=== PATIENT | male | born 1980 | race African-American/Black ===

== ENCOUNTER 2018-11-05 13:25 | Inpatient (IN) | payer SELFPAY ==
[~2018-11-05] VITALS: Ht 174 cm; Wt 78.9 kg
[2018-11-05] MEDS ORDERED: IV NORMAL SALINE 1000ML BAG 1,000 ML IV SCH (14:06)
[2018-11-05] MEDS ORDERED: ONDANSETRON PF 4 MG/2 ML VIAL. IV ONE (14:15)
[2018-11-05] MEDS: HYDROmorphone 2 MG/ML VIAL IV/SQ PRN ×2 (15:24→16:19)
[2018-11-05 15:33] LABS: BASO # 0.2 x10^3/uL (0.0-0.2); BASO % 1 % (0-3); EOS # 0.5 x10^3/uL (0.0-0.7); EOS % 4 % (0-3); HEMOGLOBIN 9.7 g/dL (13.0-17.5); LYMPH # 5.8 x10^3/uL (1.0-4.8); LYMPH % 42 % (24-48); MEAN CORPUSCULAR HEMOGLOBIN 31 pg (25-35); MEAN CORPUSCULAR HGB CONC 36 g/dL (31-37); MEAN CORPUSCULAR VOLUME 86 fL (79-100); MONO # 1.6 x10^3/uL (0.0-1.1); MONO % 12 % (0-9); NEUT # 5.7 x10^3/uL (1.8-7.7); NEUT % 41 % (31-73); PLATELET COUNT 299 x10^3/uL (140-400); RED BLOOD COUNT 3.14 x10^6/uL (4.30-5.70); RED CELL DISTRIBUTION WIDTH 28.3 % (11.5-14.5); WHITE BLOOD COUNT 13.8 x10^3/uL (4.0-11.0)
[2018-11-05 15:44] LABS: CALCIUM 8.6 mg/dL (8.5-10.1); CREATININE 0.9 mg/dL (0.7-1.3); GFR 114.3; POTASSIUM 4.1 mmol/L (3.5-5.1)
[2018-11-05 15:50] LABS: ALBUMIN 3.6 g/dL (3.4-5.0); ALBUMIN/GLOBULIN RATIO 1.1 (1.0-1.7)
[2018-11-05] MEDS: IV NORMAL SALINE 1000ML BAG 1,000 ML IV SCH ×3 (17:05→23:45)
--- NOTE | 2018-11-05 17:05 | PHYS DOC ---
Past Medical History Past Medical History: Sickle Cell Disease Past Surgical History: Other Additional Past Surgical Histo: L. SHOULDER AND BILATERAL HIP Alcohol Use: Occasionally Drug Use: None Adult General Chief Complaint Chief Complaint: PAIN CONTROL HPI HPI Patient is a 38-year-old male who presents with acute painful sickle cell crisis. He states that symptoms started yesterday and began in his shoulders and then today pain has moved into the legs and lower back as well. Patient states t hat these are typical areas for his crises. He denies any chest pain or shortness of breath. He also denies any headache or weakness. He rates pain at a 9 out of 10. He denies any nausea or vomiting. He also denies any diarrhea. Patient states that pain is improved by nothing. He does indicate that he has been taking his medications for pain at home but they have not helped with the pain.[] Review of Systems Review of Systems Constitutional: Denies fever or chills [] Respiratory: Denies cough or shortness of breath [] Cardiovascular: No additional information not addressed in HPI [] GI: Denies abdominal pain, nausea, vomiting or diarrhea [] Musculoskeletal: Complains of bilateral shoulder, bilateral leg and lower back pain [] Integument: Denies rash or skin lesions [] Neurologic: Denies headache, focal weakness or sensory changes [] All other systems were reviewed and found to be within normal limits, except as documented in this note. Current Medications Current Medications Current Medications Medications (Trade) Dose Ordered Sig/Shoshana Start Time Stop Time Status Last Admin Dose Admin Hydromorphone HCl (Dilaudid) 1 mg PRN Q15MIN PRN 11/05/18 14:15 11/06/18 14:14 11/05/18 16:19 1 MG Ondansetron HCl (Zofran) 4 mg 1X ONCE 11/05/18 14:15 11/05/18 14:16 DC 11/05/18 15:25 4 MG Sodium Chloride 1,000 ml @ 1,000 mls/hr Q1H 11/05/18 14:06 11/05/18 15:05 DC 11/05/18 15:24 1,000 MLS/HR Allergies Allergies Allergies Coded Allergies Type Severity Reaction Last Updated Verified Sulfa (Sulfonamide Antibiotics) Allergy Intermediate 11/05/18 Yes Physical Exam Physical Exam Constitutional: Well developed, well nourished, in mild distress, non-toxic appearance. [] HENT: Normocephalic, atraumatic, bilateral external ears normal, oropharynx moist, no oral exudates, nose normal. [] Eyes: PERRLA, EOMI, conjunctiva normal, no discharge. [] Neck: Normal range of motion, no tenderness, supple, no stridor. [] Cardiovascular: Regular rate and rhythm[] Lungs & Thorax: Bilateral breath sounds clear to auscultation [] Abdomen: Bowel sounds normal, soft, no tenderness. [] Skin: Warm, dry, no erythema, no rash. [] Extremities: No cyanosis, no clubbing, ROM intact, no edema. [] Neurologic: Alert and oriented X 3, no focal deficits noted. [] Current Patient Data Vital Signs Vital Signs Date Time Temp Pulse Resp B/P (MAP) Pulse Ox O2 Delivery O2 Flow Rate FiO2 11/05/18 16:19 16 97 Room Air 11/05/18 14:13 97.9 69 114/61 (78) 97.9 Lab Values Laboratory Tests Test 11/05/18 15:08 White Blood Count 13.8 x10^3/uL (4.0-11.0) H Red Blood Count 3.17 x10^6/uL (4.30-5.70) L Hemoglobin 9.7 g/dL (13.0-17.5) L Hematocrit 27.0 % (39.0-53.0) L Mean Corpuscular Volume 86 fL (79-100) Mean Corpuscular Hemoglobin 31 pg (25-35) Mean Corpuscular Hemoglobin Concent 36 g/dL (31-37) Red Cell Distribution Width 28.3 % (11.5-14.5) H Platelet Count 299 x10^3/uL (140-400) Neutrophils (%) (Auto) 41 % (31-73) Lymphocytes (%) (Auto) 42 % (24-48) Monocytes (%) (Auto) 12 % (0-9) H Eosinophils (%) (Auto) 4 % (0-3) H Basophils (%) (Auto) 1 % (0-3) Neutrophils # (Auto) 5.7 x10^3/uL (1.8-7.7) Lymphocytes # (Auto) 5.8 x10^3/uL (1.0-4.8) H Monocytes # (Auto) 1.6 x10^3/uL (0.0-1.1) H Eosinophils # (Auto) 0.5 x10^3/uL (0.0-0.7) Basophils # (Auto) 0.2 x10^3/uL (0.0-0.2) Platelet Estimate Pending Absolute Reticulocyte Count 0.415 x10^6/uL (0.020-0.120) Percent Reticulocyte Count 13.1 % (0.5-2.3) H Immature Reticulocyte Fraction 0.71 (0.20-0.60) H Sodium Level 139 mmol/L (136-145) Potassium Level 4.1 mmol/L (3.5-5.1) Chloride Level 107 mmol/L (98-107) Carbon Dioxide Level 24 mmol/L (21-32) Anion Gap 8 (6-14) Blood Urea Nitrogen 7 mg/dL (8-26) L Creatinine 0.9 mg/dL (0.7-1.3) Estimated GFR (Cockcroft-Gault) 114.3 BUN/Creatinine Ratio 8 (6-20) Glucose Level 103 mg/dL (70-99) H Calcium Level 8.6 mg/dL (8.5-10.1) Total Bilirubin 5.0 mg/dL (0.2-1.0) H Aspartate Amino Transferase (AST) 33 U/L (15-37) Alanine Aminotransferase (ALT) 18 U/L (16-63) Alkaline Phosphatase 87 U/L (46-116) Total Protein 7.0 g/dL (6.4-8.2) Albumin 3.6 g/dL (3.4-5.0) Albumin/Globulin Ratio 1.1 (1.0-1.7) Laboratory Tests 11/05/18 15:08 Laboratory Tests 11/05/18 15:08 EKG EKG [] Radiology/Procedures Radiology/Procedures [] Course & Med Decision Making Course & Med Decision Making Pertinent Labs and Imaging studies reviewed. (See chart for details) [] Dragon Disclaimer Dragon Disclaimer This electronic medical record was generated, in whole or in part, using a voice recognition dictation system. Departure Departure Impression: Primary Impression: Sickle cell crisis Disposition: ADMITTED INPATIENT Admitting Physician: MCKENNA (Dr. Termulo) Condition: IMPROVED Referrals: BISMARK MOTT MD (PCP) RONIT CASPER Jr. DO Nov 05, 2018 17:05
--- NOTE | 2018-11-05 17:10 | PDOC1 ---
History and Physical Date of Admission Date of Admission DATE: 11/05/18 TIME: 17:06 Identification/Chief Complaint Chief Complaint both hips and shoulder hurts, sickle cell pain Source Source: Caregiver, Chart review, Patient History of Present Illness History of Present Illness 38 AA male, known pt of Dr Glenys lu for sickle cell comes for a crisis with retic ct 13, pain both shoulder and hips, no hypoxia, not anemia, Ate good but still in pain recalcitrant to ER tx. NO prev admits here from [facility] records HE request benadryl IV for the itch HE takes dilaudid 2 mg PO q3 prn and percocet 10 q something prn at home FULL CODE seen at ER Past Medical History Heme/Onc: Anemia NOS, Sickle cell disease, Sickle cell trait Past Surgical History Past Surgical History: No pertinent history Family History Family History: No Significant Social History Smoke: No ALCOHOL: none Drugs: None Current Medications Current Medications Current Medications Hydromorphone HCl (Dilaudid) 1 mg PRN Q15MIN PRN IV/SQ PAIN GREATER THAN 3/10 Last administered on 11/05/18at 16:19; Start 11/05/18 at 14:15; Stop 11/06/18 at 14:14 Sodium Chloride 1,000 ml @ 1,000 mls/hr Q1H IV Last administered on 11/05/18at 15:24; Start 11/05/18 at 14:06; Stop 11/05/18 at 15:05; Status DC Ondansetron HCl (Zofran) 4 mg 1X ONCE IV Last administered on 11/05/18at 15:25; Start 11/05/18 at 14:15; Stop 11/05/18 at 14:16; Status DC Allergies Allergies: Coded Allergies: Sulfa (Sulfonamide Antibiotics) (Verified Allergy, Intermediate, 11/05/18) ROS Review of System as per hpi, rest 14 pt neg Physical Exam General: Alert, Oriented X3, Cooperative, No acute distress, Other (uncomfortable , in pain) HEENT: PERRLA, EOMI Lungs: Clear to auscultation, Normal air movement Heart: S1S2, RRR, no thrills, no rubs, no gallops, no murmurs Cardiovascular: S1, S2 Male Genitals Exam: normal genitalia, normal prostate Rectal Exam: not examined Extremities: No clubbing, No cyanosis, No edema, Normal pulses, No tenderness/swelling Skin: No rashes, No breakdown, No significant lesion Neuro: Normal gait, Normal speech, Strength at 5/5 X4 ext, Normal tone, Sensation intact, Cranial nerves 3-12 NL, Reflexes 2+ Psych/Mental Status: Mental status NL, Mood NL Vitals Vitals Vital Signs Date Time Temp Pulse Resp B/P (MAP) Pulse Ox O2 Delivery O2 Flow Rate FiO2 11/05/18 16:19 16 97 Room Air 11/05/18 14:13 97.9 69 114/61 (78) 97.9 Labs Labs Laboratory Tests Test 11/05/18 15:08 White Blood Count 13.8 x10^3/uL (4.0-11.0) Red Blood Count 3.17 x10^6/uL (4.30-5.70) Hemoglobin 9.7 g/dL (13.0-17.5) Hematocrit 27.0 % (39.0-53.0) Mean Corpuscular Volume 86 fL (79-100) Mean Corpuscular Hemoglobin 31 pg (25-35) Mean Corpuscular Hemoglobin Concent 36 g/dL (31-37) Red Cell Distribution Width 28.3 % (11.5-14.5) Platelet Count 299 x10^3/uL (140-400) Neutrophils (%) (Auto) 41 % (31-73) Lymphocytes (%) (Auto) 42 % (24-48) Monocytes (%) (Auto) 12 % (0-9) Eosinophils (%) (Auto) 4 % (0-3) Basophils (%) (Auto) 1 % (0-3) Neutrophils # (Auto) 5.7 x10^3/uL (1.8-7.7) Lymphocytes # (Auto) 5.8 x10^3/uL (1.0-4.8) Monocytes # (Auto) 1.6 x10^3/uL (0.0-1.1) Eosinophils # (Auto) 0.5 x10^3/uL (0.0-0.7) Basophils # (Auto) 0.2 x10^3/uL (0.0-0.2) Absolute Reticulocyte Count 0.415 x10^6/uL (0.020-0.120) Percent Reticulocyte Count 13.1 % (0.5-2.3) Immature Reticulocyte Fraction 0.71 (0.20-0.60) Sodium Level 139 mmol/L (136-145) Potassium Level 4.1 mmol/L (3.5-5.1) Chloride Level 107 mmol/L (98-107) Carbon Dioxide Level 24 mmol/L (21-32) Anion Gap 8 (6-14) Blood Urea Nitrogen 7 mg/dL (8-26) Creatinine 0.9 mg/dL (0.7-1.3) Estimated GFR (Cockcroft-Gault) 114.3 BUN/Creatinine Ratio 8 (6-20) Glucose Level 103 mg/dL (70-99) Calcium Level 8.6 mg/dL (8.5-10.1) Total Bilirubin 5.0 mg/dL (0.2-1.0) Aspartate Amino Transf (AST/SGOT) 33 U/L (15-37) Alanine Aminotransferase (ALT/SGPT) 18 U/L (16-63) Alkaline Phosphatase 87 U/L (46-116) Total Protein 7.0 g/dL (6.4-8.2) Albumin 3.6 g/dL (3.4-5.0) Albumin/Globulin Ratio 1.1 (1.0-1.7) Laboratory Tests Test 11/05/18 15:08 White Blood Count 13.8 x10^3/uL (4.0-11.0) Red Blood Count 3.17 x10^6/uL (4.30-5.70) Hemoglobin 9.7 g/dL (13.0-17.5) Hematocrit 27.0 % (39.0-53.0) Mean Corpuscular Volume 86 fL (79-100) Mean Corpuscular Hemoglobin 31 pg (25-35) Mean Corpuscular Hemoglobin Concent 36 g/dL (31-37) Red Cell Distribution Width 28.3 % (11.5-14.5) Platelet Count 299 x10^3/uL (140-400) Neutrophils (%) (Auto) 41 % (31-73) Lymphocytes (%) (Auto) 42 % (24-48) Monocytes (%) (Auto) 12 % (0-9) Eosinophils (%) (Auto) 4 % (0-3) Basophils (%) (Auto) 1 % (0-3) Neutrophils # (Auto) 5.7 x10^3/uL (1.8-7.7) Lymphocytes # (Auto) 5.8 x10^3/uL (1.0-4.8) Monocytes # (Auto) 1.6 x10^3/uL (0.0-1.1) Eosinophils # (Auto) 0.5 x10^3/uL (0.0-0.7) Basophils # (Auto) 0.2 x10^3/uL (0.0-0.2) Absolute Reticulocyte Count 0.415 x10^6/uL (0.020-0.120) Percent Reticulocyte Count 13.1 % (0.5-2.3) Immature Reticulocyte Fraction 0.71 (0.20-0.60) Sodium Level 139 mmol/L (136-145) Potassium Level 4.1 mmol/L (3.5-5.1) Chloride Level 107 mmol/L (98-107) Carbon Dioxide Level 24 mmol/L (21-32) Anion Gap 8 (6-14) Blood Urea Nitrogen 7 mg/dL (8-26) Creatinine 0.9 mg/dL (0.7-1.3) Estimated GFR (Cockcroft-Gault) 114.3 BUN/Creatinine Ratio 8 (6-20) Glucose Level 103 mg/dL (70-99) Calcium Level 8.6 mg/dL (8.5-10.1) Total Bilirubin 5.0 mg/dL (0.2-1.0) Aspartate Amino Transf (AST/SGOT) 33 U/L (15-37) Alanine Aminotransferase (ALT/SGPT) 18 U/L (16-63) Alkaline Phosphatase 87 U/L (46-116) Total Protein 7.0 g/dL (6.4-8.2) Albumin 3.6 g/dL (3.4-5.0) Albumin/Globulin Ratio 1.1 (1.0-1.7) VTE Prophylaxis Ordered VTE Prophylaxis Devices: Yes VTE Pharmacological Prophylaxi: Yes Assessment/Plan Assessment/Plan 1. Sickel cell crisis/pain\ PLAN: IVF aggressive hydrate NOt on any folate? etc HEme onc courtesy consult Pain control plus bowel regimen (i resumed home pain regimen) FUll code Reg diet BEnadryl ok Other supprotive meds Ambulate ad sandra Seen at ER FULL CODE CANDIDO MITCHELL MD Nov 05, 2018 17:10
[2018-11-05] MEDS ORDERED: HYDROmorphone 4 MG TABLET PO PRN (17:15)
[2018-11-05] MEDS ORDERED: ONDANSETRON PF 4 MG/2 ML VIAL. IVP PRN (17:15)
[2018-11-05] MEDS ORDERED: fentaNYL PF VIAL 100 MCG/2 ML VIAL IV PRN (17:15)
[2018-11-05] MEDS ORDERED: MAGNESIUM HYDROXIDE 2,400 MG/30 ML ORAL.SUSP. PO PRN (17:15)
[2018-11-05] MEDS ORDERED: ZOLPIDEM 5 MG TABLET. PO PRN (17:15)
[2018-11-05 19:00] VITALS: BP 107/56
[2018-11-05 19:13] LABS: % EOS 1 % (0-5); % LYMPHS 27 % (24-48); % MONOS 15 % (0-10); % SEGS 57 % (35-66); ANISOCYTOSIS MOD; PLT ESTIMATE ADEQUATE (ADEQUATE); POLYCHROMASIA SLIGHT; SCHISTOCYTES OCC; SICKLE CELLS MOD
[2018-11-05] MEDS: oxyCODONE/APAP 10/325 1 TAB TABLET PO PRN (19:37)
[2018-11-05] MEDS: diphenhydrAMINE 50 MG/ML VIAL IVP PRN (19:37)
--- NOTE | 2018-11-05 19:45 | NUR ---
ADMIT NOTE The patient, ANETA CASPER, 38 y/o, M admitted by CANDIDO MITCHELL MD, was given written information regarding hospital policies, unit procedures and contact persons. Report rcvd. from NADER Doty and patient orientated to unit. Patient's VSS, afebrile, with severe c/o pain upon admission. Patient admission assessment complete, admit packet reviewed, and plan of care discussed. Personal belongings were checked and left in room with patient. Patient declined SCDs at this time and is resting in bed, call light within reach and bed in lowest/locked position, will continue to monitor.
[2018-11-05] MEDS: HYDROmorphone 2 MG/ML VIAL IV PRN (21:06)
[2018-11-05 23:10] VITALS: BP 98/52
[2018-11-06] MEDS: oxyCODONE/APAP 10/325 1 TAB TABLET PO PRN ×2 (00:07→22:30)
[2018-11-06] MEDS: diphenhydrAMINE 50 MG/ML VIAL IVP PRN ×4 (02:00→20:46)
[2018-11-06] MEDS: IV NORMAL SALINE 1000ML BAG 1,000 ML IV SCH ×6 (02:00→19:55)
[2018-11-06] MEDS: HYDROmorphone 2 MG/ML VIAL IV PRN ×6 (02:01→23:16)
[2018-11-06 03:00] VITALS: BP 92/54
--- NOTE | 2018-11-06 05:55 | NUR ---
Patient requested pain medication, this nurse brought patient Oxycodone as it was the next available pain med that could be administered. after barcode scan and already opening the medication, patient decided the pain medication wasn't effective and refused administration. Patient stated, "This pill isn't working for me, when is my Dilaudid due?". This nurse informed patient of next available dose and medication wasted in [employer].
[2018-11-06 07:00] VITALS: BP 81/37
[2018-11-06] MEDS: DOCUSATE SODIUM 100 MG CAPSULE. PO SCH (09:00)
[2018-11-06] MEDS: POLYETHYLENE GLYCOL 3350 17 GM PACKET. PO SCH (09:00)
--- NOTE | 2018-11-06 09:47 | PDOC ---
PROGRESS NOTES Chief Complaint Chief Complaint 1. Sickel cell crisis/pain\ History of Present Illness History of Present Illness He has a left IJ and he iss having difficulties with it He requests a PICC line HE request more iV dilauid dose Lab did not draw my repeat H&H or retic ct because he is a hard stick Fluids are running at 1 50 mL an hour Hemoglobin is stable Claims he was seen by his heme onc Dr. Glenys Marques on Thursday Plan : PICC line, continue 1 50 mL saline H&H reticulocyte count I agree with PICC line because lab cannot even draw blood and I need blood work to help with my treatment Inc dilaudid to 2mgs,same freq Vitals Vitals Vital Signs Date Time Temp Pulse Resp B/P (MAP) Pulse Ox O2 Delivery O2 Flow Rate FiO2 11/06/18 07:00 97.8 71 20 81/37 (52) 92 Room Air 97.8 Physical Exam General: Alert, Oriented X3, Cooperative, No acute distress, Other (uncomfortable , in pain) Extremities: No clubbing, No cyanosis, No edema, Normal pulses, No tend erness/swelling Skin: No rashes, No breakdown, No significant lesion Labs LABS Laboratory Tests Test 11/05/18 15:08 White Blood Count 13.8 x10^3/uL (4.0-11.0) Red Blood Count 3.17 x10^6/uL (4.30-5.70) Hemoglobin 9.7 g/dL (13.0-17.5) Hematocrit 27.0 % (39.0-53.0) Mean Corpuscular Volume 86 fL (79-100) Mean Corpuscular Hemoglobin 31 pg (25-35) Mean Corpuscular Hemoglobin Concent 36 g/dL (31-37) Red Cell Distribution Width 28.3 % (11.5-14.5) Platelet Count 299 x10^3/uL (140-400) Neutrophils (%) (Auto) 41 % (31-73) Lymphocytes (%) (Auto) 42 % (24-48) Monocytes (%) (Auto) 12 % (0-9) Eosinophils (%) (Auto) 4 % (0-3) Basophils (%) (Auto) 1 % (0-3) Neutrophils # (Auto) 5.7 x10^3/uL (1.8-7.7) Lymphocytes # (Auto) 5.8 x10^3/uL (1.0-4.8) Monocytes # (Auto) 1.6 x10^3/uL (0.0-1.1) Eosinophils # (Auto) 0.5 x10^3/uL (0.0-0.7) Basophils # (Auto) 0.2 x10^3/uL (0.0-0.2) Segmented Neutrophils % 57 % (35-66) Lymphocytes % 27 % (24-48) Monocytes % 15 % (0-10) Eosinophils % 1 % (0-5) Platelet Estimate Adequate (ADEQUATE) Large Platelets Occ Polychromasia Slight Anisocytosis Mod Sickle Cells Mod Crenated Cell Schistocytes Occ Absolute Reticulocyte Count 0.415 x10^6/uL (0.020-0.120) Percent Reticulocyte Count 13.1 % (0.5-2.3) Immature Reticulocyte Fraction 0.71 (0.20-0.60) Sodium Level 139 mmol/L (136-145) Potassium Level 4.1 mmol/L (3.5-5.1) Chloride Level 107 mmol/L (98-107) Carbon Dioxide Level 24 mmol/L (21-32) Anion Gap 8 (6-14) Blood Urea Nitrogen 7 mg/dL (8-26) Creatinine 0.9 mg/dL (0.7-1.3) Estimated GFR (Cockcroft-Gault) 114.3 BUN/Creatinine Ratio 8 (6-20) Glucose Level 103 mg/dL (70-99) Calcium Level 8.6 mg/dL (8.5-10.1) Total Bilirubin 5.0 mg/dL (0.2-1.0) Aspartate Amino Transf (AST/SGOT) 33 U/L (15-37) Alanine Aminotransferase (ALT/SGPT) 18 U/L (16-63) Alkaline Phosphatase 87 U/L (46-116) Total Protein 7.0 g/dL (6.4-8.2) Albumin 3.6 g/dL (3.4-5.0) Albumin/Globulin Ratio 1.1 (1.0-1.7) Review of Systems Review of Systems bilateral hip pain, bilateral shoulder pain Comment Review of Relevant I have reviewed the following items jorge luis (where applicable) has been applied. Labs Laboratory Tests Test 11/05/18 15:08 White Blood Count 13.8 x10^3/uL (4.0-11.0) Red Blood Count 3.17 x10^6/uL (4.30-5.70) Hemoglobin 9.7 g/dL (13.0-17.5) Hematocrit 27.0 % (39.0-53.0) Mean Corpuscular Volume 86 fL (79-100) Mean Corpuscular Hemoglobin 31 pg (25-35) Mean Corpuscular Hemoglobin Concent 36 g/dL (31-37) Red Cell Distribution Width 28.3 % (11.5-14.5) Platelet Count 299 x10^3/uL (140-400) Neutrophils (%) (Auto) 41 % (31-73) Lymphocytes (%) (Auto) 42 % (24-48) Monocytes (%) (Auto) 12 % (0-9) Eosinophils (%) (Auto) 4 % (0-3) Basophils (%) (Auto) 1 % (0-3) Neutrophils # (Auto) 5.7 x10^3/uL (1.8-7.7) Lymphocytes # (Auto) 5.8 x10^3/uL (1.0-4.8) Monocytes # (Auto) 1.6 x10^3/uL (0.0-1.1) Eosinophils # (Auto) 0.5 x10^3/uL (0.0-0.7) Basophils # (Auto) 0.2 x10^3/uL (0.0-0.2) Segmented Neutrophils % 57 % (35-66) Lymphocytes % 27 % (24-48) Monocytes % 15 % (0-10) Eosinophils % 1 % (0-5) Platelet Estimate Adequate (ADEQUATE) Large Platelets Occ Polychromasia Slight Anisocytosis Mod Sickle Cells Mod Crenated Cell Schistocytes Occ Absolute Reticulocyte Count 0.415 x10^6/uL (0.020-0.120) Percent Reticulocyte Count 13.1 % (0.5-2.3) Immature Reticulocyte Fraction 0.71 (0.20-0.60) Sodium Level 139 mmol/L (136-145) Potassium Level 4.1 mmol/L (3.5-5.1) Chloride Level 107 mmol/L (98-107) Carbon Dioxide Level 24 mmol/L (21-32) Anion Gap 8 (6-14) Blood Urea Nitrogen 7 mg/dL (8-26) Creatinine 0.9 mg/dL (0.7-1.3) Estimated GFR (Cockcroft-Gault) 114.3 BUN/Creatinine Ratio 8 (6-20) Glucose Level 103 mg/dL (70-99) Calcium Level 8.6 mg/dL (8.5-10.1) Total Bilirubin 5.0 mg/dL (0.2-1.0) Aspartate Amino Transf (AST/SGOT) 33 U/L (15-37) Alanine Aminotransferase (ALT/SGPT) 18 U/L (16-63) Alkaline Phosphatase 87 U/L (46-116) Total Protein 7.0 g/dL (6.4-8.2) Albumin 3.6 g/dL (3.4-5.0) Albumin/Globulin Ratio 1.1 (1.0-1.7) Laboratory Tests Test 11/05/18 15:08 White Blood Count 13.8 x10^3/uL (4.0-11.0) Red Blood Count 3.17 x10^6/uL (4.30-5.70) Hemoglobin 9.7 g/dL (13.0-17.5) Hematocrit 27.0 % (39.0-53.0) Mean Corpuscular Volume 86 fL (79-100) Mean Corpuscular Hemoglobin 31 pg (25-35) Mean Corpuscular Hemoglobin Concent 36 g/dL (31-37) Red Cell Distribution Width 28.3 % (11.5-14.5) Platelet Count 299 x10^3/uL (140-400) Neutrophils (%) (Auto) 41 % (31-73) Lymphocytes (%) (Auto) 42 % (24-48) Monocytes (%) (Auto) 12 % (0-9) Eosinophils (%) (Auto) 4 % (0-3) Basophils (%) (Auto) 1 % (0-3) Neutrophils # (Auto) 5.7 x10^3/uL (1.8-7.7) Lymphocytes # (Auto) 5.8 x10^3/uL (1.0-4.8) Monocytes # (Auto) 1.6 x10^3/uL (0.0-1.1) Eosinophils # (Auto) 0.5 x10^3/uL (0.0-0.7) Basophils # (Auto) 0.2 x10^3/uL (0.0-0.2) Segmented Neutrophils % 57 % (35-66) Lymphocytes % 27 % (24-48) Monocytes % 15 % (0-10) Eosinophils % 1 % (0-5) Platelet Estimate Adequate (ADEQUATE) Large Platelets Occ Polychromasia Slight Anisocytosis Mod Sickle Cells Mod Crenated Cell Schistocytes Occ Absolute Reticulocyte Count 0.415 x10^6/uL (0.020-0.120) Percent Reticulocyte Count 13.1 % (0.5-2.3) Immature Reticulocyte Fraction 0.71 (0.20-0.60) Sodium Level 139 mmol/L (136-145) Potassium Level 4.1 mmol/L (3.5-5.1) Chloride Level 107 mmol/L (98-107) Carbon Dioxide Level 24 mmol/L (21-32) Anion Gap 8 (6-14) Blood Urea Nitrogen 7 mg/dL (8-26) Creatinine 0.9 mg/dL (0.7-1.3) Estimated GFR (Cockcroft-Gault) 114.3 BUN/Creatinine Ratio 8 (6-20) Glucose Level 103 mg/dL (70-99) Calcium Level 8.6 mg/dL (8.5-10.1) Total Bilirubin 5.0 mg/dL (0.2-1.0) Aspartate Amino Transf (AST/SGOT) 33 U/L (15-37) Alanine Aminotransferase (ALT/SGPT) 18 U/L (16-63) Alkaline Phosphatase 87 U/L (46-116) Total Protein 7.0 g/dL (6.4-8.2) Albumin 3.6 g/dL (3.4-5.0) Albumin/Globulin Ratio 1.1 (1.0-1.7) Medications Current Medications Hydromorphone HCl (Dilaudid) 1 mg PRN Q15MIN PRN IV/SQ PAIN GREATER THAN 3/10 Last administered on 11/05/18at 16:19; Start 11/05/18 at 14:15; Stop 11/06/18 at 14:14 Sodium Chloride 1,000 ml @ 1,000 mls/hr Q1H IV Last administered on 11/05/18at 15:24; Start 11/05/18 at 14:06; Stop 11/05/18 at 15:05; Status DC Ondansetron HCl (Zofran) 4 mg 1X ONCE IV Last administered on 11/05/18at 15:25; Start 11/05/18 at 14:15; Stop 11/05/18 at 14:16; Status DC Diphenhydramine HCl (Benadryl) 25 mg PRN Q6HRS PRN IVP ITCHING Last administered on 11/06/18at 08:04; Start 11/05/18 at 17:15 Zolpidem Tartrate (Ambien) 5 mg PRN QHS PRN PO INSOMNIA; Start 11/05/18 at 17:15 Oxycodone/ Acetaminophen (Percocet 10/325) 1 tab PRN Q4HRS PRN PO MODERATE PAIN Last administered on 11/06/18at 00:07; Start 11/05/18 at 17:15 Hydromorphone HCl (Dilaudid) 1 mg PRN Q4HRS PRN IV SEVERE PAIN Last administered on 11/06/18at 06:12; Start 11/05/18 at 17:15 Hydromorphone HCl (Dilaudid) 4 mg PRN Q4HRS PRN PO SEVERE PAIN; Start 11/05/18 at 17:15 Fentanyl Citrate (Fentanyl 2ml Vial) 50 mcg PRN Q2HR PRN IV MODERATE PAIN; Start 11/05/18 at 17:15 Docusate Sodium (Colace) 100 mg DAILY PO ; Start 11/06/18 at 09:00 Polyethylene Glycol (miraLAX PACKET) 17 gm DAILY PO ; Start 11/06/18 at 09:00 Magnesium Hydroxide (Milk Of Magnesia) 2,400 mg PRN DAILY PRN PO CONSTIPATION; Start 11/05/18 at 17:15 Acetaminophen (Tylenol) 500 mg PRN Q6HRS PRN PO MILD PAIN / TEMP; Start 11/05/18 at 17:15 Ondansetron HCl (Zofran) 4 mg PRN Q6HRS PRN IVP NAUSEA/VOMITING; Start 11/05/18 at 17:15 Sodium Chloride 1,000 ml @ 150 mls/hr Q6H40M IV ; Start 11/05/18 at 17:05; Stop 11/06/18 at 17:04 Sodium Chloride 1,000 ml @ 150 mls/hr Q6H40M IV Last administered on 11/06/18at 08:09; Start 11/05/18 at 17:15 Vitals/I & O Vital Sign - Last 24 Hours 11/05/18 11/05/18 11/05/18 11/05/18 14:13 15:24 16:16 16:16 Temp 97.9 97.9 Pulse 69 84 Resp 20 16 16 20 B/P (MAP) 114/61 (78) Pulse Ox 92 93 97 O2 Delivery Room Air Room Air Room Air 11/05/18 11/05/18 11/05/18 11/05/18 16:19 19:00 19:37 19:45 Temp 98.1 98.1 Pulse 76 Resp 16 18 16 B/P (MAP) 107/56 (73) Pulse Ox 97 93 O2 Delivery Room Air Room Air Room Air Room Air 11/05/18 11/05/18 11/05/18 11/05/18 21:06 21:09 21:40 23:10 Temp 97.4 97.4 Pulse 68 Resp 18 16 14 18 B/P (MAP) 98/52 (67) Pulse Ox 91 O2 Delivery Room Air Room Air Room Air Room Air 11/06/18 11/06/18 11/06/18 11/06/18 00:07 01:20 02:01 02:36 Resp 16 16 18 16 O2 Delivery Room Air Room Air Room Air Room Air 11/06/18 11/06/18 11/06/18 03:00 06:12 07:00 Temp 97.9 97.8 97.9 97.8 Pulse 65 71 Resp 20 16 20 B/P (MAP) 92/54 (67) 81/37 (52) Pulse Ox 90 92 O2 Delivery Room Air Room Air Room Air Intake and Output 11/05/18 11/05/18 11/06/18 15:00 23:00 07:00 Intake Total 540 ml 730 ml Balance 540 ml 730 ml CANDIDO MITCHELL MD Nov 06, 2018 09:47
--- NOTE | 2018-11-06 10:41 | PDOC2 ---
CONSULT Date of Consult Date of Consult DATE: 11/06/18 TIME: :28 Reason for Consult Reason for Consult: sickle cell crisis Identification/Chief Complaint Chief Complaint sickle cell crisis History of Present Illness Reason for Visit: sickle cell anemia, he began having problems about 2 years old, now has chronic back pain and joint pains Hemoglobin electrophoresis consistent with SS disease with 9% hemoglobin, has been on Hydrea intermittently Avascular necrosis with left shoulder surgery in 2007 and left shoulder inj ection in 2017, L shoulder replacement 03/30, w/ bilateral hip injection 05/28 History of UTI, depression and anxiety, BuSpar did not help (likes xanax, Dr Marques will not Rx) No longer in [facility], but has anklet on for probation Has been followed by [facility] for frequent ER visits and occasional hospitalization as well as [facility] Dr. Neo Borjas as an adult as well as [facility] and [facility] He does believe he has had acute chest syndrome in the past in 2002 He does not remember ever getting exchange transfusion, denies any history of VTE or arterial thrombosis Has had about 5 episodes of blood transfusions in the past Did have priapism a couple times as a teen Has mild crises about twice per month requiring frequent ER visits - just got out of last week Has been on Hydrea about 6-7 years in the past and recently restarted in October 2017, w/ intermittent compliance [facility] to Was seen yesterday in clinic by Dr Marques, who would not prescribe certain meds. So then yest afternoon went to [facility] with ongoing pain Past Medical History Heme/Onc: Anemia NOS, Sickle cell disease Past Surgical History Past Surgical History: No pertinent history Family History Family History: No Significant Social History No ALCOHOL: none Drugs: None Lives: with Family Current Medications Current Medications Current Medications Hydromorphone HCl (Dilaudid) 1 mg PRN Q15MIN PRN IV/SQ PAIN GREATER THAN 3/10 Last administered on 11/05/18at 16:19; Start 11/05/18 at 14:15; Stop 11/06/18 at 14:14 Sodium Chloride 1,000 ml @ 1,000 mls/hr Q1H IV Last administered on 11/05/18at 15:24; Start 11/05/18 at 14:06; Stop 11/05/18 at 15:05; Status DC Ondansetron HCl (Zofran) 4 mg 1X ONCE IV Last administered on 11/05/18at 15:25; Start 11/05/18 at 14:15; Stop 11/05/18 at 14:16; Status DC Diphenhydramine HCl (Benadryl) 25 mg PRN Q6HRS PRN IVP ITCHING Last administered on 11/06/18at 08:04; Start 11/05/18 at 17:15 Zolpidem Tartrate (Ambien) 5 mg PRN QHS PRN PO INSOMNIA; Start 11/05/18 at 17:15 Oxycodone/ Acetaminophen (Percocet 10/325) 1 tab PRN Q4HRS PRN PO MODERATE PAIN Last administered on 11/06/18at 00:07; Start 11/05/18 at 17:15 Hydromorphone HCl (Dilaudid) 1 mg PRN Q4HRS PRN IV SEVERE PAIN Last administered on 11/06/18at 06:12; Start 11/05/18 at 17:15; Stop 11/06/18 at 09:48; Status DC Hydromorphone HCl (Dilaudid) 4 mg PRN Q4HRS PRN PO SEVERE PAIN; Start 11/05/18 at 17:15 Fentanyl Citrate (Fentanyl 2ml Vial) 50 mcg PRN Q2HR PRN IV MODERATE PAIN; Start 11/05/18 at 17:15 Docusate Sodium (Colace) 100 mg DAILY PO ; Start 11/06/18 at 09:00 Polyethylene Glycol (miraLAX PACKET) 17 gm DAILY PO ; Start 11/06/18 at 09:00 Magnesium Hydroxide (Milk Of Magnesia) 2,400 mg PRN DAILY PRN PO CONSTIPATION; Start 11/05/18 at 17:15 Acetaminophen (Tylenol) 500 mg PRN Q6HRS PRN PO MILD PAIN / TEMP; Start 11/05/18 at 17:15 Ondansetron HCl (Zofran) 4 mg PRN Q6HRS PRN IVP NAUSEA/VOMITING; Start 11/05/18 at 17:15 Sodium Chloride 1,000 ml @ 150 mls/hr Q6H40M IV ; Start 11/05/18 at 17:05; Stop 11/06/18 at 17:04 Sodium Chloride 1,000 ml @ 150 mls/hr Q6H40M IV Last administered on 11/06/18at 08:09; Start 11/05/18 at 17:15 Hydromorphone HCl (Dilaudid) 2 mg PRN Q4HRS PRN IV SEVERE PAIN; Start 11/06/18 at 10:00 Allergies Allergies: Coded Allergies: Sulfa (Sulfonamide Antibiotics) (Verified Allergy, Intermediate, 11/05/18) Physical Exam General: Alert, Oriented X3, No acute distress HEENT: Atraumatic, PERRLA Lungs: Clear to auscultation Heart: Regular rate Abdomen: Normal bowel sounds, No hepatosplenomegaly Extremities: No edema, No tenderness/swelling Skin: No rashes, No breakdown, No significant lesion Neuro: Normal gait, Normal speech, Normal tone Psych/Mental Status: Mental status NL Vitals VITALS Vital Signs Date Time Temp Pulse Resp B/P (MAP) Pulse Ox O2 Delivery O2 Flow Rate FiO2 11/06/18 07:00 97.8 71 20 81/37 (52) 92 Room Air 97.8 Labs Labs Laboratory Tests Test 11/05/18 15:08 White Blood Count 13.8 x10^3/uL (4.0-11.0) Red Blood Count 3.17 x10^6/uL (4.30-5.70) Hemoglobin 9.7 g/dL (13.0-17.5) Hematocrit 27.0 % (39.0-53.0) Mean Corpuscular Volume 86 fL (79-100) Mean Corpuscular Hemoglobin 31 pg (25-35) Mean Corpuscular Hemoglobin Concent 36 g/dL (31-37) Red Cell Distribution Width 28.3 % (11.5-14.5) Platelet Count 299 x10^3/uL (140-400) Neutrophils (%) (Auto) 41 % (31-73) Lymphocytes (%) (Auto) 42 % (24-48) Monocytes (%) (Auto) 12 % (0-9) Eosinophils (%) (Auto) 4 % (0-3) Basophils (%) (Auto) 1 % (0-3) Neutrophils # (Auto) 5.7 x10^3/uL (1.8-7.7) Lymphocytes # (Auto) 5.8 x10^3/uL (1.0-4.8) Monocytes # (Auto) 1.6 x10^3/uL (0.0-1.1) Eosinophils # (Auto) 0.5 x10^3/uL (0.0-0.7) Basophils # (Auto) 0.2 x10^3/uL (0.0-0.2) Segmented Neutrophils % 57 % (35-66) Lymphocytes % 27 % (24-48) Monocytes % 15 % (0-10) Eosinophils % 1 % (0-5) Platelet Estimate Adequate (ADEQUATE) Large Platelets Occ Polychromasia Slight Anisocytosis Mod Sickle Cells Mod Crenated Cell Schistocytes Occ Absolute Reticulocyte Count 0.415 x10^6/uL (0.020-0.120) Percent Reticulocyte Count 13.1 % (0.5-2.3) Immature Reticulocyte Fraction 0.71 (0.20-0.60) Sodium Level 139 mmol/L (136-145) Potassium Level 4.1 mmol/L (3.5-5.1) Chloride Level 107 mmol/L (98-107) Carbon Dioxide Level 24 mmol/L (21-32) Anion Gap 8 (6-14) Blood Urea Nitrogen 7 mg/dL (8-26) Creatinine 0.9 mg/dL (0.7-1.3) Estimated GFR (Cockcroft-Gault) 114.3 BUN/Creatinine Ratio 8 (6-20) Glucose Level 103 mg/dL (70-99) Calcium Level 8.6 mg/dL (8.5-10.1) Total Bilirubin 5.0 mg/dL (0.2-1.0) Aspartate Amino Transf (AST/SGOT) 33 U/L (15-37) Alanine Aminotransferase (ALT/SGPT) 18 U/L (16-63) Alkaline Phosphatase 87 U/L (46-116) Total Protein 7.0 g/dL (6.4-8.2) Albumin 3.6 g/dL (3.4-5.0) Albumin/Globulin Ratio 1.1 (1.0-1.7) Laboratory Tests Test 11/05/18 15:08 White Blood Count 13.8 x10^3/uL (4.0-11.0) Red Blood Count 3.17 x10^6/uL (4.30-5.70) Hemoglobin 9.7 g/dL (13.0-17.5) Hematocrit 27.0 % (39.0-53.0) Mean Corpuscular Volume 86 fL (79-100) Mean Corpuscular Hemoglobin 31 pg (25-35) Mean Corpuscular Hemoglobin Concent 36 g/dL (31-37) Red Cell Distribution Width 28.3 % (11.5-14.5) Platelet Count 299 x10^3/uL (140-400) Neutrophils (%) (Auto) 41 % (31-73) Lymphocytes (%) (Auto) 42 % (24-48) Monocytes (%) (Auto) 12 % (0-9) Eosinophils (%) (Auto) 4 % (0-3) Basophils (%) (Auto) 1 % (0-3) Neutrophils # (Auto) 5.7 x10^3/uL (1.8-7.7) Lymphocytes # (Auto) 5.8 x10^3/uL (1.0-4.8) Monocytes # (Auto) 1.6 x10^3/uL (0.0-1.1) Eosinophils # (Auto) 0.5 x10^3/uL (0.0-0.7) Basophils # (Auto) 0.2 x10^3/uL (0.0-0.2) Segmented Neutrophils % 57 % (35-66) Lymphocytes % 27 % (24-48) Monocytes % 15 % (0-10) Eosinophils % 1 % (0-5) Platelet Estimate Adequate (ADEQUATE) Large Platelets Occ Polychromasia Slight Anisocytosis Mod Sickle Cells Mod Crenated Cell Schistocytes Occ Absolute Reticulocyte Count 0.415 x10^6/uL (0.020-0.120) Percent Reticulocyte Count 13.1 % (0.5-2.3) Immature Reticulocyte Fraction 0.71 (0.20-0.60) Sodium Level 139 mmol/L (136-145) Potassium Level 4.1 mmol/L (3.5-5.1) Chloride Level 107 mmol/L (98-107) Carbon Dioxide Level 24 mmol/L (21-32) Anion Gap 8 (6-14) Blood Urea Nitrogen 7 mg/dL (8-26) Creatinine 0.9 mg/dL (0.7-1.3) Estimated GFR (Cockcroft-Gault) 114.3 BUN/Creatinine Ratio 8 (6-20) Glucose Level 103 mg/dL (70-99) Calcium Level 8.6 mg/dL (8.5-10.1) Total Bilirubin 5.0 mg/dL (0.2-1.0) Aspartate Amino Transf (AST/SGOT) 33 U/L (15-37) Alanine Aminotransferase (ALT/SGPT) 18 U/L (16-63) Alkaline Phosphatase 87 U/L (46-116) Total Protein 7.0 g/dL (6.4-8.2) Albumin 3.6 g/dL (3.4-5.0) Albumin/Globulin Ratio 1.1 (1.0-1.7) Images Images No CXR done yet Assessment/Plan Assessment/Plan 38 yo M c sickle cell disease here with acute pain crisis Continue aggressive IV hydration (warmer the fluids the better as cold is one of his triggers), IV pain meds prn, but add oxygen 2L/min as well to help oxygen delivery Ordered the following as well" --Hydrea 1000 mg daily �folic acid 1 mg daily �Calcium and vitamin D twice daily �Multivitamin Check 2-view CXR to make sure lungs look clear He thinks he will need a couple more days to stabilize. Call with any further questions. Javier, cell [phone] JONATHAN MARTINEZ MD Nov 06, 2018 10:40
[2018-11-06 11:00] VITALS: BP 89/52
[2018-11-06] MEDS: FOLIC ACID 1 MG TABLET. PO SCH (12:41)
[2018-11-06] MEDS: MULTIVITAMIN with MINERAL TABLET. PO SCH (12:41)
[2018-11-06] MEDS: HYDROXYUREA 500 MG CAPSULE PO SCH (12:47)
--- NOTE | 2018-11-06 14:24 | RAD ---
EXAM: Chest, 2 views. HISTORY: Hypoxia. Sickle cell crisis. COMPARISON: 08/09/2018. FINDINGS: 2 views the chest are obtained. Evaluation is limited due to artifact overlying the right chest wall. There is no convincing infiltrate, pleural effusion or pneumothorax. The heart is normal in size. There is a left shoulder arthroplasty. IMPRESSION: Limited evaluation for right lung infiltrate due to overlying artifact. There is no convincing acute pulmonary finding. Electronically signed by: Jeanne Saldivar MD (11/06/2018 2:20 PM) [facility]
[2018-11-06 15:00] VITALS: BP 101/63
[2018-11-06] MEDS: CALCIUM CARB/VIT D3 500/200 TABLET. PO SCH (17:00)
[2018-11-06 19:00] VITALS: BP 91/44
[2018-11-07] MEDS: diphenhydrAMINE 50 MG/ML VIAL IVP PRN ×4 (02:37→22:40)
[2018-11-07] MEDS: IV NORMAL SALINE 1000ML BAG 1,000 ML IV SCH ×4 (03:02→20:34)
[2018-11-07] MEDS: HYDROmorphone 2 MG/ML VIAL IV PRN ×4 (03:03→20:51)
[2018-11-07] MEDS: oxyCODONE/APAP 10/325 1 TAB TABLET PO PRN ×4 (03:03→20:10)
[2018-11-07 07:18] VITALS: BP 118/46
[2018-11-07] MEDS: DOCUSATE SODIUM 100 MG CAPSULE. PO SCH (07:23)
[2018-11-07] MEDS: FOLIC ACID 1 MG TABLET. PO SCH (07:24)
[2018-11-07] MEDS: MULTIVITAMIN with MINERAL TABLET. PO SCH (07:30)
[2018-11-07] MEDS: CALCIUM CARB/VIT D3 500/200 TABLET. PO SCH ×2 (07:30→16:50)
[2018-11-07] MEDS: HYDROXYUREA 500 MG CAPSULE PO SCH (07:30)
[2018-11-07] MEDS: POLYETHYLENE GLYCOL 3350 17 GM PACKET. PO SCH (07:30)
[2018-11-07 11:00] VITALS: BP 93/53
--- NOTE | 2018-11-07 12:14 | PDOC ---
PROGRESS NOTES Chief Complaint Chief Complaint 1. Sickel cell crisis/pain\ History of Present Illness History of Present Illness He has lost his left IJ - hard stick, our only access I ordered pICC thursday but that unfortunately did not happen NOW i dont have labs, he has not gotten IV pain meds and iVF and he is pissed with the care/his course heme onc note reveiwed, started on folate and hydroxyurea HIs retic on admission was borderline high HE complains of hip pain, bilateral shoulder pain/chest pain CXR is reassuring Plan : PICC line today, anesthesia stick to ankle - something.... continue 150 mL saline H&H reticulocyte count when we get a line I agree with PICC line because lab cannot even draw blood and I need blood work to help with my treatment Inc dilaudid to 2mgs,same freq IM dilaudid x 1 only - since no access HE AGREES TO HIS VS BEING TAKEN, dw him Can dc home once retic is not high HE TAKES DILAUDID 4 mgs PO at home and PERCOCET, both of which i have renewed on admission VERy helpful Heme onc note by DR Herrera, was admitted not too long ago at for the same,.. Vitals Vitals Vital Signs Date Time Temp Pulse Resp B/P (MAP) Pulse Ox O2 Delivery O2 Flow Rate FiO2 11/07/18 08:25 Room Air 11/07/18 07:18 98.1 92 16 118/46 (70) 93 98.1 11/07/18 03:33 2.0 Physical Exam General: Alert, Oriented X3, No acute distress Heart: Regular rate Abdomen: Normal bowel sounds, No hepatosplenomegaly Extremities: No edema, No tenderness/swelling Skin: No rashes, No breakdown, No significant lesion Review of Systems Review of Systems pain all over, shoulders, chest, bilateral hips Comment Review of Relevant I have reviewed the following items jorge luis (where applicable) has been applied. Labs Laboratory Tests Test 11/05/18 15:08 White Blood Count 13.8 x10^3/uL (4.0-11.0) Red Blood Count 3.17 x10^6/uL (4.30-5.70) Hemoglobin 9.7 g/dL (13.0-17.5) Hematocrit 27.0 % (39.0-53.0) Mean Corpuscular Volume 86 fL (79-100) Mean Corpuscular Hemoglobin 31 pg (25-35) Mean Corpuscular Hemoglobin Concent 36 g/dL (31-37) Red Cell Distribution Width 28.3 % (11.5-14.5) Platelet Count 299 x10^3/uL (140-400) Neutrophils (%) (Auto) 41 % (31-73) Lymphocytes (%) (Auto) 42 % (24-48) Monocytes (%) (Auto) 12 % (0-9) Eosinophils (%) (Auto) 4 % (0-3) Basophils (%) (Auto) 1 % (0-3) Neutrophils # (Auto) 5.7 x10^3/uL (1.8-7.7) Lymphocytes # (Auto) 5.8 x10^3/uL (1.0-4.8) Monocytes # (Auto) 1.6 x10^3/uL (0.0-1.1) Eosinophils # (Auto) 0.5 x10^3/uL (0.0-0.7) Basophils # (Auto) 0.2 x10^3/uL (0.0-0.2) Segmented Neutrophils % 57 % (35-66) Lymphocytes % 27 % (24-48) Monocytes % 15 % (0-10) Eosinophils % 1 % (0-5) Platelet Estimate Adequate (ADEQUATE) Large Platelets Occ Polychromasia Slight Anisocytosis Mod Sickle Cells Mod Crenated Cell Schistocytes Occ Absolute Reticulocyte Count 0.415 x10^6/uL (0.020-0.120) Percent Reticulocyte Count 13.1 % (0.5-2.3) Immature Reticulocyte Fraction 0.71 (0.20-0.60) Sodium Level 139 mmol/L (136-145) Potassium Level 4.1 mmol/L (3.5-5.1) Chloride Level 107 mmol/L (98-107) Carbon Dioxide Level 24 mmol/L (21-32) Anion Gap 8 (6-14) Blood Urea Nitrogen 7 mg/dL (8-26) Creatinine 0.9 mg/dL (0.7-1.3) Estimated GFR (Cockcroft-Gault) 114.3 BUN/Creatinine Ratio 8 (6-20) Glucose Level 103 mg/dL (70-99) Calcium Level 8.6 mg/dL (8.5-10.1) Total Bilirubin 5.0 mg/dL (0.2-1.0) Aspartate Amino Transf (AST/SGOT) 33 U/L (15-37) Alanine Aminotransferase (ALT/SGPT) 18 U/L (16-63) Alkaline Phosphatase 87 U/L (46-116) Total Protein 7.0 g/dL (6.4-8.2) Albumin 3.6 g/dL (3.4-5.0) Albumin/Globulin Ratio 1.1 (1.0-1.7) Medications Current Medications Hydromorphone HCl (Dilaudid) 1 mg PRN Q15MIN PRN IV/SQ PAIN GREATER THAN 3/10 Last administered on 11/05/18at 16:19; Start 11/05/18 at 14:15; Stop 11/06/18 at 14:14; Status DC Sodium Chloride 1,000 ml @ 1,000 mls/hr Q1H IV Last administered on 11/05/18at 15:24; Start 11/05/18 at 14:06; Stop 11/05/18 at 15:05; Status DC Ondansetron HCl (Zofran) 4 mg 1X ONCE IV Last administered on 11/05/18at 15:25; Start 11/05/18 at 14:15; Stop 11/05/18 at 14:16; Status DC Diphenhydramine HCl (Benadryl) 25 mg PRN Q6HRS PRN IVP ITCHING Last administered on 11/07/18at 08:42; Start 11/05/18 at 17:15 Zolpidem Tartrate (Ambien) 5 mg PRN QHS PRN PO INSOMNIA; Start 11/05/18 at 17:15 Oxycodone/ Acetaminophen (Percocet 10/325) 1 tab PRN Q4HRS PRN PO MODERATE PAIN Last administered on 11/07/18at 07:24; Start 11/05/18 at 17:15 Hydromorphone HCl (Dilaudid) 1 mg PRN Q4HRS PRN IV SEVERE PAIN Last administered on 11/06/18at 06:12; Start 11/05/18 at 17:15; Stop 11/06/18 at 09:48; Status DC Hydromorphone HCl (Dilaudid) 4 mg PRN Q4HRS PRN PO SEVERE PAIN; Start 11/05/18 at 17:15 Fentanyl Citrate (Fentanyl 2ml Vial) 50 mcg PRN Q2HR PRN IV MODERATE PAIN; Start 11/05/18 at 17:15 Docusate Sodium (Colace) 100 mg DAILY PO Last administered on 11/07/18at 07:23; Start 11/06/18 at 09:00 Polyethylene Glycol (miraLAX PACKET) 17 gm DAILY PO ; Start 11/06/18 at 09:00 Magnesium Hydroxide (Milk Of Magnesia) 2,400 mg PRN DAILY PRN PO CONSTIPATION; Start 11/05/18 at 17:15 Acetaminophen (Tylenol) 500 mg PRN Q6HRS PRN PO MILD PAIN / TEMP; Start 11/05/18 at 17:15 Ondansetron HCl (Zofran) 4 mg PRN Q6HRS PRN IVP NAUSEA/VOMITING; Start 11/05/18 at 17:15 Sodium Chloride 1,000 ml @ 150 mls/hr Q6H40M IV ; Start 11/05/18 at 17:05; Stop 11/06/18 at 17:04; Status DC Sodium Chloride 1,000 ml @ 150 mls/hr Q6H40M IV Last administered on 11/07/18at 07:31; Start 11/05/18 at 17:15 Hydromorphone HCl (Dilaudid) 2 mg PRN Q4HRS PRN IV SEVERE PAIN Last administered on 11/07/18at 07:24; Start 11/06/18 at 10:00 Folic Acid (Folic Acid) 1 mg DAILY PO Last administered on 11/07/18at 07:24; Start 11/06/18 at 12:00 Multivitamins (Thera M Plus) 1 tab DAILY PO Last administered on 11/06/18at 12:41; Start 11/06/18 at 11:00 Hydroxyurea (Hydrea) 1,000 mg DAILY PO Last administered on 11/07/18at 07:30; Start 11/06/18 at 11:00 Calcium/Vitamin D (Oscal D 500mg/ 200uts) 1 tab BIDWMEALS PO ; Start 11/06/18 at 17:00 Vitals/I & O Vital Sign - Last 24 Hours 11/06/18 11/06/18 11/06/18 11/06/18 14:37 15:00 15:07 19:00 Temp 98.2 98.7 98.2 98.7 Pulse 77 82 Resp 16 18 B/P (MAP) 101/63 (76) 91/44 (60) Pulse Ox 94 93 O2 Delivery Room Air Room Air Room Air Room Air 11/06/18 11/06/18 11/06/18 11/06/18 19:16 19:46 19:55 22:30 O2 Delivery Room Air Room Air Room Air Room Air 11/06/18 11/06/18 11/06/18 11/07/18 23:16 23:30 23:46 03:03 O2 Delivery Room Air Room Air Room Air Room Air 11/07/18 11/07/18 11/07/18 11/07/18 03:03 03:33 04:03 07:18 Temp 98.1 98.1 Pulse 92 Resp 16 B/P (MAP) 118/46 (70) Pulse Ox 93 93 O2 Delivery Room Air Room Air Room Air Room Air O2 Flow Rate 2.0 11/07/18 11/07/18 11/07/18 11/07/18 07:24 07:24 07:55 08:00 O2 Delivery Room Air Room Air Room Air Room Air 11/07/18 08:25 O2 Delivery Room Air Intake and Output 11/06/18 11/06/18 11/07/18 14:59 22:59 06:59 Intake Total 400 ml 1100 ml Output Total 1000 ml 1700 ml Balance -600 ml -600 ml CANDIDO MITCHELL MD Nov 07, 2018 12:14
[2018-11-07] MEDS ORDERED: HYDROmorphone 2 MG/ML VIAL IM ONE (12:15)
[2018-11-07 15:00] VITALS: BP 106/65
--- NOTE | 2018-11-07 16:36 | RAD ---
EXAM: Chest, single view. HISTORY: PICC placement. COMPARISON: 11/06/2018 FINDINGS: A frontal view of the chest is obtained. There is a right PICC with the tip in the superior vena cava or superior cavoatrial junction. Evaluation for lung infiltrate is limited due to overlying artifact. No consolidation, pleural effusion or pneumothorax is seen. The heart is normal in size. There is a left shoulder arthroplasty. There may be avascular necrosis involving the right humeral head. IMPRESSION: Right PICC with the tip in the superior vena cava or superior cavoatrial junction. Limited evaluation for infiltrate due to overlying hair artifact. Electronically signed by: Jeanne Saldivar MD (11/07/2018 4:33 PM) [facility]
[2018-11-07 17:05] LABS: HEMATOCRIT 27.5 % (39.0-53.0); HEMOGLOBIN 9.9 g/dL (13.0-17.5)
[2018-11-07 20:41] VITALS: BP 95/59
[2018-11-07 23:00] VITALS: BP 89/47
[2018-11-07 23:40] LABS: BILIRUBIN,URINE NEGATIVE (NEG); CLARITY,URINE CLEAR; COLOR,URINE YELLOW; NITRITE,URINE NEGATIVE (NEG); PROTEIN,URINE NEGATIVE (NEG-TRACE)
[2018-11-07 23:45] LABS: BACTERIA,URINE 0 /HPF (0-FEW); RBC,URINE 0 /HPF (0-2); SQUAMOUS EPITHELIAL CELL,UR FEW /LPF
[2018-11-08] MEDS: HYDROmorphone 2 MG/ML VIAL IV PRN ×6 (00:37→21:41)
[2018-11-08] MEDS: diphenhydrAMINE 50 MG/ML VIAL IVP PRN ×4 (04:49→23:21)
[2018-11-08] MEDS: IV NORMAL SALINE 1000ML BAG 1,000 ML IV SCH ×3 (04:54→17:12)
[2018-11-08 07:00] VITALS: BP 91/56
[2018-11-08] MEDS: CALCIUM CARB/VIT D3 500/200 TABLET. PO SCH ×2 (08:00→17:00)
--- NOTE | 2018-11-08 08:14 | PDOC ---
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 Asking for benadryl, dilaudid. Initially refused oxycodone, advised this will help cover his baseline pain better. No SOB or CP today Plan : continue 150 mL saline Dilaudid to 2mgs,same freq Can dc home once retic is not high Vitals Vitals Vital Signs Date Time Temp Pulse Resp B/P (MAP) Pulse Ox O2 Delivery O2 Flow Rate FiO2 11/08/18 05:20 Room Air 11/08/18 03:38 18 11/07/18 23:00 98.7 93 89/47 (61) 93 98.7 Physical Exam General: Alert, Oriented X3, No acute distress Heart: Regular rate Abdomen: Normal bowel sounds, No hepatosplenomegaly Extremities: No edema, No tenderness/swelling Skin: No rashes, No breakdown, No significant lesion Labs LABS Laboratory Tests Test 11/07/18 17:00 11/07/18 23:00 Red Blood Count 3.15 x10^6/uL (4.30-5.70) Hemoglobin 9.9 g/dL (13.0-17.5) Hematocrit 27.5 % (39.0-53.0) Mean Corpuscular Hemoglobin Concent 36 g/dL (31-37) Absolute Reticulocyte Count 0.441 x10^6/uL (0.020-0.120) Percent Reticulocyte Count 14.0 % (0.5-2.3) Immature Reticulocyte Fraction 0.73 (0.20-0.60) Urine Collection Type Unknown Urine Color Yellow Urine Clarity Clear Urine pH 7.0 Urine Specific [place] 1.010 Urine Protein Negative mg/dL (NEG-TRACE) Urine Glucose (UA) Negative mg/dL (NEG) Urine Ketones (Stick) Negative mg/dL (NEG) Urine Blood Negative (NEG) Urine Nitrite Negative (NEG) Urine Bilirubin Negative (NEG) Urine Urobilinogen Dipstick 2.0 mg/dL (0.2 mg/dL) Urine Leukocyte Esterase Trace (NEG) Urine RBC 0 /HPF (0-2) Urine WBC 1-4 /HPF (0-4) Urine Squamous Epithelial Cells Few /LPF Urine Bacteria 0 /HPF (0-FEW) Comment Review of Relevant I have reviewed the following items jorge luis (where applicable) has been applied. Labs Laboratory Tests Test 11/07/18 17:00 11/07/18 23:00 Red Blood Count 3.15 x10^6/uL (4.30-5.70) Hemoglobin 9.9 g/dL (13.0-17.5) Hematocrit 27.5 % (39.0-53.0) Mean Corpuscular Hemoglobin Concent 36 g/dL (31-37) Absolute Reticulocyte Count 0.441 x10^6/uL (0.020-0.120) Percent Reticulocyte Count 14.0 % (0.5-2.3) Immature Reticulocyte Fraction 0.73 (0.20-0.60) Urine Collection Type Unknown Urine Color Yellow Urine Clarity Clear Urine pH 7.0 Urine Specific [place] 1.010 Urine Protein Negative mg/dL (NEG-TRACE) Urine Glucose (UA) Negative mg/dL (NEG) Urine Ketones (Stick) Negative mg/dL (NEG) Urine Blood Negative (NEG) Urine Nitrite Negative (NEG) Urine Bilirubin Negative (NEG) Urine Urobilinogen Dipstick 2.0 mg/dL (0.2 mg/dL) Urine Leukocyte Esterase Trace (NEG) Urine RBC 0 /HPF (0-2) Urine WBC 1-4 /HPF (0-4) Urine Squamous Epithelial Cells Few /LPF Urine Bacteria 0 /HPF (0-FEW) Laboratory Tests Test 11/07/18 17:00 11/07/18 23:00 Red Blood Count 3.15 x10^6/uL (4.30-5.70) Hemoglobin 9.9 g/dL (13.0-17.5) Hematocrit 27.5 % (39.0-53.0) Mean Corpuscular Hemoglobin Concent 36 g/dL (31-37) Absolute Reticulocyte Count 0.441 x10^6/uL (0.020-0.120) Percent Reticulocyte Count 14.0 % (0.5-2.3) Immature Reticulocyte Fraction 0.73 (0.20-0.60) Urine Collection Type Unknown Urine Color Yellow Urine Clarity Clear Urine pH 7.0 Urine Specific [place] 1.010 Urine Protein Negative mg/dL (NEG-TRACE) Urine Glucose (UA) Negative mg/dL (NEG) Urine Ketones (Stick) Negative mg/dL (NEG) Urine Blood Negative (NEG) Urine Nitrite Negative (NEG) Urine Bilirubin Negative (NEG) Urine Urobilinogen Dipstick 2.0 mg/dL (0.2 mg/dL) Urine Leukocyte Esterase Trace (NEG) Urine RBC 0 /HPF (0-2) Urine WBC 1-4 /HPF (0-4) Urine Squamous Epithelial Cells Few /LPF Urine Bacteria 0 /HPF (0-FEW) Medications Current Medications Hydromorphone HCl (Dilaudid) 1 mg PRN Q15MIN PRN IV/SQ PAIN GREATER THAN 3/10 Last administered on 11/05/18at 16:19; Start 11/05/18 at 14:15; Stop 11/06/18 at 14:14; Status DC Sodium Chloride 1,000 ml @ 1,000 mls/hr Q1H IV Last administered on 11/05/18at 15:24; Start 11/05/18 at 14:06; Stop 11/05/18 at 15:05; Status DC Ondansetron HCl (Zofran) 4 mg 1X ONCE IV Last administered on 11/05/18at 15:25; Start 11/05/18 at 14:15; Stop 11/05/18 at 14:16; Status DC Diphenhydramine HCl (Benadryl) 25 mg PRN Q6HRS PRN IVP ITCHING Last administered on 11/08/18at 04:49; Start 11/05/18 at 17:15 Zolpidem Tartrate (Ambien) 5 mg PRN QHS PRN PO INSOMNIA; Start 11/05/18 at 17:15 Oxycodone/ Acetaminophen (Percocet 10/325) 1 tab PRN Q4HRS PRN PO MODERATE PAIN Last administered on 11/07/18at 20:10; Start 11/05/18 at 17:15 Hydromorphone HCl (Dilaudid) 1 mg PRN Q4HRS PRN IV SEVERE PAIN Last administered on 11/06/18at 06:12; Start 11/05/18 at 17:15; Stop 11/06/18 at 09:48; Status DC Hydromorphone HCl (Dilaudid) 4 mg PRN Q4HRS PRN PO SEVERE PAIN; Start 11/05/18 at 17:15 Fentanyl Citrate (Fentanyl 2ml Vial) 50 mcg PRN Q2HR PRN IV MODERATE PAIN 1ST CHOICE; Start 11/05/18 at 17:15 Docusate Sodium (Colace) 100 mg DAILY PO Last administered on 11/07/18at 07:23; Start 11/06/18 at 09:00 Polyethylene Glycol (miraLAX PACKET) 17 gm DAILY PO ; Start 11/06/18 at 09:00 Magnesium Hydroxide (Milk Of Magnesia) 2,400 mg PRN DAILY PRN PO CONSTIPATION; Start 11/05/18 at 17:15 Acetaminophen (Tylenol) 500 mg PRN Q6HRS PRN PO MILD PAIN / TEMP; Start 11/05/18 at 17:15 Ondansetron HCl (Zofran) 4 mg PRN Q6HRS PRN IVP NAUSEA/VOMITING; Start 11/05/18 at 17:15 Sodium Chloride 1,000 ml @ 150 mls/hr Q6H40M IV ; Start 11/05/18 at 17:05; Stop 11/06/18 at 17:04; Status DC Sodium Chloride 1,000 ml @ 150 mls/hr Q6H40M IV Last administered on 11/07/18at 20:34; Start 11/05/18 at 17:15 Hydromorphone HCl (Dilaudid) 2 mg PRN Q4HRS PRN IV MODERATE PAIN 2ND CHOICE Last administered on 11/08/18at 04:49; Start 11/06/18 at 10:00 Folic Acid (Folic Acid) 1 mg DAILY PO Last administered on 11/07/18at 07:24; Start 11/06/18 at 12:00 Multivitamins (Thera M Plus) 1 tab DAILY PO Last administered on 11/06/18at 12:41; Start 11/06/18 at 11:00 Hydroxyurea (Hydrea) 1,000 mg DAILY PO Last administered on 11/07/18at 07:30; Start 11/06/18 at 11:00 Calcium/Vitamin D (Oscal D 500mg/ 200uts) 1 tab BIDWMEALS PO ; Start 11/06/18 at 17:00 Hydromorphone HCl (Dilaudid) 2 mg 1X ONCE IM Last administered on 11/07/18at 12:52; Start 11/07/18 at 12:15; Stop 11/07/18 at 12:19; Status DC Vitals/I & O Vital Sign - Last 24 Hours 11/07/18 11/07/18 11/07/18 11/07/18 08:25 11:00 12:52 13:22 Temp 98.9 98.9 Pulse 75 Resp 14 B/P (MAP) 93/53 (66) Pulse Ox 94 O2 Delivery Room Air Room Air Room Air Room Air 11/07/18 11/07/18 11/07/18 11/07/18 15:00 16:48 17:18 19:27 Temp 98.4 98.4 Pulse 85 Resp 16 B/P (MAP) 106/65 (79) Pulse Ox 95 O2 Delivery Room Air Room Air Room Air Room Air 11/07/18 11/07/18 11/07/18 11/07/18 20:10 20:41 20:51 21:10 Temp 98.3 98.3 Pulse 79 Resp 20 B/P (MAP) 95/59 (71) Pulse Ox 93 93 O2 Delivery Room Air Room Air Room Air Room Air 11/07/18 11/07/18 11/08/18 11/08/18 21:10 23:00 00:37 01:07 Temp 98.7 98.7 Pulse 93 Resp 18 B/P (MAP) 89/47 (61) Pulse Ox 93 O2 Delivery Room Air Room Air Room Air Room Air 11/08/18 11/08/18 11/08/18 03:38 04:49 05:20 Resp 18 O2 Delivery Room Air Room Air Intake and Output 11/07/18 11/07/18 11/08/18 15:00 23:00 07:00 Intake Total 700 ml 300 ml Output Total 2200 ml 1300 ml Balance -1500 ml -1000 ml HUNTER SHARMA MD Nov 08, 2018 08:14
[2018-11-08] MEDS: FOLIC ACID 1 MG TABLET. PO SCH (08:51)
[2018-11-08] MEDS: DOCUSATE SODIUM 100 MG CAPSULE. PO SCH (08:51)
[2018-11-08] MEDS: POLYETHYLENE GLYCOL 3350 17 GM PACKET. PO SCH (08:52)
[2018-11-08] MEDS: MULTIVITAMIN with MINERAL TABLET. PO SCH (08:53)
[2018-11-08] MEDS: HYDROXYUREA 500 MG CAPSULE PO SCH (08:59)
--- NOTE | 2018-11-08 10:00 | PDOC ---
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 On thursday he told me po dilaudid was not helping so we gave percocet 10/325 for prn use, and for anxiety, he wanted Xanax, I don't give Xanax for anxiety, I did recommend Cymbalta to help with the mood and the pain, he doesn't want this at this time, we did talk about increasing Hydrea, and adding endari, continuing on folate, and following up with ortho regarding his AVN, he recently saw orthopedics inpatient at . pain crisis: Continue aggressive IV hydration, IV pain meds prn, can add oxygen 2L/min as well to help oxygen delivery, cont HU, folate, ca/D, MV, CXR w/o infiltrate, I recommended he take his fentanyl IV, as he tells me he's only been taking his Dilaudid IV dispo: after clinical improvement prophylaxis: recommended for DVT prophylaxis Thank you kindly and please do not hesitate to call with questions. OBJECTIVE Vital Signs Vital Signs Date Time Temp Pulse Resp B/P (MAP) Pulse Ox O2 Delivery O2 Flow Rate FiO2 11/08/18 08:52 Room Air 11/08/18 07:00 98.2 86 18 91/56 (68) 94 Room Air 98.2 11/08/18 05:20 Room Air 11/08/18 04:49 Room Air 11/08/18 03:38 18 11/08/18 01:07 Room Air 11/08/18 00:37 Room Air 11/07/18 23:00 98.7 93 18 89/47 (61) 93 Room Air 98.7 11/07/18 21:10 Room Air 11/07/18 21:10 Room Air 11/07/18 20:51 93 Room Air 11/07/18 20:41 98.3 79 20 95/59 (71) 93 Room Air 98.3 11/07/18 20:10 Room Air 11/07/18 19:27 Room Air 11/07/18 17:18 Room Air 11/07/18 16:48 Room Air 11/07/18 15:00 98.4 85 16 106/65 (79) 95 Room Air 98.4 11/07/18 13:22 Room Air 11/07/18 12:52 Room Air 11/07/18 11:00 98.9 75 14 93/53 (66) 94 Room Air 98.9 I & O Intake and Output0 11/08/18 07:00 Intake Total 1000 ml Output Total 3500 ml Balance -2500 ml Intake Oral 1000 ml Output Urine Total 3500 ml COMMENT Lab Laboratory Tests Test 11/07/18 17:00 11/07/18 23:00 Red Blood Count 3.15 x10^6/uL (4.30-5.70) Hemoglobin 9.9 g/dL (13.0-17.5) Hematocrit 27.5 % (39.0-53.0) Mean Corpuscular Hemoglobin Concent 36 g/dL (31-37) Absolute Reticulocyte Count 0.441 x10^6/uL (0.020-0.120) Percent Reticulocyte Count 14.0 % (0.5-2.3) Immature Reticulocyte Fraction 0.73 (0.20-0.60) Urine Collection Type Unknown Urine Color Yellow Urine Clarity Clear Urine pH 7.0 Urine Specific [place] 1.010 Urine Protein Negative mg/dL (NEG-TRACE) Urine Glucose (UA) Negative mg/dL (NEG) Urine Ketones (Stick) Negative mg/dL (NEG) Urine Blood Negative (NEG) Urine Nitrite Negative (NEG) Urine Bilirubin Negative (NEG) Urine Urobilinogen Dipstick 2.0 mg/dL (0.2 mg/dL) Urine Leukocyte Esterase Trace (NEG) Urine RBC 0 /HPF (0-2) Urine WBC 1-4 /HPF (0-4) Urine Squamous Epithelial Cells Few /LPF Urine Bacteria 0 /HPF (0-FEW) BISMARK MOTT MD Nov 08, 2018 10:00
[2018-11-08 10:43] LABS: BASO # 0.1 x10^3/uL (0.0-0.2); BASO % 1 % (0-3); EOS # 0.8 x10^3/uL (0.0-0.7); EOS % 6 % (0-3); HEMATOCRIT 28.5 % (39.0-53.0); HEMOGLOBIN 9.9 g/dL (13.0-17.5); LYMPH # 3.1 x10^3/uL (1.0-4.8); LYMPH % 24 % (24-48); MEAN CORPUSCULAR HEMOGLOBIN 30 pg (25-35); MEAN CORPUSCULAR HGB CONC 35 g/dL (31-37); MEAN CORPUSCULAR VOLUME 87 fL (79-100); MONO # 1.6 x10^3/uL (0.0-1.1); MONO % 12 % (0-9); NEUT # 7.4 x10^3/uL (1.8-7.7); NEUT % 57 % (31-73); PLATELET COUNT 295 x10^3/uL (140-400); RED BLOOD COUNT 3.27 x10^6/uL (4.30-5.70); WHITE BLOOD COUNT 13.1 x10^3/uL (4.0-11.0)
[2018-11-08 10:45] LABS: ALBUMIN 3.2 g/dL (3.4-5.0); ALBUMIN/GLOBULIN RATIO 1.1 (1.0-1.7); CALCIUM 8.8 mg/dL (8.5-10.1); CREATININE 0.8 mg/dL (0.7-1.3); GFR 130.9; POTASSIUM 4.6 mmol/L (3.5-5.1); TOTAL BILIRUBIN 3.9 mg/dL (0.2-1.0); TOTAL PROTEIN 6.2 g/dL (6.4-8.2)
[2018-11-08 11:00] VITALS: BP 90/44
[2018-11-08 15:00] VITALS: BP 100/61
[2018-11-08] MEDS: ENOXAPARIN 40 MG/0.4 ML SYRINGE. SQ SCH (15:00)
--- NOTE | 2018-11-08 16:19 | NUR ---
SS following for discharge planning. SS reviewed pt chart. Pt is self pay pt. [facility] following for self pay status. Pt is from home and is currently on room air. SS will continue to follow for discharge planning.
[2018-11-08 19:00] VITALS: BP 98/56
[2018-11-09] MEDS: HYDROmorphone 2 MG/ML VIAL IV PRN ×2 (01:37→05:43)
[2018-11-09] MEDS: IV NORMAL SALINE 1000ML BAG 1,000 ML IV SCH ×3 (01:43→15:56)
[2018-11-09 03:00] VITALS: BP 94/53
[2018-11-09] MEDS: diphenhydrAMINE 50 MG/ML VIAL IVP PRN ×3 (05:42→17:55)
[2018-11-09 07:00] VITALS: BP 104/50
[2018-11-09 07:46] LABS: BASO # 0.1 x10^3/uL (0.0-0.2); BASO % 1 % (0-3); EOS # 0.7 x10^3/uL (0.0-0.7); EOS % 6 % (0-3); HEMATOCRIT 27.9 % (39.0-53.0); HEMOGLOBIN 9.8 g/dL (13.0-17.5); LYMPH # 3.5 x10^3/uL (1.0-4.8); LYMPH % 29 % (24-48); MEAN CORPUSCULAR HEMOGLOBIN 31 pg (25-35); MEAN CORPUSCULAR HGB CONC 35 g/dL (31-37); MEAN CORPUSCULAR VOLUME 88 fL (79-100); MONO # 1.5 x10^3/uL (0.0-1.1); MONO % 13 % (0-9); NEUT # 6.4 x10^3/uL (1.8-7.7); NEUT % 52 % (31-73); PLATELET COUNT 253 x10^3/uL (140-400); RED BLOOD COUNT 3.17 x10^6/uL (4.30-5.70); RED CELL DISTRIBUTION WIDTH 28.1 % (11.5-14.5); WHITE BLOOD COUNT 12.3 x10^3/uL (4.0-11.0)
[2018-11-09] MEDS: CALCIUM CARB/VIT D3 500/200 TABLET. PO SCH ×2 (08:00→17:00)
--- NOTE | 2018-11-09 08:39 | NUR ---
Patient expressing upset over his IV pain medication availability, stating "the doctor that was just in here told me I could have it every 2 hours". I did explain the doctor that was just in was the motion study engineer and not the doctor that is ordering the pain medication. I gave him options to change from IV pain meds to oral, but patient refused and also refused to take any of his scheduled meds until he could have his IV pain meds.
--- NOTE | 2018-11-09 08:42 | PDOC ---
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 On thursday he told me po dilaudid was not helping so we gave percocet 10/325 for prn use, and for anxiety, he wanted Xanax, I don't give Xanax for anxiety, I did recommend Cymbalta to help with the mood and the pain, he doesn't want this at this time, we did talk about increasing Hydrea, and adding endari, continuing on folate, and following up with ortho regarding his AVN, he recently saw orthopedics inpatient at . In since Thu w/ acute crisis. pain crisis: Continue aggressive IV hydration, IV pain meds prn (will schedule dilaudid 4 q4, can dec as soon as good pain control, has prn po dilaudid and percocet 10/325, i do encourage him to take these if not enough control w/ the IV), cont HU, folate, ca/D, MV, CXR w/o infiltrate dispo: after clinical improvement prophylaxis: lovenox for DVT prophylaxis Thank you kindly and please do not hesitate to call with questions. OBJECTIVE Vital Signs Vital Signs Date Time Temp Pulse Resp B/P (MAP) Pulse Ox O2 Delivery O2 Flow Rate FiO2 11/09/18 07:00 98.4 104 16 104/50 (68) 92 Room Air 98.4 11/09/18 06:13 93 Room Air 2.0 11/09/18 05:43 93 Room Air 2.0 11/09/18 03:00 98.0 86 16 94/53 (67) 93 Room Air 98.0 11/09/18 02:07 93 Room Air 11/09/18 01:37 93 Room Air 2.0 11/08/18 22:11 93 Room Air 2.0 11/08/18 21:41 93 Room Air 11/08/18 20:00 Room Air 11/08/18 19:00 98.3 86 16 98/56 (70) 93 Room Air 98.3 11/08/18 17:45 Room Air 11/08/18 17:12 Room Air 11/08/18 15:00 98.1 94 18 100/61 (74) 93 Room Air 98.1 11/08/18 13:21 Room Air 11/08/18 12:51 Room Air 11/08/18 11:00 98.5 88 18 90/44 (59) 92 Room Air 98.5 11/08/18 09:22 Room Air 11/08/18 08:52 Room Air I & O Intake and Output 11/09/18 06:59 Intake Total 1100 ml Output Total 2525 ml Balance -1425 ml Intake Oral 1100 ml Output Urine Total 2525 ml COMMENT Lab Laboratory Tests Test 11/08/18 10:20 11/09/18 07:11 White Blood Count 13.1 x10^3/uL (4.0-11.0) 12.3 x10^3/uL (4.0-11.0) Red Blood Count 3.27 x10^6/uL (4.30-5.70) 3.18 x10^6/uL (4.30-5.70) Hemoglobin 9.9 g/dL (13.0-17.5) 9.8 g/dL (13.0-17.5) Hematocrit 28.5 % (39.0-53.0) 27.9 % (39.0-53.0) Mean Corpuscular Volume 87 fL (79-100) 88 fL (79-100) Mean Corpuscular Hemoglobin 30 pg (25-35) 31 pg (25-35) Mean Corpuscular Hemoglobin Concent 35 g/dL (31-37) 35 g/dL (31-37) Red Cell Distribution Width 29.0 % (11.5-14.5) 28.1 % (11.5-14.5) Platelet Count 295 x10^3/uL (140-400) 253 x10^3/uL (140-400) Neutrophils (%) (Auto) 57 % (31-73) 52 % (31-73) Lymphocytes (%) (Auto) 24 % (24-48) 29 % (24-48) Monocytes (%) (Auto) 12 % (0-9) 13 % (0-9) Eosinophils (%) (Auto) 6 % (0-3) 6 % (0-3) Basophils (%) (Auto) 1 % (0-3) 1 % (0-3) Neutrophils # (Auto) 7.4 x10^3/uL (1.8-7.7) 6.4 x10^3/uL (1.8-7.7) Lymphocytes # (Auto) 3.1 x10^3/uL (1.0-4.8) 3.5 x10^3/uL (1.0-4.8) Monocytes # (Auto) 1.6 x10^3/uL (0.0-1.1) 1.5 x10^3/uL (0.0-1.1) Eosinophils # (Auto) 0.8 x10^3/uL (0.0-0.7) 0.7 x10^3/uL (0.0-0.7) Basophils # (Auto) 0.1 x10^3/uL (0.0-0.2) 0.1 x10^3/uL (0.0-0.2) Sodium Level 143 mmol/L (136-145) Potassium Level 4.6 mmol/L (3.5-5.1) Chloride Level 108 mmol/L (98-107) Carbon Dioxide Level 27 mmol/L (21-32) Anion Gap 8 (6-14) Blood Urea Nitrogen 7 mg/dL (8-26) Creatinine 0.8 mg/dL (0.7-1.3) Estimated GFR (Cockcroft-Gault) 130.9 BUN/Creatinine Ratio 9 (6-20) Glucose Level 101 mg/dL (70-99) Calcium Level 8.8 mg/dL (8.5-10.1) Total Bilirubin 3.9 mg/dL (0.2-1.0) Aspartate Amino Transf (AST/SGOT) 34 U/L (15-37) Alanine Aminotransferase (ALT/SGPT) 19 U/L (16-63) Alkaline Phosphatase 76 U/L (46-116) Total Protein 6.2 g/dL (6.4-8.2) Albumin 3.2 g/dL (3.4-5.0) Albumin/Globulin Ratio 1.1 (1.0-1.7) Absolute Reticulocyte Count 0.428 x10^6/uL (0.020-0.120) Percent Reticulocyte Count 13.4 % (0.5-2.3) Immature Reticulocyte Fraction 0.69 (0.20-0.60) BISMARK MOTT MD Nov 09, 2018 08:42
--- NOTE | 2018-11-09 08:52 | PDOC ---
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 Asking for benadryl, dilaudid. Initially refused oxycodone, advised this will help cover his baseline pain better. No SOB or CP today. Heme/onc has increased dilaudid dosing to 4mg Q4hrs to better control his pain crisis Plan : continue 150 mL saline Dilaudid to 4mgs, q4hrs. Will d/c and transition to PO only once through crisis. Can dc home once retic is not high Vitals Vitals Vital Signs Date Time Temp Pulse Resp B/P (MAP) Pulse Ox O2 Delivery O2 Flow Rate FiO2 11/09/18 07:00 98.4 104 16 104/50 (68) 92 Room Air 98.4 11/09/18 06:13 2.0 Physical Exam General: Alert, Oriented X3, No acute distress Heart: Regular rate Abdomen: Normal bowel sounds, No hepatosplenomegaly Extremities: No edema, No tenderness/swelling Skin: No rashes, No breakdown, No significant lesion Labs LABS Laboratory Tests Test 11/08/18 10:20 11/09/18 07:11 White Blood Count 13.1 x10^3/uL (4.0-11.0) 12.3 x10^3/uL (4.0-11.0) Red Blood Count 3.27 x10^6/uL (4.30-5.70) 3.18 x10^6/uL (4.30-5.70) Hemoglobin 9.9 g/dL (13.0-17.5) 9.8 g/dL (13.0-17.5) Hematocrit 28.5 % (39.0-53.0) 27.9 % (39.0-53.0) Mean Corpuscular Volume 87 fL (79-100) 88 fL (79-100) Mean Corpuscular Hemoglobin 30 pg (25-35) 31 pg (25-35) Mean Corpuscular Hemoglobin Concent 35 g/dL (31-37) 35 g/dL (31-37) Red Cell Distribution Width 29.0 % (11.5-14.5) 28.1 % (11.5-14.5) Platelet Count 295 x10^3/uL (140-400) 253 x10^3/uL (140-400) Neutrophils (%) (Auto) 57 % (31-73) 52 % (31-73) Lymphocytes (%) (Auto) 24 % (24-48) 29 % (24-48) Monocytes (%) (Auto) 12 % (0-9) 13 % (0-9) Eosinophils (%) (Auto) 6 % (0-3) 6 % (0-3) Basophils (%) (Auto) 1 % (0-3) 1 % (0-3) Neutrophils # (Auto) 7.4 x10^3/uL (1.8-7.7) 6.4 x10^3/uL (1.8-7.7) Lymphocytes # (Auto) 3.1 x10^3/uL (1.0-4.8) 3.5 x10^3/uL (1.0-4.8) Monocytes # (Auto) 1.6 x10^3/uL (0.0-1.1) 1.5 x10^3/uL (0.0-1.1) Eosinophils # (Auto) 0.8 x10^3/uL (0.0-0.7) 0.7 x10^3/uL (0.0-0.7) Basophils # (Auto) 0.1 x10^3/uL (0.0-0.2) 0.1 x10^3/uL (0.0-0.2) Sodium Level 143 mmol/L (136-145) Potassium Level 4.6 mmol/L (3.5-5.1) Chloride Level 108 mmol/L (98-107) Carbon Dioxide Level 27 mmol/L (21-32) Anion Gap 8 (6-14) Blood Urea Nitrogen 7 mg/dL (8-26) Creatinine 0.8 mg/dL (0.7-1.3) Estimated GFR (Cockcroft-Gault) 130.9 BUN/Creatinine Ratio 9 (6-20) Glucose Level 101 mg/dL (70-99) Calcium Level 8.8 mg/dL (8.5-10.1) Total Bilirubin 3.9 mg/dL (0.2-1.0) Aspartate Amino Transf (AST/SGOT) 34 U/L (15-37) Alanine Aminotransferase (ALT/SGPT) 19 U/L (16-63) Alkaline Phosphatase 76 U/L (46-116) Total Protein 6.2 g/dL (6.4-8.2) Albumin 3.2 g/dL (3.4-5.0) Albumin/Globulin Ratio 1.1 (1.0-1.7) Absolute Reticulocyte Count 0.428 x10^6/uL (0.020-0.120) Percent Reticulocyte Count 13.4 % (0.5-2.3) Immature Reticulocyte Fraction 0.69 (0.20-0.60) Comment Review of Relevant I have reviewed the following items jorge luis (where applicable) has been applied. Labs Laboratory Tests Test 11/07/18 17:00 11/07/18 23:00 11/08/18 10:20 11/09/18 07:11 Red Blood Count 3.15 x10^6/uL (4.30-5.70) 3.27 x10^6/uL (4.30-5.70) 3.18 x10^6/uL (4.30-5.70) Hemoglobin 9.9 g/dL (13.0-17.5) 9.9 g/dL (13.0-17.5) 9.8 g/dL (13.0-17.5) Hematocrit 27.5 % (39.0-53.0) 28.5 % (39.0-53.0) 27.9 % (39.0-53.0) Mean Corpuscular Hemoglobin Concent 36 g/dL (31-37) 35 g/dL (31-37) 35 g/dL (31-37) Absolute Reticulocyte Count 0.441 x10^6/uL (0.020-0.120) 0.428 x10^6/uL (0.020-0.120) Percent Reticulocyte Count 14.0 % (0.5-2.3) 13.4 % (0.5-2.3) Immature Reticulocyte Fraction 0.73 (0.20-0.60) 0.69 (0.20-0.60) Urine Collection Type Unknown Urine Color Yellow Urine Clarity Clear Urine pH 7.0 Urine Specific [place] 1.010 Urine Protein Negative mg/dL (NEG-TRACE) Urine Glucose (UA) Negative mg/dL (NEG) Urine Ketones (Stick) Negative mg/dL (NEG) Urine Blood Negative (NEG) Urine Nitrite Negative (NEG) Urine Bilirubin Negative (NEG) Urine Urobilinogen Dipstick 2.0 mg/dL (0.2 mg/dL) Urine Leukocyte Esterase Trace (NEG) Urine RBC 0 /HPF (0-2) Urine WBC 1-4 /HPF (0-4) Urine Squamous Epithelial Cells Few /LPF Urine Bacteria 0 /HPF (0-FEW) White Blood Count 13.1 x10^3/uL (4.0-11.0) 12.3 x10^3/uL (4.0-11.0) Mean Corpuscular Volume 87 fL (79-100) 88 fL (79-100) Mean Corpuscular Hemoglobin 30 pg (25-35) 31 pg (25-35) Red Cell Distribution Width 29.0 % (11.5-14.5) 28.1 % (11.5-14.5) Platelet Count 295 x10^3/uL (140-400) 253 x10^3/uL (140-400) Neutrophils (%) (Auto) 57 % (31-73) 52 % (31-73) Lymphocytes (%) (Auto) 24 % (24-48) 29 % (24-48) Monocytes (%) (Auto) 12 % (0-9) 13 % (0-9) Eosinophils (%) (Auto) 6 % (0-3) 6 % (0-3) Basophils (%) (Auto) 1 % (0-3) 1 % (0-3) Neutrophils # (Auto) 7.4 x10^3/uL (1.8-7.7) 6.4 x10^3/uL (1.8-7.7) Lymphocytes # (Auto) 3.1 x10^3/uL (1.0-4.8) 3.5 x10^3/uL (1.0-4.8) Monocytes # (Auto) 1.6 x10^3/uL (0.0-1.1) 1.5 x10^3/uL (0.0-1.1) Eosinophils # (Auto) 0.8 x10^3/uL (0.0-0.7) 0.7 x10^3/uL (0.0-0.7) Basophils # (Auto) 0.1 x10^3/uL (0.0-0.2) 0.1 x10^3/uL (0.0-0.2) Sodium Level 143 mmol/L (136-145) Potassium Level 4.6 mmol/L (3.5-5.1) Chloride Level 108 mmol/L (98-107) Carbon Dioxide Level 27 mmol/L (21-32) Anion Gap 8 (6-14) Blood Urea Nitrogen 7 mg/dL (8-26) Creatinine 0.8 mg/dL (0.7-1.3) Estimated GFR (Cockcroft-Gault) 130.9 BUN/Creatinine Ratio 9 (6-20) Glucose Level 101 mg/dL (70-99) Calcium Level 8.8 mg/dL (8.5-10.1) Total Bilirubin 3.9 mg/dL (0.2-1.0) Aspartate Amino Transf (AST/SGOT) 34 U/L (15-37) Alanine Aminotransferase (ALT/SGPT) 19 U/L (16-63) Alkaline Phosphatase 76 U/L (46-116) Total Protein 6.2 g/dL (6.4-8.2) Albumin 3.2 g/dL (3.4-5.0) Albumin/Globulin Ratio 1.1 (1.0-1.7) Laboratory Tests Test 11/08/18 10:20 11/09/18 07:11 White Blood Count 13.1 x10^3/uL (4.0-11.0) 12.3 x10^3/uL (4.0-11.0) Red Blood Count 3.27 x10^6/uL (4.30-5.70) 3.18 x10^6/uL (4.30-5.70) Hemoglobin 9.9 g/dL (13.0-17.5) 9.8 g/dL (13.0-17.5) Hematocrit 28.5 % (39.0-53.0) 27.9 % (39.0-53.0) Mean Corpuscular Volume 87 fL (79-100) 88 fL (79-100) Mean Corpuscular Hemoglobin 30 pg (25-35) 31 pg (25-35) Mean Corpuscular Hemoglobin Concent 35 g/dL (31-37) 35 g/dL (31-37) Red Cell Distribution Width 29.0 % (11.5-14.5) 28.1 % (11.5-14.5) Platelet Count 295 x10^3/uL (140-400) 253 x10^3/uL (140-400) Neutrophils (%) (Auto) 57 % (31-73) 52 % (31-73) Lymphocytes (%) (Auto) 24 % (24-48) 29 % (24-48) Monocytes (%) (Auto) 12 % (0-9) 13 % (0-9) Eosinophils (%) (Auto) 6 % (0-3) 6 % (0-3) Basophils (%) (Auto) 1 % (0-3) 1 % (0-3) Neutrophils # (Auto) 7.4 x10^3/uL (1.8-7.7) 6.4 x10^3/uL (1.8-7.7) Lymphocytes # (Auto) 3.1 x10^3/uL (1.0-4.8) 3.5 x10^3/uL (1.0-4.8) Monocytes # (Auto) 1.6 x10^3/uL (0.0-1.1) 1.5 x10^3/uL (0.0-1.1) Eosinophils # (Auto) 0.8 x10^3/uL (0.0-0.7) 0.7 x10^3/uL (0.0-0.7) Basophils # (Auto) 0.1 x10^3/uL (0.0-0.2) 0.1 x10^3/uL (0.0-0.2) Sodium Level 143 mmol/L (136-145) Potassium Level 4.6 mmol/L (3.5-5.1) Chloride Level 108 mmol/L (98-107) Carbon Dioxide Level 27 mmol/L (21-32) Anion Gap 8 (6-14) Blood Urea Nitrogen 7 mg/dL (8-26) Creatinine 0.8 mg/dL (0.7-1.3) Estimated GFR (Cockcroft-Gault) 130.9 BUN/Creatinine Ratio 9 (6-20) Glucose Level 101 mg/dL (70-99) Calcium Level 8.8 mg/dL (8.5-10.1) Total Bilirubin 3.9 mg/dL (0.2-1.0) Aspartate Amino Transf (AST/SGOT) 34 U/L (15-37) Alanine Aminotransferase (ALT/SGPT) 19 U/L (16-63) Alkaline Phosphatase 76 U/L (46-116) Total Protein 6.2 g/dL (6.4-8.2) Albumin 3.2 g/dL (3.4-5.0) Albumin/Globulin Ratio 1.1 (1.0-1.7) Absolute Reticulocyte Count 0.428 x10^6/uL (0.020-0.120) Percent Reticulocyte Count 13.4 % (0.5-2.3) Immature Reticulocyte Fraction 0.69 (0.20-0.60) Medications Current Medications Hydromorphone HCl (Dilaudid) 1 mg PRN Q15MIN PRN IV/SQ PAIN GREATER THAN 3/10 Last administered on 11/05/18at 16:19; Start 11/05/18 at 14:15; Stop 11/06/18 at 14:14; Status DC Sodium Chloride 1,000 ml @ 1,000 mls/hr Q1H IV Last administered on 11/05/18at 15:24; Start 11/05/18 at 14:06; Stop 11/05/18 at 15:05; Status DC Ondansetron HCl (Zofran) 4 mg 1X ONCE IV Last administered on 11/05/18at 15:25; Start 11/05/18 at 14:15; Stop 11/05/18 at 14:16; Status DC Diphenhydramine HCl (Benadryl) 25 mg PRN Q6HRS PRN IVP ITCHING Last administered on 11/09/18at 05:42; Start 11/05/18 at 17:15 Zolpidem Tartrate (Ambien) 5 mg PRN QHS PRN PO INSOMNIA; Start 11/05/18 at 17:15 Oxycodone/ Acetaminophen (Percocet 10/325) 1 tab PRN Q4HRS PRN PO MODERATE PAIN Last administered on 11/07/18at 20:10; Start 11/05/18 at 17:15 Hydromorphone HCl (Dilaudid) 1 mg PRN Q4HRS PRN IV SEVERE PAIN Last administered on 11/06/18at 06:12; Start 11/05/18 at 17:15; Stop 11/06/18 at 09:48; Status DC Hydromorphone HCl (Dilaudid) 4 mg PRN Q4HRS PRN PO SEVERE PAIN; Start 11/05/18 at 17:15; Stop 11/09/18 at 08:40; Status DC Fentanyl Citrate (Fentanyl 2ml Vial) 50 mcg PRN Q2HR PRN IV MODERATE PAIN 1ST CHOICE; Start 11/05/18 at 17:15; Stop 11/08/18 at 12:11; Status DC Docusate Sodium (Colace) 100 mg DAILY PO Last administered on 11/08/18at 08:51; Start 11/06/18 at 09:00 Polyethylene Glycol (miraLAX PACKET) 17 gm DAILY PO ; Start 11/06/18 at 09:00 Magnesium Hydroxide (Milk Of Magnesia) 2,400 mg PRN DAILY PRN PO CONSTIPATION; Start 11/05/18 at 17:15 Acetaminophen (Tylenol) 500 mg PRN Q6HRS PRN PO MILD PAIN / TEMP; Start 11/05/18 at 17:15 Ondansetron HCl (Zofran) 4 mg PRN Q6HRS PRN IVP NAUSEA/VOMITING; Start 11/05/18 at 17:15 Sodium Chloride 1,000 ml @ 150 mls/hr Q6H40M IV ; Start 11/05/18 at 17:05; Stop 11/06/18 at 17:04; Status DC Sodium Chloride 1,000 ml @ 150 mls/hr Q6H40M IV Last administered on 11/09/18at 01:43; Start 11/05/18 at 17:15 Hydromorphone HCl (Dilaudid) 2 mg PRN Q4HRS PRN IV MODERATE PAIN 2ND CHOICE Last administered on 11/09/18at 05:43; Start 11/06/18 at 10:00; Stop 11/09/18 at 08:40; Status DC Folic Acid (Folic Acid) 1 mg DAILY PO Last administered on 11/08/18at 08:51; Start 11/06/18 at 12:00 Multivitamins (Thera M Plus) 1 tab DAILY PO Last administered on 11/06/18at 12:41; Start 11/06/18 at 11:00 Hydroxyurea (Hydrea) 1,000 mg DAILY PO Last administered on 11/08/18at 08:59; Start 11/06/18 at 11:00 Calcium/Vitamin D (Oscal D 500mg/ 200uts) 1 tab BIDWMEALS PO ; Start 11/06/18 at 17:00 Hydromorphone HCl (Dilaudid) 2 mg 1X ONCE IM Last administered on 11/07/18at 12:52; Start 11/07/18 at 12:15; Stop 11/07/18 at 12:19; Status DC Enoxaparin Sodium (Lovenox 40mg Syringe) 40 mg Q24H SQ ; Start 11/08/18 at 15:00 Hydromorphone HCl (Dilaudid) 2 mg PRN Q4HRS PRN PO SEVERE PAIN; Start 11/09/18 at 08:45 Hydromorphone HCl (Dilaudid) 4 mg Q4HRS IV ; Start 11/09/18 at 08:45 Vitals/I & O Vital Sign - Last 24 Hours 11/08/18 11/08/18 11/08/18 11/08/18 09:22 11:00 12:51 13:21 Temp 98.5 98.5 Pulse 88 Resp 18 B/P (MAP) 90/44 (59) Pulse Ox 92 O2 Delivery Room Air Room Air Room Air Room Air 11/08/18 11/08/18 11/08/18 11/08/18 15:00 17:12 17:45 19:00 Temp 98.1 98.3 98.1 98.3 Pulse 94 86 Resp 18 16 B/P (MAP) 100/61 (74) 98/56 (70) Pulse Ox 93 93 O2 Delivery Room Air Room Air Room Air Room Air 11/08/18 11/08/18 11/08/18 11/09/18 20:00 21:41 22:11 01:37 Pulse Ox 93 93 93 O2 Delivery Room Air Room Air Room Air Room Air O2 Flow Rate 2.0 2.0 11/09/18 11/09/18 11/09/18 11/09/18 02:07 03:00 05:43 06:13 Temp 98.0 98.0 Pulse 86 Resp 16 B/P (MAP) 94/53 (67) Pulse Ox 93 93 93 93 O2 Delivery Room Air Room Air Room Air Room Air O2 Flow Rate 2.0 2.0 11/09/18 07:00 Temp 98.4 98.4 Pulse 104 Resp 16 B/P (MAP) 104/50 (68) Pulse Ox 92 O2 Delivery Room Air Intake and Output 11/08/18 11/08/18 11/09/18 14:59 22:59 06:59 Intake Total 300 ml 800 ml Output Total 375 ml 500 ml 1650 ml Balance -75 ml -500 ml -850 ml HUNTER SHARMA MD Nov 09, 2018 08:52
[2018-11-09] MEDS: POLYETHYLENE GLYCOL 3350 17 GM PACKET. PO SCH (09:00)
[2018-11-09] MEDS: MULTIVITAMIN with MINERAL TABLET. PO SCH (09:00)
[2018-11-09 09:19] LABS: % BANDS 2 % (0-9); % EOS 3 % (0-5); % LYMPHS 29 % (24-48); % MONOS 8 % (0-10); % SEGS 58 % (35-66); NUCLEATED RBC 2
[2018-11-09 09:20] LABS: ANISOCYTOSIS MOD; OVALOCYTES PRESENT; PLT ESTIMATE ADEQUATE (ADEQUATE); POIKILOCYTOSIS MOD; POLYCHROMASIA PRESENT; SICKLE CELLS MOD
[2018-11-09] MEDS: HYDROmorphone 2 MG/ML VIAL IV SCH ×4 (09:45→20:08)
[2018-11-09] MEDS: DOCUSATE SODIUM 100 MG CAPSULE. PO SCH (10:38)
[2018-11-09] MEDS: FOLIC ACID 1 MG TABLET. PO SCH (10:39)
[2018-11-09] MEDS: HYDROXYUREA 500 MG CAPSULE PO SCH (10:45)
--- NOTE | 2018-11-09 10:50 | NUR ---
Patient called and requested pain medications. I removed 2 vials of 2mg IV Dilaudid from [facility] and proceeded into patient's room. Patient was having a conversation that I gathered was the billing department of [facility] because patient had the phone on speaker. Patient was asked what his pain score was and patient held up 8 fingers. I told him that I had his IV Dilaudid for him. I aldair up 4 mg into a syringe and proceeded to administer the drug through a port in the IV tubing. I gave the medication and patient ignored me, so I said out loud that I would be back to check on him. I returned in 30 minutes to assess patient's pain score and he told me that his pain was at a 7/10 now. I informed patient that the doctor had increased the dosage of the pain medication, but not the time interval. The patient then questioned me if he received the larger dose of the IV dilaudid. I did let him know that yes he received double the dose. He asked if I could prove this to him. I informed him that I removed 2 vials of 2mg a piece out of the med machine and aldair up a total of 2mL which is 2mg per ml of the IV Dilaudid. He was not happy, and stated "something just doesn't add up and I should have communicated the difference to him at the time I administered the dose". I stated that I did not want to interrupt his phone call and he told me that I should have interrupted him long enough to let him know. I told him that only the amount of the drug had changed and not the drug itself and I would not have given the medication if it had not been the same without first informing him. He was still unhappy and so I told him that if he is on the phone, next time I would just leave and come back when he was not on a phone call. This also did not satisfy him. I will continue to monitor patient for changes.
[2018-11-09 11:00] VITALS: BP 99/56
[2018-11-09 15:00] VITALS: BP 104/70
[2018-11-09] MEDS: ENOXAPARIN 40 MG/0.4 ML SYRINGE. SQ SCH (15:00)
[2018-11-09] MEDS: oxyCODONE/APAP 10/325 1 TAB TABLET PO PRN (17:54)
[2018-11-09 19:00] VITALS: BP 103/62
--- NOTE | 2018-11-09 20:10 | NUR ---
Patient concerned with this nurse's use of 10cc syringes to administer medication and flush PICC line because, "...before they were using smaller ones and my pain was better". This nurse educated patient on hospital protocol and ensured patient that the size of the syringe relates to safely maintaining the PICC line and does not alter the effectiveness of the medication being administered. No evidence of learning noted, will continue to monitor.
[2018-11-09 23:00] VITALS: BP 99/52
[2018-11-10] MEDS: diphenhydrAMINE 50 MG/ML VIAL IVP PRN ×4 (00:03→18:14)
[2018-11-10] MEDS: HYDROmorphone 2 MG/ML VIAL IV SCH ×3 (00:03→08:12)
[2018-11-10] MEDS: IV NORMAL SALINE 1000ML BAG 1,000 ML IV SCH ×5 (00:04→23:55)
--- NOTE | 2018-11-10 00:10 | NUR ---
This nurse brought patient scheduled Dilaudid and patient became agitated stating, "I don't think you are giving me the right amount of pain medication because it's not working". This nurse showed patient the 2 vials of Dilaudid each 2mg/ml and explained to patient that order was for 4mg of Dilaudid every four hours. Patient stated, "That doesn't make sense, it doesn't look like 4mg". This nurse attempted to explain to patient that 1ml was equal to 2mg of the medication and that the total amount of Dilaudid to be administered was 2ml which equaled 4mg but patient was unable to comprehend stating, "...it just doesn't make sense". At this time, NADER Kang was asked to assist this nurse and then verified at the bedside that the correct amount of medication was administered to the patient. Patient remains in bed with call light within reach, will continue to monitor.
[2018-11-10 03:00] VITALS: BP 97/61
--- NOTE | 2018-11-10 04:15 | NUR ---
Patient refusing to have AM labs drawn at this time stating, "Ain't nobody told me why they checking my blood everyday and I don't want it done". This nurse explained to patient that labs were an important part of his care and helps the doctors better manage his plan of care. Patient became agitated and rambling on about how, "...I've had this since Thursday...no one told me this...why hasn't anyone told me?". This nurse told patient that she was not able to answer why he hadn't been told about the purpose of drawing daily blood via his PICC line because this nurse was not present. Patient continued with, "You don't have to take it personal, I want to know why they withholding information from me". This nurse assured patient that no information was being withheld from him and encouraged patient to ask questions regarding his care often. Patient asked again if this nurse could draw AM labs and patient refused, will continue to monitor.
[2018-11-10] MEDS: oxyCODONE/APAP 10/325 1 TAB TABLET PO PRN (06:04)
--- NOTE | 2018-11-10 06:05 | NUR ---
PRN Benadryl administered to patient, patient upset because only 25mg is ordered and according to patient, "I should be getting 50mg". Patient was shown orders on computer and patient said, "That's wrong, I was getting 50mg". This nurse encouraged patient to speak with MD regarding the dose and will pass it to oncoming RN.
--- NOTE | 2018-11-10 06:45 | NUR ---
Patient refused AM blood draw again stating, "I need to talk to the doctor, I don't need my blood drawn. Nobody ever told me this was going to be everyday". Patient in bed and refusal of blood draw passed along to oncoming RN.
[2018-11-10 07:00] VITALS: BP 96/53
--- NOTE | 2018-11-10 08:02 | PDOC ---
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 Asking for benadryl, dilaudid. Initially refused oxycodone, advised this will help cover his baseline pain better. No SOB or CP today. Plan : continue 150 mL saline Dilaudid to 4mgs, q3hrs prn. Schedule oxycodone IR 15mg q4hrs. Will d/c and transition to PO only once through crisis. Can dc home once retic is not high - needs labs today. Bili coming down Vitals Vitals Vital Signs Date Time Temp Pulse Resp B/P (MAP) Pulse Ox O2 Delivery O2 Flow Rate FiO2 11/10/18 07:00 97.9 97 18 96/53 (67) 90 Room Air 97.9 Physical Exam General: Alert, Oriented X3, No acute distress Heart: Regular rate Abdomen: Normal bowel sounds, No hepatosplenomegaly Extremities: No edema, No tenderness/swelling Skin: No rashes, No breakdown, No significant lesion Comment Review of Relevant I have reviewed the following items jorge luis (where applicable) has been applied. Labs Laboratory Tests Test 11/08/18 10:20 11/09/18 07:11 White Blood Count 13.1 x10^3/uL (4.0-11.0) 12.3 x10^3/uL (4.0-11.0) Red Blood Count 3.27 x10^6/uL (4.30-5.70) 3.18 x10^6/uL (4.30-5.70) Hemoglobin 9.9 g/dL (13.0-17.5) 9.8 g/dL (13.0-17.5) Hematocrit 28.5 % (39.0-53.0) 27.9 % (39.0-53.0) Mean Corpuscular Volume 87 fL (79-100) 88 fL (79-100) Mean Corpuscular Hemoglobin 30 pg (25-35) 31 pg (25-35) Mean Corpuscular Hemoglobin Concent 35 g/dL (31-37) 35 g/dL (31-37) Red Cell Distribution Width 29.0 % (11.5-14.5) 28.1 % (11.5-14.5) Platelet Count 295 x10^3/uL (140-400) 253 x10^3/uL (140-400) Neutrophils (%) (Auto) 57 % (31-73) 52 % (31-73) Lymphocytes (%) (Auto) 24 % (24-48) 29 % (24-48) Monocytes (%) (Auto) 12 % (0-9) 13 % (0-9) Eosinophils (%) (Auto) 6 % (0-3) 6 % (0-3) Basophils (%) (Auto) 1 % (0-3) 1 % (0-3) Neutrophils # (Auto) 7.4 x10^3/uL (1.8-7.7) 6.4 x10^3/uL (1.8-7.7) Lymphocytes # (Auto) 3.1 x10^3/uL (1.0-4.8) 3.5 x10^3/uL (1.0-4.8) Monocytes # (Auto) 1.6 x10^3/uL (0.0-1.1) 1.5 x10^3/uL (0.0-1.1) Eosinophils # (Auto) 0.8 x10^3/uL (0.0-0.7) 0.7 x10^3/uL (0.0-0.7) Basophils # (Auto) 0.1 x10^3/uL (0.0-0.2) 0.1 x10^3/uL (0.0-0.2) Sodium Level 143 mmol/L (136-145) Potassium Level 4.6 mmol/L (3.5-5.1) Chloride Level 108 mmol/L (98-107) Carbon Dioxide Level 27 mmol/L (21-32) Anion Gap 8 (6-14) Blood Urea Nitrogen 7 mg/dL (8-26) Creatinine 0.8 mg/dL (0.7-1.3) Estimated GFR (Cockcroft-Gault) 130.9 BUN/Creatinine Ratio 9 (6-20) Glucose Level 101 mg/dL (70-99) Calcium Level 8.8 mg/dL (8.5-10.1) Total Bilirubin 3.9 mg/dL (0.2-1.0) Aspartate Amino Transf (AST/SGOT) 34 U/L (15-37) Alanine Aminotransferase (ALT/SGPT) 19 U/L (16-63) Alkaline Phosphatase 76 U/L (46-116) Total Protein 6.2 g/dL (6.4-8.2) Albumin 3.2 g/dL (3.4-5.0) Albumin/Globulin Ratio 1.1 (1.0-1.7) Segmented Neutrophils % 58 % (35-66) Band Neutrophils % 2 % (0-9) Lymphocytes % 29 % (24-48) Monocytes % 8 % (0-10) Eosinophils % 3 % (0-5) Nucleated Red Blood Cells 2 Platelet Estimate Adequate (ADEQUATE) Polychromasia Present Poikilocytosis Mod Anisocytosis Mod Macrocytosis Present Sickle Cells Mod Ovalocytes Present Absolute Reticulocyte Count 0.428 x10^6/uL (0.020-0.120) Percent Reticulocyte Count 13.4 % (0.5-2.3) Immature Reticulocyte Fraction 0.69 (0.20-0.60) Microbiology 11/07/18 Urine Culture - Final, Complete 11/07/18 Urine Culture Result 1 (DIAMOND) - Final, Complete Medications Current Medications Hydromorphone HCl (Dilaudid) 1 mg PRN Q15MIN PRN IV/SQ PAIN GREATER THAN 3/10 Last administered on 11/05/18at 16:19; Start 11/05/18 at 14:15; Stop 11/06/18 at 14:14; Status DC Sodium Chloride 1,000 ml @ 1,000 mls/hr Q1H IV Last administered on 11/05/18at 15:24; Start 11/05/18 at 14:06; Stop 11/05/18 at 15:05; Status DC Ondansetron HCl (Zofran) 4 mg 1X ONCE IV Last administered on 11/05/18at 15:25; Start 11/05/18 at 14:15; Stop 11/05/18 at 14:16; Status DC Diphenhydramine HCl (Benadryl) 25 mg PRN Q6HRS PRN IVP ITCHING Last administered on 11/10/18at 06:05; Start 11/05/18 at 17:15 Zolpidem Tartrate (Ambien) 5 mg PRN QHS PRN PO INSOMNIA; Start 11/05/18 at 17:15 Oxycodone/ Acetaminophen (Percocet 10/325) 1 tab PRN Q4HRS PRN PO MODERATE PAIN Last administered on 11/10/18at 06:04; Start 11/05/18 at 17:15 Hydromorphone HCl (Dilaudid) 1 mg PRN Q4HRS PRN IV SEVERE PAIN Last administered on 11/06/18at 06:12; Start 11/05/18 at 17:15; Stop 11/06/18 at 09:48; Status DC Hydromorphone HCl (Dilaudid) 4 mg PRN Q4HRS PRN PO SEVERE PAIN; Start 11/05/18 at 17:15; Stop 11/09/18 at 08:40; Status DC Fentanyl Citrate (Fentanyl 2ml Vial) 50 mcg PRN Q2HR PRN IV MODERATE PAIN 1ST CHOICE; Start 11/05/18 at 17:15; Stop 11/08/18 at 12:11; Status DC Docusate Sodium (Colace) 100 mg DAILY PO Last administered on 11/09/18at 10:38; Start 11/06/18 at 09:00 Polyethylene Glycol (miraLAX PACKET) 17 gm DAILY PO ; Start 11/06/18 at 09:00 Magnesium Hydroxide (Milk Of Magnesia) 2,400 mg PRN DAILY PRN PO CONSTIPATION; Start 11/05/18 at 17:15 Acetaminophen (Tylenol) 500 mg PRN Q6HRS PRN PO MILD PAIN / TEMP; Start 11/05/18 at 17:15 Ondansetron HCl (Zofran) 4 mg PRN Q6HRS PRN IVP NAUSEA/VOMITING; Start 11/05/18 at 17:15 Sodium Chloride 1,000 ml @ 150 mls/hr Q6H40M IV ; Start 11/05/18 at 17:05; Stop 11/06/18 at 17:04; Status DC Sodium Chloride 1,000 ml @ 150 mls/hr Q6H40M IV Last administered on 11/10/18at 06:09; Start 11/05/18 at 17:15 Hydromorphone HCl (Dilaudid) 2 mg PRN Q4HRS PRN IV MODERATE PAIN 2ND CHOICE Last administered on 11/09/18at 05:43; Start 11/06/18 at 10:00; Stop 11/09/18 at 08:40; Status DC Folic Acid (Folic Acid) 1 mg DAILY PO Last administered on 11/09/18at 10:39; Start 11/06/18 at 12:00 Multivitamins (Thera M Plus) 1 tab DAILY PO Last administered on 11/06/18at 12:41; Start 11/06/18 at 11:00 Hydroxyurea (Hydrea) 1,000 mg DAILY PO Last administered on 11/09/18at 10:45; Start 11/06/18 at 11:00 Calcium/Vitamin D (Oscal D 500mg/ 200uts) 1 tab BIDWMEALS PO ; Start 11/06/18 at 17:00 Hydromorphone HCl (Dilaudid) 2 mg 1X ONCE IM Last administered on 11/07/18at 12:52; Start 11/07/18 at 12:15; Stop 11/07/18 at 12:19; Status DC Enoxaparin Sodium (Lovenox 40mg Syringe) 40 mg Q24H SQ ; Start 11/08/18 at 15:00 Hydromorphone HCl (Dilaudid) 2 mg PRN Q4HRS PRN PO SEVERE PAIN; Start 11/09/18 at 08:45 Hydromorphone HCl (Dilaudid) 4 mg Q4HRS IV Last administered on 11/10/18at 04:00; Start 11/09/18 at 08:45 Vitals/I & O Vital Sign - Last 24 Hours 11/09/18 11/09/18 11/09/18 11/09/18 08:30 09:45 10:36 11:00 Pulse 60 Resp 16 B/P (MAP) 99/56 (70) Pulse Ox 97 O2 Delivery Room Air Room Air Room Air Room Air 11/09/18 11/09/18 11/09/18 11/09/18 12:02 13:19 15:00 15:56 Temp 98.1 98.1 Pulse 107 Resp 16 B/P (MAP) 104/70 (81) Pulse Ox 94 O2 Delivery Room Air Room Air Room Air Room Air 11/09/18 11/09/18 11/09/18 11/09/18 17:54 17:58 18:57 19:00 Temp 99.8 99.8 Pulse 92 Resp 18 B/P (MAP) 103/62 (76) Pulse Ox 94 O2 Delivery Room Air Room Air Room Air Room Air 11/09/18 11/09/18 11/09/18 11/09/18 20:05 20:08 20:45 23:00 Temp 98.5 98.5 Pulse 96 Resp 16 16 18 B/P (MAP) 99/52 (68) Pulse Ox 95 O2 Delivery Room Air Room Air Room Air Room Air 11/10/18 11/10/18 11/10/18 11/10/18 00:03 00:45 03:00 04:00 Temp 97.6 97.6 Pulse 98 Resp 16 18 18 16 B/P (MAP) 97/61 (73) Pulse Ox 95 O2 Delivery Room Air Room Air Room Air Room Air 11/10/18 11/10/18 11/10/18 11/10/18 04:30 06:04 07:00 07:00 Temp 97.9 97.9 Pulse 97 Resp 16 16 16 18 B/P (MAP) 96/53 (67) Pulse Ox 90 O2 Delivery Room Air Room Air Room Air Room Air Intake and Output 11/09/18 11/09/18 11/10/18 15:00 23:00 07:00 Intake Total 750 ml Output Total 900 ml Balance -900 ml 750 ml HUNTER SHARMA MD Nov 10, 2018 08:02
[2018-11-10] MEDS: DOCUSATE SODIUM 100 MG CAPSULE. PO SCH (08:13)
[2018-11-10] MEDS: FOLIC ACID 1 MG TABLET. PO SCH (08:13)
[2018-11-10] MEDS: CALCIUM CARB/VIT D3 500/200 TABLET. PO SCH ×2 (08:13→17:00)
[2018-11-10] MEDS: HYDROXYUREA 500 MG CAPSULE PO SCH (08:17)
[2018-11-10] MEDS: POLYETHYLENE GLYCOL 3350 17 GM PACKET. PO SCH (08:17)
--- NOTE | 2018-11-10 09:41 | PDOC ---
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 Last week he told me po dilaudid was not helping so we gave percocet 10/325 for prn use, and for anxiety, he wanted Xanax, I don't give Xanax for anxiety, I did recommend Cymbalta to help with the mood and the pain, he didn't want this at this time, we did talk about increasing Hydrea, and adding endari, continuing on folate, and following up with ortho regarding his AVN, he recently saw orthopedics inpatient at . But after our visit he came to ED and has been in w/ acute crisis. pain crisis: Continue aggressive IV hydration, pain meds being adjusted today per primary to better optimize pain control, cont HU, folate, ca/D, MV, CXR w/o infiltrate, do encourage him to ask for meds prn and allow labs to be drawn prn dispo: after clinical improvement prophylaxis: lovenox for DVT prophylaxis Thank you kindly and please do not hesitate to call with questions, I will return on Thursday but am avail by phone in the interim prn. OBJECTIVE Vital Signs Vital Signs Date Time Temp Pulse Resp B/P (MAP) Pulse Ox O2 Delivery O2 Flow Rate FiO2 11/10/18 08:12 20 11/10/18 07:00 97.9 97 18 96/53 (67) 90 Room Air 97.9 11/10/18 07:00 16 Room Air 11/10/18 06:04 16 Room Air 11/10/18 04:30 16 Room Air 11/10/18 04:00 16 Room Air 11/10/18 03:00 97.6 98 18 97/61 (73) 95 Room Air 97.6 11/10/18 00:45 18 Room Air 11/10/18 00:03 16 Room Air 11/09/18 23:00 98.5 96 18 99/52 (68) 95 Room Air 98.5 11/09/18 20:45 16 Room Air 11/09/18 20:08 16 Room Air 11/09/18 20:05 Room Air 11/09/18 19:00 99.8 92 18 103/62 (76) 94 Room Air 99.8 11/09/18 18:57 Room Air 11/09/18 17:58 Room Air 11/09/18 17:54 Room Air 11/09/18 15:56 Room Air 11/09/18 15:00 98.1 107 16 104/70 (81) 94 Room Air 98.1 11/09/18 13:19 Room Air 11/09/18 12:02 Room Air 11/09/18 11:00 60 16 99/56 (70) 97 Room Air 11/09/18 10:36 Room Air 11/09/18 09:45 Room Air I & O Intake and Output 11/10/18 07:00 Intake Total 750 ml Output Total 900 ml Balance -150 ml Intake Oral 750 ml Output Urine Total 900 ml # Voids 8 BISMARK MOTT MD Nov 10, 2018 09:41
[2018-11-10] MEDS: MULTIVITAMIN with MINERAL TABLET. PO SCH (10:34)
[2018-11-10] MEDS: ACETAMINOPHEN 500 MG TABLET PO PRN (10:36)
[2018-11-10 11:00] VITALS: BP 107/73
[2018-11-10] MEDS: HYDROmorphone 2 MG/ML VIAL IV PRN ×5 (11:10→23:19)
--- NOTE | 2018-11-10 12:29 | NUR ---
SS following up with discharge planning. HCFS continuing to follow for self pay status. Pt is from home and is currently on room air. SS will continue to follow for discharge planning.
[2018-11-10 15:00] VITALS: BP 101/57
[2018-11-10] MEDS: ENOXAPARIN 40 MG/0.4 ML SYRINGE. SQ SCH (15:00)
--- NOTE | 2018-11-10 19:36 | NUR ---
continues to want dilaudid every 3 hrs. his pain has been rating an 7-8 even with scheduled roxicodone 15mg. iv fluids continue to go at 150 cc hr
[2018-11-10 19:45] VITALS: BP 98/64
[2018-11-10 23:47] VITALS: BP 106/69
[2018-11-11] MEDS: diphenhydrAMINE 50 MG/ML VIAL IVP PRN ×5 (00:20→20:39)
[2018-11-11] MEDS: HYDROmorphone 2 MG/ML VIAL IV PRN ×8 (02:32→23:49)
[2018-11-11 03:33] VITALS: BP 106/60
[2018-11-11 07:00] VITALS: BP 122/68
--- NOTE | 2018-11-11 08:27 | PDOC ---
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 Asking for benadryl, dilaudid. Initially refused oxycodone, advised this will help cover his baseline pain better. Today he is in less pain, still with some back pain, shoulder pain, less hip pain and only with left thigh pain. Retic count improved a bit. He is asking for benadryl frequency to be increased to q 4hours as his itching is not well controlled. No SOB or CP today. Plan : continue 150 mL saline Dilaudid to 4mgs, q3hrs prn. Schedule oxycodone IR 15mg q4hrs. Will d/c and transition to PO only once through crisis. Can dc home once retic is not high - needs labs today. Bili coming down Vitals Vitals Vital Signs Date Time Temp Pulse Resp B/P (MAP) Pulse Ox O2 Delivery O2 Flow Rate FiO2 11/11/18 08:04 20 11/11/18 07:00 98.9 98 122/68 (86) 93 Room Air 98.9 11/11/18 03:02 2.0 Physical Exam General: Alert, Oriented X3, No acute distress Heart: Regular rate Abdomen: Normal bowel sounds, No hepatosplenomegaly Extremities: No edema, No tenderness/swelling Skin: No rashes, No breakdown, No significant lesion Comment Review of Relevant I have reviewed the following items jorge luis (where applicable) has been applied. Labs Microbiology 11/07/18 Urine Culture - Final, Complete 11/07/18 Urine Culture Result 1 (DIAMOND) - Final, Complete Medications Current Medications Hydromorphone HCl (Dilaudid) 1 mg PRN Q15MIN PRN IV/SQ PAIN GREATER THAN 3/10 Last administered on 11/05/18at 16:19; Start 11/05/18 at 14:15; Stop 11/06/18 at 14:14; Status DC Sodium Chloride 1,000 ml @ 1,000 mls/hr Q1H IV Last administered on 11/05/18at 15:24; Start 11/05/18 at 14:06; Stop 11/05/18 at 15:05; Status DC Ondansetron HCl (Zofran) 4 mg 1X ONCE IV Last administered on 11/05/18at 15:25; Start 11/05/18 at 14:15; Stop 11/05/18 at 14:16; Status DC Diphenhydramine HCl (Benadryl) 25 mg PRN Q6HRS PRN IVP ITCHING Last administered on 11/11/18at 06:39; Start 11/05/18 at 17:15 Zolpidem Tartrate (Ambien) 5 mg PRN QHS PRN PO INSOMNIA; Start 11/05/18 at 17:15 Oxycodone/ Acetaminophen (Percocet 10/325) 1 tab PRN Q4HRS PRN PO MODERATE PAIN Last administered on 11/10/18at 06:04; Start 11/05/18 at 17:15; Stop 11/10/18 at 09:33; Status DC Hydromorphone HCl (Dilaudid) 1 mg PRN Q4HRS PRN IV SEVERE PAIN Last administered on 11/06/18at 06:12; Start 11/05/18 at 17:15; Stop 11/06/18 at 09:48; Status DC Hydromorphone HCl (Dilaudid) 4 mg PRN Q4HRS PRN PO SEVERE PAIN; Start 11/05/18 at 17:15; Stop 11/09/18 at 08:40; Status DC Fentanyl Citrate (Fentanyl 2ml Vial) 50 mcg PRN Q2HR PRN IV MODERATE PAIN 1ST CHOICE; Start 11/05/18 at 17:15; Stop 11/08/18 at 12:11; Status DC Docusate Sodium (Colace) 100 mg DAILY PO Last administered on 11/10/18at 08:13; Start 11/06/18 at 09:00 Polyethylene Glycol (miraLAX PACKET) 17 gm DAILY PO Last administered on 11/10/18at 08:17; Start 11/06/18 at 09:00 Magnesium Hydroxide (Milk Of Magnesia) 2,400 mg PRN DAILY PRN PO CONSTIPATION; Start 11/05/18 at 17:15 Acetaminophen (Tylenol) 500 mg PRN Q6HRS PRN PO MILD PAIN / TEMP Last administered on 11/10/18at 10:36; Start 11/05/18 at 17:15 Ondansetron HCl (Zofran) 4 mg PRN Q6HRS PRN IVP NAUSEA/VOMITING; Start 11/05/18 at 17:15 Sodium Chloride 1,000 ml @ 150 mls/hr Q6H40M IV ; Start 11/05/18 at 17:05; Stop 11/06/18 at 17:04; Status DC Sodium Chloride 1,000 ml @ 150 mls/hr Q6H40M IV Last administered on 11/10/18at 23:55; Start 11/05/18 at 17:15 Hydromorphone HCl (Dilaudid) 2 mg PRN Q4HRS PRN IV MODERATE PAIN 2ND CHOICE Last administered on 11/09/18at 05:43; Start 11/06/18 at 10:00; Stop 11/09/18 at 08:40; Status DC Folic Acid (Folic Acid) 1 mg DAILY PO Last administered on 11/10/18at 08:13; Start 11/06/18 at 12:00 Multivitamins (Thera M Plus) 1 tab DAILY PO Last administered on 11/10/18at 10:34; Start 11/06/18 at 11:00 Hydroxyurea (Hydrea) 1,000 mg DAILY PO Last administered on 11/10/18at 08:17; Start 11/06/18 at 11:00 Calcium/Vitamin D (Oscal D 500mg/ 200uts) 1 tab BIDWMEALS PO Last administered on 11/10/18at 08:13; Start 11/06/18 at 17:00 Hydromorphone HCl (Dilaudid) 2 mg 1X ONCE IM Last administered on 11/07/18at 12:52; Start 11/07/18 at 12:15; Stop 11/07/18 at 12:19; Status DC Enoxaparin Sodium (Lovenox 40mg Syringe) 40 mg Q24H SQ ; Start 11/08/18 at 15:00 Hydromorphone HCl (Dilaudid) 2 mg PRN Q4HRS PRN PO SEVERE PAIN; Start 11/09/18 at 08:45 Hydromorphone HCl (Dilaudid) 4 mg Q4HRS IV Last administered on 11/10/18at 08:12; Start 11/09/18 at 08:45; Stop 11/10/18 at 09:33; Status DC Hydromorphone HCl (Dilaudid) 4 mg PRN Q3HRS PRN IV pain Last administered on 11/11/18at 05:43; Start 11/10/18 at 09:30 Oxycodone HCl (Roxicodone) 15 mg Q4HRS PO Last administered on 11/11/18at 08:04; Start 11/10/18 at 09:30 Vitals/I & O Vital Sign - Last 24 Hours 11/10/18 11/10/18 11/10/18 11/10/18 10:34 11:00 11:10 11:40 Temp 98.7 98.7 Pulse 58 Resp 18 16 20 B/P (MAP) 107/73 (84) Pulse Ox 92 O2 Delivery Room Air Room Air Room Air 11/10/18 11/10/18 11/10/18 11/10/18 11:40 14:05 14:19 15:00 Temp 98.2 98.2 Pulse 101 Resp 20 16 16 18 B/P (MAP) 101/57 (72) Pulse Ox 92 90 O2 Delivery Room Air Room Air Room Air Room Air 11/10/18 11/10/18 11/10/18 11/10/18 17:14 17:45 19:45 20:00 Temp 97.6 97.6 Pulse 100 Resp 20 16 20 B/P (MAP) 98/64 (75) Pulse Ox 92 O2 Delivery Room Air Room Air 11/10/18 11/10/18 11/10/18 11/10/18 20:09 20:14 20:44 21:09 Resp 20 20 20 20 Pulse Ox 92 92 92 92 O2 Delivery Room Air Room Air Room Air Room Air O2 Flow Rate 2.0 11/10/18 11/10/18 11/10/18 11/11/18 23:19 23:47 23:49 00:20 Temp 99.7 99.7 Pulse 107 Resp 20 20 18 20 B/P (MAP) 106/69 (81) Pulse Ox 92 90 90 90 O2 Delivery Room Air Room Air Room Air Room Air 11/11/18 11/11/18 11/11/18 11/11/18 01:20 02:32 03:02 03:33 Temp 99.3 99.3 Pulse 107 Resp 20 20 20 20 B/P (MAP) 106/60 (75) Pulse Ox 90 94 94 94 O2 Delivery Room Air Room Air Room Air Room Air O2 Flow Rate 2.0 11/11/18 11/11/18 11/11/18 11/11/18 04:19 05:19 05:43 06:13 Resp 20 20 20 20 Pulse Ox 94 94 94 94 O2 Delivery Room Air Room Air Room Air Room Air 11/11/18 11/11/18 07:00 08:04 Temp 98.9 98.9 Pulse 98 Resp 16 20 B/P (MAP) 122/68 (86) Pulse Ox 93 O2 Delivery Room Air Intake and Output 11/10/18 11/10/18 11/11/18 15:00 23:00 07:00 Intake Total 420 ml 200 ml 2250 ml Output Total 1200 ml Balance 420 ml 200 ml 1050 ml HUNTER SHARMA MD Nov 11, 2018 08:27
[2018-11-11] MEDS: ACETAMINOPHEN 500 MG TABLET PO PRN ×2 (08:37→16:09)
[2018-11-11] MEDS: DOCUSATE SODIUM 100 MG CAPSULE. PO SCH (08:37)
[2018-11-11] MEDS: CALCIUM CARB/VIT D3 500/200 TABLET. PO SCH ×2 (08:37→16:32)
[2018-11-11] MEDS: POLYETHYLENE GLYCOL 3350 17 GM PACKET. PO SCH (08:38)
[2018-11-11] MEDS: MULTIVITAMIN with MINERAL TABLET. PO SCH (08:38)
[2018-11-11] MEDS: FOLIC ACID 1 MG TABLET. PO SCH (08:38)
[2018-11-11] MEDS: HYDROXYUREA 500 MG CAPSULE PO SCH (08:47)
[2018-11-11 10:04] LABS: BASO # 0.2 x10^3/uL (0.0-0.2); BASO % 2 % (0-3); EOS # 0.7 x10^3/uL (0.0-0.7); EOS % 6 % (0-3); HEMATOCRIT 25.8 % (39.0-53.0); HEMOGLOBIN 9.1 g/dL (13.0-17.5); LYMPH # 5.5 x10^3/uL (1.0-4.8); LYMPH % 46 % (24-48); MEAN CORPUSCULAR HEMOGLOBIN 31 pg (25-35); MEAN CORPUSCULAR HGB CONC 35 g/dL (31-37); MEAN CORPUSCULAR VOLUME 88 fL (79-100); MONO # 1.2 x10^3/uL (0.0-1.1); MONO % 10 % (0-9); NEUT # 4.5 x10^3/uL (1.8-7.7); NEUT % 37 % (31-73); PLATELET COUNT 191 x10^3/uL (140-400); RED BLOOD COUNT 2.94 x10^6/uL (4.30-5.70); RED CELL DISTRIBUTION WIDTH 28.9 % (11.5-14.5); WHITE BLOOD COUNT 12.1 x10^3/uL (4.0-11.0)
[2018-11-11 11:00] VITALS: BP 102/64
[2018-11-11] MEDS: IV NORMAL SALINE 1000ML BAG 1,000 ML IV SCH ×2 (11:33→20:38)
[2018-11-11 15:00] VITALS: BP 119/66
[2018-11-11] MEDS: ENOXAPARIN 40 MG/0.4 ML SYRINGE. SQ SCH (15:00)
--- NOTE | 2018-11-11 18:30 | NUR ---
condition unchanged. continues to want Dilaudid every 3hrs iv and Roxicodone po is scheduled every 4hrs. wanted Benadryl changed to every 4hrs.
[2018-11-11 19:15] VITALS: BP 108/66
[2018-11-11 23:07] VITALS: BP 116/71
[2018-11-12] MEDS: diphenhydrAMINE 50 MG/ML VIAL IVP PRN ×6 (01:02→22:01)
[2018-11-12] MEDS: HYDROmorphone 2 MG/ML VIAL IV PRN ×7 (02:50→20:54)
[2018-11-12] MEDS: IV NORMAL SALINE 1000ML BAG 1,000 ML IV SCH ×5 (02:50→22:35)
--- NOTE | 2018-11-12 04:26 | NUR ---
patient constantly asking for his IV pain medication and NADER gil re-educated pt regarding pain meds and safety, patient stated that he used to take propafol for pain at home for his pain management., RN reminded patient medications dosages and timing as pt asking pain med 30 minutes before due doses .
[2018-11-12 07:00] VITALS: BP 94/60
[2018-11-12 07:16] LABS: BASO # 0.1 x10^3/uL (0.0-0.2); BASO % 1 % (0-3); EOS # 0.8 x10^3/uL (0.0-0.7); EOS % 7 % (0-3); HEMATOCRIT 26.2 % (39.0-53.0); HEMOGLOBIN 9.1 g/dL (13.0-17.5); LYMPH # 4.3 x10^3/uL (1.0-4.8); LYMPH % 36 % (24-48); MEAN CORPUSCULAR HEMOGLOBIN 31 pg (25-35); MEAN CORPUSCULAR HGB CONC 35 g/dL (31-37); MEAN CORPUSCULAR VOLUME 89 fL (79-100); MONO # 1.6 x10^3/uL (0.0-1.1); MONO % 14 % (0-9); NEUT # 5.3 x10^3/uL (1.8-7.7); NEUT % 43 % (31-73); PLATELET COUNT 194 x10^3/uL (140-400); RED BLOOD COUNT 2.94 x10^6/uL (4.30-5.70); RED CELL DISTRIBUTION WIDTH 29.5 % (11.5-14.5); WHITE BLOOD COUNT 12.1 x10^3/uL (4.0-11.0)
--- NOTE | 2018-11-12 07:20 | NUR ---
awake most of the night this shift.
[2018-11-12] MEDS: CALCIUM CARB/VIT D3 500/200 TABLET. PO SCH ×2 (08:00→16:51)
[2018-11-12] MEDS: HYDROXYUREA 500 MG CAPSULE PO SCH (08:45)
[2018-11-12] MEDS: DOCUSATE SODIUM 100 MG CAPSULE. PO SCH (08:47)
[2018-11-12] MEDS: MULTIVITAMIN with MINERAL TABLET. PO SCH (08:47)
[2018-11-12] MEDS: POLYETHYLENE GLYCOL 3350 17 GM PACKET. PO SCH (08:47)
[2018-11-12] MEDS: FOLIC ACID 1 MG TABLET. PO SCH (08:47)
--- NOTE | 2018-11-12 09:00 | PDOC ---
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 Asking for benadryl, dilaudid. Initially refused oxycodone, advised this will help cover his baseline pain better. Today he is in less pain, still with some back pain, shoulder pain, less hip pain and only with left thigh pain. Retic count improved a bit. He is asking for benadryl frequency to be increased to q 4hours as his itching is not well controlled. No SOB or CP today. Plan : continue 150 mL saline Dilaudid to 4mgs, q3hrs prn. Schedule oxycodone IR 15mg q4hrs. Will d/c and transition to PO only once through crisis. Can dc home once retic is not high - needs labs today. Bili coming down Vitals Vitals Vital Signs Date Time Temp Pulse Resp B/P (MAP) Pulse Ox O2 Delivery O2 Flow Rate FiO2 11/12/18 08:39 97 Room Air 2.0 11/12/18 07:00 98.3 98 20 94/60 (71) 98.3 Physical Exam General: Alert, Oriented X3, No acute distress Heart: Regular rate Abdomen: Normal bowel sounds, No hepatosplenomegaly Extremities: No edema, No tenderness/swelling Skin: No rashes, No breakdown, No significant lesion Labs LABS Laboratory Tests Test 11/11/18 09:55 11/12/18 07:00 White Blood Count 12.1 x10^3/uL (4.0-11.0) 12.1 x10^3/uL (4.0-11.0) Red Blood Count 2.92 x10^6/uL (4.30-5.70) 2.93 x10^6/uL (4.30-5.70) Hemoglobin 9.1 g/dL (13.0-17.5) 9.1 g/dL (13.0-17.5) Hematocrit 25.8 % (39.0-53.0) 26.2 % (39.0-53.0) Mean Corpuscular Volume 88 fL (79-100) 89 fL (79-100) Mean Corpuscular Hemoglobin 31 pg (25-35) 31 pg (25-35) Mean Corpuscular Hemoglobin Concent 35 g/dL (31-37) 35 g/dL (31-37) Red Cell Distribution Width 28.9 % (11.5-14.5) 29.5 % (11.5-14.5) Platelet Count 191 x10^3/uL (140-400) 194 x10^3/uL (140-400) Neutrophils (%) (Auto) 37 % (31-73) 43 % (31-73) Lymphocytes (%) (Auto) 46 % (24-48) 36 % (24-48) Monocytes (%) (Auto) 10 % (0-9) 14 % (0-9) Eosinophils (%) (Auto) 6 % (0-3) 7 % (0-3) Basophils (%) (Auto) 2 % (0-3) 1 % (0-3) Neutrophils # (Auto) 4.5 x10^3/uL (1.8-7.7) 5.3 x10^3/uL (1.8-7.7) Lymphocytes # (Auto) 5.5 x10^3/uL (1.0-4.8) 4.3 x10^3/uL (1.0-4.8) Monocytes # (Auto) 1.2 x10^3/uL (0.0-1.1) 1.6 x10^3/uL (0.0-1.1) Eosinophils # (Auto) 0.7 x10^3/uL (0.0-0.7) 0.8 x10^3/uL (0.0-0.7) Basophils # (Auto) 0.2 x10^3/uL (0.0-0.2) 0.1 x10^3/uL (0.0-0.2) Absolute Reticulocyte Count 0.376 x10^6/uL (0.020-0.120) 0.386 x10^6/uL (0.020-0.120) Percent Reticulocyte Count 12.9 % (0.5-2.3) 13.2 % (0.5-2.3) Immature Reticulocyte Fraction 0.71 (0.20-0.60) 0.71 (0.20-0.60) Comment Review of Relevant I have reviewed the following items jorge luis (where applicable) has been applied. Labs Laboratory Tests Test 11/11/18 09:55 11/12/18 07:00 White Blood Count 12.1 x10^3/uL (4.0-11.0) 12.1 x10^3/uL (4.0-11.0) Red Blood Count 2.92 x10^6/uL (4.30-5.70) 2.93 x10^6/uL (4.30-5.70) Hemoglobin 9.1 g/dL (13.0-17.5) 9.1 g/dL (13.0-17.5) Hematocrit 25.8 % (39.0-53.0) 26.2 % (39.0-53.0) Mean Corpuscular Volume 88 fL (79-100) 89 fL (79-100) Mean Corpuscular Hemoglobin 31 pg (25-35) 31 pg (25-35) Mean Corpuscular Hemoglobin Concent 35 g/dL (31-37) 35 g/dL (31-37) Red Cell Distribution Width 28.9 % (11.5-14.5) 29.5 % (11.5-14.5) Platelet Count 191 x10^3/uL (140-400) 194 x10^3/uL (140-400) Neutrophils (%) (Auto) 37 % (31-73) 43 % (31-73) Lymphocytes (%) (Auto) 46 % (24-48) 36 % (24-48) Monocytes (%) (Auto) 10 % (0-9) 14 % (0-9) Eosinophils (%) (Auto) 6 % (0-3) 7 % (0-3) Basophils (%) (Auto) 2 % (0-3) 1 % (0-3) Neutrophils # (Auto) 4.5 x10^3/uL (1.8-7.7) 5.3 x10^3/uL (1.8-7.7) Lymphocytes # (Auto) 5.5 x10^3/uL (1.0-4.8) 4.3 x10^3/uL (1.0-4.8) Monocytes # (Auto) 1.2 x10^3/uL (0.0-1.1) 1.6 x10^3/uL (0.0-1.1) Eosinophils # (Auto) 0.7 x10^3/uL (0.0-0.7) 0.8 x10^3/uL (0.0-0.7) Basophils # (Auto) 0.2 x10^3/uL (0.0-0.2) 0.1 x10^3/uL (0.0-0.2) Absolute Reticulocyte Count 0.376 x10^6/uL (0.020-0.120) 0.386 x10^6/uL (0.020-0.120) Percent Reticulocyte Count 12.9 % (0.5-2.3) 13.2 % (0.5-2.3) Immature Reticulocyte Fraction 0.71 (0.20-0.60) 0.71 (0.20-0.60) Laboratory Tests Test 11/11/18 09:55 11/12/18 07:00 White Blood Count 12.1 x10^3/uL (4.0-11.0) 12.1 x10^3/uL (4.0-11.0) Red Blood Count 2.92 x10^6/uL (4.30-5.70) 2.93 x10^6/uL (4.30-5.70) Hemoglobin 9.1 g/dL (13.0-17.5) 9.1 g/dL (13.0-17.5) Hematocrit 25.8 % (39.0-53.0) 26.2 % (39.0-53.0) Mean Corpuscular Volume 88 fL (79-100) 89 fL (79-100) Mean Corpuscular Hemoglobin 31 pg (25-35) 31 pg (25-35) Mean Corpuscular Hemoglobin Concent 35 g/dL (31-37) 35 g/dL (31-37) Red Cell Distribution Width 28.9 % (11.5-14.5) 29.5 % (11.5-14.5) Platelet Count 191 x10^3/uL (140-400) 194 x10^3/uL (140-400) Neutrophils (%) (Auto) 37 % (31-73) 43 % (31-73) Lymphocytes (%) (Auto) 46 % (24-48) 36 % (24-48) Monocytes (%) (Auto) 10 % (0-9) 14 % (0-9) Eosinophils (%) (Auto) 6 % (0-3) 7 % (0-3) Basophils (%) (Auto) 2 % (0-3) 1 % (0-3) Neutrophils # (Auto) 4.5 x10^3/uL (1.8-7.7) 5.3 x10^3/uL (1.8-7.7) Lymphocytes # (Auto) 5.5 x10^3/uL (1.0-4.8) 4.3 x10^3/uL (1.0-4.8) Monocytes # (Auto) 1.2 x10^3/uL (0.0-1.1) 1.6 x10^3/uL (0.0-1.1) Eosinophils # (Auto) 0.7 x10^3/uL (0.0-0.7) 0.8 x10^3/uL (0.0-0.7) Basophils # (Auto) 0.2 x10^3/uL (0.0-0.2) 0.1 x10^3/uL (0.0-0.2) Absolute Reticulocyte Count 0.376 x10^6/uL (0.020-0.120) 0.386 x10^6/uL (0.020-0.120) Percent Reticulocyte Count 12.9 % (0.5-2.3) 13.2 % (0.5-2.3) Immature Reticulocyte Fraction 0.71 (0.20-0.60) 0.71 (0.20-0.60) Microbiology 11/07/18 Urine Culture - Final, Complete 11/07/18 Urine Culture Result 1 (DIAMOND) - Final, Complete Medications Current Medications Hydromorphone HCl (Dilaudid) 1 mg PRN Q15MIN PRN IV/SQ PAIN GREATER THAN 3/10 Last administered on 11/05/18at 16:19; Start 11/05/18 at 14:15; Stop 11/06/18 at 14:14; Status DC Sodium Chloride 1,000 ml @ 1,000 mls/hr Q1H IV Last administered on 11/05/18at 15:24; Start 11/05/18 at 14:06; Stop 11/05/18 at 15:05; Status DC Ondansetron HCl (Zofran) 4 mg 1X ONCE IV Last administered on 11/05/18at 15:25; Start 11/05/18 at 14:15; Stop 11/05/18 at 14:16; Status DC Diphenhydramine HCl (Benadryl) 25 mg PRN Q6HRS PRN IVP ITCHING Last administered on 11/11/18at 12:23; Start 11/05/18 at 17:15; Stop 11/11/18 at 14:42; Status DC Zolpidem Tartrate (Ambien) 5 mg PRN QHS PRN PO INSOMNIA; Start 11/05/18 at 17:15 Oxycodone/ Acetaminophen (Percocet 10/325) 1 tab PRN Q4HRS PRN PO MODERATE PAIN Last administered on 11/10/18at 06:04; Start 11/05/18 at 17:15; Stop 11/10/18 at 09:33; Status DC Hydromorphone HCl (Dilaudid) 1 mg PRN Q4HRS PRN IV SEVERE PAIN Last administer ed on 11/06/18at 06:12; Start 11/05/18 at 17:15; Stop 11/06/18 at 09:48; Status DC Hydromorphone HCl (Dilaudid) 4 mg PRN Q4HRS PRN PO SEVERE PAIN; Start 11/05/18 at 17:15; Stop 11/09/18 at 08:40; Status DC Fentanyl Citrate (Fentanyl 2ml Vial) 50 mcg PRN Q2HR PRN IV MODERATE PAIN 1ST CHOICE; Start 11/05/18 at 17:15; Stop 11/08/18 at 12:11; Status DC Docusate Sodium (Colace) 100 mg DAILY PO Last administered on 11/11/18at 08:37; Start 11/06/18 at 09:00 Polyethylene Glycol (miraLAX PACKET) 17 gm DAILY PO Last administered on 11/11/18 08:38; Start 11/06/18 at 09:00 Magnesium Hydroxide (Milk Of Magnesia) 2,400 mg PRN DAILY PRN PO CONSTIPATION; Start 11/05/18 at 17:15 Acetaminophen (Tylenol) 500 mg PRN Q6HRS PRN PO MILD PAIN / TEMP Last administered on 11/11/18 16:09; Start 11/05/18 at 17:15 Ondansetron HCl (Zofran) 4 mg PRN Q6HRS PRN IVP NAUSEA/VOMITING; Start 11/05/18 at 17:15 Sodium Chloride 1,000 ml @ 150 mls/hr Q6H40M IV ; Start 11/05/18 at 17:05; Stop 11/06/18 at 17:04; Status DC Sodium Chloride 1,000 ml @ 150 mls/hr Q6H40M IV Last administered on 11/12/18at 02:50; Start 11/05/18 at 17:15 Hydromorphone HCl (Dilaudid) 2 mg PRN Q4HRS PRN IV MODERATE PAIN 2ND CHOICE Last administered on 11/09/18 05:43; Start 11/06/18 at 10:00; Stop 11/09/18 at 08:40; Status DC Folic Acid (Folic Acid) 1 mg DAILY PO Last administered on 11/11/18 08:38; Start 11/06/18 at 12:00 Multivitamins (Thera M Plus) 1 tab DAILY PO Last administered on 11/11/18 08:38; Start 11/06/18 at 11:00 Hydroxyurea (Hydrea) 1,000 mg DAILY PO Last administered on 11/12/18 08:45; Start 11/06/18 at 11:00 Calcium/Vitamin D (Oscal D 500mg/ 200uts) 1 tab BIDWMEALS PO Last administered on 11/11/18 16:32; Start 11/06/18 at 17:00 Hydromorphone HCl (Dilaudid) 2 mg 1X ONCE IM Last administered on 11/07/18 12:52; Start 11/07/18 at 12:15; Stop 11/07/18 at 12:19; Status DC Enoxaparin Sodium (Lovenox 40mg Syringe) 40 mg Q24H SQ ; Start 11/08/18 at 15:00 Hydromorphone HCl (Dilaudid) 2 mg PRN Q4HRS PRN PO SEVERE PAIN; Start 11/09/18 at 08:45 Hydromorphone HCl (Dilaudid) 4 mg Q4HRS IV Last administered on 11/10/18at 08:12; Start 11/09/18 at 08:45; Stop 11/10/18 at 09:33; Status DC Hydromorphone HCl (Dilaudid) 4 mg PRN Q3HRS PRN IV pain Last administered on 11/12/18at 08:39; Start 11/10/18 at 09:30 Oxycodone HCl (Roxicodone) 15 mg Q4HRS PO Last administered on 11/12/18at 08:38; Start 11/10/18 at 09:30 Diphenhydramine HCl (Benadryl) 25 mg PRN Q4HRS PRN IVP ITCHING Last administered on 11/12/18at 08:39; Start 11/11/18 at 14:45 Vitals/I & O Vital Sign - Last 24 Hours 11/11/18 11/11/18 11/11/18 11/11/18 09:00 09:00 11:00 11:32 Temp 98.8 98.8 Pulse 100 Resp 16 16 B/P (MAP) 102/64 (77) Pulse Ox 92 92 92 O2 Delivery Room Air Room Air Room Air O2 Flow Rate 2.0 2.0 11/11/18 11/11/18 11/11/18 11/11/18 12:00 12:23 15:00 17:00 Temp 99.0 99.0 Pulse 91 Resp 18 16 B/P (MAP) 119/66 (83) Pulse Ox 92 O2 Delivery Room Air Room Air Room Air 11/11/18 11/11/18 11/11/18 11/11/18 17:42 19:15 20:00 20:39 Temp 99.2 99.2 Pulse 96 Resp 16 18 20 B/P (MAP) 108/66 (80) Pulse Ox 91 91 O2 Delivery Room Air Room Air Room Air 11/11/18 11/11/18 11/11/1811/11/19 20:44 21:14 21:39 23:07 Temp 98.1 98.1 Pulse 80 Resp 20 20 18 20 B/P (MAP) 116/71 (86) Pulse Ox 91 93 93 93 O2 Delivery Room Air Room Air Room Air Room Air 11/11/18 11/12/18 11/12/18 11/12/18 23:49 02:50 05:06 05:51 Resp 20 20 20 20 Pulse Ox 93 93 93 93 O2 Delivery Room Air Room Air Room Air Room Air 11/12/18 11/12/18 11/12/18 11/12/18 06:06 06:06 07:00 08:39 Temp 98.3 98.3 Pulse 98 Resp 20 20 20 B/P (MAP) 94/60 (71) Pulse Ox 93 93 97 97 O2 Delivery Room Air Room Air Room Air Room Air O2 Flow Rate 2.0 Intake and Output 11/11/18 11/11/18 11/12/18 14:59 22:59 06:59 Intake Total 300 ml 180 ml 540 ml Output Total 2000 ml Balance 300 ml 180 ml -1460 ml HUNTER SHARMA MD Nov 12, 2018 09:00
--- NOTE | 2018-11-12 09:34 | PDOC ---
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 Last week he told me po dilaudid was not helping so we gave percocet 10/325 for prn use, and for anxiety, he wanted Xanax, I don't give Xanax for anxiety, I did recommend Cymbalta to help with the mood and the pain, he didn't want this at this time, we did talk about increasing Hydrea, and adding endari, continuing on folate, a nd following up with ortho regarding his AVN, he recently saw orthopedics inpatient at . But after our visit he came to ED and has been in w/ acute crisis, finally improving. pain crisis: Continue aggressive IV hydration, pain meds per primary, cont HU, folate, ca/D, MV, CXR w/o infiltrate dispo: after clinical improvement prophylaxis: lovenox for DVT prophylaxis Thank you kindly and please do not hesitate to call with questions. OBJECTIVE Vital Signs Vital Signs Date Time Temp Pulse Resp B/P (MAP) Pulse Ox O2 Delivery O2 Flow Rate FiO2 11/12/18 08:39 97 Room Air 2.0 11/12/18 07:00 98.3 98 20 94/60 (71) 97 Room Air 98.3 11/12/18 06:06 20 93 Room Air 11/12/18 06:06 20 93 Room Air 11/12/18 05:51 20 93 Room Air 11/12/18 05:06 20 93 Room Air 11/12/18 02:50 20 93 Room Air 11/11/18 23:49 20 93 Room Air 11/11/18 23:07 98.1 80 20 116/71 (86) 93 Room Air 98.1 11/11/18 21:39 18 93 Room Air 11/11/18 21:14 20 93 Room Air 11/11/18 20:44 20 91 Room Air 11/11/18 20:39 20 91 Room Air 11/11/18 20:00 Room Air 11/11/18 19:15 99.2 96 18 108/66 (80) 91 Room Air 99.2 11/11/18 17:42 16 11/11/18 17:00 Room Air 11/11/18 15:00 99.0 91 16 119/66 (83) 92 Room Air 99.0 11/11/18 12:23 18 11/11/18 12:00 Room Air 11/11/18 11:32 16 11/11/18 11:00 98.8 100 16 102/64 (77) 92 Room Air 98.8 I & O Intake and Output 11/12/18 07:00 Intake Total 1020 ml Output Total 2000 ml Balance -980 ml Intake Oral 1020 ml Output Urine Total 2000 ml # Voids 7 # Bowel Movements 1 COMMENT Lab Laboratory Tests Test 11/11/18 09:55 11/12/18 07:00 White Blood Count 12.1 x10^3/uL (4.0-11.0) 12.1 x10^3/uL (4.0-11.0) Red Blood Count 2.92 x10^6/uL (4.30-5.70) 2.93 x10^6/uL (4.30-5.70) Hemoglobin 9.1 g/dL (13.0-17.5) 9.1 g/dL (13.0-17.5) Hematocrit 25.8 % (39.0-53.0) 26.2 % (39.0-53.0) Mean Corpuscular Volume 88 fL (79-100) 89 fL (79-100) Mean Corpuscular Hemoglobin 31 pg (25-35) 31 pg (25-35) Mean Corpuscular Hemoglobin Concent 35 g/dL (31-37) 35 g/dL (31-37) Red Cell Distribution Width 28.9 % (11.5-14.5) 29.5 % (11.5-14.5) Platelet Count 191 x10^3/uL (140-400) 194 x10^3/uL (140-400) Neutrophils (%) (Auto) 37 % (31-73) 43 % (31-73) Lymphocytes (%) (Auto) 46 % (24-48) 36 % (24-48) Monocytes (%) (Auto) 10 % (0-9) 14 % (0-9) Eosinophils (%) (Auto) 6 % (0-3) 7 % (0-3) Basophils (%) (Auto) 2 % (0-3) 1 % (0-3) Neutrophils # (Auto) 4.5 x10^3/uL (1.8-7.7) 5.3 x10^3/uL (1.8-7.7) Lymphocytes # (Auto) 5.5 x10^3/uL (1.0-4.8) 4.3 x10^3/uL (1.0-4.8) Monocytes # (Auto) 1.2 x10^3/uL (0.0-1.1) 1.6 x10^3/uL (0.0-1.1) Eosinophils # (Auto) 0.7 x10^3/uL (0.0-0.7) 0.8 x10^3/uL (0.0-0.7) Basophils # (Auto) 0.2 x10^3/uL (0.0-0.2) 0.1 x10^3/uL (0.0-0.2) Absolute Reticulocyte Count 0.376 x10^6/uL (0.020-0.120) 0.386 x10^6/uL (0.020-0.120) Percent Reticulocyte Count 12.9 % (0.5-2.3) 13.2 % (0.5-2.3) Immature Reticulocyte Fraction 0.71 (0.20-0.60) 0.71 (0.20-0.60) BISMARK MOTT MD Nov 12, 2018 09:34
[2018-11-12 11:00] VITALS: BP 126/88
[2018-11-12] MEDS: ENOXAPARIN 40 MG/0.4 ML SYRINGE. SQ SCH (14:57)
[2018-11-12 19:00] VITALS: BP 105/62
[2018-11-12 23:00] VITALS: BP 113/70
[2018-11-13] MEDS: ACETAMINOPHEN 500 MG TABLET PO PRN (00:04)
[2018-11-13] MEDS: HYDROmorphone 2 MG/ML VIAL IV PRN ×8 (00:04→21:17)
[2018-11-13] MEDS: diphenhydrAMINE 50 MG/ML VIAL IVP PRN ×6 (02:04→22:54)
[2018-11-13 03:00] VITALS: BP 108/63
[2018-11-13 05:17] LABS: BASO # 0.1 x10^3/uL (0.0-0.2); BASO % 1 % (0-3); EOS # 0.9 x10^3/uL (0.0-0.7); EOS % 8 % (0-3); HEMATOCRIT 24.6 % (39.0-53.0); HEMOGLOBIN 8.8 g/dL (13.0-17.5); LYMPH # 5.1 x10^3/uL (1.0-4.8); LYMPH % 41 % (24-48); MEAN CORPUSCULAR HEMOGLOBIN 32 pg (25-35); MEAN CORPUSCULAR HGB CONC 36 g/dL (31-37); MEAN CORPUSCULAR VOLUME 88 fL (79-100); MONO # 1.5 x10^3/uL (0.0-1.1); MONO % 12 % (0-9); NEUT # 4.8 x10^3/uL (1.8-7.7); NEUT % 38 % (31-73); PLATELET COUNT 159 x10^3/uL (140-400); RED BLOOD COUNT 2.79 x10^6/uL (4.30-5.70); WHITE BLOOD COUNT 12.5 x10^3/uL (4.0-11.0)
[2018-11-13 05:58] LABS: ALBUMIN 3.2 g/dL (3.4-5.0); ALBUMIN/GLOBULIN RATIO 0.9 (1.0-1.7); CALCIUM 8.6 mg/dL (8.5-10.1); GFR 101.2; MAGNESIUM 1.9 mg/dL (1.8-2.4); POTASSIUM 4.4 mmol/L (3.5-5.1); TOTAL BILIRUBIN 4.1 mg/dL (0.2-1.0); TOTAL PROTEIN 6.7 g/dL (6.4-8.2)
[2018-11-13] MEDS: IV NORMAL SALINE 1000ML BAG 1,000 ML IV SCH ×4 (06:00→21:17)
[2018-11-13 07:00] VITALS: BP 94/59
[2018-11-13] MEDS: CALCIUM CARB/VIT D3 500/200 TABLET. PO SCH ×2 (08:00→16:17)
[2018-11-13] MEDS: DOCUSATE SODIUM 100 MG CAPSULE. PO SCH (08:06)
[2018-11-13] MEDS: FOLIC ACID 1 MG TABLET. PO SCH (08:06)
[2018-11-13] MEDS: HYDROXYUREA 500 MG CAPSULE PO SCH (08:08)
[2018-11-13] MEDS: MULTIVITAMIN with MINERAL TABLET. PO SCH (08:08)
[2018-11-13] MEDS: POLYETHYLENE GLYCOL 3350 17 GM PACKET. PO SCH (08:08)
[2018-11-13] MEDS ORDERED: diphenhydrAMINE 50 MG/ML VIAL IVP PRN (10:30)
[2018-11-13] MEDS ORDERED: diphenhydrAMINE 50 MG/ML VIAL IVP ONE (10:30)
[2018-11-13 11:00] VITALS: BP 104/59
[2018-11-13] MEDS: diazePAM 2 MG TABLET PO PRN ×2 (12:13→18:13)
[2018-11-13] MEDS: ENOXAPARIN 40 MG/0.4 ML SYRINGE. SQ SCH (12:14)
--- NOTE | 2018-11-13 14:12 | PDOC ---
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 Schedule oxycodone IR 30 mg q4hrs. retic count still way too high Vitals Vitals Vital Signs Date Time Temp Pulse Resp B/P (MAP) Pulse Ox O2 Delivery O2 Flow Rate FiO2 11/13/18 13:14 Room Air 11/13/18 11:00 98.3 95 18 104/59 (74) 91 98.3 11/12/18 08:39 2.0 Physical Exam General: Alert, Oriented X3, No acute distress Heart: Regular rate Abdomen: Normal bowel sounds, No hepatosplenomegaly Extremities: No edema, No tenderness/swelling Skin: No rashes, No breakdown, No significant lesion Labs LABS Laboratory Tests Test 11/13/18 04:55 White Blood Count 12.5 x10^3/uL (4.0-11.0) Red Blood Count 2.81 x10^6/uL (4.30-5.70) Hemoglobin 8.8 g/dL (13.0-17.5) Hematocrit 24.6 % (39.0-53.0) Mean Corpuscular Volume 88 fL (79-100) Mean Corpuscular Hemoglobin 32 pg (25-35) Mean Corpuscular Hemoglobin Concent 36 g/dL (31-37) Red Cell Distribution Width 30.0 % (11.5-14.5) Platelet Count 159 x10^3/uL (140-400) Neutrophils (%) (Auto) 38 % (31-73) Lymphocytes (%) (Auto) 41 % (24-48) Monocytes (%) (Auto) 12 % (0-9) Eosinophils (%) (Auto) 8 % (0-3) Basophils (%) (Auto) 1 % (0-3) Neutrophils # (Auto) 4.8 x10^3/uL (1.8-7.7) Lymphocytes # (Auto) 5.1 x10^3/uL (1.0-4.8) Monocytes # (Auto) 1.5 x10^3/uL (0.0-1.1) Eosinophils # (Auto) 0.9 x10^3/uL (0.0-0.7) Basophils # (Auto) 0.1 x10^3/uL (0.0-0.2) Absolute Reticulocyte Count 0.396 x10^6/uL (0.020-0.120) Percent Reticulocyte Count 14.1 % (0.5-2.3) Immature Reticulocyte Fraction 0.72 (0.20-0.60) Sodium Level 143 mmol/L (136-145) Potassium Level 4.4 mmol/L (3.5-5.1) Chloride Level 109 mmol/L (98-107) Carbon Dioxide Level 28 mmol/L (21-32) Anion Gap 6 (6-14) Blood Urea Nitrogen 8 mg/dL (8-26) Creatinine 1.0 mg/dL (0.7-1.3) Estimated GFR (Cockcroft-Gault) 101.2 BUN/Creatinine Ratio 8 (6-20) Glucose Level 93 mg/dL (70-99) Calcium Level 8.6 mg/dL (8.5-10.1) Phosphorus Level 5.0 mg/dL (2.6-4.7) Magnesium Level 1.9 mg/dL (1.8-2.4) Total Bilirubin 4.1 mg/dL (0.2-1.0) Aspartate Amino Transf (AST/SGOT) 60 U/L (15-37) Alanine Aminotransferase (ALT/SGPT) 41 U/L (16-63) Alkaline Phosphatase 88 U/L (46-116) Total Protein 6.7 g/dL (6.4-8.2) Albumin 3.2 g/dL (3.4-5.0) Albumin/Globulin Ratio 0.9 (1.0-1.7) Comment Review of Relevant I have reviewed the following items jorge luis (where applicable) has been applied. Labs Laboratory Tests Test 11/12/18 07:00 11/13/18 04:55 White Blood Count 12.1 x10^3/uL (4.0-11.0) 12.5 x10^3/uL (4.0-11.0) Red Blood Count 2.93 x10^6/uL (4.30-5.70) 2.81 x10^6/uL (4.30-5.70) Hemoglobin 9.1 g/dL (13.0-17.5) 8.8 g/dL (13.0-17.5) Hematocrit 26.2 % (39.0-53.0) 24.6 % (39.0-53.0) Mean Corpuscular Volume 89 fL (79-100) 88 fL (79-100) Mean Corpuscular Hemoglobin 31 pg (25-35) 32 pg (25-35) Mean Corpuscular Hemoglobin Concent 35 g/dL (31-37) 36 g/dL (31-37) Red Cell Distribution Width 29.5 % (11.5-14.5) 30.0 % (11.5-14.5) Platelet Count 194 x10^3/uL (140-400) 159 x10^3/uL (140-400) Neutrophils (%) (Auto) 43 % (31-73) 38 % (31-73) Lymphocytes (%) (Auto) 36 % (24-48) 41 % (24-48) Monocytes (%) (Auto) 14 % (0-9) 12 % (0-9) Eosinophils (%) (Auto) 7 % (0-3) 8 % (0-3) Basophils (%) (Auto) 1 % (0-3) 1 % (0-3) Neutrophils # (Auto) 5.3 x10^3/uL (1.8-7.7) 4.8 x10^3/uL (1.8-7.7) Lymphocytes # (Auto) 4.3 x10^3/uL (1.0-4.8) 5.1 x10^3/uL (1.0-4.8) Monocytes # (Auto) 1.6 x10^3/uL (0.0-1.1) 1.5 x10^3/uL (0.0-1.1) Eosinophils # (Auto) 0.8 x10^3/uL (0.0-0.7) 0.9 x10^3/uL (0.0-0.7) Basophils # (Auto) 0.1 x10^3/uL (0.0-0.2) 0.1 x10^3/uL (0.0-0.2) Absolute Reticulocyte Count 0.386 x10^6/uL (0.020-0.120) 0.396 x10^6/uL (0.020-0.120) Percent Reticulocyte Count 13.2 % (0.5-2.3) 14.1 % (0.5-2.3) Immature Reticulocyte Fraction 0.71 (0.20-0.60) 0.72 (0.20-0.60) Sodium Level 143 mmol/L (136-145) Potassium Level 4.4 mmol/L (3.5-5.1) Chloride Level 109 mmol/L (98-107) Carbon Dioxide Level 28 mmol/L (21-32) Anion Gap 6 (6-14) Blood Urea Nitrogen 8 mg/dL (8-26) Creatinine 1.0 mg/dL (0.7-1.3) Estimated GFR (Cockcroft-Gault) 101.2 BUN/Creatinine Ratio 8 (6-20) Glucose Level 93 mg/dL (70-99) Calcium Level 8.6 mg/dL (8.5-10.1) Phosphorus Level 5.0 mg/dL (2.6-4.7) Magnesium Level 1.9 mg/dL (1.8-2.4) Total Bilirubin 4.1 mg/dL (0.2-1.0) Aspartate Amino Transf (AST/SGOT) 60 U/L (15-37) Alanine Aminotransferase (ALT/SGPT) 41 U/L (16-63) Alkaline Phosphatase 88 U/L (46-116) Total Protein 6.7 g/dL (6.4-8.2) Albumin 3.2 g/dL (3.4-5.0) Albumin/Globulin Ratio 0.9 (1.0-1.7) Laboratory Tests Test 11/13/18 04:55 White Blood Count 12.5 x10^3/uL (4.0-11.0) Red Blood Count 2.81 x10^6/uL (4.30-5.70) Hemoglobin 8.8 g/dL (13.0-17.5) Hematocrit 24.6 % (39.0-53.0) Mean Corpuscular Volume 88 fL (79-100) Mean Corpuscular Hemoglobin 32 pg (25-35) Mean Corpuscular Hemoglobin Concent 36 g/dL (31-37) Red Cell Distribution Width 30.0 % (11.5-14.5) Platelet Count 159 x10^3/uL (140-400) Neutrophils (%) (Auto) 38 % (31-73) Lymphocytes (%) (Auto) 41 % (24-48) Monocytes (%) (Auto) 12 % (0-9) Eosinophils (%) (Auto) 8 % (0-3) Basophils (%) (Auto) 1 % (0-3) Neutrophils # (Auto) 4.8 x10^3/uL (1.8-7.7) Lymphocytes # (Auto) 5.1 x10^3/uL (1.0-4.8) Monocytes # (Auto) 1.5 x10^3/uL (0.0-1.1) Eosinophils # (Auto) 0.9 x10^3/uL (0.0-0.7) Basophils # (Auto) 0.1 x10^3/uL (0.0-0.2) Absolute Reticulocyte Count 0.396 x10^6/uL (0.020-0.120) Percent Reticulocyte Count 14.1 % (0.5-2.3) Immature Reticulocyte Fraction 0.72 (0.20-0.60) Sodium Level 143 mmol/L (136-145) Potassium Level 4.4 mmol/L (3.5-5.1) Chloride Level 109 mmol/L (98-107) Carbon Dioxide Level 28 mmol/L (21-32) Anion Gap 6 (6-14) Blood Urea Nitrogen 8 mg/dL (8-26) Creatinine 1.0 mg/dL (0.7-1.3) Estimated GFR (Cockcroft-Gault) 101.2 BUN/Creatinine Ratio 8 (6-20) Glucose Level 93 mg/dL (70-99) Calcium Level 8.6 mg/dL (8.5-10.1) Phosphorus Level 5.0 mg/dL (2.6-4.7) Magnesium Level 1.9 mg/dL (1.8-2.4) Total Bilirubin 4.1 mg/dL (0.2-1.0) Aspartate Amino Transf (AST/SGOT) 60 U/L (15-37) Alanine Aminotransferase (ALT/SGPT) 41 U/L (16-63) Alkaline Phosphatase 88 U/L (46-116) Total Protein 6.7 g/dL (6.4-8.2) Albumin 3.2 g/dL (3.4-5.0) Albumin/Globulin Ratio 0.9 (1.0-1.7) Microbiology 11/07/18 Urine Culture - Final, Complete 11/07/18 Urine Culture Result 1 (DIAMOND) - Final, Complete Medications Current Medications Hydromorphone HCl (Dilaudid) 1 mg PRN Q15MIN PRN IV/SQ PAIN GREATER THAN 3/10 Last administered on 11/05/18at 16:19; Start 11/05/18 at 14:15; Stop 11/06/18 at 14:14; Status DC Sodium Chloride 1,000 ml @ 1,000 mls/hr Q1H IV Last administered on 11/05/18at 15:24; Start 11/05/18 at 14:06; Stop 11/05/18 at 15:05; Status DC Ondansetron HCl (Zofran) 4 mg 1X ONCE IV Last administered on 11/05/18at 15:25; Start 11/05/18 at 14:15; Stop 11/05/18 at 14:16; Status DC Diphenhydramine HCl (Benadryl) 25 mg PRN Q6HRS PRN IVP ITCHING Last administered on 11/11/18at 12:23; Start 11/05/18 at 17:15; Stop 11/11/18 at 14:42; Status DC Zolpidem Tartrate (Ambien) 5 mg PRN QHS PRN PO INSOMNIA; Start 11/05/18 at 17:15 Oxycodone/ Acetaminophen (Percocet 10/325) 1 tab PRN Q4HRS PRN PO MODERATE PAIN Last administered on 11/10/18at 06:04; Start 11/05/18 at 17:15; Stop 11/10/18 at 09:33; Status DC Hydromorphone HCl (Dilaudid) 1 mg PRN Q4HRS PRN IV SEVERE PAIN Last administered on 11/06/18at 06:12; Start 11/05/18 at 17:15; Stop 11/06/18 at 09:48; Status DC Hydromorphone HCl (Dilaudid) 4 mg PRN Q4HRS PRN PO SEVERE PAIN; Start 11/05/18 at 17:15; Stop 11/09/18 at 08:40; Status DC Fentanyl Citrate (Fentanyl 2ml Vial) 50 mcg PRN Q2HR PRN IV MODERATE PAIN 1ST CHOICE; Start 11/05/18 at 17:15; Stop 11/08/18 at 12:11; Status DC Docusate Sodium (Colace) 100 mg DAILY PO Last administered on 11/11/18 08:37; Start 11/06/18 at 09:00 Polyethylene Glycol (miraLAX PACKET) 17 gm DAILY PO Last administered on 11/11/18 08:38; Start 11/06/18 at 09:00 Magnesium Hydroxide (Milk Of Magnesia) 2,400 mg PRN DAILY PRN PO CONSTIPATION; Start 11/05/18 at 17:15 Acetaminophen (Tylenol) 500 mg PRN Q6HRS PRN PO MILD PAIN / TEMP Last admin istered on 11/13/18at 00:04; Start 11/05/18 at 17:15 Ondansetron HCl (Zofran) 4 mg PRN Q6HRS PRN IVP NAUSEA/VOMITING; Start 11/05/18 at 17:15 Sodium Chloride 1,000 ml @ 150 mls/hr Q6H40M IV ; Start 11/05/18 at 17:05; Stop 11/06/18 at 17:04; Status DC Sodium Chloride 1,000 ml @ 150 mls/hr Q6H40M IV Last administered on 11/13/18at 06:00; Start 11/05/18 at 17:15 Hydromorphone HCl (Dilaudid) 2 mg PRN Q4HRS PRN IV MODERATE PAIN 2ND CHOICE Last administered on 11/09/18at 05:43; Start 11/06/18 at 10:00; Stop 11/09/18 at 08:40; Status DC Folic Acid (Folic Acid) 1 mg DAILY PO Last administered on 11/11/18 08:38; Start 11/06/18 at 12:00 Multivitamins (Thera M Plus) 1 tab DAILY PO Last administered on 11/11/18 08:38; Start 11/06/18 at 11:00 Hydroxyurea (Hydrea) 1,000 mg DAILY PO Last administered on 11/12/18 08:45; Start 11/06/18 at 11:00 Calcium/Vitamin D (Oscal D 500mg/ 200uts) 1 tab BIDWMEALS PO Last administered on 11/11/18 16:32; Start 11/06/18 at 17:00 Hydromorphone HCl (Dilaudid) 2 mg 1X ONCE IM Last administered on 11/07/18 12:52; Start 11/07/18 at 12:15; Stop 11/07/18 at 12:19; Status DC Enoxaparin Sodium (Lovenox 40mg Syringe) 40 mg Q24H SQ ; Start 11/08/18 at 15:00 Hydromorphone HCl (Dilaudid) 2 mg PRN Q4HRS PRN PO SEVERE PAIN; Start 11/09/18 at 08:45 Hydromorphone HCl (Dilaudid) 4 mg Q4HRS IV Last administered on 11/10/18 08:12; Start 11/09/18 at 08:45; Stop 11/10/18 at 09:33; Status DC Hydromorphone HCl (Dilaudid) 4 mg PRN Q3HRS PRN IV pain Last administered on 11/13/18 12:13; Start 11/10/18 at 09:30 Oxycodone HCl (Roxicodone) 15 mg Q4HRS PO Last administered on 11/13/18 08:05; Start 11/10/18 at 09:30; Stop 11/13/18 at 10:40; Status DC Diphenhydramine HCl (Benadryl) 25 mg PRN Q4HRS PRN IVP ITCHING Last administered on 11/12/18 08:39; Start 11/11/18 at 14:45; Stop 11/12/18 at 11:00; Status DC Diphenhydramine HCl (Benadryl) 50 mg PRN Q4HRS PRN IVP ITCHING Last administered on 11/13/18 14:08; Start 11/12/18 at 11:00 Oxycodone HCl (Roxicodone) 30 mg Q4HRS PO Last administered on 10/5/19at 12:14; Start 11/13/18 at 11:00 Diphenhydramine HCl (Benadryl) 50 mg 1X ONCE IVP ; Start 11/13/18 at 10:30; Stop 11/13/18 at 10:45; Status DC Diphenhydramine HCl (Benadryl) 25 mg PRN Q6HRS PRN IVP ITCHING; Start 11/13/18 at 10:30 Diazepam (Valium) 2 mg PRN Q6HRS PRN PO ANXIETY Last administered on 11/13/18at 12:13; Start 11/13/18 at 10:45 Vitals/I & O Vital Sign - Last 24 Hours 11/12/18 11/12/18 11/12/18 11/12/18 14:44 14:48 15:18 16:10 O2 Delivery Room Air Room Air Room Air Room Air 11/12/18 11/12/18 11/12/18 11/12/18 17:10 17:54 18:45 19:00 Temp 99.1 99.1 Pulse 104 Resp 18 20 B/P (MAP) 105/62 (76) Pulse Ox 91 O2 Delivery Room Air Room Air Room Air Room Air 11/12/18 11/12/18 11/12/18 11/12/18 20:00 20:14 20:54 21:14 Resp 14 22 18 O2 Delivery Room Air Room Air Room Air Room Air 11/12/18 11/12/18 11/13/18 11/13/18 21:14 23:00 00:04 00:31 Temp 98.5 98.5 Pulse 101 Resp 18 20 20 B/P (MAP) 113/70 (84) Pulse Ox 94 O2 Delivery Room Air Room Air Room Air Room Air 11/13/18 11/13/18 11/13/18 11/13/18 00:34 01:31 03:00 03:08 Temp 98.8 98.8 Pulse 98 Resp 18 B/P (MAP) 108/63 (78) Pulse Ox 93 O2 Delivery Room Air Room Air Room Air Room Air 11/13/18 11/13/18 11/13/18 11/13/18 03:38 04:44 05:44 05:59 Resp 18 20 O2 Delivery Room Air Room Air Room Air Room Air 10/06/2711/13/18 11/13/18 11/13/18 06:29 07:00 08:05 09:04 Temp 98.3 98.3 Pulse 96 Resp 18 B/P (MAP) 94/59 (71) Pulse Ox 92 O2 Delivery Room Air Room Air Room Air Room Air 11/13/18 11/13/18 11/13/18 11/13/18 09:34 11:00 12:13 12:14 Temp 98.3 98.3 Pulse 95 Resp 18 B/P (MAP) 104/59 (74) Pulse Ox 91 O2 Delivery Room Air Room Air Room Air Room Air 11/13/18 11/13/18 12:43 13:14 O2 Delivery Room Air Room Air Intake and Output 11/12/18 11/12/18 11/13/18 15:00 23:00 07:00 Intake Total 300 ml 550 ml Output Total 800 ml 500 ml 1100 ml Balance -800 ml -200 ml -550 ml ELLIE ARECHIGA MD Nov 13, 2018 14:12
[2018-11-13 15:00] VITALS: BP 104/63
[2018-11-13 23:00] VITALS: BP 105/65
[2018-11-14] MEDS: HYDROmorphone 2 MG/ML VIAL IV PRN ×7 (00:30→21:35)
[2018-11-14 03:00] VITALS: BP 105/70
[2018-11-14] MEDS: diphenhydrAMINE 50 MG/ML VIAL IVP PRN ×5 (03:30→20:10)
[2018-11-14] MEDS: IV NORMAL SALINE 1000ML BAG 1,000 ML IV SCH ×3 (04:42→17:50)
[2018-11-14 07:00] VITALS: BP 100/53
[2018-11-14] MEDS: POLYETHYLENE GLYCOL 3350 17 GM PACKET. PO SCH (08:05)
[2018-11-14] MEDS: MULTIVITAMIN with MINERAL TABLET. PO SCH (08:05)
[2018-11-14] MEDS: CALCIUM CARB/VIT D3 500/200 TABLET. PO SCH ×2 (08:05→16:44)
[2018-11-14] MEDS: DOCUSATE SODIUM 100 MG CAPSULE. PO SCH (08:05)
[2018-11-14] MEDS: FOLIC ACID 1 MG TABLET. PO SCH (08:05)
[2018-11-14] MEDS: HYDROXYUREA 500 MG CAPSULE PO SCH (08:07)
[2018-11-14 11:00] VITALS: BP 110/70
[2018-11-14] MEDS: ENOXAPARIN 40 MG/0.4 ML SYRINGE. SQ SCH (14:29)
--- NOTE | 2018-11-14 14:34 | PDOC ---
PROGRESS NOTES Chief Complaint Chief Complaint Sickle cell crisis/pain Osteonecrosis of left shoulder - with prior surgical correction - replacement 03/2018 Chronic back pain Chronic joint pain H/o blood transfusion History of Present Illness History of Present Illness Increased PO oxy tried low dose valium cont IV benadryl Heme onc following, started on folate and hydroxyurea S/P PICC - dilaudid dosing to 4mg Q4hrs continue 150 mL saline, urine is still dark Dilaudid to 4mgs, q3hrs prn. Schedule oxycodone IR 30 mg q4hrs. retic count still way too high Mag level low, will replace. He is still c/o bilateral shoulder pain, now left hip pain is a bit worse. Vitals Vitals Vital Signs Date Time Temp Pulse Resp B/P (MAP) Pulse Ox O2 Delivery O2 Flow Rate FiO2 11/14/18 12:09 Room Air 11/14/18 11:00 98.6 100 18 110/70 (83) 91 98.6 Physical Exam General: Alert, Oriented X3, No acute distress Heart: Regular rate Abdomen: Normal bowel sounds, No hepatosplenomegaly Extremities: No edema, No tenderness/swelling Skin: No rashes, No breakdown, No significant lesion Comment Review of Relevant I have reviewed the following items jorge luis (where applicable) has been applied. Labs Laboratory Tests Test 11/13/18 04:55 White Blood Count 12.5 x10^3/uL (4.0-11.0) Red Blood Count 2.81 x10^6/uL (4.30-5.70) Hemoglobin 8.8 g/dL (13.0-17.5) Hematocrit 24.6 % (39.0-53.0) Mean Corpuscular Volume 88 fL (79-100) Mean Corpuscular Hemoglobin 32 pg (25-35) Mean Corpuscular Hemoglobin Concent 36 g/dL (31-37) Red Cell Distribution Width 30.0 % (11.5-14.5) Platelet Count 159 x10^3/uL (140-400) Neutrophils (%) (Auto) 38 % (31-73) Lymphocytes (%) (Auto) 41 % (24-48) Monocytes (%) (Auto) 12 % (0-9) Eosinophils (%) (Auto) 8 % (0-3) Basophils (%) (Auto) 1 % (0-3) Neutrophils # (Auto) 4.8 x10^3/uL (1.8-7.7) Lymphocytes # (Auto) 5.1 x10^3/uL (1.0-4.8) Monocytes # (Auto) 1.5 x10^3/uL (0.0-1.1) Eosinophils # (Auto) 0.9 x10^3/uL (0.0-0.7) Basophils # (Auto) 0.1 x10^3/uL (0.0-0.2) Absolute Reticulocyte Count 0.396 x10^6/uL (0.020-0.120) Percent Reticulocyte Count 14.1 % (0.5-2.3) Immature Reticulocyte Fraction 0.72 (0.20-0.60) Sodium Level 143 mmol/L (136-145) Potassium Level 4.4 mmol/L (3.5-5.1) Chloride Level 109 mmol/L (98-107) Carbon Dioxide Level 28 mmol/L (21-32) Anion Gap 6 (6-14) Blood Urea Nitrogen 8 mg/dL (8-26) Creatinine 1.0 mg/dL (0.7-1.3) Estimated GFR (Cockcroft-Gault) 101.2 BUN/Creatinine Ratio 8 (6-20) Glucose Level 93 mg/dL (70-99) Calcium Level 8.6 mg/dL (8.5-10.1) Phosphorus Level 5.0 mg/dL (2.6-4.7) Magnesium Level 1.9 mg/dL (1.8-2.4) Total Bilirubin 4.1 mg/dL (0.2-1.0) Aspartate Amino Transf (AST/SGOT) 60 U/L (15-37) Alanine Aminotransferase (ALT/SGPT) 41 U/L (16-63) Alkaline Phosphatase 88 U/L (46-116) Total Protein 6.7 g/dL (6.4-8.2) Albumin 3.2 g/dL (3.4-5.0) Albumin/Globulin Ratio 0.9 (1.0-1.7) Microbiology 11/07/18 Urine Culture - Final, Complete 11/07/18 Urine Culture Result 1 (DIAMOND) - Final, Complete Medications Current Medications Hydromorphone HCl (Dilaudid) 1 mg PRN Q15MIN PRN IV/SQ PAIN GREATER THAN 3/10 Last administered on 11/05/18at 16:19; Start 11/05/18 at 14:15; Stop 11/06/18 at 14:14; Status DC Sodium Chloride 1,000 ml @ 1,000 mls/hr Q1H IV Last administered on 11/05/18at 15:24; Start 11/05/18 at 14:06; Stop 11/05/18 at 15:05; Status DC Ondansetron HCl (Zofran) 4 mg 1X ONCE IV Last administered on 11/05/18at 15:25; Start 11/05/18 at 14:15; Stop 11/05/18 at 14:16; Status DC Diphenhydramine HCl (Benadryl) 25 mg PRN Q6HRS PRN IVP ITCHING Last administered on 11/11/18at 12:23; Start 11/05/18 at 17:15; Stop 11/11/18 at 14:42; Status DC Zolpidem Tartrate (Ambien) 5 mg PRN QHS PRN PO INSOMNIA; Start 11/05/18 at 17:15 Oxycodone/ Acetaminophen (Percocet 10/325) 1 tab PRN Q4HRS PRN PO MODERATE PAIN Last administered on 11/10/18at 06:04; Start 11/05/18 at 17:15; Stop 11/10/18 at 09:33; Status DC Hydromorphone HCl (Dilaudid) 1 mg PRN Q4HRS PRN IV SEVERE PAIN Last administered on 11/06/18at 06:12; Start 11/05/18 at 17:15; Stop 11/06/18 at 09:48; Status DC Hydromorphone HCl (Dilaudid) 4 mg PRN Q4HRS PRN PO SEVERE PAIN; Start 11/05/18 at 17:15; Stop 11/09/18 at 08:40; Status DC Fentanyl Citrate (Fentanyl 2ml Vial) 50 mcg PRN Q2HR PRN IV MODERATE PAIN 1ST CHOICE; Start 11/05/18 at 17:15; Stop 11/08/18 at 12:11; Status DC Docusate Sodium (Colace) 100 mg DAILY PO Last administered on 11/14/18at 08:05; Start 11/06/18 at 09:00 Polyethylene Glycol (miraLAX PACKET) 17 gm DAILY PO Last administered on 11/14/18 08:05; Start 11/06/18 at 09:00 Magnesium Hydroxide (Milk Of Magnesia) 2,400 mg PRN DAILY PRN PO CONSTIPATION; Start 11/05/18 at 17:15 Acetaminophen (Tylenol) 500 mg PRN Q6HRS PRN PO MILD PAIN / TEMP Last administered on 11/13/18at 00:04; Start 11/05/18 at 17:15 Ondansetron HCl (Zofran) 4 mg PRN Q6HRS PRN IVP NAUSEA/VOMITING; Start 11/05/18 at 17:15 Sodium Chloride 1,000 ml @ 150 mls/hr Q6H40M IV ; Start 11/05/18 at 17:05; Stop 11/06/18 at 17:04; Status DC Sodium Chloride 1,000 ml @ 150 mls/hr Q6H40M IV Last administered on 11/14/18at 12:27; Start 11/05/18 at 17:15 Hydromorphone HCl (Dilaudid) 2 mg PRN Q4HRS PRN IV MODERATE PAIN 2ND CHOICE Last administered on 11/09/18at 05:43; Start 11/06/18 at 10:00; Stop 11/09/18 at 08:40; Status DC Folic Acid (Folic Acid) 1 mg DAILY PO Last administered on 11/14/18 08:05; Start 11/06/18 at 12:00 Multivitamins (Thera M Plus) 1 tab DAILY PO Last administered on 11/14/18at 08:05; Start 11/06/18 at 11:00 Hydroxyurea (Hydrea) 1,000 mg DAILY PO Last administered on 11/14/18 08:07; Start 11/06/18 at 11:00 Calcium/Vitamin D (Oscal D 500mg/ 200uts) 1 tab BIDWMEALS PO Last administered on 11/14/18 08:05; Start 11/06/18 at 17:00 Hydromorphone HCl (Dilaudid) 2 mg 1X ONCE IM Last administered on 11/07/18at 12:52; Start 11/07/18 at 12:15; Stop 11/07/18 at 12:19; Status DC Enoxaparin Sodium (Lovenox 40mg Syringe) 40 mg Q24H SQ ; Start 11/08/18 at 15:00 Hydromorphone HCl (Dilaudid) 2 mg PRN Q4HRS PRN PO SEVERE PAIN; Start 11/09/18 at 08:45 Hydromorphone HCl (Dilaudid) 4 mg Q4HRS IV Last administered on 11/10/18at 08:12; Start 11/09/18 at 08:45; Stop 11/10/18 at 09:33; Status DC Hydromorphone HCl (Dilaudid) 4 mg PRN Q3HRS PRN IV pain Last administered on 11/14/18at 11:07; Start 11/10/18 at 09:30 Oxycodone HCl (Roxicodone) 15 mg Q4HRS PO Last administered on 11/13/18at 08:05; Start 11/10/18 at 09:30; Stop 11/13/18 at 10:40; Status DC Diphenhydramine HCl (Benadryl) 25 mg PRN Q4HRS PRN IVP ITCHING Last administered on 11/12/18at 08:39; Start 11/11/18 at 14:45; Stop 11/12/18 at 11:00; Status DC Diphenhydramine HCl (Benadryl) 50 mg PRN Q4HRS PRN IVP ITCHING Last administered on 11/14/18at 12:25; Start 11/12/18 at 11:00 Oxycodone HCl (Roxicodone) 30 mg Q4HRS PO Last administered on 11/14/18at 11:07; Start 11/13/18 at 11:00 Diphenhydramine HCl (Benadryl) 50 mg 1X ONCE IVP ; Start 11/13/18 at 10:30; Stop 11/13/18 at 10:45; Status DC Diphenhydramine HCl (Benadryl) 25 mg PRN Q6HRS PRN IVP ITCHING; Start 11/13/18 at 10:30 Diazepam (Valium) 2 mg PRN Q6HRS PRN PO ANXIETY Last administered on 11/13/18at 12:13; Start 11/13/18 at 10:45 Vitals/I & O Vital Sign - Last 24 Hours 11/13/18 11/13/18 11/13/18 11/13/18 15:00 15:11 15:41 16:16 Temp 98.3 98.3 Pulse 98 Resp 18 B/P (MAP) 104/63 (77) Pulse Ox 94 O2 Delivery Room Air Room Air Room Air Room Air 11/13/18 11/13/18 11/13/18 11/13/18 17:16 18:14 18:44 20:00 O2 Delivery Room Air Room Air Room Air Room Air 11/13/18 11/14/18 11/14/18 11/14/18 23:00 03:00 07:00 08:00 Temp 98.2 97.9 98.0 98.2 97.9 98.0 Pulse 92 87 93 Resp 18 18 18 B/P (MAP) 105/65 (78) 105/70 (82) 100/53 (69) Pulse Ox 90 90 93 O2 Delivery Room Air Room Air Room Air Room Air 11/14/18 11/14/18 11/14/18 11/14/18 08:05 08:07 08:50 09:15 O2 Delivery Room Air Room Air Room Air Room Air 11/14/18 11/14/18 11/14/18 11/14/18 11:00 11:07 11:07 11:37 Temp 98.6 98.6 Pulse 100 Resp 18 B/P (MAP) 110/70 (83) Pulse Ox 91 O2 Delivery Room Air Room Air Room Air Room Air 11/14/18 12:09 O2 Delivery Room Air Intake and Output 11/13/18 11/13/18 11/14/18 15:00 23:00 07:00 Intake Total 200 ml Output Total 875 ml 800 ml 2125 ml Balance -875 ml -800 ml -1925 ml HUNTER SHARMA MD Nov 14, 2018 14:34
[2018-11-14 14:50] VITALS: BP 115/74
[2018-11-14] MEDS ORDERED: MAGNESIUM SULFATE 2GM 50 ML IV ONE (15:00)
[2018-11-14 19:15] VITALS: BP 98/59
[2018-11-14 23:42] VITALS: BP 103/68
[2018-11-15] MEDS: diphenhydrAMINE 50 MG/ML VIAL IVP PRN ×4 (00:24→12:12)
[2018-11-15] MEDS: HYDROmorphone 2 MG/ML VIAL IV PRN ×3 (01:24→08:54)
[2018-11-15] MEDS: IV NORMAL SALINE 1000ML BAG 1,000 ML IV SCH ×2 (02:00→07:15)
[2018-11-15 03:29] VITALS: BP 95/57
[2018-11-15 05:23] VITALS: BP 103/76
--- NOTE | 2018-11-15 05:24 | NUR ---
Pt continues to refuse Mag infusion after patient educated on the need due to low mag levels. He now states he would like to discuss with the DrMarilee guzman. Pt also continues to refuse PICC line drsg change, he now states he will wait for day shift. Pt has been awake most of the night and has remained agitated about his medications and when they are due. Stating he is not getting better because he pain meds are not being given on time.
[2018-11-15 07:00] VITALS: BP 100/61
[2018-11-15] MEDS: CALCIUM CARB/VIT D3 500/200 TABLET. PO SCH (08:00)
[2018-11-15] MEDS: DOCUSATE SODIUM 100 MG CAPSULE. PO SCH (08:09)
[2018-11-15] MEDS: FOLIC ACID 1 MG TABLET. PO SCH (08:09)
[2018-11-15] MEDS: POLYETHYLENE GLYCOL 3350 17 GM PACKET. PO SCH (08:10)
[2018-11-15] MEDS: MULTIVITAMIN with MINERAL TABLET. PO SCH (08:18)
[2018-11-15] MEDS: HYDROXYUREA 500 MG CAPSULE PO SCH (08:18)
--- NOTE | 2018-11-15 08:49 | NUR ---
Per Dr. Marques verbal order, OK to give "any pain medications ordered as long as patient is alert and in pain".
[2018-11-15] MEDS: diazePAM 2 MG TABLET PO PRN (08:55)
--- NOTE | 2018-11-15 08:57 | PDOC ---
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 pain crisis: Continue aggressive IV hydration, pain meds per primary, cont HU, folate, ca/D, MV, CXR w/o infiltrate, encourage him to use what's avail, would have expected more improvement by now... dispo: after clinical improvement prophylaxis: lovenox for DVT prophylaxis Thank you kindly and please do not hesitate to call with questions. OBJECTIVE Vital Signs Vital Signs Date Time Temp Pulse Resp B/P (MAP) Pulse Ox O2 Delivery O2 Flow Rate FiO2 11/15/18 07:00 98.1 101 18 100/61 (74) 92 Room Air 98.1 11/15/18 05:23 103/76 (85) 11/15/18 03:29 98.5 92 18 95/57 (70) 92 Room Air 98.5 11/14/18 23:42 98.6 99 18 103/68 (80) 92 Room Air 98.6 11/14/18 20:00 Room Air 11/14/18 19:15 99.0 93 18 98/59 (72) 94 Room Air 99.0 11/14/18 18:39 Room Air 11/14/18 17:50 Room Air 11/14/18 17:39 Room Air 11/14/18 16:33 Room Air 11/14/18 15:18 Room Air 11/14/18 14:50 98.2 100 18 115/74 (88) 93 Room Air 98.2 11/14/18 14:41 Room Air 11/14/18 12:09 Room Air 11/14/18 11:37 Room Air 11/14/18 11:07 Room Air 11/14/18 11:07 Room Air 11/14/18 11:00 98.6 100 18 110/70 (83) 91 Room Air 98.6 11/14/18 09:15 Room Air I & O Intake and Output 11/15/18 07:00 Intake Total 950 ml Output Total 1500 ml Balance -550 ml Intake Oral 950 ml Output Urine Total 1500 ml # Voids 1 BISMARK MOTT MD Nov 15, 2018 08:57
[2018-11-15] MEDS: HYDROmorphone 2 MG TABLET PO PRN ×2 (09:33→13:31)
--- NOTE | 2018-11-15 10:30 | NUR ---
Behavioral Note: Approached pt room to draw blood and change PICC line dressing, witnessed Dr. Paris and patient conversing in room. Pt agitated and arguing with MD regarding plan of care. Pt insists that all of the staff is against him and is affecting her choices regarding his Care. Dr. Paris explained that it is not a matter of opinion whether he gets to remain in the hospital, it is a matter of lab values. Pt continues to complain that he needs to be here because he has shoulder and hip pain from surgeries in March 2018 and May 2018. Will continue to monitor.
[2018-11-15 10:37] LABS: HEMATOCRIT 23.3 % (39.0-53.0); HEMOGLOBIN 8.2 g/dL (13.0-17.5)
[2018-11-15 11:00] VITALS: BP 108/54
[2018-11-15] MEDS ORDERED: MULT1TAB90 PO (11:21)
[2018-11-15] MEDS ORDERED: DIAZ2TAB3 PO (11:21)
[2018-11-15] MEDS ORDERED: HYDR2TAB31 PO (11:21)
[2018-11-15] MEDS ORDERED: OXYC30TA3 PO (11:21)
[2018-11-15] MEDS ORDERED: HYDR500C PO (11:21)
[2018-11-15] MEDS ORDERED: Folic Acid PO (11:21)
--- NOTE | 2018-11-15 11:24 | PDOC3 ---
Discharge Summary Visit Information Date of Admission: Nov 05, 2018 Date of Discharge: Nov 15, 2018 Admitting Diagnosis Comment: Sickel cell crisis/pain\ Brief Hospital Course Allergies Allergies Coded Allergies Type Severity Reaction Last Updated Verified Sulfa (Sulfonamide Antibiotics) Allergy Intermediate 11/05/18 Yes Vital Signs Vital Signs Date Time Temp Pulse Resp B/P (MAP) Pulse Ox O2 Delivery O2 Flow Rate FiO2 11/15/18 07:00 98.1 101 18 100/61 (74) 92 Room Air 98.1 Lab Results Laboratory Tests Test 11/15/18 10:20 Red Blood Count 2.60 x10^6/uL (4.30-5.70) Hemoglobin 8.2 g/dL (13.0-17.5) Hematocrit 23.3 % (39.0-53.0) Mean Corpuscular Hemoglobin Concent 35 g/dL (31-37) Absolute Reticulocyte Count 0.311 x10^6/uL (0.020-0.120) Percent Reticulocyte Count 12.0 % (0.5-2.3) Immature Reticulocyte Fraction 0.77 (0.20-0.60) Laboratory Tests Test 11/15/18 10:20 Red Blood Count 2.60 x10^6/uL (4.30-5.70) Hemoglobin 8.2 g/dL (13.0-17.5) Hematocrit 23.3 % (39.0-53.0) Mean Corpuscular Hemoglobin Concent 35 g/dL (31-37) Absolute Reticulocyte Count 0.311 x10^6/uL (0.020-0.120) Percent Reticulocyte Count 12.0 % (0.5-2.3) Immature Reticulocyte Fraction 0.77 (0.20-0.60) Brief Hospital Course Mr. Licea is a 38 old known pt of Dr karen lu admitted for sickle cell pain crisis with mildly elev retic ct, HE stayed over 10 days wt us and has gotten 38 doses IV dilaudid and 37 bags NS running at 150cc hr Rpt retic ct better and HGb stable HOme today with his PO pain regimen TENSE DISCUSSION WITH HIM TODAY WITH RN WITNESS, LOTS OF COMPLAINTS ABOUT CARE, NOT GETTING HIS PAIN MEDS ON TIME, CONSTANTLY ITCHING FROM NARCS, GETTING DILAUDID, REFUSING SOME TX ETC .. DC 45 MINS CONSULTS: HEME ONC PROc: NONE Discharge Information Condition at Discharge: Improved, Stable Disposition/Orders: D/C to Home Scheduled Hydroxyurea (Hydrea) 500 Mg Capsule, 1,000 MG PO DAILY for sickel cell, #60 Prescribed by: CANDIDO MITCHELL on 11/15/181120 Multivits,Ca,Minerals/Iron/Fa (Thera-M Tablet) 1 Each Tablet, 1 TAB PO DAILY for mvi, #60 Prescribed by: CANDIDO MITCHELL on 11/15/181120 Oxycodone Hcl (Oxycodone Hcl Immed.release ) 30 Mg Tablet, 30 MG PO Q4HRS for sickle cell pain, #30 Prescribed by: CANDIDO MITCHELL on 11/15/181120 [Folic Acid] 1 MG TABLET, 1 MG PO DAILY for sickel cell, #60 Prescribed by: CANDIDO MITCHELL on 11/15/181120 Scheduled PRN Diazepam (Diazepam) 2 Mg Tablet, 2 MG PO PRN Q6HRS PRN for ANXIETY, #10 Prescribed by: CANDIDO MITCHELL on 11/15/181120 Hydromorphone Hcl (Dilaudid) 2 Mg Tablet, 2 MG PO PRN Q4HRS PRN for SEVERE PAIN, #30 Prescribed by: CANDIDO MITCHELL on 11/15/181120 CANDIDO MITCHELL MD Nov 15, 2018 11:24
--- NOTE | 2018-11-15 12:26 | NUR ---
Behavioral note: Pt informed that his IV dilaudid, IVF, and PICC line are to be discontinued due to his lab values improving and plan for him to DC today. Pt agitated and stating that he is not well enough to discharge and that he refuses to leave until he can see Dr. Marques. Pt argumentative as this nurse attempted to explain that Dr. Marques is a specialist on his case and does not have admission and DC privileges. Pt insistent upon this nurse calling doctor Jerald to come see him. Dr. Marques notified of situation, and stated that if he truly feels like he is too sick to return home that he can go through the ER at .
--- NOTE | 2018-11-15 13:07 | NUR ---
Pt. informed of his discharge from hospital today. Pt. found in room, crying. Pt. notified of this RN coming to room to d/c his picc line. Pt. states his picc line is to stay in. Pt. informed that per his RN today, Augusta his picc line is to be d/c'd prior to d/c from hospital. Pt. stating drs said it was to stay in, then asking if RN can come back because he does not feel good.
--- NOTE | 2018-11-15 16:30 | NUR ---
Discharge: Pt DC to home per cab pass. Left with rx for dilaudid, oxycodone, valium, hydrea. PICC line DC'ed by Enriqueta DOE, no complications.
== END 2018-11-15 16:52 | disposition home or self-care (01) | DRG 812 ==
LOC: ER 13:25 → 4 NORTH 16:59
PROVIDERS: ADMIT Internal Medicine; ATTEND Internal Medicine
PROC: 02HV33Z Insertion of Infusion Device into Superior Vena Cava, Percutaneous Approach (ICD-10-PCS; principal; 2018-11-07)
DX: D57.00 Hb-SS disease with crisis, unspecified (principal); M87.9 Osteonecrosis, unspecified; G89.29 Other chronic pain; Z96.612 Presence of left artificial shoulder joint; F41.8 Other specified anxiety disorders; Z87.440 Personal history of urinary (tract) infections; Z88.2 Allergy status to sulfonamides
CPT/HCPCS: 36415; 36569; 71045; 71046; 80053; 81001; 83735; 84100; 85007; 85014; 85018; 85025; 85045; 87086; 96374; 96375; J1170; J1200; J2405; J7030; 99285-25; G0378

== ENCOUNTER 2018-11-25 09:28 | Inpatient (IN) | payer SELFPAY ==
[~2018-11-25] VITALS: Ht 174 cm; Wt 84.4 kg
[~2018-11-25 09:28] MED LIST: DIAZ2TAB3 PO; Folic Acid PO; HYDR2TAB31 PO; HYDR500C PO; MULT1TAB90 PO; OXYC30TA3 PO
[2018-11-25] MEDS ORDERED: HYDROmorphone 2 MG/ML VIAL IVP STA (09:45)
[2018-11-25] MEDS ORDERED: IV NORMAL SALINE 1000ML BAG 1,000 ML IV ONE (09:45)
--- NOTE | 2018-11-25 09:51 | PHYS DOC ---
Past Medical History Past Medical History: Sickle Cell Disease Past Surgical History: Other Additional Past Surgical Histo: L. SHOULDER AND BILATERAL HIP Alcohol Use: Occasionally Drug Use: None Adult General Chief Complaint Chief Complaint: PAIN CONTROL HPI HPI Patient is a 38 year old male that presents to the ER stating that he's been coughing, and short of breath for the last 2-3 days and also has body wide pain that starts in his shoulders and goes down to his hips and legs. The patient states that he has a history of sickle cell. Reports his pain as 7 out of 10 in severity sharp with body aches, and states that he has been taking oxycodone at home which is not helping. Review of Systems Review of Systems Constitutional: Denies fever or chills [] Eyes: Denies change in visual acuity, redness, or eye pain [] HENT: Denies nasal congestion or sore throat [] Respiratory: Reports cough and shortness of breath. Cardiovascular: No additional information not addressed in HPI [] GI: Denies abdominal pain, nausea, vomiting, bloody stools or diarrhea [] : Denies dysuria or hematuria [] Musculoskeletal: Reports body wide pain. Integument: Denies rash or skin lesions [] Neurologic: Denies headache, focal weakness or sensory changes [] Endocrine: Denies polyuria or polydipsia [] Complete systems were reviewed and found to be within normal limits, except as documented in this note. Current Medications Current Medications Current Medications Medications (Trade) Dose Ordered Sig/Shoshana Start Time Stop Time Status Last Admin Dose Admin Enoxaparin Sodium (Lovenox 40mg Syringe) 40 mg DAILY ONCE 11/25/18 12:45 11/25/18 12:46 Hydromorphone HCl (Dilaudid) 2 mg PRN Q4HRS PRN 11/25/18 12:45 Hydroxyurea (Hydrea) 1,000 mg DAILY 11/26/18 09:00 Multivitamins (Thera M Plus) 1 tab DAILY 11/26/18 09:00 Non-Formulary Medication ([Folic Acid] ) 1 mg DAILY 11/26/18 09:00 UNV Oxycodone HCl (Roxicodone) 30 mg Q4HRS 11/25/18 16:00 UNV Sodium Chloride 1,000 ml @ 1,000 mls/hr 1X ONCE 11/25/18 09:45 11/25/18 10:44 DC Allergies Allergies Allergies Coded Allergies Type Severity Reaction Last Updated Verified Sulfa (Sulfonamide Antibiotics) Allergy Intermediate 11/05/18 Yes Physical Exam Physical Exam Constitutional: Well developed, well nourished, no acute distress, non-toxic appearance. [] HENT: Normocephalic, atraumatic, bilateral external ears normal, oropharynx moist, no oral exudates, nose normal. [] Eyes: PERRLA, EOMI, conjunctiva normal, no discharge. [] Neck: Normal range of motion, no tenderness, supple, no stridor. [] Cardiovascular:Heart rate regular rhythm, no murmur [] Lungs & Thorax: Bilateral breath sounds clear to auscultation [] Abdomen: Bowel sounds normal, soft, no tenderness, no masses, no pulsatile masses. [] Skin: Warm, dry, no erythema, no rash. [] Back: No tenderness, no CVA tenderness. [] Extremities: No tenderness, no cyanosis, no clubbing, ROM intact, no edema. [] Neurologic: Alert and oriented X 3, normal motor function, normal sensory function, no focal deficits noted. [] Psychologic: Affect normal, judgement normal, mood normal. [] Current Patient Data Vital Signs Vital Signs Date Time Temp Pulse Resp B/P (MAP) Pulse Ox O2 Delivery O2 Flow Rate FiO2 11/25/18 12:01 70 16 98 11/25/18 11:26 Room Air 11/25/18 09:30 98.1 115/53 (73) 98.1 Lab Values Laboratory Tests Test 11/25/18 11:00 White Blood Count 11.0 x10^3/uL (4.0-11.0) Red Blood Count 3.31 x10^6/uL (4.30-5.70) L Hemoglobin 10.0 g/dL (13.0-17.5) L Hematocrit 29.0 % (39.0-53.0) L Mean Corpuscular Volume 87 fL (79-100) Mean Corpuscular Hemoglobin 30 pg (25-35) Mean Corpuscular Hemoglobin Concent 35 g/dL (31-37) Red Cell Distribution Width 26.0 % (11.5-14.5) H Platelet Count 287 x10^3/uL (140-400) Neutrophils (%) (Auto) 41 % (31-73) Lymphocytes (%) (Auto) 42 % (24-48) Monocytes (%) (Auto) 12 % (0-9) H Eosinophils (%) (Auto) 3 % (0-3) Basophils (%) (Auto) 2 % (0-3) Neutrophils # (Auto) 4.5 x10^3/uL (1.8-7.7) Lymphocytes # (Auto) 4.6 x10^3/uL (1.0-4.8) Monocytes # (Auto) 1.4 x10^3/uL (0.0-1.1) H Eosinophils # (Auto) 0.3 x10^3/uL (0.0-0.7) Basophils # (Auto) 0.2 x10^3/uL (0.0-0.2) Segmented Neutrophils % 48 % (35-66) Lymphocytes % 33 % (24-48) Monocytes % 14 % (0-10) H Eosinophils % 5 % (0-5) Platelet Estimate Adequate (ADEQUATE) Spherocytes Occ Sickle Cells Few Target Cells Occ Absolute Reticulocyte Count 0.399 x10^6/uL (0.020-0.120) Percent Reticulocyte Count 12.0 % (0.5-2.3) H Immature Reticulocyte Fraction 0.66 (0.20-0.60) H Sodium Level 142 mmol/L (136-145) Potassium Level 4.0 mmol/L (3.5-5.1) Chloride Level 107 mmol/L (98-107) Carbon Dioxide Level 26 mmol/L (21-32) Anion Gap 9 (6-14) Blood Urea Nitrogen 4 mg/dL (8-26) L Creatinine 0.9 mg/dL (0.7-1.3) Estimated GFR (Cockcroft-Gault) 114.3 BUN/Creatinine Ratio 4 (6-20) L Glucose Level 98 mg/dL (70-99) Calcium Level 8.5 mg/dL (8.5-10.1) Total Bilirubin 3.6 mg/dL (0.2-1.0) H Aspartate Amino Transferase (AST) 30 U/L (15-37) Alanine Aminotransferase (ALT) 20 U/L (16-63) Alkaline Phosphatase 84 U/L (46-116) Total Protein 7.2 g/dL (6.4-8.2) Albumin 3.7 g/dL (3.4-5.0) Albumin/Globulin Ratio 1.1 (1.0-1.7) Laboratory Tests 11/25/18 11:00 Laboratory Tests 11/25/18 11:00 EKG EKG [] Radiology/Procedures Radiology/Procedures [][facility] [address] [place] [address] IMAGING REPORT Signed PATIENT: ANETA CASPER ACCOUNT: [id number] : 1980 LOCATION: ER AGE: 38 SEX: M EXAM STATUS: REG ER ORD. PHYSICIAN: OLIVER PARKER APRN REASON: cough, SICKLE CELL PAIN PROCEDURE: CHEST PA & LATERAL CHEST PA LATERAL Clinical indications: Cough. Sickle cell pain. COMPARISON: November 07, 2018. Findings: Old granulomatous disease is seen. No acute lung infiltrate or pleural effusion or pulmonary edema or lung mass or pneumothorax is seen. The heart size, pulmonary vasculature, mediastinum and both hector are stable. Left shoulder arthroplasty is evident. Impression: No acute radiographic abnormality is seen. Electronically signed by: Reji Bhakta MD (11/25/2018 10:58 AM) [place] [id number] DICTATED and SIGNED BY: REJI BHAKTA MD DATE: 11/25/18 1058 Course & Med Decision Making Course & Med Decision Making Pertinent Labs and Imaging studies reviewed. (See chart for details) Patient was recently admitted into hospital for sickle cell crisis and over the last several days has been having body wide pain and cough. Will get labs and chest x-ray. Will also give supportive care. Chest x-ray looks unremarkable for acute changes, labs show that Reticulocytes are elevated, patient is still have severe pain after 2 doses of IM Dilaudid. Will call hospitalist for admission. Dr. Davis agrees to admission at 12:25. Dragon Disclaimer Dragon Disclaimer This electronic medical record was generated, in whole or in part, using a voice recognition dictation system. Departure Departure Impression: Primary Impression: Sickle cell crisis Disposition: ADMITTED INPATIENT Admitting Physician: MCKENNA Condition: STABLE Referrals: BISMARK MOTT MD (PCP) OLIVER PARKER APRN Nov 25, 2018 09:51
[2018-11-25] MEDS ORDERED: HYDROmorphone 2 MG/ML VIAL IM STA ×2 (10:34→11:18)
--- NOTE | 2018-11-25 11:01 | RAD ---
CHEST PA LATERAL Clinical indications: Cough. Sickle cell pain. COMPARISON: November 07, 2018. Findings: Old granulomatous disease is seen. No acute lung infiltrate or pleural effusion or pulmonary edema or lung mass or pneumothorax is seen. The heart size, pulmonary vasculature, mediastinum and both hector are stable. Left shoulder arthroplasty is evident. Impression: No acute radiographic abnormality is seen. Electronically signed by: Winston Bhakta MD (11/25/2018 10:58 AM) [facility]
--- NOTE | 2018-11-25 11:26 | NUR ---
Per Ernesto CAMPBELL's request, pt given approximately 1000 ml of fluids PO which pt drank in full.
[2018-11-25 11:28] LABS: BASO # 0.2 x10^3/uL (0.0-0.2); BASO % 2 % (0-3); EOS # 0.3 x10^3/uL (0.0-0.7); EOS % 3 % (0-3); LYMPH # 4.6 x10^3/uL (1.0-4.8); LYMPH % 42 % (24-48); MEAN CORPUSCULAR HEMOGLOBIN 30 pg (25-35); MEAN CORPUSCULAR HGB CONC 35 g/dL (31-37); MEAN CORPUSCULAR VOLUME 87 fL (79-100); MONO # 1.4 x10^3/uL (0.0-1.1); MONO % 12 % (0-9); NEUT # 4.5 x10^3/uL (1.8-7.7); NEUT % 41 % (31-73); PLATELET COUNT 287 x10^3/uL (140-400); RED BLOOD COUNT 3.34 x10^6/uL (4.30-5.70)
[2018-11-25 11:39] LABS: CALCIUM 8.5 mg/dL (8.5-10.1); CREATININE 0.9 mg/dL (0.7-1.3); GFR 114.3
[2018-11-25 11:45] LABS: ALBUMIN 3.7 g/dL (3.4-5.0); ALBUMIN/GLOBULIN RATIO 1.1 (1.0-1.7); TOTAL BILIRUBIN 3.6 mg/dL (0.2-1.0); TOTAL PROTEIN 7.2 g/dL (6.4-8.2)
[2018-11-25 12:21] LABS: % EOS 5 % (0-5); % LYMPHS 33 % (24-48); % MONOS 14 % (0-10); % SEGS 48 % (35-66); PLT ESTIMATE ADEQUATE (ADEQUATE); SICKLE CELLS FEW
[2018-11-25 12:22] LABS: TARGET CELLS OCC
[2018-11-25 12:24] LABS: SPHEROCYTES OCC
[2018-11-25] MEDS ORDERED: HYDROmorphone 2 MG TABLET PO PRN (12:45)
[2018-11-25] MEDS ORDERED: ENOXAPARIN 40 MG/0.4 ML SYRINGE. SQ ONE (12:45)
--- NOTE | 2018-11-25 12:47 | PDOC1 ---
History and Physical Date of Admission Date of Admission DATE: 11/25/18 TIME: 12:35 Identification/Chief Complaint Chief Complaint Body aches, SCD crisis Source Source: Patient History of Present Illness History of Present Illness Mr Licea is a 38yo M w/ PMHx SCD, Osteonecrosis of left shoulder, depression with anxiety who presents with diffuse bone pain, lower back pain, bilateral hip pain, right rib pain and bilateral shoulder pain just recovering from a recent sickle cell crisis. Found with 0.399 absolute retic and 12% retics. CXR negative for abnormality. He has noted he is experiencing slow urine stream and burning on urination as well as dysuria. No risk for STIs, no prior UTI, but has had priapism previously. He has been told he has enlarged prostate. He has been taking folate and hydroxyurea Previously discharged just 10 days ago from here for a crisis He is still c/o bilateral shoulder pain, now left hip pain is a bit worse. The right-sided chest pain is new. Hb electrophoresis consistent with SS diseaes and 9% hemoglobin. H/o AVN left shoulder with surgery in 2007, injection 2017, replacement 03/30. Bilateral hip injections 05/2018 H/o acute chest syndrome in 2002, 5 prior blood transfusions. Has frequent hospitalization at [facility] as well as [facility], [facility], [place], [place]. Was hospitalized at [facility] the end of 2018, and was just discharged from [facility] on 11/15/2018. Previously incarcerated and transferred his care 11/2017 to [facility]. Still does have ankle bracelet. Past Medical History Heme/Onc: Anemia NOS, Sickle cell disease Past Surgical History Past Surgical History: No pertinent history Family History Family History: No Significant Social History ALCOHOL: none Drugs: None Current Medications Current Medications Current Medications Sodium Chloride 1,000 ml @ 1,000 mls/hr 1X ONCE IV ; Start 11/25/18 at 09:45; Stop 11/25/18 at 10:44; Status DC Hydromorphone HCl (Dilaudid) 1 mg 1X STAT IVP ; Start 11/25/18 at 09:45; Stop 11/25/18 at 10:35; Status DC Hydromorphone HCl (Dilaudid) 1 mg 1X STAT IM Last administered on 11/25/18at 10:43; Start 11/25/18 at 10:34; Stop 11/25/18 at 10:35; Status DC Hydromorphone HCl (Dilaudid) 1 mg 1X STAT IM Last administered on 11/25/18at 11:26; Start 11/25/18 at 11:18; Stop 11/25/18 at 11:22; Status DC Hydromorphone HCl (Dilaudid) 2 mg PRN Q4HRS PRN PO SEVERE PAIN; Start 11/25/18 at 12:45; Status UNV Hydroxyurea (Hydrea) 1,000 mg DAILY PO ; Start 11/26/18 at 09:00; Status UNV Multivitamins (Thera M Plus) 1 tab DAILY PO ; Start 11/26/18 at 09:00; Status UNV Oxycodone HCl (Roxicodone) 30 mg Q4HRS PO ; Start 11/25/18 at 16:00; Status UNV Non-Formulary Medication ([Folic Acid] ) 1 mg DAILY PO ; Start 11/26/18 at 09:00; Status UNV Enoxaparin Sodium (Lovenox 40mg Syringe) 40 mg DAILY ONCE SQ ; Start 11/25/18 at 12:45; Stop 11/25/18 at 12:46; Status UNV Active Scripts Active Diazepam 2 Mg Tablet 2 Mg PO PRN Q6HRS PRN Hydrea (Hydroxyurea) 500 Mg Capsule 1,000 Mg PO DAILY Thera-M Tablet (Multivits,Ca,Minerals/Iron/Fa) 1 Each Tablet 1 Tab PO DAILY [Folic Acid] 1 MG Tablet 1 Mg PO DAILY Oxycodone Hcl Immed.release (Oxycodone Hcl) 30 Mg Tablet 30 Mg PO Q4HRS Dilaudid (Hydromorphone Hcl) 2 Mg Tablet 2 Mg PO PRN Q4HRS PRN Allergies Allergies: Coded Allergies: Sulfa (Sulfonamide Antibiotics) (Verified Allergy, Intermediate, 11/05/18) ROS General: YES: Fatigue, Malaise, Appetite; No: Chills, Night Sweats, Other PSYCHOLOGICAL ROS: No: Anxiety, Behavioral Disorder, Concentration difficultie, Decreased libido, Depression, Disorientation, Hallucinations, Hostility, Irritablity, Memory difficulties, Mood Swings, Obsessive thoughts, Physical abuse, Sexual abuse, Sleep disturbances, Suicidal ideation, Other Eyes: No Blurry vision, No Decreased vision, No Double vision, No Dry eyes, No Excessive tearing, No Eye Pain, No Itchy Eyes, No Loss of vision, No Photophobia, No Scotomata, No Uses contacts, No Uses glasses, No Other HEENT: No: Heacaches, Visual Changes, Hearing change, Nasal congestion, Nasal discharge, Oral lesions, Sinus pain, Sore Throat, Epistaxis, Sneezing, Snoring, Tinnitus, Vertigo, Vocal changes, Other ALLERGY AND IMMUNOLOGY: No: Hives, Insect Bite Sensitivity, Itchy/Watery Eyes, Nasal Congestion, Post Nasal Drip, Seasonal Allergies, Other Hematological and Lymphatic: YES: Blood Transfusions; No: Bleeding Problems, Blood Clots, Brusing, Night Sweats, Pallor, Swollen Lymph Nodes, Other ENDOCRINE: No: Breast Changes, Galactorrhea, Hair Pattern Changes, Hot Flashes, Malaise/lethargy, Mood Swings, Palpitations, Polydipsia/polyuria, Skin Changes, Temperature Intolerance, Unexpected Weight Changes, Other Breast: No New/Changing Breast Lumps, No Nipple changes, No Nipple discharge, No Other Respiratory: No: Cough, Hemoptysis, Orthopnea, Pleuritic Pain, Shortness of breath, SOB with excertion, Sputum Changes, Stridor, Tachypnea, Wheezing, Other Cardiovascular: yes Chest Pain; No Palpitations, No Orthopnea, No Paroxysmal Noc. Dyspnea, No Edema, No Lt Headedness, No Other Gastrointestinal: Yes Nausea; No Vomiting, No Abdominal Pain, No Diarrhea, No Constipation, No Melena, No Hematochezia, No Other Genitourinary: YES Dysuria, YES Frequency, YES Retention, YES Urgency; No Incontinence, No Hematuria, No Discharge, No Pain, No Flank Pain, No O ther, No , No , No , No , No , No , No Musculoskeletal: No Gait Disturbance, No Joint Pain, No Joint Stiffness, No Joint Swelling, No Muscle Pain, No Muscular Weakness, No Pain In:, No Swelling In:, No Other Neurological: No Behavorial Changes, No Bowel/Bladder ControlChng, No Confusion, No Dizziness, No Gait Disturbance, No Headaches, No Impaired Coord/balance, No Memory Loss, No Numbness/Tingling, No Seizures, No Speech Problems, No Tremors, No Visual Changes, No Weakness, No Other Skin: No Dry Skin, No Eczema, No Hair Changes, No Lumps, No Mole Changes, No Mottling, No Nail Changes, No Pruritus, No Rash, No Skin Lesion Changes, No Other, No Acne Physical Exam General: Alert, Oriented X3, Cooperative, No acute distress HEENT: Atraumatic, PERRLA, EOMI, Mucous membr. moist/pink Lungs: Clear to auscultation, Normal air movement Heart: S1S2, RRR, no thrills, no rubs, no gallops, no murmurs Abdomen: Normal bowel sounds, Soft, No tenderness, No hepatosplenomegaly, No masses Rectal Exam: not examined Extremities: No clubbing, No cyanosis, No edema, Normal pulses, No tenderness/swelling Skin: No rashes, No breakdown, No significant lesion Neuro: Normal gait, Normal speech, Strength at 5/5 X4 ext, Normal tone, Sensation intact, Cranial nerves 3-12 NL, Reflexes 2+ Psych/Mental Status: Mental status NL, Mood NL Vitals Vitals Vital Signs Date Time Temp Pulse Resp B/P (MAP) Pulse Ox O2 Delivery O2 Flow Rate FiO2 11/25/18 12:01 70 16 98 11/25/18 11:26 Room Air 11/25/18 09:30 98.1 115/53 (73) 98.1 Labs Labs Laboratory Tests Test 11/25/18 11:00 White Blood Count 11.0 x10^3/uL (4.0-11.0) Red Blood Count 3.31 x10^6/uL (4.30-5.70) Hemoglobin 10.0 g/dL (13.0-17.5) Hematocrit 29.0 % (39.0-53.0) Mean Corpuscular Volume 87 fL (79-100) Mean Corpuscular Hemoglobin 30 pg (25-35) Mean Corpuscular Hemoglobin Concent 35 g/dL (31-37) Red Cell Distribution Width 26.0 % (11.5-14.5) Platelet Count 287 x10^3/uL (140-400) Neutrophils (%) (Auto) 41 % (31-73) Lymphocytes (%) (Auto) 42 % (24-48) Monocytes (%) (Auto) 12 % (0-9) Eosinophils (%) (Auto) 3 % (0-3) Basophils (%) (Auto) 2 % (0-3) Neutrophils # (Auto) 4.5 x10^3/uL (1.8-7.7) Lymphocytes # (Auto) 4.6 x10^3/uL (1.0-4.8) Monocytes # (Auto) 1.4 x10^3/uL (0.0-1.1) Eosinophils # (Auto) 0.3 x10^3/uL (0.0-0.7) Basophils # (Auto) 0.2 x10^3/uL (0.0-0.2) Segmented Neutrophils % 48 % (35-66) Lymphocytes % 33 % (24-48) Monocytes % 14 % (0-10) Eosinophils % 5 % (0-5) Platelet Estimate Adequate (ADEQUATE) Spherocytes Occ Sickle Cells Few Target Cells Occ Absolute Reticulocyte Count 0.399 x10^6/uL (0.020-0.120) Percent Reticulocyte Count 12.0 % (0.5-2.3) Immature Reticulocyte Fraction 0.66 (0.20-0.60) Sodium Level 142 mmol/L (136-145) Potassium Level 4.0 mmol/L (3.5-5.1) Chloride Level 107 mmol/L (98-107) Carbon Dioxide Level 26 mmol/L (21-32) Anion Gap 9 (6-14) Blood Urea Nitrogen 4 mg/dL (8-26) Creatinine 0.9 mg/dL (0.7-1.3) Estimated GFR (Cockcroft-Gault) 114.3 BUN/Creatinine Ratio 4 (6-20) Glucose Level 98 mg/dL (70-99) Calcium Level 8.5 mg/dL (8.5-10.1) Total Bilirubin 3.6 mg/dL (0.2-1.0) Aspartate Amino Transf (AST/SGOT) 30 U/L (15-37) Alanine Aminotransferase (ALT/SGPT) 20 U/L (16-63) Alkaline Phosphatase 84 U/L (46-116) Total Protein 7.2 g/dL (6.4-8.2) Albumin 3.7 g/dL (3.4-5.0) Albumin/Globulin Ratio 1.1 (1.0-1.7) Laboratory Tests Test 10/17/19 11:00 White Blood Count 11.0 x10^3/uL (4.0-11.0) Red Blood Count 3.31 x10^6/uL (4.30-5.70) Hemoglobin 10.0 g/dL (13.0-17.5) Hematocrit 29.0 % (39.0-53.0) Mean Corpuscular Volume 87 fL (79-100) Mean Corpuscular Hemoglobin 30 pg (25-35) Mean Corpuscular Hemoglobin Concent 35 g/dL (31-37) Red Cell Distribution Width 26.0 % (11.5-14.5) Platelet Count 287 x10^3/uL (140-400) Neutrophils (%) (Auto) 41 % (31-73) Lymphocytes (%) (Auto) 42 % (24-48) Monocytes (%) (Auto) 12 % (0-9) Eosinophils (%) (Auto) 3 % (0-3) Basophils (%) (Auto) 2 % (0-3) Neutrophils # (Auto) 4.5 x10^3/uL (1.8-7.7) Lymphocytes # (Auto) 4.6 x10^3/uL (1.0-4.8) Monocytes # (Auto) 1.4 x10^3/uL (0.0-1.1) Eosinophils # (Auto) 0.3 x10^3/uL (0.0-0.7) Basophils # (Auto) 0.2 x10^3/uL (0.0-0.2) Segmented Neutrophils % 48 % (35-66) Lymphocytes % 33 % (24-48) Monocytes % 14 % (0-10) Eosinophils % 5 % (0-5) Platelet Estimate Adequate (ADEQUATE) Spherocytes Occ Sickle Cells Few Target Cells Occ Absolute Reticulocyte Count 0.399 x10^6/uL (0.020-0.120) Percent Reticulocyte Count 12.0 % (0.5-2.3) Immature Reticulocyte Fraction 0.66 (0.20-0.60) Sodium Level 142 mmol/L (136-145) Potassium Level 4.0 mmol/L (3.5-5.1) Chloride Level 107 mmol/L (98-107) Carbon Dioxide Level 26 mmol/L (21-32) Anion Gap 9 (6-14) Blood Urea Nitrogen 4 mg/dL (8-26) Creatinine 0.9 mg/dL (0.7-1.3) Estimated GFR (Cockcroft-Gault) 114.3 BUN/Creatinine Ratio 4 (6-20) Glucose Level 98 mg/dL (70-99) Calcium Level 8.5 mg/dL (8.5-10.1) Total Bilirubin 3.6 mg/dL (0.2-1.0) Aspartate Amino Transf (AST/SGOT) 30 U/L (15-37) Alanine Aminotransferase (ALT/SGPT) 20 U/L (16-63) Alkaline Phosphatase 84 U/L (46-116) Total Protein 7.2 g/dL (6.4-8.2) Albumin 3.7 g/dL (3.4-5.0) Albumin/Globulin Ratio 1.1 (1.0-1.7) Images Images CXR - no acute abnormality VTE Prophylaxis Ordered VTE Prophylaxis Devices: Yes VTE Pharmacological Prophylaxi: Yes Assessment/Plan Assessment/Plan A/P: Sickle cell crisis/pain - retic percentage [address]ICC, consult Heme/onc. Previously required a PICC and dilaudid dosing 4mgs, q3hrs prn. Schedule oxycodone IR 30 mg q4hrs. I have advised him I will reorder this. 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 With benadryl dosing will bladder scan if his UOP drops FEN - General diet PPX - lovenox FULL CODE Dispo - inpatient for SCD pain crisis HUNTER SHARMA MD Nov 25, 2018 12:47
[2018-11-25 13:45] VITALS: BP 110/59
--- NOTE | 2018-11-25 14:20 | NUR ---
Allergies and reactions Sulfa INR Not done BUN 4 Cr 0.9 Platelets 287 Blood culture done No blood culture results Order Verified Yes Consent signed Yes Previous PICC placement Yes Past Medical/Surgical history and current diagnosis reviewed Yes Patient Medical /Surgical History Related to PICC line placement Surgery arms--Left shoulder replacement Special considerations for PICC line placement None PICC placement indication Poor peripheral intravenous access Natalie Maravilla RN, PICC Nurse Addendum: 11/25/18 at 1516 by NATALIE MARAVILLA RN Amended: Links added.
--- NOTE | 2018-11-25 14:45 | NUR ---
Procedure: Following complete explanation of the PICC procedure including the indications, risks, and potential complications, informed consent was obtained. The possibility for infection was discussed along with signs, symptoms, and prevention. All the questions were answered. Written and verbal patient education was provided. Hand hygiene performed. Standardized central line checklist was utilized. The patient was placed in the supine position, the arm was prepped with chlorhexidine and patient draped with maximum sterile barrier. 4 mL 1% lidocaine was infiltrated into the skin to provide local anesthesia. A thorough assessment of Right upper extremity completed. Using real-time ultrasound guidance and standardized micro puncture set, the Basilic vein was punctured and a peel away sheath was placed using the modified Seldinger technique. A tip location device was used to ensure adequate catheter placement. The catheter was secured using a securement device and an antimicrobial patch was applied directly on the insertion site followed by a transparent dressing. All ports withdraw blood and flush without resistance. Patient tolerated the procedure without apparent complication(s). Double Lumen Power PICC placement successful and uncomplicated. Placement verified by EKG tip confirmation system. Tip located in the Cav[place]unction. Complications: None Catheter trimmed to 42CM and inserted to the hub.
[2018-11-25 15:00] VITALS: BP 119/69
[2018-11-25] MEDS ORDERED: ONDANSETRON PF 4 MG/2 ML VIAL. IVP PRN (15:00)
[2018-11-25] MEDS: diphenhydrAMINE 50 MG/ML VIAL IVP PRN ×2 (15:39→20:40)
[2018-11-25] MEDS: IV NORMAL SALINE 1000ML BAG 1,000 ML IV SCH ×2 (15:40→22:15)
[2018-11-25] MEDS: HYDROmorphone 2 MG/ML VIAL IV PRN ×3 (15:40→22:16)
[2018-11-25] MEDS ORDERED: PHENAZOPYRIDINE 200 MG TABLET. PO PRN (16:30)
[2018-11-25] MEDS ORDERED: MAGNESIUM SULFATE 2GM 50 ML IV ONE (17:30)
[2018-11-25 19:00] VITALS: BP 95/62
[2018-11-25] MEDS: diphenhydrAMINE HCL 25 MG CAPSULE PO PRN ×2 (20:35→20:47)
[2018-11-25] MEDS: TAMSULOSIN 0.4 MG CAP.ER.24H. PO SCH (20:36)
[2018-11-25 20:48] LABS: BILIRUBIN,URINE NEGATIVE (NEG); CLARITY,URINE CLEAR; COLOR,URINE YELLOW; NITRITE,URINE NEGATIVE (NEG); PROTEIN,URINE NEGATIVE (NEG-TRACE)
[2018-11-25 21:06] LABS: RBC,URINE 0 /HPF (0-2)
[2018-11-25 21:07] LABS: BACTERIA,URINE FEW /HPF (0-FEW); SQUAMOUS EPITHELIAL CELL,UR FEW /LPF
[2018-11-25 23:00] VITALS: BP 96/65
[2018-11-26] MEDS: HYDROmorphone 2 MG/ML VIAL IV PRN ×7 (01:44→23:15)
[2018-11-26 03:00] VITALS: BP 87/46
[2018-11-26] MEDS: diphenhydrAMINE 50 MG/ML VIAL IVP PRN ×4 (03:14→23:15)
[2018-11-26] MEDS: IV NORMAL SALINE 1000ML BAG 1,000 ML IV SCH ×3 (06:02→19:48)
[2018-11-26 07:40] VITALS: BP 102/61
[2018-11-26] MEDS: MULTIVITAMIN with MINERAL TABLET. PO SCH (09:00)
[2018-11-26] MEDS: HYDROXYUREA 500 MG CAPSULE PO SCH (09:00)
--- NOTE | 2018-11-26 09:04 | PDOC ---
PROGRESS NOTES Chief Complaint Chief Complaint A/P: Sickle cell crisis/pain - retic percentage [address], consult Heme/onc. Previously required a PICC and dilaudid dosing 4mgs, q3hrs prn. Schedule oxycodone IR 30 mg q4hrs. I have advised him I will reorder this. 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 With benadryl dosing will bladder scan if his UOP drops FEN - General diet PPX - lovenox FULL CODE Dispo - inpatient for SCD pain crisis History of Present Illness History of Present Illness Mr Licea is a 38yo M w/ PMHx SCD, Osteonecrosis of left shoulder, depression with anxiety who presents with diffuse bone pain, lower back pain, bilateral hip pain, right rib pain and bilateral shoulder pain just recovering from a recent sickle cell crisis. Found with 0.399 absolute retic and 12% retics. CXR negative for abnormality. He has noted he is experiencing slow urine stream and burning on urination as well as dysuria. No risk for STIs, no prior UTI, but has had priapism previously. He has been told he has enlarged prostate. He has been taking folate and hydroxyurea Previously discharged just 10 days ago from here for a crisis He is still c/o bilateral shoulder pain, now left hip pain is a bit worse. The right-sided chest pain is new. Hb electrophoresis consistent with SS diseaes and 9% hemoglobin. H/o AVN left shoulder with surgery in 2007, injection 2017, replacement 03/30. Bilateral hip injections 05/2018 H/o acute chest syndrome in 2002, 5 prior blood transfusions. Has frequent hospitalization at [facility] as well as [facility], [facility], [place], [place]. Was hospitalized at [facility] the end of October 2018, and was just discharged from [facility] on 11/15/2018. Previously incarcerated and transferred his care 11/2017 to [facility]. Still does have ankle bracelet. Today c/o left knee stiffness. Pain is controlled with his current regimen. Urination is more comfortable today. No CP or SOB. Vitals Vitals Vital Signs Date Time Temp Pulse Resp B/P (MAP) Pulse Ox O2 Delivery O2 Flow Rate FiO2 11/26/18 06:38 Room Air 11/26/18 03:00 97.6 92 18 87/46 (60) 90 97.6 Physical Exam General: Alert, Oriented X3, Cooperative, No acute distress Abdomen: Normal bowel sounds, Soft, No tenderness, No hepatosplenomegaly, No masses Extremities: No clubbing, No cyanosis, No edema, Normal pulses, No tenderness/swelling Skin: No rashes, No breakdown, No significant lesion Labs LABS Laboratory Tests Test 11/25/18 11:00 11/25/18 20:40 White Blood Count 11.0 x10^3/uL (4.0-11.0) Red Blood Count 3.31 x10^6/uL (4.30-5.70) Hemoglobin 10.0 g/dL (13.0-17.5) Hematocrit 29.0 % (39.0-53.0) Mean Corpuscular Volume 87 fL (79-100) Mean Corpuscular Hemoglobin 30 pg (25-35) Mean Corpuscular Hemoglobin Concent 35 g/dL (31-37) Red Cell Distribution Width 26.0 % (11.5-14.5) Platelet Count 287 x10^3/uL (140-400) Neutrophils (%) (Auto) 41 % (31-73) Lymphocytes (%) (Auto) 42 % (24-48) Monocytes (%) (Auto) 12 % (0-9) Eosinophils (%) (Auto) 3 % (0-3) Basophils (%) (Auto) 2 % (0-3) Neutrophils # (Auto) 4.5 x10^3/uL (1.8-7.7) Lymphocytes # (Auto) 4.6 x10^3/uL (1.0-4.8) Monocytes # (Auto) 1.4 x10^3/uL (0.0-1.1) Eosinophils # (Auto) 0.3 x10^3/uL (0.0-0.7) Basophils # (Auto) 0.2 x10^3/uL (0.0-0.2) Segmented Neutrophils % 48 % (35-66) Lymphocytes % 33 % (24-48) Monocytes % 14 % (0-10) Eosinophils % 5 % (0-5) Platelet Estimate Adequate (ADEQUATE) Spherocytes Occ Sickle Cells Few Target Cells Occ Erythrocyte Sedimentation Rate 4 (0-15) Absolute Reticulocyte Count 0.399 x10^6/uL (0.020-0.120) Percent Reticulocyte Count 12.0 % (0.5-2.3) Immature Reticulocyte Fraction 0.66 (0.20-0.60) Sodium Level 142 mmol/L (136-145) Potassium Level 4.0 mmol/L (3.5-5.1) Chloride Level 107 mmol/L (98-107) Carbon Dioxide Level 26 mmol/L (21-32) Anion Gap 9 (6-14) Blood Urea Nitrogen 4 mg/dL (8-26) Creatinine 0.9 mg/dL (0.7-1.3) Estimated GFR (Cockcroft-Gault) 114.3 BUN/Creatinine Ratio 4 (6-20) Glucose Level 98 mg/dL (70-99) Calcium Level 8.5 mg/dL (8.5-10.1) Magnesium Level 1.9 mg/dL (1.8-2.4) Total Bilirubin 3.6 mg/dL (0.2-1.0) Aspartate Amino Transf (AST/SGOT) 30 U/L (15-37) Alanine Aminotransferase (ALT/SGPT) 20 U/L (16-63) Alkaline Phosphatase 84 U/L (46-116) Total Protein 7.2 g/dL (6.4-8.2) Albumin 3.7 g/dL (3.4-5.0) Albumin/Globulin Ratio 1.1 (1.0-1.7) Urine Collection Type Void Urine Color Yellow Urine Clarity Clear Urine pH 6.0 Urine Specific [place] 1.010 Urine Protein Negative mg/dL (NEG-TRACE) Urine Glucose (UA) Negative mg/dL (NEG) Urine Ketones (Stick) Negative mg/dL (NEG) Urine Blood Negative (NEG) Urine Nitrite Negative (NEG) Urine Bilirubin Negative (NEG) Urine Urobilinogen Dipstick 1.0 mg/dL (0.2 mg/dL) Urine Leukocyte Esterase Small (NEG) Urine RBC 0 /HPF (0-2) Urine WBC 5-10 /HPF (0-4) Urine Squamous Epithelial Cells Few /LPF Urine Bacteria Few /HPF (0-FEW) Urine Mucus Slight /LPF Comment Review of Relevant I have reviewed the following items jorge luis (where applicable) has been applied. Labs Laboratory Tests Test 11/25/18 11:00 11/25/18 20:40 White Blood Count 11.0 x10^3/uL (4.0-11.0) Red Blood Count 3.31 x10^6/uL (4.30-5.70) Hemoglobin 10.0 g/dL (13.0-17.5) Hematocrit 29.0 % (39.0-53.0) Mean Corpuscular Volume 87 fL (79-100) Mean Corpuscular Hemoglobin 30 pg (25-35) Mean Corpuscular Hemoglobin Concent 35 g/dL (31-37) Red Cell Distribution Width 26.0 % (11.5-14.5) Platelet Count 287 x10^3/uL (140-400) Neutrophils (%) (Auto) 41 % (31-73) Lymphocytes (%) (Auto) 42 % (24-48) Monocytes (%) (Auto) 12 % (0-9) Eosinophils (%) (Auto) 3 % (0-3) Basophils (%) (Auto) 2 % (0-3) Neutrophils # (Auto) 4.5 x10^3/uL (1.8-7.7) Lymphocytes # (Auto) 4.6 x10^3/uL (1.0-4.8) Monocytes # (Auto) 1.4 x10^3/uL (0.0-1.1) Eosinophils # (Auto) 0.3 x10^3/uL (0.0-0.7) Basophils # (Auto) 0.2 x10^3/uL (0.0-0.2) Segmented Neutrophils % 48 % (35-66) Lymphocytes % 33 % (24-48) Monocytes % 14 % (0-10) Eosinophils % 5 % (0-5) Platelet Estimate Adequate (ADEQUATE) Spherocytes Occ Sickle Cells Few Target Cells Occ Erythrocyte Sedimentation Rate 4 (0-15) Absolute Reticulocyte Count 0.399 x10^6/uL (0.020-0.120) Percent Reticulocyte Count 12.0 % (0.5-2.3) Immature Reticulocyte Fraction 0.66 (0.20-0.60) Sodium Level 142 mmol/L (136-145) Potassium Level 4.0 mmol/L (3.5-5.1) Chloride Level 107 mmol/L (98-107) Carbon Dioxide Level 26 mmol/L (21-32) Anion Gap 9 (6-14) Blood Urea Nitrogen 4 mg/dL (8-26) Creatinine 0.9 mg/dL (0.7-1.3) Estimated GFR (Cockcroft-Gault) 114.3 BUN/Creatinine Ratio 4 (6-20) Glucose Level 98 mg/dL (70-99) Calcium Level 8.5 mg/dL (8.5-10.1) Magnesium Level 1.9 mg/dL (1.8-2.4) Total Bilirubin 3.6 mg/dL (0.2-1.0) Aspartate Amino Transf (AST/SGOT) 30 U/L (15-37) Alanine Aminotransferase (ALT/SGPT) 20 U/L (16-63) Alkaline Phosphatase 84 U/L (46-116) Total Protein 7.2 g/dL (6.4-8.2) Albumin 3.7 g/dL (3.4-5.0) Albumin/Globulin Ratio 1.1 (1.0-1.7) Urine Collection Type Void Urine Color Yellow Urine Clarity Clear Urine pH 6.0 Urine Specific [place] 1.010 Urine Protein Negative mg/dL (NEG-TRACE) Urine Glucose (UA) Negative mg/dL (NEG) Urine Ketones (Stick) Negative mg/dL (NEG) Urine Blood Negative (NEG) Urine Nitrite Negative (NEG) Urine Bilirubin Negative (NEG) Urine Urobilinogen Dipstick 1.0 mg/dL (0.2 mg/dL) Urine Leukocyte Esterase Small (NEG) Urine RBC 0 /HPF (0-2) Urine WBC 5-10 /HPF (0-4) Urine Squamous Epithelial Cells Few /LPF Urine Bacteria Few /HPF (0-FEW) Urine Mucus Slight /LPF Laboratory Tests Test 11/25/18 11:00 11/25/18 20:40 White Blood Count 11.0 x10^3/uL (4.0-11.0) Red Blood Count 3.31 x10^6/uL (4.30-5.70) Hemoglobin 10.0 g/dL (13.0-17.5) Hematocrit 29.0 % (39.0-53.0) Mean Corpuscular Volume 87 fL (79-100) Mean Corpuscular Hemoglobin 30 pg (25-35) Mean Corpuscular Hemoglobin Concent 35 g/dL (31-37) Red Cell Distribution Width 26.0 % (11.5-14.5) Platelet Count 287 x10^3/uL (140-400) Neutrophils (%) (Auto) 41 % (31-73) Lymphocytes (%) (Auto) 42 % (24-48) Monocytes (%) (Auto) 12 % (0-9) Eosinophils (%) (Auto) 3 % (0-3) Basophils (%) (Auto) 2 % (0-3) Neutrophils # (Auto) 4.5 x10^3/uL (1.8-7.7) Lymphocytes # (Auto) 4.6 x10^3/uL (1.0-4.8) Monocytes # (Auto) 1.4 x10^3/uL (0.0-1.1) Eosinophils # (Auto) 0.3 x10^3/uL (0.0-0.7) Basophils # (Auto) 0.2 x10^3/uL (0.0-0.2) Segmented Neutrophils % 48 % (35-66) Lymphocytes % 33 % (24-48) Monocytes % 14 % (0-10) Eosinophils % 5 % (0-5) Platelet Estimate Adequate (ADEQUATE) Spherocytes Occ Sickle Cells Few Target Cells Occ Erythrocyte Sedimentation Rate 4 (0-15) Absolute Reticulocyte Count 0.399 x10^6/uL (0.020-0.120) Percent Reticulocyte Count 12.0 % (0.5-2.3) Immature Reticulocyte Fraction 0.66 (0.20-0.60) Sodium Level 142 mmol/L (136-145) Potassium Level 4.0 mmol/L (3.5-5.1) Chloride Level 107 mmol/L (98-107) Carbon Dioxide Level 26 mmol/L (21-32) Anion Gap 9 (6-14) Blood Urea Nitrogen 4 mg/dL (8-26) Creatinine 0.9 mg/dL (0.7-1.3) Estimated GFR (Cockcroft-Gault) 114.3 BUN/Creatinine Ratio 4 (6-20) Glucose Level 98 mg/dL (70-99) Calcium Level 8.5 mg/dL (8.5-10.1) Magnesium Level 1.9 mg/dL (1.8-2.4) Total Bilirubin 3.6 mg/dL (0.2-1.0) Aspartate Amino Transf (AST/SGOT) 30 U/L (15-37) Alanine Aminotransferase (ALT/SGPT) 20 U/L (16-63) Alkaline Phosphatase 84 U/L (46-116) Total Protein 7.2 g/dL (6.4-8.2) Albumin 3.7 g/dL (3.4-5.0) Albumin/Globulin Ratio 1.1 (1.0-1.7) Urine Collection Type Void Urine Color Yellow Urine Clarity Clear Urine pH 6.0 Urine Specific [place] 1.010 Urine Protein Negative mg/dL (NEG-TRACE) Urine Glucose (UA) Negative mg/dL (NEG) Urine Ketones (Stick) Negative mg/dL (NEG) Urine Blood Negative (NEG) Urine Nitrite Negative (NEG) Urine Bilirubin Negative (NEG) Urine Urobilinogen Dipstick 1.0 mg/dL (0.2 mg/dL) Urine Leukocyte Esterase Small (NEG) Urine RBC 0 /HPF (0-2) Urine WBC 5-10 /HPF (0-4) Urine Squamous Epithelial Cells Few /LPF Urine Bacteria Few /HPF (0-FEW) Urine Mucus Slight /LPF Medications Current Medications Sodium Chloride 1,000 ml @ 1,000 mls/hr 1X ONCE IV ; Start 11/25/18 at 09:45; Stop 11/25/18 at 10:44; Status DC Hydromorphone HCl (Dilaudid) 1 mg 1X STAT IVP ; Start 11/25/18 at 09:45; Stop 11/25/18 at 10:35; Status DC Hydromorphone HCl (Dilaudid) 1 mg 1X STAT IM Last administered on 11/25/18at 10:43; Start 11/25/18 at 10:34; Stop 11/25/18 at 10:35; Status DC Hydromorphone HCl (Dilaudid) 1 mg 1X STAT IM Last administered on 11/25/18at 11:26; Start 11/25/18 at 11:18; Stop 11/25/18 at 11:22; Status DC Hydromorphone HCl (Dilaudid) 2 mg PRN Q4HRS PRN PO SEVERE PAIN; Start 11/25/18 at 12:45 Hydroxyurea (Hydrea) 1,000 mg DAILY PO ; Start 11/26/18 at 09:00 Multivitamins (Thera M Plus) 1 tab DAILY PO ; Start 11/26/18 at 09:00 Oxycodone HCl (Roxicodone) 30 mg Q4HRS PO Last administered on 11/26/18at 03:14; Start 11/25/18 at 16:00 Folic Acid (Folic Acid) 1 mg DAILY PO ; Start 11/26/18 at 09:00 Enoxaparin Sodium (Lovenox 40mg Syringe) 40 mg DAILY ONCE SQ ; Start 11/25/18 at 12:45; Stop 11/25/18 at 12:46; Status DC Hydromorphone HCl (Dilaudid) 4 mg PRN Q3HRS PRN IV PAIN Last administered on 11/26/18at 06:03; Start 11/25/18 at 15:00 Ondansetron HCl (Zofran) 4 mg PRN Q6HRS PRN IVP NAUSEA/VOMITING; Start 11/25/18 at 15:00 Diphenhydramine HCl (Benadryl) 25 mg PRN Q6HRS PRN IVP ITCHING Last administered on 11/26/18at 03:14; Start 11/25/18 at 15:00 Diphenhydramine HCl (Benadryl) 25 mg PRN Q6HRS PRN PO ITCHING Last administered on 11/25/18at 20:35; Start 11/25/18 at 15:00 Sodium Chloride 1,000 ml @ 150 mls/hr Q6H40M IV Last administered on 11/26/18at 06:02; Start 11/25/18 at 15:00 Magnesium Sulfate 50 ml @ 25 mls/hr 1X ONCE IV Last administered on 11/25/18at 17:38; Start 11/25/18 at 17:30; Stop 11/25/18 at 19:29; Status DC Phenazopyridine HCl (Pyridium) 200 mg PRN TID PRN PO URINARY PAIN; Start 11/25/18 at 16:30 Tamsulosin HCl (Flomax) 0.4 mg QHS PO Last administered on 11/25/18at 20:36; Start 11/25/18 at 21:00 Active Scripts Active Diazepam 2 Mg Tablet 2 Mg PO PRN Q6HRS PRN Hydrea (Hydroxyurea) 500 Mg Capsule 1,000 Mg PO DAILY Thera-M Tablet (Multivits,Ca,Minerals/Iron/Fa) 1 Each Tablet 1 Tab PO DAILY [Folic Acid] 1 MG Tablet 1 Mg PO DAILY Oxycodone Hcl Immed.release (Oxycodone Hcl) 30 Mg Tablet 30 Mg PO Q4HRS Dilaudid (Hydromorphone Hcl) 2 Mg Tablet 2 Mg PO PRN Q4HRS PRN Vitals/I & O Vital Sign - Last 24 Hours 11/25/18 11/25/18 11/25/18 11/25/18 09:30 11:26 12:01 13:10 Temp 98.1 98.1 Pulse 87 70 77 Resp 18 16 16 15 B/P (MAP) 115/53 (73) Pulse Ox 95 99 98 96 O2 Delivery Room Air Room Air 11/25/18 11/25/18 11/25/18 11/25/18 13:45 15:00 15:40 16:00 Temp 98.1 98.2 98.1 98.2 Pulse 81 87 Resp 16 14 B/P (MAP) 110/59 (76) 119/69 (86) Pulse Ox 93 91 O2 Delivery Room Air Room Air Room Air Room Air 11/25/18 11/25/18 11/25/18 11/25/18 16:11 17:38 17:39 19:00 Temp 98.6 98.6 Pulse 87 Resp 18 B/P (MAP) 95/62 (73) Pulse Ox 91 90 O2 Delivery Room Air Room Air Room Air Room Air 11/25/18 11/25/18 11/25/18 11/25/18 19:13 19:43 20:00 20:36 O2 Delivery Room Air Room Air Room Air Room Air 11/25/18 11/25/18 11/25/18 11/25/18 21:36 22:16 22:51 23:00 Temp 97.6 97.6 Pulse 78 Resp 18 B/P (MAP) 96/65 (75) Pulse Ox 99 O2 Delivery Room Air Room Air Room Air Room Air 11/26/18 11/26/18 11/26/18 11/26/18 00:29 01:29 01:44 02:33 Resp 18 Pulse Ox 99 O2 Delivery Room Air Room Air Room Air Room Air 11/26/18 11/26/18 11/26/18 11/26/18 03:00 03:14 04:15 06:03 Temp 97.6 97.6 Pulse 92 Resp 18 B/P (MAP) 87/46 (60) Pulse Ox 90 O2 Delivery Room Air Room Air Room Air Room Air 11/26/18 06:38 O2 Delivery Room Air Intake and Output 11/25/18 11/25/18 11/26/18 15:00 23:00 07:00 Intake Total 350 ml 300 ml Output Total 350 ml Balance 350 ml -50 ml HUNTER SHARMA MD Nov 26, 2018 09:04
[2018-11-26] MEDS: FOLIC ACID 1 MG TABLET. PO SCH (10:01)
[2018-11-26 11:00] VITALS: BP 102/72
--- NOTE | 2018-11-26 12:44 | PDOC ---
Provider Note Provider Note Hem Onc consult: see dictation [id number] NAVEEN RESENDIZ MD Nov 26, 2018 12:44
[2018-11-26 15:00] VITALS: BP 106/56
[2018-11-26 19:00] VITALS: BP 106/70
[2018-11-26] MEDS: TAMSULOSIN 0.4 MG CAP.ER.24H. PO SCH (20:08)
--- NOTE | 2018-11-26 22:21 | NUR ---
NOZIN/CHG NOTE: While reading MD's notes, it was discovered that patient was incarcerated in the past. Added Nozin/CHG interventions. Brought Deysin in to patient's room to discuss necessity, provide education, ask patient how long ago he was incarcerated, etc. Patient refused Nozin/CHG and declined to speak about his incarceration. Patient then stated "I ain't never been to [facility]." Will remove Nozin/CHG intervention based off of this information and pass along to day RN.
[2018-11-26 23:00] VITALS: BP 103/55
[2018-11-27] MEDS ORDERED: ZOLPIDEM 5 MG TABLET. PO PRN (01:00)
[2018-11-27] MEDS: HYDROmorphone 2 MG/ML VIAL IV PRN ×7 (02:24→22:09)
[2018-11-27] MEDS: IV NORMAL SALINE 1000ML BAG 1,000 ML IV SCH ×4 (02:33→20:20)
--- NOTE | 2018-11-27 02:59 | CONS ---
DATE OF CONSULTATION: 11/26/2018 HEMATOLOGY ONCOLOGY CONSULTATION REQUESTING PHYSICIAN: Dr. Armando Davis. REASON FOR CONSULTATION: Sickle cell crisis. HISTORY OF PRESENT ILLNESS: The patient is a 38-year-old -[place] gentleman who has sickle cell disease, osteonecrosis of the left shoulder, depression and anxiety, who presented with diffuse bone pains, back pain, bilateral hip pain, rib pain and bilateral shoulder pain due to sickle cell crisis. He was noted to have 12% reticulocyte count. He was admitted to [facility] on 11/25/2018 and started on IV fluids and aggressive pain management. He denies fevers or chills. No chest pain or shortness of breath. He has a history of acute chest syndrome in 2002 and he received 5 prior blood transfusions. No hematemesis, melena or hematochezia. No hemoptysis or hematuria. PAST MEDICAL HISTORY: Sickle cell disease, history of depression, anxiety, and osteonecrosis of the left shoulder. FAMILY HISTORY: Mother had sickle cell trait, aunt had sickle cell disease. SOCIAL HISTORY: No smoking or alcohol abuse. REVIEW OF SYSTEMS: A 12-point review of system was performed. Pertinent positives are mentioned in the history of present illness. Rest of the system review is negative. PHYSICAL EXAMINATION: GENERAL APPEARANCE: The patient is a 38-year-old -[place] gentleman who is in no acute cardiorespiratory distress. VITAL SIGNS: Blood pressure 102/72, temperature 98.8. HEAD: Atraumatic, normocephalic. EYES: No icterus. NECK: Supple. CHEST: Bilaterally symmetrical. HEART: S1, S2 normal. ABDOMEN: Soft, nontender. CENTRAL NERVOUS SYSTEM: No focal deficits. LYMPHATICS: No lymphadenopathy. SKIN: No rashes. PSYCHOLOGIC: Mood and affect are appropriate. LABORATORY DATA: On 11/25/2018, WBC 11, hemoglobin 10, platelet count 287. Reticulocyte count 12. Creatinine 0.9. IMPRESSION AND PLAN: 1. Acute sickle cell crisis. Continue pain management, IV fluids and oxygen as needed. I discussed with Dr. Davis and appreciate management per Dr. Davis. Continue to monitor hemoglobin p.r.n. 2. Bone pains due to sickle cell crisis. Continue pain management per Dr. Davis. 3. Anemia. Hemoglobin is 10.0. No signs of bleeding. Continue to monitor. NAVEEN RESENDIZ MD DR: Sherry JOB#: [id number] / [id number] SHAMIKA
[2018-11-27 03:00] VITALS: BP 104/55
[2018-11-27] MEDS: diphenhydrAMINE 50 MG/ML VIAL IVP PRN ×4 (05:18→22:52)
--- NOTE | 2018-11-27 06:23 | NUR ---
Patient declines labs to be drawn at this time. States he wants them done when it's light outside, around breakfast time. Provided education on importance of lab draw. Patient continues to request labs be drawn later. Will pass along to day RN.
[2018-11-27 07:00] VITALS: BP 101/62
[2018-11-27] MEDS: MULTIVITAMIN with MINERAL TABLET. PO SCH (08:31)
[2018-11-27] MEDS: FOLIC ACID 1 MG TABLET. PO SCH (08:32)
[2018-11-27] MEDS: HYDROXYUREA 500 MG CAPSULE PO SCH (08:36)
--- NOTE | 2018-11-27 08:48 | PDOC ---
PROGRESS NOTES Chief Complaint Chief Complaint A/P: Sickle cell crisis/pain - retic percentage [address] PICC, consult Heme/onc. Previously required a PICC and dilaudid dosing 4mgs, q3hrs prn. Schedule oxycodone IR 30 mg q4hrs. I have advised him I will reorder this. 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 With benadryl dosing will bladder scan if his UOP drops FEN - General diet PPX - lovenox FULL CODE Dispo - inpatient for SCD pain crisis History of Present Illness History of Present Illness Mr Licea is a 38yo M w/ PMHx SCD, Osteonecrosis of left shoulder, depression with anxiety who presents with diffuse bone pain, lower back pain, bilateral hip pain, right rib pain and bilateral shoulder pain just recovering from a recent sickle cell crisis. Found with 0.399 absolute retic and 12% retics. CXR negative for abnormality. He has noted he is experiencing slow urine stream and burning on urination as well as dysuria. No risk for STIs, no prior UTI, but has had priapism previously. He has been told he has enlarged prostate. He has been taking folate and hydroxyurea Previously discharged just 10 days ago from here for a crisis He is still c/o bilateral shoulder pain, now left hip pain is a bit worse. The right-sided chest pain is new. Hb electrophoresis consistent with SS diseaes and 9% hemoglobin. H/o AVN left shoulder with surgery in 2007, injection 2017, replacement 03/30. Bilateral hip injections 05/2018 H/o acute chest syndrome in 2002, 5 prior blood transfusions. Has frequent hospitalization at [facility] as well as [facility], [facility], [place], [place]. Was hospitalized at [facility] the end of October 2018, and was just discharged from [facility] on 11/15/2018. Previously incarcerated and transferred his care 11/2017 to [facility]. Still does have ankle bracelet. 11/26: Today c/o left knee stiffness. Pain is controlled with his current regimen. Urination is more comfortable today. Today Herb c/o different nurses administering his pain medications differently, felt his pain overnight was not adequately controlled. Today Mg is 1.6. No new joint pains. Hb dropped to 8.6, retic % up to 13%. No CP or SOB. Vitals Vitals Vital Signs Date Time Temp Pulse Resp B/P (MAP) Pulse Ox O2 Delivery O2 Flow Rate FiO2 11/27/18 08:31 18 92 Room Air 11/27/18 07:00 98.0 93 101/62 (75) 98.0 Physical Exam General: Alert, Oriented X3, Cooperative, No acute distress Abdomen: Normal bowel sounds, Soft, No tenderness, No hepatosplenomegaly, No masses Extremities: No clubbing, No cyanosis, No edema, Normal pulses, No tenderness/swelling Skin: No rashes, No breakdown, No significant lesion Comment Review of Relevant I have reviewed the following items jorge luis (where applicable) has been applied. Labs Laboratory Tests Test 11/25/18 11:00 11/25/18 20:40 White Blood Count 11.0 x10^3/uL (4.0-11.0) Red Blood Count 3.31 x10^6/uL (4.30-5.70) Hemoglobin 10.0 g/dL (13.0-17.5) Hematocrit 29.0 % (39.0-53.0) Mean Corpuscular Volume 87 fL (79-100) Mean Corpuscular Hemoglobin 30 pg (25-35) Mean Corpuscular Hemoglobin Concent 35 g/dL (31-37) Red Cell Distribution Width 26.0 % (11.5-14.5) Platelet Count 287 x10^3/uL (140-400) Neutrophils (%) (Auto) 41 % (31-73) Lymphocytes (%) (Auto) 42 % (24-48) Monocytes (%) (Auto) 12 % (0-9) Eosinophils (%) (Auto) 3 % (0-3) Basophils (%) (Auto) 2 % (0-3) Neutrophils # (Auto) 4.5 x10^3/uL (1.8-7.7) Lymphocytes # (Auto) 4.6 x10^3/uL (1.0-4.8) Monocytes # (Auto) 1.4 x10^3/uL (0.0-1.1) Eosinophils # (Auto) 0.3 x10^3/uL (0.0-0.7) Basophils # (Auto) 0.2 x10^3/uL (0.0-0.2) Segmented Neutrophils % 48 % (35-66) Lymphocytes % 33 % (24-48) Monocytes % 14 % (0-10) Eosinophils % 5 % (0-5) Platelet Estimate Adequate (ADEQUATE) Spherocytes Occ Sickle Cells Few Target Cells Occ Erythrocyte Sedimentation Rate 4 (0-15) Absolute Reticulocyte Count 0.399 x10^6/uL (0.020-0.120) Percent Reticulocyte Count 12.0 % (0.5-2.3) Immature Reticulocyte Fraction 0.66 (0.20-0.60) Sodium Level 142 mmol/L (136-145) Potassium Level 4.0 mmol/L (3.5-5.1) Chloride Level 107 mmol/L (98-107) Carbon Dioxide Level 26 mmol/L (21-32) Anion Gap 9 (6-14) Blood Urea Nitrogen 4 mg/dL (8-26) Creatinine 0.9 mg/dL (0.7-1.3) Estimated GFR (Cockcroft-Gault) 114.3 BUN/Creatinine Ratio 4 (6-20) Glucose Level 98 mg/dL (70-99) Calcium Level 8.5 mg/dL (8.5-10.1) Magnesium Level 1.9 mg/dL (1.8-2.4) Total Bilirubin 3.6 mg/dL (0.2-1.0) Aspartate Amino Transf (AST/SGOT) 30 U/L (15-37) Alanine Aminotransferase (ALT/SGPT) 20 U/L (16-63) Alkaline Phosphatase 84 U/L (46-116) Total Protein 7.2 g/dL (6.4-8.2) Albumin 3.7 g/dL (3.4-5.0) Albumin/Globulin Ratio 1.1 (1.0-1.7) Urine Collection Type Void Urine Color Yellow Urine Clarity Clear Urine pH 6.0 Urine Specific [place] 1.010 Urine Protein Negative mg/dL (NEG-TRACE) Urine Glucose (UA) Negative mg/dL (NEG) Urine Ketones (Stick) Negative mg/dL (NEG) Urine Blood Negative (NEG) Urine Nitrite Negative (NEG) Urine Bilirubin Negative (NEG) Urine Urobilinogen Dipstick 1.0 mg/dL (0.2 mg/dL) Urine Leukocyte Esterase Small (NEG) Urine RBC 0 /HPF (0-2) Urine WBC 5-10 /HPF (0-4) Urine Squamous Epithelial Cells Few /LPF Urine Bacteria Few /HPF (0-FEW) Urine Mucus Slight /LPF Medications Current Medications Sodium Chloride 1,000 ml @ 1,000 mls/hr 1X ONCE IV ; Start 11/25/18 at 09:45; Stop 11/25/18 at 10:44; Status DC Hydromorphone HCl (Dilaudid) 1 mg 1X STAT IVP ; Start 11/25/18 at 09:45; Stop 11/25/18 at 10:35; Status DC Hydromorphone HCl (Dilaudid) 1 mg 1X STAT IM Last administered on 11/25/18at 10:43; Start 11/25/18 at 10:34; Stop 11/25/18 at 10:35; Status DC Hydromorphone HCl (Dilaudid) 1 mg 1X STAT IM Last administered on 11/25/18at 11:26; Start 11/25/18 at 11:18; Stop 11/25/18 at 11:22; Status DC Hydromorphone HCl (Dilaudid) 2 mg PRN Q4HRS PRN PO SEVERE PAIN; Start 11/25/18 at 12:45 Hydroxyurea (Hydrea) 1,000 mg DAILY PO Last administered on 11/27/18at 08:36; Start 11/26/18 at 09:00 Multivitamins (Thera M Plus) 1 tab DAILY PO Last administered on 11/27/18at 0 8:31; Start 11/26/18 at 09:00 Oxycodone HCl (Roxicodone) 30 mg Q4HRS PO Last administered on 11/27/18at 08:31; Start 11/25/18 at 16:00 Folic Acid (Folic Acid) 1 mg DAILY PO Last administered on 11/27/18at 08:32; Start 11/26/18 at 09:00 Enoxaparin Sodium (Lovenox 40mg Syringe) 40 mg DAILY ONCE SQ ; Start 11/25/18 at 12:45; Stop 11/25/18 at 12:46; Status DC Hydromorphone HCl (Dilaudid) 4 mg PRN Q3HRS PRN IV PAIN Last administered on 11/27/18at 05:28; Start 11/25/18 at 15:00 Ondansetron HCl (Zofran) 4 mg PRN Q6HRS PRN IVP NAUSEA/VOMITING; Start 11/25/18 at 15:00 Diphenhydramine HCl (Benadryl) 25 mg PRN Q6HRS PRN IVP ITCHING Last administered on 11/26/18at 23:15; Start 11/25/18 at 15:00; Stop 11/27/18 at 00:50; Status DC Diphenhydramine HCl (Benadryl) 25 mg PRN Q6HRS PRN PO ITCHING Last administered on 11/25/18at 20:35; Start 11/25/18 at 15:00 Sodium Chloride 1,000 ml @ 150 mls/hr Q6H40M IV Last administered on 11/27/18at 08:31; Start 11/25/18 at 15:00 Magnesium Sulfate 50 ml @ 25 mls/hr 1X ONCE IV Last administered on 11/25/18at 17:38; Start 11/25/18 at 17:30; Stop 11/25/18 at 19:29; Status DC Phenazopyridine HCl (Pyridium) 200 mg PRN TID PRN PO URINARY PAIN; Start 11/25/18 at 16:30 Tamsulosin HCl (Flomax) 0.4 mg QHS PO Last administered on 11/26/18at 20:08; Start 11/25/18 at 21:00 Diphenhydramine HCl (Benadryl) 50 mg PRN Q6HRS PRN IVP ITCHING Last administ ered on 11/27/18at 05:18; Start 11/27/18 at 05:15 Zolpidem Tartrate (Ambien) 5 mg PRN QHS PRN PO INSOMNIA, MAY REPEAT IN 1HR; Start 11/27/18 at 01:00 Active Scripts Active Diazepam 2 Mg Tablet 2 Mg PO PRN Q6HRS PRN Hydrea (Hydroxyurea) 500 Mg Capsule 1,000 Mg PO DAILY Thera-M Tablet (Multivits,Ca,Minerals/Iron/Fa) 1 Each Tablet 1 Tab PO DAILY [Folic Acid] 1 MG Tablet 1 Mg PO DAILY Oxycodone Hcl Immed.release (Oxycodone Hcl) 30 Mg Tablet 30 Mg PO Q4HRS Dilaudid (Hydromorphone Hcl) 2 Mg Tablet 2 Mg PO PRN Q4HRS PRN Vitals/I & O Vital Sign - Last 24 Hours 11/26/18 11/26/18 11/26/18 11/26/18 10:01 10:03 10:38 11:00 Temp 98.8 98.8 Pulse 113 Resp 20 20 19 20 B/P (MAP) 102/72 (82) Pulse Ox 93 92 93 92 O2 Delivery Room Air Room Air Room Air Room Air 11/26/18 11/26/18 11/26/18 11/26/18 11:55 13:43 14:15 14:23 Resp 19 20 20 20 Pulse Ox 93 93 93 93 O2 Delivery Room Air Room Air Room Air Room Air 11/26/18 11/26/18 11/26/18 11/26/18 15:00 15:30 17:05 19:00 Temp 99.0 97.8 99.0 97.8 Pulse 101 104 Resp 20 19 20 18 B/P (MAP) 106/56 (73) 106/70 (82) Pulse Ox 94 93 93 94 O2 Delivery Room Air Room Air Room Air Room Air 11/26/18 11/26/18 11/26/18 11/26/18 19:07 20:09 20:09 20:45 Resp 20 15 15 Pulse Ox 93 93 93 93 O2 Delivery Room Air Room Air Room Air Room Air 11/26/18 11/26/18 11/27/18 11/27/18 23:00 23:15 00:03 00:04 Temp 98.4 98.4 Pulse 102 Resp 18 15 15 15 B/P (MAP) 103/55 (71) Pulse Ox 94 93 93 93 O2 Delivery Room Air Room Air Room Air Room Air 11/27/18 11/27/18 11/27/18 11/27/18 01:05 02:24 03:00 03:00 Temp 98.6 98.6 Pulse 104 Resp 17 18 15 18 B/P (MAP) 104/55 (71) Pulse Ox 93 93 93 91 O2 Delivery Room Air Room Air Room Air Room Air 11/27/18 11/27/18 11/27/18 11/27/18 04:13 05:17 05:28 06:10 Resp 15 15 15 15 Pulse Ox 93 93 93 93 O2 Delivery Room Air Room Air Room Air Room Air 11/27/18 11/27/18 07:00 08:31 Temp 98.0 98.0 Pulse 93 Resp 14 18 B/P (MAP) 101/62 (75) Pulse Ox 92 92 O2 Delivery Room Air Room Air Intake and Output 11/26/18 11/26/18 11/27/18 14:59 22:59 06:59 Intake Total 260 ml 900 ml Output Total 1600 ml 1100 ml 1650 ml Balance -1600 ml -840 ml -750 ml HUNTER SHARMA MD Nov 27, 2018 08:47
[2018-11-27 11:00] VITALS: BP 109/47
[2018-11-27 11:39] LABS: BASO # 0.1 x10^3/uL (0.0-0.2); BASO % 1 % (0-3); EOS # 0.8 x10^3/uL (0.0-0.7); EOS % 9 % (0-3); HEMOGLOBIN 8.6 g/dL (13.0-17.5); LYMPH # 3.3 x10^3/uL (1.0-4.8); LYMPH % 37 % (24-48); MEAN CORPUSCULAR HEMOGLOBIN 30 pg (25-35); MEAN CORPUSCULAR HGB CONC 34 g/dL (31-37); MEAN CORPUSCULAR VOLUME 89 fL (79-100); MONO # 1.6 x10^3/uL (0.0-1.1); MONO % 17 % (0-9); NEUT # 3.2 x10^3/uL (1.8-7.7); NEUT % 36 % (31-73); PLATELET COUNT 234 x10^3/uL (140-400); RED BLOOD COUNT 2.81 x10^6/uL (4.30-5.70); RED CELL DISTRIBUTION WIDTH 26.6 % (11.5-14.5); WHITE BLOOD COUNT 9.1 x10^3/uL (4.0-11.0)
[2018-11-27 11:54] LABS: ALBUMIN 2.7 g/dL (3.4-5.0); CALCIUM 7.3 mg/dL (8.5-10.1); CREATININE 0.7 mg/dL (0.7-1.3); GFR 152.7; MAGNESIUM 1.6 mg/dL (1.8-2.4); POTASSIUM 3.6 mmol/L (3.5-5.1); TOTAL BILIRUBIN 2.5 mg/dL (0.2-1.0); TOTAL PROTEIN 5.5 g/dL (6.4-8.2)
[2018-11-27] MEDS ORDERED: MAGNESIUM SULFATE 4GM 100 ML IV ONE (13:15)
[2018-11-27 15:00] VITALS: BP 105/70
[2018-11-27 19:00] VITALS: BP 103/65
[2018-11-27] MEDS: TAMSULOSIN 0.4 MG CAP.ER.24H. PO SCH (20:59)
[2018-11-27 23:05] VITALS: BP 96/63
[2018-11-28] MEDS: HYDROmorphone 2 MG/ML VIAL IV PRN ×8 (01:25→23:27)
[2018-11-28] MEDS: IV NORMAL SALINE 1000ML BAG 1,000 ML IV SCH ×4 (03:00→23:22)
[2018-11-28] MEDS: diphenhydrAMINE 50 MG/ML VIAL IVP PRN ×3 (05:14→22:00)
[2018-11-28 07:00] VITALS: BP 98/57
[2018-11-28] MEDS: FOLIC ACID 1 MG TABLET. PO SCH (08:50)
[2018-11-28] MEDS: MULTIVITAMIN with MINERAL TABLET. PO SCH (08:54)
[2018-11-28] MEDS: HYDROXYUREA 500 MG CAPSULE PO SCH (08:54)
--- NOTE | 2018-11-28 10:52 | PDOC ---
PROGRESS NOTES Chief Complaint Chief Complaint A/P: Sickle cell crisis/pain - retic percentage [address] PICC, consult Heme/onc. Previously required a PICC and dilaudid dosing 4mgs, q3hrs prn. Schedule oxycodone IR 30 mg q4hrs. I have advised him I will reorder this. 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 With benadryl dosing will bladder scan if his UOP drops FEN - General diet PPX - lovenox FULL CODE Dispo - inpatient for SCD pain crisis History of Present Illness History of Present Illness Mr Licea is a 38yo M w/ PMHx SCD, Osteonecrosis of left shoulder, depression with anxiety who presents with diffuse bone pain, lower back pain, bilateral hip pain, right rib pain and bilateral shoulder pain just recovering from a recent sickle cell crisis. Found with 0.399 absolute retic and 12% retics. CXR negative for abnormality. He has noted he is experiencing slow urine stream and burning on urination as well as dysuria. No risk for STIs, no prior UTI, but has had priapism previously. He has been told he has enlarged prostate. He has been taking folate and hydroxyurea Previously discharged just 10 days ago from here for a crisis He is still c/o bilateral shoulder pain, now left hip pain is a bit worse. The right-sided chest pain is new. Hb electrophoresis consistent with SS diseaes and 9% hemoglobin. H/o AVN left shoulder with surgery in 2007, injection 2017, replacement 03/30. Bilateral hip injections 05/2018 H/o acute chest syndrome in 2002, 5 prior blood transfusions. Has frequent hospitalization at [facility] as well as [facility], [facility], [place], [place]. Was hospitalized at [facility] the end of October 2018, and was just discharged from [facility] on 11/15/2018. Previously incarcerated and transferred his care 11/2017 to [facility]. Still does have ankle bracelet. 11/26: Today c/o left knee stiffness. Pain is controlled with his current regimen. Urination is more comfortable today. 11/27: Today Herb c/o different nurses administering his pain medications differently, felt his pain overnight was not adequately controlled. Today Mg is 1.6. Urine returned NGTD. No new joint pains. Hb dropped to 8.6, retic % up to 13%. No CP or SOB. mag replaced yesterday. Still with same diffuse bilateral hip, shoulder, thigh and left knee pains. No further rib pain. Vitals Vitals Vital Signs Date Time Temp Pulse Resp B/P (MAP) Pulse Ox O2 Delivery O2 Flow Rate FiO2 11/28/18 08:50 16 Room Air 11/28/18 07:00 97.9 93 98/57 (71) 91 97.9 Physical Exam General: Alert, Oriented X3, Cooperative, No acute distress Abdomen: Normal bowel sounds, Soft, No tenderness, No hepatosplenomegaly, No masses Extremities: No clubbing, No cyanosis, No edema, Normal pulses, No t enderness/swelling Skin: No rashes, No breakdown, No significant lesion Labs LABS Laboratory Tests Test 11/27/18 11:00 White Blood Count 9.1 x10^3/uL (4.0-11.0) Red Blood Count 2.80 x10^6/uL (4.30-5.70) Hemoglobin 8.6 g/dL (13.0-17.5) Hematocrit 25.0 % (39.0-53.0) Mean Corpuscular Volume 89 fL (79-100) Mean Corpuscular Hemoglobin 30 pg (25-35) Mean Corpuscular Hemoglobin Concent 34 g/dL (31-37) Red Cell Distribution Width 26.6 % (11.5-14.5) Platelet Count 234 x10^3/uL (140-400) Neutrophils (%) (Auto) 36 % (31-73) Lymphocytes (%) (Auto) 37 % (24-48) Monocytes (%) (Auto) 17 % (0-9) Eosinophils (%) (Auto) 9 % (0-3) Basophils (%) (Auto) 1 % (0-3) Neutrophils # (Auto) 3.2 x10^3/uL (1.8-7.7) Lymphocytes # (Auto) 3.3 x10^3/uL (1.0-4.8) Monocytes # (Auto) 1.6 x10^3/uL (0.0-1.1) Eosinophils # (Auto) 0.8 x10^3/uL (0.0-0.7) Basophils # (Auto) 0.1 x10^3/uL (0.0-0.2) Absolute Reticulocyte Count 0.364 x10^6/uL (0.020-0.120) Percent Reticulocyte Count 13.0 % (0.5-2.3) Immature Reticulocyte Fraction 0.69 (0.20-0.60) Sodium Level 144 mmol/L (136-145) Potassium Level 3.6 mmol/L (3.5-5.1) Chloride Level 112 mmol/L (98-107) Carbon Dioxide Level 24 mmol/L (21-32) Anion Gap 8 (6-14) Blood Urea Nitrogen 5 mg/dL (8-26) Creatinine 0.7 mg/dL (0.7-1.3) Estimated GFR (Cockcroft-Gault) 152.7 BUN/Creatinine Ratio 7 (6-20) Glucose Level 101 mg/dL (70-99) Calcium Level 7.3 mg/dL (8.5-10.1) Magnesium Level 1.6 mg/dL (1.8-2.4) Total Bilirubin 2.5 mg/dL (0.2-1.0) Aspartate Amino Transf (AST/SGOT) 29 U/L (15-37) Alanine Aminotransferase (ALT/SGPT) 16 U/L (16-63) Alkaline Phosphatase 63 U/L (46-116) Total Protein 5.5 g/dL (6.4-8.2) Albumin 2.7 g/dL (3.4-5.0) Albumin/Globulin Ratio 1.0 (1.0-1.7) Comment Review of Relevant I have reviewed the following items jorge luis (where applicable) has been applied. Labs Laboratory Tests Test 11/27/18 11:00 White Blood Count 9.1 x10^3/uL (4.0-11.0) Red Blood Count 2.80 x10^6/uL (4.30-5.70) Hemoglobin 8.6 g/dL (13.0-17.5) Hematocrit 25.0 % (39.0-53.0) Mean Corpuscular Volume 89 fL (79-100) Mean Corpuscular Hemoglobin 30 pg (25-35) Mean Corpuscular Hemoglobin Concent 34 g/dL (31-37) Red Cell Distribution Width 26.6 % (11.5-14.5) Platelet Count 234 x10^3/uL (140-400) Neutrophils (%) (Auto) 36 % (31-73) Lymphocytes (%) (Auto) 37 % (24-48) Monocytes (%) (Auto) 17 % (0-9) Eosinophils (%) (Auto) 9 % (0-3) Basophils (%) (Auto) 1 % (0-3) Neutrophils # (Auto) 3.2 x10^3/uL (1.8-7.7) Lymphocytes # (Auto) 3.3 x10^3/uL (1.0-4.8) Monocytes # (Auto) 1.6 x10^3/uL (0.0-1.1) Eosinophils # (Auto) 0.8 x10^3/uL (0.0-0.7) Basophils # (Auto) 0.1 x10^3/uL (0.0-0.2) Absolute Reticulocyte Count 0.364 x10^6/uL (0.020-0.120) Percent Reticulocyte Count 13.0 % (0.5-2.3) Immature Reticulocyte Fraction 0.69 (0.20-0.60) Sodium Level 144 mmol/L (136-145) Potassium Level 3.6 mmol/L (3.5-5.1) Chloride Level 112 mmol/L (98-107) Carbon Dioxide Level 24 mmol/L (21-32) Anion Gap 8 (6-14) Blood Urea Nitrogen 5 mg/dL (8-26) Creatinine 0.7 mg/dL (0.7-1.3) Estimated GFR (Cockcroft-Gault) 152.7 BUN/Creatinine Ratio 7 (6-20) Glucose Level 101 mg/dL (70-99) Calcium Level 7.3 mg/dL (8.5-10.1) Magnesium Level 1.6 mg/dL (1.8-2.4) Total Bilirubin 2.5 mg/dL (0.2-1.0) Aspartate Amino Transf (AST/SGOT) 29 U/L (15-37) Alanine Aminotransferase (ALT/SGPT) 16 U/L (16-63) Alkaline Phosphatase 63 U/L (46-116) Total Protein 5.5 g/dL (6.4-8.2) Albumin 2.7 g/dL (3.4-5.0) Albumin/Globulin Ratio 1.0 (1.0-1.7) Laboratory Tests Test 11/27/18 11:00 White Blood Count 9.1 x10^3/uL (4.0-11.0) Red Blood Count 2.80 x10^6/uL (4.30-5.70) Hemoglobin 8.6 g/dL (13.0-17.5) Hematocrit 25.0 % (39.0-53.0) Mean Corpuscular Volume 89 fL (79-100) Mean Corpuscular Hemoglobin 30 pg (25-35) Mean Corpuscular Hemoglobin Concent 34 g/dL (31-37) Red Cell Distribution Width 26.6 % (11.5-14.5) Platelet Count 234 x10^3/uL (140-400) Neutrophils (%) (Auto) 36 % (31-73) Lymphocytes (%) (Auto) 37 % (24-48) Monocytes (%) (Auto) 17 % (0-9) Eosinophils (%) (Auto) 9 % (0-3) Basophils (%) (Auto) 1 % (0-3) Neutrophils # (Auto) 3.2 x10^3/uL (1.8-7.7) Lymphocytes # (Auto) 3.3 x10^3/uL (1.0-4.8) Monocytes # (Auto) 1.6 x10^3/uL (0.0-1.1) Eosinophils # (Auto) 0.8 x10^3/uL (0.0-0.7) Basophils # (Auto) 0.1 x10^3/uL (0.0-0.2) Absolute Reticulocyte Count 0.364 x10^6/uL (0.020-0.120) Percent Reticulocyte Count 13.0 % (0.5-2.3) Immature Reticulocyte Fraction 0.69 (0.20-0.60) Sodium Level 144 mmol/L (136-145) Potassium Level 3.6 mmol/L (3.5-5.1) Chloride Level 112 mmol/L (98-107) Carbon Dioxide Level 24 mmol/L (21-32) Anion Gap 8 (6-14) Blood Urea Nitrogen 5 mg/dL (8-26) Creatinine 0.7 mg/dL (0.7-1.3) Estimated GFR (Cockcroft-Gault) 152.7 BUN/Creatinine Ratio 7 (6-20) Glucose Level 101 mg/dL (70-99) Calcium Level 7.3 mg/dL (8.5-10.1) Magnesium Level 1.6 mg/dL (1.8-2.4) Total Bilirubin 2.5 mg/dL (0.2-1.0) Aspartate Amino Transf (AST/SGOT) 29 U/L (15-37) Alanine Aminotransferase (ALT/SGPT) 16 U/L (16-63) Alkaline Phosphatase 63 U/L (46-116) Total Protein 5.5 g/dL (6.4-8.2) Albumin 2.7 g/dL (3.4-5.0) Albumin/Globulin Ratio 1.0 (1.0-1.7) Microbiology 11/25/18 Urine Culture - Final, Complete 11/25/18 Urine Culture Result 1 (DIAMOND) - Final, Complete Medications Current Medications Sodium Chloride 1,000 ml @ 1,000 mls/hr 1X ONCE IV ; Start 11/25/18 at 09:45; Stop 11/25/18 at 10:44; Status DC Hydromorphone HCl (Dilaudid) 1 mg 1X STAT IVP ; Start 11/25/18 at 09:45; Stop 11/25/18 at 10:35; Status DC Hydromorphone HCl (Dilaudid) 1 mg 1X STAT IM Last administered on 11/25/18at 10:43; Start 11/25/18 at 10:34; Stop 11/25/18 at 10:35; Status DC Hydromorphone HCl (Dilaudid) 1 mg 1X STAT IM Last administered on 11/25/18at 11:26; Start 11/25/18 at 11:18; Stop 11/25/18 at 11:22; Status DC Hydromorphone HCl (Dilaudid) 2 mg PRN Q4HRS PRN PO MODERATE PAIN; Start 11/25/18 at 12:45 Hydroxyurea (Hydrea) 1,000 mg DAILY PO Last administered on 11/28/18 08:54; Start 11/26/18 at 09:00 Multivitamins (Thera M Plus) 1 tab DAILY PO Last administered on 11/27/18 08:31; Start 11/26/18 at 09:00 Oxycodone HCl (Roxicodone) 30 mg Q4HRS PO Last administered on 11/28/18 08:50; Start 11/25/18 at 16:00 Folic Acid (Folic Acid) 1 mg DAILY PO Last administered on 11/28/18 08:50; Start 11/26/18 at 09:00 Enoxaparin Sodium (Lovenox 40mg Syringe) 40 mg DAILY ONCE SQ ; Start 11/25/18 at 12:45; Stop 11/25/18 at 12:46; Status DC Hydromorphone HCl (Dilaudid) 4 mg PRN Q3HRS PRN IV SEVERE PAIN Last administered on 11/28/18 07:36; Start 11/25/18 at 15:00 Ondansetron HCl (Zofran) 4 mg PRN Q6HRS PRN IVP NAUSEA/VOMITING; Start 11/25/18 at 15:00 Diphenhydramine HCl (Benadryl) 25 mg PRN Q6HRS PRN IVP ITCHING Last administer ed on 11/26/18at 23:15; Start 11/25/18 at 15:00; Stop 11/27/18 at 00:50; Status DC Diphenhydramine HCl (Benadryl) 25 mg PRN Q6HRS PRN PO ITCHING Last administered on 11/25/18at 20:35; Start 11/25/18 at 15:00 Sodium Chloride 1,000 ml @ 150 mls/hr Q6H40M IV Last administered on 11/28/18 03:00; Start 11/25/18 at 15:00 Magnesium Sulfate 50 ml @ 25 mls/hr 1X ONCE IV Last administered on 11/25/18 17:38; Start 11/25/18 at 17:30; Stop 11/25/18 at 19:29; Status DC Phenazopyridine HCl (Pyridium) 200 mg PRN TID PRN PO URINARY PAIN; Start 11/25/18 at 16:30 Tamsulosin HCl (Flomax) 0.4 mg QHS PO Last administered on 11/27/18at 20:59; Start 11/25/18 at 21:00 Diphenhydramine HCl (Benadryl) 50 mg PRN Q6HRS PRN IVP ITCHING Last administered on 11/28/18at 05:14; Start 11/27/18 at 05:15 Zolpidem Tartrate (Ambien) 5 mg PRN QHS PRN PO INSOMNIA, MAY REPEAT IN 1HR; Start 11/27/18 at 01:00 Magnesium Sulfate 100 ml @ 25 mls/hr 1X ONCE IV Last administered on 11/27/18at 13:58; Start 11/27/18 at 13:15; Stop 11/27/18 at 17:14; Status DC Active Scripts Active Diazepam 2 Mg Tablet 2 Mg PO PRN Q6HRS PRN Hydrea (Hydroxyurea) 500 Mg Capsule 1,000 Mg PO DAILY Thera-M Tablet (Multivits,Ca,Minerals/Iron/Fa) 1 Each Tablet 1 Tab PO DAILY [Folic Acid] 1 MG Tablet 1 Mg PO DAILY Oxycodone Hcl Immed.release (Oxycodone Hcl) 30 Mg Tablet 30 Mg PO Q4HRS Dilaudid (Hydromorphone Hcl) 2 Mg Tablet 2 Mg PO PRN Q4HRS PRN Vitals/I & O Vital Sign - Last 24 Hours 11/27/18 11/27/18 11/27/18 11/27/18 11:00 12:35 13:05 13:55 Temp 98.0 98.0 Pulse 110 Resp 16 7 16 18 B/P (MAP) 109/47 (67) Pulse Ox 94 94 94 94 O2 Delivery Room Air Room Air Room Air Room Air 11/27/18 11/27/18 11/27/18 11/27/18 14:55 15:00 15:53 16:23 Temp 98.3 98.3 Pulse 105 Resp 18 14 18 16 B/P (MAP) 105/70 (82) Pulse Ox 94 94 91 O2 Delivery Room Air Room Air Room Air Room Air 11/27/18 11/27/18 11/27/18 11/27/18 17:15 18:15 19:00 19:00 Temp 98.7 98.7 Pulse 97 Resp 18 18 20 B/P (MAP) 103/65 (78) Pulse Ox 91 91 O2 Delivery Room Air Room Air Room Air Room Air 11/27/18 11/27/18 11/27/18 11/27/18 19:30 20:00 20:59 22:09 Pulse Ox 91 O2 Delivery Room Air Room Air Room Air Room Air 11/27/18 11/27/18 11/28/18 11/28/18 22:39 23:05 01:24 01:25 Temp 98.3 98.3 Pulse 75 Resp 20 B/P (MAP) 96/63 (74) Pulse Ox 92 92 O2 Delivery Room Air Room Air Room Air Room Air 11/28/18 11/28/18 11/28/18 11/28/18 01:55 04:26 04:56 05:14 Pulse Ox 92 O2 Delivery Room Air Room Air Room Air Room Air 11/28/18 11/28/18 11/28/18 11/28/18 06:14 07:00 07:36 08:06 Temp 97.9 97.9 Pulse 93 Resp 16 16 B/P (MAP) 98/57 (71) Pulse Ox 91 O2 Delivery Room Air Room Air Room Air Room Air 11/28/18 08:50 Resp 16 O2 Delivery Room Air Intake and Output 11/27/18 11/27/18 11/28/18 15:00 23:00 07:00 Intake Total 500 ml Output Total 2100 ml 1500 ml Balance -2100 ml -1000 ml HUNTER SHARMA MD Nov 28, 2018 10:52
[2018-11-28 11:00] VITALS: BP 106/62
[2018-11-28 15:58] VITALS: BP 100/55
[2018-11-28 19:00] VITALS: BP 115/62
[2018-11-28] MEDS: TAMSULOSIN 0.4 MG CAP.ER.24H. PO SCH (20:15)
[2018-11-28 23:00] VITALS: BP 111/60
[2018-11-29] MEDS: HYDROmorphone 2 MG/ML VIAL IV PRN ×3 (02:31→08:54)
[2018-11-29 03:00] VITALS: BP 105/70
[2018-11-29] MEDS: diphenhydrAMINE 50 MG/ML VIAL IVP PRN ×2 (04:07→10:06)
[2018-11-29] MEDS: IV NORMAL SALINE 1000ML BAG 1,000 ML IV SCH ×2 (05:35→12:20)
[2018-11-29 05:59] LABS: BASO # 0.2 x10^3/uL (0.0-0.2); BASO % 2 % (0-3); EOS % 11 % (0-3); HEMATOCRIT 26.8 % (39.0-53.0); HEMOGLOBIN 9.2 g/dL (13.0-17.5); LYMPH # 2.9 x10^3/uL (1.0-4.8); LYMPH % 32 % (24-48); MEAN CORPUSCULAR HEMOGLOBIN 31 pg (25-35); MEAN CORPUSCULAR HGB CONC 35 g/dL (31-37); MEAN CORPUSCULAR VOLUME 89 fL (79-100); MONO # 1.6 x10^3/uL (0.0-1.1); MONO % 18 % (0-9); NEUT # 3.6 x10^3/uL (1.8-7.7); NEUT % 38 % (31-73); PLATELET COUNT 187 x10^3/uL (140-400); RED CELL DISTRIBUTION WIDTH 28.1 % (11.5-14.5); WHITE BLOOD COUNT 9.3 x10^3/uL (4.0-11.0)
[2018-11-29 06:15] LABS: CALCIUM 8.1 mg/dL (8.5-10.1); CREATININE 0.9 mg/dL (0.7-1.3); GFR 114.3; MAGNESIUM 1.8 mg/dL (1.8-2.4); POTASSIUM 4.5 mmol/L (3.5-5.1)
[2018-11-29 07:00] VITALS: BP 116/78
[2018-11-29] MEDS: MULTIVITAMIN with MINERAL TABLET. PO SCH ×2 (08:46→08:55)
[2018-11-29] MEDS: FOLIC ACID 1 MG TABLET. PO SCH (08:46)
[2018-11-29] MEDS: HYDROXYUREA 500 MG CAPSULE PO SCH (08:52)
--- NOTE | 2018-11-29 10:10 | PDOC ---
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 Sickle cell: Recommend continuing Hydrea, folic acid AVN: I do think he needs some chronic pain medications to help get him out of the hospital, for my sickle cell patients i use methadone with monthly drug screens to make sure that all other drugs including marijuana are negative, he does not want to stop marijuana, I told him he could think about this and we'll talk more tomorrow, of note he has had problems with other illegal drugs in the past on positive drug screens and recently was in skilled nursing, and I do recommend follow-up with ortho as able regarding his AVN Acute crisis: Pain control per primary Prophylaxis: We will add Lovenox Thank you kindly and please do not hesitate to call with questions. OBJECTIVE Vital Signs Vital Signs Date Time Temp Pulse Resp B/P (MAP) Pulse Ox O2 Delivery O2 Flow Rate FiO2 11/29/18 08:54 20 93 Room Air 11/29/18 08:47 19 93 Room Air 11/29/18 07:00 97.6 78 18 116/78 (91) 94 Room Air 97.6 11/29/18 06:03 18 92 Room Air 11/29/18 05:33 18 92 Room Air 11/29/18 05:06 92 Room Air 11/29/18 04:06 18 92 Room Air 11/29/18 03:01 18 92 Room Air 11/29/18 03:00 98.6 78 16 105/70 (82) 92 Room Air 98.6 11/29/18 02:31 18 91 Room Air 11/29/18 01:00 18 91 Room Air 11/29/18 00:00 18 91 Room Air 11/28/18 23:57 18 91 Room Air 11/28/18 23:27 20 91 Room Air 11/28/18 23:00 98.8 94 16 111/60 (77) 88 Room Air 98.8 11/28/18 21:04 18 91 Room Air 11/28/18 21:04 18 91 Room Air 11/28/18 20:34 18 91 Room Air 11/28/18 20:15 18 91 Room Air 11/28/18 20:00 Room Air 11/28/18 19:00 98.0 93 20 115/62 (79) 93 Room Air 98.0 11/28/18 18:05 16 Room Air 11/28/18 17:35 16 Room Air 11/28/18 16:57 18 Room Air 11/28/18 15:58 98.5 95 20 100/55 (70) 91 Room Air 98.5 11/28/18 15:57 16 Room Air 11/28/18 15:04 18 Room Air 11/28/18 14:34 16 Room Air 11/28/18 13:55 16 Room Air 11/28/18 12:55 16 Room Air 11/28/18 11:50 16 Room Air 11/28/18 11:20 16 Room Air 11/28/18 11:00 98.5 20 106/62 (77) 93 Room Air 98.5 I & O Intake and Output 11/29/18 07:00 Intake Total 840 ml Output Total 1550 ml Balance -710 ml Intake Oral 840 ml Output Urine Total 1550 ml COMMENT Lab Laboratory Tests Test 11/29/18 05:40 White Blood Count 9.3 x10^3/uL (4.0-11.0) Red Blood Count 3.00 x10^6/uL (4.30-5.70) Hemoglobin 9.2 g/dL (13.0-17.5) Hematocrit 26.8 % (39.0-53.0) Mean Corpuscular Volume 89 fL (79-100) Mean Corpuscular Hemoglobin 31 pg (25-35) Mean Corpuscular Hemoglobin Concent 35 g/dL (31-37) Red Cell Distribution Width 28.1 % (11.5-14.5) Platelet Count 187 x10^3/uL (140-400) Neutrophils (%) (Auto) 38 % (31-73) Lymphocytes (%) (Auto) 32 % (24-48) Monocytes (%) (Auto) 18 % (0-9) Eosinophils (%) (Auto) 11 % (0-3) Basophils (%) (Auto) 2 % (0-3) Neutrophils # (Auto) 3.6 x10^3/uL (1.8-7.7) Lymphocytes # (Auto) 2.9 x10^3/uL (1.0-4.8) Monocytes # (Auto) 1.6 x10^3/uL (0.0-1.1) Eosinophils # (Auto) 1.0 x10^3/uL (0.0-0.7) Basophils # (Auto) 0.2 x10^3/uL (0.0-0.2) Absolute Reticulocyte Count 0.353 x10^6/uL (0.020-0.120) Percent Reticulocyte Count 11.9 % (0.5-2.3) Immature Reticulocyte Fraction 0.70 (0.20-0.60) Sodium Level 143 mmol/L (136-145) Potassium Level 4.5 mmol/L (3.5-5.1) Chloride Level 109 mmol/L (98-107) Carbon Dioxide Level 27 mmol/L (21-32) Anion Gap 7 (6-14) Blood Urea Nitrogen 4 mg/dL (8-26) Creatinine 0.9 mg/dL (0.7-1.3) Estimated GFR (Cockcroft-Gault) 114.3 Glucose Level 90 mg/dL (70-99) Calcium Level 8.1 mg/dL (8.5-10.1) Magnesium Level 1.8 mg/dL (1.8-2.4) BISMARK MOTT MD Nov 29, 2018 10:10
[2018-11-29 10:50] VITALS: BP 119/74
--- NOTE | 2018-11-29 11:31 | PDOC3 ---
Discharge Summary Visit Information Date of Admission: Nov 25, 2018 Date of Discharge: Nov 29, 2018 Admitting Diagnosis Comment: Sickle cell pain Anemia NArc tolerance Brief Hospital Course Allergies Allergies Coded Allergies Type Severity Reaction Last Updated Verified Sulfa (Sulfonamide Antibiotics) Allergy Intermediate 11/05/18 Yes Vital Signs Vital Signs Date Time Temp Pulse Resp B/P (MAP) Pulse Ox O2 Delivery O2 Flow Rate FiO2 11/29/18 10:50 97.7 78 18 119/74 (89) 95 Room Air 97.7 Lab Results Laboratory Tests Test 11/29/18 05:40 White Blood Count 9.3 x10^3/uL (4.0-11.0) Red Blood Count 3.00 x10^6/uL (4.30-5.70) Hemoglobin 9.2 g/dL (13.0-17.5) Hematocrit 26.8 % (39.0-53.0) Mean Corpuscular Volume 89 fL (79-100) Mean Corpuscular Hemoglobin 31 pg (25-35) Mean Corpuscular Hemoglobin Concent 35 g/dL (31-37) Red Cell Distribution Width 28.1 % (11.5-14.5) Platelet Count 187 x10^3/uL (140-400) Neutrophils (%) (Auto) 38 % (31-73) Lymphocytes (%) (Auto) 32 % (24-48) Monocytes (%) (Auto) 18 % (0-9) Eosinophils (%) (Auto) 11 % (0-3) Basophils (%) (Auto) 2 % (0-3) Neutrophils # (Auto) 3.6 x10^3/uL (1.8-7.7) Lymphocytes # (Auto) 2.9 x10^3/uL (1.0-4.8) Monocytes # (Auto) 1.6 x10^3/uL (0.0-1.1) Eosinophils # (Auto) 1.0 x10^3/uL (0.0-0.7) Basophils # (Auto) 0.2 x10^3/uL (0.0-0.2) Absolute Reticulocyte Count 0.353 x10^6/uL (0.020-0.120) Percent Reticulocyte Count 11.9 % (0.5-2.3) Immature Reticulocyte Fraction 0.70 (0.20-0.60) Sodium Level 143 mmol/L (136-145) Potassium Level 4.5 mmol/L (3.5-5.1) Chloride Level 109 mmol/L (98-107) Carbon Dioxide Level 27 mmol/L (21-32) Anion Gap 7 (6-14) Blood Urea Nitrogen 4 mg/dL (8-26) Creatinine 0.9 mg/dL (0.7-1.3) Estimated GFR (Cockcroft-Gault) 114.3 Glucose Level 90 mg/dL (70-99) Calcium Level 8.1 mg/dL (8.5-10.1) Magnesium Level 1.8 mg/dL (1.8-2.4) Laboratory Tests Test 11/29/18 05:40 White Blood Count 9.3 x10^3/uL (4.0-11.0) Red Blood Count 3.00 x10^6/uL (4.30-5.70) Hemoglobin 9.2 g/dL (13.0-17.5) Hematocrit 26.8 % (39.0-53.0) Mean Corpuscular Volume 89 fL (79-100) Mean Corpuscular Hemoglobin 31 pg (25-35) Mean Corpuscular Hemoglobin Concent 35 g/dL (31-37) Red Cell Distribution Width 28.1 % (11.5-14.5) Platelet Count 187 x10^3/uL (140-400) Neutrophils (%) (Auto) 38 % (31-73) Lymphocytes (%) (Auto) 32 % (24-48) Monocytes (%) (Auto) 18 % (0-9) Eosinophils (%) (Auto) 11 % (0-3) Basophils (%) (Auto) 2 % (0-3) Neutrophils # (Auto) 3.6 x10^3/uL (1.8-7.7) Lymphocytes # (Auto) 2.9 x10^3/uL (1.0-4.8) Monocytes # (Auto) 1.6 x10^3/uL (0.0-1.1) Eosinophils # (Auto) 1.0 x10^3/uL (0.0-0.7) Basophils # (Auto) 0.2 x10^3/uL (0.0-0.2) Absolute Reticulocyte Count 0.353 x10^6/uL (0.020-0.120) Percent Reticulocyte Count 11.9 % (0.5-2.3) Immature Reticulocyte Fraction 0.70 (0.20-0.60) Sodium Level 143 mmol/L (136-145) Potassium Level 4.5 mmol/L (3.5-5.1) Chloride Level 109 mmol/L (98-107) Carbon Dioxide Level 27 mmol/L (21-32) Anion Gap 7 (6-14) Blood Urea Nitrogen 4 mg/dL (8-26) Creatinine 0.9 mg/dL (0.7-1.3) Estimated GFR (Cockcroft-Gault) 114.3 Glucose Level 90 mg/dL (70-99) Calcium Level 8.1 mg/dL (8.5-10.1) Magnesium Level 1.8 mg/dL (1.8-2.4) Brief Hospital Course Mr. Licea is a 38 old [AA male with sickle cell, admitted for crisis, stayed 4 night 5 days and has gotten 13 bags IVF and lots of IV pain meds, Unfortunately he is narc seeking, last time i dcd him on his home pO pain meds, I got a call from his pharmacy saying he still has some so I cant refill his RX, His retic ct is coming down, hgb 9 on dc. I PRINTED HIM OUT HIS CXR (normal) AND LAB copies and ALSO DISCUSSED with his auntie on the phone, Difficult dc - he requested a diff MD and the feeling is mutual, DC today, IM asking assistance from case mx - he also asks for RN sup Discharge Information Condition at Discharge: Improved, Stable Disposition/Orders: D/C to Home Scheduled Hydroxyurea (Hydrea) 500 Mg Capsule, 1,000 MG PO DAILY for sickel cell, #60 Prescribed by: CANDIDO MITCHELL on 11/15/18 1121 Last Action: Continued on 11/25/18 1234 by HUNTER SHARMA MD Multivits,Ca,Minerals/Iron/Fa (Thera-M Tablet) 1 Each Tablet, 1 TAB PO DAILY for mvi, #60 Prescribed by: CANDIDO MITCHELL on 11/15/18 1121 Last Action: Continued on 11/25/18 1234 by HUNTER SHARMA MD Oxycodone Hcl (Oxycodone Hcl Immed.release ) 30 Mg Tablet, 30 MG PO Q4HRS for sickle cell pain, #30 Prescribed by: CANDIDO MITCHELL on 11/15/181120 Last Action: Continued on 11/25/181233 by HUNTER SHARMA MD [Folic Acid] 1 MG TABLET, 1 MG PO DAILY for sickel cell, #60 Prescribed by: CANDIDO MITCHELL on 11/15/181120 Last Action: Converted on 11/25/181233 by HUNTER SHARMA MD Scheduled PRN Diazepam (Diazepam) 2 Mg Tablet, 2 MG PO PRN Q6HRS PRN for ANXIETY, #10 Prescribed by: CANDIDO MITCHELL on 11/15/181120 Hydromorphone Hcl (Dilaudid) 2 Mg Tablet, 2 MG PO PRN Q4HRS PRN for SEVERE PAIN, #30 Prescribed by: CANDIDO MITCHELL on 11/15/181120 Last Action: Continued on 11/25/181233 by MD STEPHEN MONZON CHERRIE Y MD Nov 29, 2018 11:31
[2018-11-29] MEDS ORDERED: ENOXAPARIN 40 MG/0.4 ML SYRINGE. SQ SCH (12:00)
--- NOTE | 2018-11-29 13:36 | NUR ---
SW following for discharge planning. Discussed with RN, RN advised no SW needs at this time, pt has discharge order in chart. Pt will be discharging home at 1530. No further SW needs.
--- NOTE | 2018-11-29 14:30 | NUR ---
DISCHARGE INSTRUCTIONS GIVEN, QUESTIONS AND CONCERNS ANSWERED, PATIENT VERBALIZED UNDERSTANDING OF DISCHARGE INFORMATION INCLUDING TAKING ALL MEDICATIONS INSTRUCTED AND FOLLOW ING UP WITH HIS PRIMARY PROVIDER AND DR. MOTT INSTRUCTED. ALL PERSONAL BELONGINGS GATHERED BY THE PATIENT AND PLACED IN BAGS FOR DISCHARGE INCLUDING CELL PHONE AND CELL PHONE CLINICAL LIAISON.
--- NOTE | 2018-11-29 14:56 | NUR ---
PATIENT LEAVES THE UNIT PER W/C AND ACCOMPANIED BY THIS SENIOR BUDGET ANALYST, EMOTIONAL SUPPORT GIVEN, FOLLOW UP APPOINTMENTS ENCOURAGED.
== END 2018-11-29 14:56 | disposition home or self-care (01) | DRG 812 ==
LOC: ER 09:28 → 5 SOUTH 12:38
PROVIDERS: ADMIT Internal Medicine; ATTEND Internal Medicine
DX: D57.00 Hb-SS disease with crisis, unspecified (principal); M87.9 Osteonecrosis, unspecified; G89.29 Other chronic pain; N40.0 Benign prostatic hyperplasia without lower urinary tract symptoms; F41.9 Anxiety disorder, unspecified; F32.9 Major depressive disorder, single episode, unspecified; Z88.2 Allergy status to sulfonamides; Z83.2 Family history of diseases of the blood and blood-forming organs and certain disorders involving the immune mechanism
CPT/HCPCS: 36415; 71046; 80048; 80053; 81001; 83735; 85007; 85025; 85045; 85651; 87086; 96372; J1170; J1200; J3475; J7030; Q0163; 99285-25; G0378

== ENCOUNTER 2018-12-10 16:43 | Emergency (ER) | payer SELFPAY ==
[~2018-12-10] VITALS: Ht 175.3 cm; Wt 81.6 kg
[2018-12-10] MEDS ORDERED: KETAMINE HCL IN NACL, ISO-OSM 50 MG/5 ML SYRINGE IV STA (16:58)
[2018-12-10] MEDS ORDERED: IV NORMAL SALINE 1000ML BAG 1,000 ML IV ONE (17:00)
--- NOTE | 2018-12-10 17:04 | PHYS DOC ---
Past Medical History Past Medical History: Sickle Cell Disease (OLIVER PARKER APRN) Past Surgical History: Other Additional Past Surgical Histo: L. SHOULDER AND BILATERAL HIP (OLIVER PARKER APRN) Alcohol Use: Occasionally Drug Use: None (OLIVER PARKER APRN) Attending Signature I have participated in the care of this patient and I have reviewed and agree with all pertinent clinical information above including history, exam, and recommendations. (KIERAN SAHU MD) Adult General Chief Complaint Chief Complaint: PAIN CONTROL HPI HPI Patient is a 38 year old male that presents with sickle cell pain. The patient states he was admitted the hospital November 27 and discharged right away and states that his crisis was never gotten under control. He states she's been dealing with this crisis constantly since November 23. His DrMarilee Marques. She placed him on Percocet which has not been helping the pain. He rates his pain 8 out of 10 in severity and body wide. (OLIVER PARKER APRN) Review of Systems Review of Systems Constitutional: Reports body aches diffusely. Denies fever or chills [] Eyes: Denies change in visual acuity, redness, or eye pain [] HENT: Denies nasal congestion or sore throat [] Respiratory: Denies cough or shortness of breath [] Cardiovascular: No additional information not addressed in HPI [] GI: Denies abdominal pain, nausea, vomiting, bloody stools or diarrhea [] : Denies dysuria or hematuria [] Musculoskeletal: Reports back pain Integument: Denies rash or skin lesions [] Neurologic: Denies headache, focal weakness or sensory changes [] Endocrine: Denies polyuria or polydipsia [] Complete systems were reviewed and found to be within normal limits, except as documented in this note. (OLIVER PARKER APRN) Current Medications Current Medications Current Medications Medications (Trade) Dose Ordered Sig/Shoshana Start Time Stop Time Status Last Admin Dose Admin Hydromorphone HCl (Dilaudid) 0.5 mg 1X STAT 12/10/18 19:11 12/10/18 19:17 DC 12/10/18 19:24 0.5 MG Ketamine HCl (Ketamine) 16 mg 1X STAT 12/10/18 16:58 12/10/18 17:00 DC 12/10/18 18:56 16 MG Sodium Chloride 1,000 ml @ 1,000 mls/hr 1X ONCE 12/10/18 17:00 12/10/18 17:59 DC 12/10/18 17:44 1,000 MLS/HR (KIERAN SAHU MD) Allergies Allergies Allergies Coded Allergies Type Severity Reaction Last Updated Verified Sulfa (Sulfonamide Antibiotics) Allergy Intermediate 11/05/18 Yes (KIERAN SAHU MD) Physical Exam Physical Exam Constitutional: Well developed, well nourished, no acute distress, non-toxic appearance. [] HENT: Normocephalic, atraumatic, bilateral external ears normal, oropharynx moist, no oral exudates, nose normal. [] Eyes: PERRLA, EOMI, conjunctiva normal, no discharge. [] Neck: Normal range of motion, no tenderness, supple, no stridor. [] Cardiovascular:Heart rate regular rhythm, no murmur [] Lungs & Thorax: Bilateral breath sounds clear to auscultation [] Abdomen: Bowel sounds normal, soft, no tenderness, no masses, no pulsatile masses. [] Skin: Warm, dry, no erythema, no rash. [] Back: lower back Tenderness, no CVA tenderness. [] Extremities: No tenderness, no cyanosis, no clubbing, ROM intact, no edema. [] Neurologic: Alert and oriented X 3, normal motor function, normal sensory function, no focal deficits noted. [] Psychologic: Affect normal, judgement normal, mood normal. [] (OLIVER PARKER APRN) Current Patient Data Vital Signs Vital Signs Date Time Temp Pulse Resp B/P (MAP) Pulse Ox O2 Delivery O2 Flow Rate FiO2 12/10/18 19:24 18 96 Room Air 12/10/18 18:52 68 12/10/18 16:49 98.9 105/67 (80) 98.9 (KIERAN SAHU MD) Lab Values Laboratory Tests Test 12/10/18 17:45 White Blood Count 9.9 x10^3/uL (4.0-11.0) Red Blood Count 3.24 x10^6/uL (4.30-5.70) L Hemoglobin 9.6 g/dL (13.0-17.5) L Hematocrit 27.8 % (39.0-53.0) L Mean Corpuscular Volume 86 fL (79-100) Mean Corpuscular Hemoglobin 30 pg (25-35) Mean Corpuscular Hemoglobin Concent 35 g/dL (31-37) Red Cell Distribution Width 24.2 % (11.5-14.5) H Platelet Count 358 x10^3/uL (140-400) Neutrophils (%) (Auto) 42 % (31-73) Lymphocytes (%) (Auto) 42 % (24-48) Monocytes (%) (Auto) 12 % (0-9) H Eosinophils (%) (Auto) 3 % (0-3) Basophils (%) (Auto) 1 % (0-3) Neutrophils # (Auto) 4.2 x10^3/uL (1.8-7.7) Lymphocytes # (Auto) 4.1 x10^3/uL (1.0-4.8) Monocytes # (Auto) 1.2 x10^3/uL (0.0-1.1) H Eosinophils # (Auto) 0.3 x10^3/uL (0.0-0.7) Basophils # (Auto) 0.1 x10^3/uL (0.0-0.2) Segmented Neutrophils % 44 % (35-66) Lymphocytes % 37 % (24-48) Monocytes % 13 % (0-10) H Eosinophils % 5 % (0-5) Basophils % 1 % (0-3) Platelet Estimate Adequate (ADEQUATE) Polychromasia Mod Anisocytosis Mod Sickle Cells Mod Absolute Reticulocyte Count 0.275 x10^6/uL (0.020-0.120) Percent Reticulocyte Count 8.5 % (0.5-2.3) H Immature Reticulocyte Fraction 0.66 (0.20-0.60) H Sodium Level 144 mmol/L (136-145) Potassium Level 4.0 mmol/L (3.5-5.1) Chloride Level 110 mmol/L (98-107) H Carbon Dioxide Level 25 mmol/L (21-32) Anion Gap 9 (6-14) Blood Urea Nitrogen 7 mg/dL (8-26) L Creatinine 1.0 mg/dL (0.7-1.3) Estimated GFR (Cockcroft-Gault) 101.2 BUN/Creatinine Ratio 7 (6-20) Glucose Level 95 mg/dL (70-99) Lactic Acid Level 1.0 mmol/L (0.4-2.0) Calcium Level 8.5 mg/dL (8.5-10.1) Total Bilirubin 2.2 mg/dL (0.2-1.0) H Aspartate Amino Transferase (AST) 24 U/L (15-37) Alanine Aminotransferase (ALT) 16 U/L (16-63) Alkaline Phosphatase 70 U/L (46-116) Total Protein 6.8 g/dL (6.4-8.2) Albumin 3.5 g/dL (3.4-5.0) Albumin/Globulin Ratio 1.1 (1.0-1.7) Laboratory Tests 12/10/18 17:45 Laboratory Tests 12/10/18 17:45 (KIERAN SAHU MD) Lab Values Laboratory Tests Test 12/10/18 17:45 White Blood Count 9.9 x10^3/uL (4.0-11.0) Red Blood Count 3.24 x10^6/uL (4.30-5.70) L Hemoglobin 9.6 g/dL (13.0-17.5) L Hematocrit 27.8 % (39.0-53.0) L Mean Corpuscular Volume 86 fL (79-100) Mean Corpuscular Hemoglobin 30 pg (25-35) Mean Corpuscular Hemoglobin Concent 35 g/dL (31-37) Red Cell Distribution Width 24.2 % (11.5-14.5) H Platelet Count 358 x10^3/uL (140-400) Neutrophils (%) (Auto) 42 % (31-73) Lymphocytes (%) (Auto) 42 % (24-48) Monocytes (%) (Auto) 12 % (0-9) H Eosinophils (%) (Auto) 3 % (0-3) Basophils (%) (Auto) 1 % (0-3) Neutrophils # (Auto) 4.2 x10^3/uL (1.8-7.7) Lymphocytes # (Auto) 4.1 x10^3/uL (1.0-4.8) Monocytes # (Auto) 1.2 x10^3/uL (0.0-1.1) H Eosinophils # (Auto) 0.3 x10^3/uL (0.0-0.7) Basophils # (Auto) 0.1 x10^3/uL (0.0-0.2) Segmented Neutrophils % 44 % (35-66) Lymphocytes % 37 % (24-48) Monocytes % 13 % (0-10) H Eosinophils % 5 % (0-5) Basophils % 1 % (0-3) Platelet Estimate Adequate (ADEQUATE) Polychromasia Mod Anisocytosis Mod Sickle Cells Mod Absolute Reticulocyte Count 0.275 x10^6/uL (0.020-0.120) Percent Reticulocyte Count 8.5 % (0.5-2.3) H Immature Reticulocyte Fraction 0.66 (0.20-0.60) H Sodium Level 144 mmol/L (136-145) Potassium Level 4.0 mmol/L (3.5-5.1) Chloride Level 110 mmol/L (98-107) H Carbon Dioxide Level 25 mmol/L (21-32) Anion Gap 9 (6-14) Blood Urea Nitrogen 7 mg/dL (8-26) L Creatinine 1.0 mg/dL (0.7-1.3) Estimated GFR (Cockcroft-Gault) 101.2 BUN/Creatinine Ratio 7 (6-20) Glucose Level 95 mg/dL (70-99) Lactic Acid Level 1.0 mmol/L (0.4-2.0) Calcium Level 8.5 mg/dL (8.5-10.1) Total Bilirubin 2.2 mg/dL (0.2-1.0) H Aspartate Amino Transferase (AST) 24 U/L (15-37) Alanine Aminotransferase (ALT) 16 U/L (16-63) Alkaline Phosphatase 70 U/L (46-116) Total Protein 6.8 g/dL (6.4-8.2) Albumin 3.5 g/dL (3.4-5.0) Albumin/Globulin Ratio 1.1 (1.0-1.7) Laboratory Tests 12/10/18 17:45 Laboratory Tests 12/10/18 17:45 (OLIVER PARKER APRN) EKG EKG [] (OLIVER PARKER APRN) Radiology/Procedures Radiology/Procedures [] (OLIVER PARKER APRN) Course & Med Decision Making Course & Med Decision Making Pertinent Labs and Imaging studies reviewed. (See chart for details) Will get labs (including Reticulocytes and Lactic). The patient seems to be highly tolerant of opiods. Will give sub-dissociative ketamine at 0.2 mg/kg and fluids to see if it helps. Reticulocytes are 8.5% this is lower than it has been in the past. Discussed with patient and will send him home to follow up with Dr. Marques on Thursday. (OLIVER PARKER APRN) Dragon Disclaimer Dragon Disclaimer This electronic medical record was generated, in whole or in part, using a voice recognition dictation system. (OLIVER PARKER APRN) Departure Departure Impression: Primary Impression: Sickle cell anemia with pain Disposition: HOME, SELF-CARE Condition: STABLE Referrals: BISMARK MARQUES MD (PCP) Patient Instructions: Sickle Cell Pain Crisis Additional Instructions: Thank you for visiting [facility]. We appreciate you trusting us with your care. If any additional problems come up don't hesitate to return to visit us. Please follow up with your primary care provider so they can plan additional care if needed and know about the problem that you had. If symptoms worsen come back to the Emergency Department. Any concerning symptoms that start such as chest pain, shortness of air, weakness or numbness on one side of the body, running high fevers or any other concerning symptoms return to the ER. Please follow up with Dr. Marques. OLIVER PARKER APRN Dec 10, 2018 17:04 KIERAN SAHU MD Dec 11, 2018 18:15
[2018-12-10 18:12] LABS: BASO # 0.1 x10^3/uL (0.0-0.2); BASO % 1 % (0-3); EOS # 0.3 x10^3/uL (0.0-0.7); EOS % 3 % (0-3); HEMATOCRIT 27.8 % (39.0-53.0); HEMOGLOBIN 9.6 g/dL (13.0-17.5); LYMPH # 4.1 x10^3/uL (1.0-4.8); LYMPH % 42 % (24-48); MEAN CORPUSCULAR HEMOGLOBIN 30 pg (25-35); MEAN CORPUSCULAR HGB CONC 35 g/dL (31-37); MEAN CORPUSCULAR VOLUME 86 fL (79-100); MONO # 1.2 x10^3/uL (0.0-1.1); MONO % 12 % (0-9); NEUT # 4.2 x10^3/uL (1.8-7.7); NEUT % 42 % (31-73); PLATELET COUNT 358 x10^3/uL (140-400); RED BLOOD COUNT 3.22 x10^6/uL (4.30-5.70); RED CELL DISTRIBUTION WIDTH 24.2 % (11.5-14.5); WHITE BLOOD COUNT 9.9 x10^3/uL (4.0-11.0)
[2018-12-10 18:20] LABS: CALCIUM 8.5 mg/dL (8.5-10.1); GFR 101.2
[2018-12-10 18:25] LABS: ALBUMIN 3.5 g/dL (3.4-5.0); ALBUMIN/GLOBULIN RATIO 1.1 (1.0-1.7); TOTAL BILIRUBIN 2.2 mg/dL (0.2-1.0); TOTAL PROTEIN 6.8 g/dL (6.4-8.2)
[2018-12-10 18:44] LABS: % BASOS 1 % (0-3); % EOS 5 % (0-5); % LYMPHS 37 % (24-48); % MONOS 13 % (0-10); % SEGS 44 % (35-66)
[2018-12-10 18:47] LABS: ANISOCYTOSIS MOD; PLT ESTIMATE ADEQUATE (ADEQUATE); POLYCHROMASIA MOD; SICKLE CELLS MOD
[2018-12-10 18:52] VITALS: BP 117/54
[2018-12-10] MEDS ORDERED: HYDROmorphone 2 MG/ML VIAL IVP STA (19:11)
== END 2018-12-10 19:43 | disposition home or self-care (01) ==
LOC: ER 16:43
DX: D57.00 Hb-SS disease with crisis, unspecified (principal); M54.5 Low back pain
CPT/HCPCS: 36415; 80053; 83605; 85007; 85025; 85045; 96374; 96375; 99284; J1170; J7030

== ENCOUNTER 2018-12-30 10:58 | Inpatient (IN) | payer SELFPAY ==
[~2018-12-30] VITALS: Ht 175.3 cm; Wt 85.9 kg
[2018-12-30] MEDS ORDERED: HYDROmorphone 2 MG/ML VIAL IV ONE ×2 (13:45→15:30)
[2018-12-30] MEDS ORDERED: ONDANSETRON PF 4 MG/2 ML VIAL. IV ONE (13:45)
[2018-12-30 15:06] LABS: BASO # 0.1 x10^3/uL (0.0-0.2); BASO % 1 % (0-3); EOS # 0.2 x10^3/uL (0.0-0.7); EOS % 2 % (0-3); HEMATOCRIT 31.3 % (39.0-53.0); HEMOGLOBIN 10.5 g/dL (13.0-17.5); LYMPH # 7.1 x10^3/uL (1.0-4.8); LYMPH % 62 % (24-48); MEAN CORPUSCULAR HEMOGLOBIN 27 pg (25-35); MEAN CORPUSCULAR HGB CONC 34 g/dL (31-37); MEAN CORPUSCULAR VOLUME 79 fL (79-100); MONO # 0.7 x10^3/uL (0.0-1.1); MONO % 6 % (0-9); NEUT # 3.4 x10^3/uL (1.8-7.7); NEUT % 30 % (31-73); PLATELET COUNT 361 x10^3/uL (140-400); RED BLOOD COUNT 3.95 x10^6/uL (4.30-5.70); RED CELL DISTRIBUTION WIDTH 25.4 % (11.5-14.5); WHITE BLOOD COUNT 11.5 x10^3/uL (4.0-11.0)
[2018-12-30 15:09] LABS: CALCIUM 8.6 mg/dL (8.5-10.1); GFR 101.2; POTASSIUM 4.7 mmol/L (3.5-5.1)
[2018-12-30 15:13] LABS: ALBUMIN 3.7 g/dL (3.4-5.0); ALBUMIN/GLOBULIN RATIO 1.1 (1.0-1.7); TOTAL BILIRUBIN 2.6 mg/dL (0.2-1.0); TOTAL PROTEIN 7.1 g/dL (6.4-8.2)
[2018-12-30 15:29] LABS: % EOS 3 % (0-5); % LYMPHS 46 % (24-48); % MONOS 10 % (0-10); % SEGS 41 % (35-66); PLT ESTIMATE ADEQUATE (ADEQUATE)
[2018-12-30] MEDS ORDERED: diphenhydrAMINE 50 MG/ML VIAL IVP ONE (15:30)
[2018-12-30 15:32] LABS: ANISOCYTOSIS MOD; POLYCHROMASIA SLIGHT; SCHISTOCYTES OCC; SICKLE CELLS FEW; TARGET CELLS MANY
--- NOTE | 2018-12-30 16:25 | PDOC1 ---
History and Physical Date of Admission Date of Admission DATE: 12/30/18 TIME: 16:21 Identification/Chief Complaint Chief Complaint sickle cell pain Source Source: Caregiver, Chart review, Patient History of Present Illness History of Present Illness 38 AA male, known sickle cell and pt DR Glenys Marques admitted for crisis with absolute retic ct elev 0.2 and %retic ct elev at 7 but hgb 10. HE complains of pain thigh, knees, all the way up to groin, lower back, NO CP,. He is on dilaudid 2 mgs PO at home with folate, hyrdroxyurea etc. THe numbers SUPPORT a crisis so will treat him appropriately as such, And i told him his numbers Past Medical History Heme/Onc: Anemia NOS, Sickle cell disease Past Surgical History Past Surgical History: No pertinent history Family History Family History: No Significant Social History Smoke: No ALCOHOL: none Drugs: None Current Medications Current Medications Current Medications Hydromorphone HCl (Dilaudid) 1 mg 1X ONCE IV Last administered on 12/30/18at 14:56; Start 12/30/18 at 13:45; Stop 12/30/18 at 13:46; Status DC Ondansetron HCl (Zofran) 4 mg 1X ONCE IV Last administered on 12/30/18at 14:57; Start 12/30/18 at 13:45; Stop 12/30/18 at 13:46; Status DC Hydromorphone HCl (Dilaudid) 1 mg 1X ONCE IV Last administered on 12/30/18at 15:46; Start 12/30/18 at 15:30; Stop 12/30/18 at 15:31; Status DC Diphenhydramine HCl (Benadryl) 25 mg 1X ONCE IVP Last administered on at 15:44; Start 12/30/18 at 15:30; Stop 12/30/18 at 15:31; Status DC Active Scripts Active Diazepam 2 Mg Tablet 2 Mg PO PRN Q6HRS PRN Hydrea (Hydroxyurea) 500 Mg Capsule 1,000 Mg PO DAILY Thera-M Tablet (Multivits,Ca,Minerals/Iron/Fa) 1 Each Tablet 1 Tab PO DAILY [Folic Acid] 1 MG Tablet 1 Mg PO DAILY Oxycodone Hcl Immed.release (Oxycodone Hcl) 30 Mg Tablet 30 Mg PO Q4HRS Dilaudid (Hydromorphone Hcl) 2 Mg Tablet 2 Mg PO PRN Q4HRS PRN Allergies Allergies: Coded Allergies: Sulfa (Sulfonamide Antibiotics) (Verified Allergy, Intermediate, 11/05/18) ROS Review of System pain all over, no fevers Physical Exam General: Alert, Oriented X3, Cooperative, No acute distress HEENT: Atraumatic, PERRLA, EOMI Lungs: Clear to auscultation, Normal air movement Heart: S1S2, RRR, no thrills, no rubs, no gallops, no murmurs Cardiovascular: S1, S2 Abdomen: Normal bowel sounds, Soft, No tenderness, No hepatosplenomegaly, No masses Male Genitals Exam: normal genitalia, normal prostate Rectal Exam: not examined PELVIC: Nml ext genitalia Extremities: No clubbing, No cyanosis, No edema, Normal pulses, No tenderness/swelling Skin: No rashes, No breakdown, No significant lesion Neuro: Normal gait, Normal speech, Strength at 5/5 X4 ext, Normal tone, Sensation intact, Cranial nerves 3-12 NL, Reflexes 2+ Psych/Mental Status: Mental status NL, Mood NL Vitals Vitals Vital Signs Date Time Temp Pulse Resp B/P (MAP) Pulse Ox O2 Delivery O2 Flow Rate FiO2 12/30/18 15:46 18 94 Room Air 12/30/18 12:35 98.2 75 103/67 (79) 98.2 Labs Labs Laboratory Tests Test 12/30/18 14:50 White Blood Count 11.5 x10^3/uL (4.0-11.0) Red Blood Count 3.95 x10^6/uL (4.30-5.70) Hemoglobin 10.5 g/dL (13.0-17.5) Hematocrit 31.3 % (39.0-53.0) Mean Corpuscular Volume 79 fL (79-100) Mean Corpuscular Hemoglobin 27 pg (25-35) Mean Corpuscular Hemoglobin Concent 34 g/dL (31-37) Red Cell Distribution Width 25.4 % (11.5-14.5) Platelet Count 361 x10^3/uL (140-400) Neutrophils (%) (Auto) 30 % (31-73) Lymphocytes (%) (Auto) 62 % (24-48) Monocytes (%) (Auto) 6 % (0-9) Eosinophils (%) (Auto) 2 % (0-3) Basophils (%) (Auto) 1 % (0-3) Neutrophils # (Auto) 3.4 x10^3/uL (1.8-7.7) Lymphocytes # (Auto) 7.1 x10^3/uL (1.0-4.8) Monocytes # (Auto) 0.7 x10^3/uL (0.0-1.1) Eosinophils # (Auto) 0.2 x10^3/uL (0.0-0.7) Basophils # (Auto) 0.1 x10^3/uL (0.0-0.2) Segmented Neutrophils % 41 % (35-66) Lymphocytes % 46 % (24-48) Monocytes % 10 % (0-10) Eosinophils % 3 % (0-5) Platelet Estimate Adequate (ADEQUATE) Polychromasia Slight Anisocytosis Mod Sickle Cells Few Target Cells Many Schistocytes Occ Absolute Reticulocyte Count 0.282 x10^6/uL (0.020-0.120) Percent Reticulocyte Count 7.2 % (0.5-2.3) Immature Reticulocyte Fraction 0.69 (0.20-0.60) Sodium Level 139 mmol/L (136-145) Potassium Level 4.7 mmol/L (3.5-5.1) Chloride Level 107 mmol/L (98-107) Carbon Dioxide Level 21 mmol/L (21-32) Anion Gap 11 (6-14) Blood Urea Nitrogen 10 mg/dL (8-26) Creatinine 1.0 mg/dL (0.7-1.3) Estimated GFR (Cockcroft-Gault) 101.2 BUN/Creatinine Ratio 10 (6-20) Glucose Level 98 mg/dL (70-99) Calcium Level 8.6 mg/dL (8.5-10.1) Total Bilirubin 2.6 mg/dL (0.2-1.0) Aspartate Amino Transf (AST/SGOT) 40 U/L (15-37) Alanine Aminotransferase (ALT/SGPT) 39 U/L (16-63) Alkaline Phosphatase 86 U/L (46-116) Total Protein 7.1 g/dL (6.4-8.2) Albumin 3.7 g/dL (3.4-5.0) Albumin/Globulin Ratio 1.1 (1.0-1.7) Laboratory Tests Test 12/30/18 14:50 White Blood Count 11.5 x10^3/uL (4.0-11.0) Red Blood Count 3.95 x10^6/uL (4.30-5.70) Hemoglobin 10.5 g/dL (13.0-17.5) Hematocrit 31.3 % (39.0-53.0) Mean Corpuscular Volume 79 fL (79-100) Mean Corpuscular Hemoglobin 27 pg (25-35) Mean Corpuscular Hemoglobin Concent 34 g/dL (31-37) Red Cell Distribution Width 25.4 % (11.5-14.5) Platelet Count 361 x10^3/uL (140-400) Neutrophils (%) (Auto) 30 % (31-73) Lymphocytes (%) (Auto) 62 % (24-48) Monocytes (%) (Auto) 6 % (0-9) Eosinophils (%) (Auto) 2 % (0-3) Basophils (%) (Auto) 1 % (0-3) Neutrophils # (Auto) 3.4 x10^3/uL (1.8-7.7) Lymphocytes # (Auto) 7.1 x10^3/uL (1.0-4.8) Monocytes # (Auto) 0.7 x10^3/uL (0.0-1.1) Eosinophils # (Auto) 0.2 x10^3/uL (0.0-0.7) Basophils # (Auto) 0.1 x10^3/uL (0.0-0.2) Segmented Neutrophils % 41 % (35-66) Lymphocytes % 46 % (24-48) Monocytes % 10 % (0-10) Eosinophils % 3 % (0-5) Platelet Estimate Adequate (ADEQUATE) Polychromasia Slight Anisocytosis Mod Sickle Cells Few Target Cells Many Schistocytes Occ Absolute Reticulocyte Count 0.282 x10^6/uL (0.020-0.120) Percent Reticulocyte Count 7.2 % (0.5-2.3) Immature Reticulocyte Fraction 0.69 (0.20-0.60) Sodium Level 139 mmol/L (136-145) Potassium Level 4.7 mmol/L (3.5-5.1) Chloride Level 107 mmol/L (98-107) Carbon Dioxide Level 21 mmol/L (21-32) Anion Gap 11 (6-14) Blood Urea Nitrogen 10 mg/dL (8-26) Creatinine 1.0 mg/dL (0.7-1.3) Estimated GFR (Cockcroft-Gault) 101.2 BUN/Creatinine Ratio 10 (6-20) Glucose Level 98 mg/dL (70-99) Calcium Level 8.6 mg/dL (8.5-10.1) Total Bilirubin 2.6 mg/dL (0.2-1.0) Aspartate Amino Transf (AST/SGOT) 40 U/L (15-37) Alanine Aminotransferase (ALT/SGPT) 39 U/L (16-63) Alkaline Phosphatase 86 U/L (46-116) Total Protein 7.1 g/dL (6.4-8.2) Albumin 3.7 g/dL (3.4-5.0) Albumin/Globulin Ratio 1.1 (1.0-1.7) VTE Prophylaxis Ordered VTE Prophylaxis Devices: Yes VTE Pharmacological Prophylaxi: Yes Assessment/Plan Assessment/Plan sickle cell crisis evidenced/supported by elev retic ct, both absolute and percentage retic NArc tolerance ANemia of sickle cell PLAN: Bolus 1 L NS 150 NO need for heme onc TRansfuse if hgb < 7 REcheck retic on thursday CXR 2 views r/o ACS in a sickler O2 support NArcs and bowel regimen FULL CODE OK to eat Seen at ER NOn tele bed CANDIDO Quintanilla MD Dec 30, 2018 16:25
[2018-12-30] MEDS ORDERED: ACETAMINOPHEN 325 MG TABLET. PO PRN (16:30)
[2018-12-30] MEDS ORDERED: guaiFENesin ORAL 200 MG/10 ML LIQUID. PO PRN (16:30)
[2018-12-30] MEDS ORDERED: diazePAM 2 MG TABLET PO PRN (16:30)
[2018-12-30] MEDS ORDERED: HYDROmorphone 2 MG TABLET PO PRN (16:30)
[2018-12-30] MEDS ORDERED: IV NORMAL SALINE 1000ML BAG 1,000 ML IV ONE ×2 (16:30→17:00)
[2018-12-30] MEDS ORDERED: ONDANSETRON PF 4 MG/2 ML VIAL. IV PRN ×2 (16:30→17:00)
[2018-12-30] MEDS ORDERED: DOCUSATE SODIUM 100 MG CAPSULE. PO PRN (16:30)
--- NOTE | 2018-12-30 17:01 | PHYS DOC ---
Past Medical History Past Medical History: Arthritis, Sickle Cell Disease Past Surgical History: Other Additional Past Surgical Histo: L. SHOULDER AND BILATERAL HIP Alcohol Use: Occasionally Drug Use: None Adult General Chief Complaint Chief Complaint: PAIN CONTROL HPI HPI Patient is a 38 year old male patient with history of sickle cell who presents to the ED today complaining of 8 out of 10 pain from his knees all the way to the tarso, pain began yesterday. Patient states pain is consistent with his sickle cell. He states he takes Dilaudid 2 mg by mouth at home, he also reports he takes hydroxyurea. He states he is not attaining any relief from his pain with his Dilaudid. Patient denies any chest pain or shortness of breath. Denies any fever. Patient reports he follows up with Dr. Marques the stepdown nurse. Review of Systems Review of Systems Constitutional: Denies fever or chills [] Eyes: Denies change in visual acuity, redness, or eye pain [] HENT: Denies nasal congestion or sore throat [] Respiratory: Denies cough or shortness of breath [] Cardiovascular: No additional information not addressed in HPI [] GI: Denies abdominal pain, nausea, vomiting, bloody stools or diarrhea [] : Denies dysuria or hematuria [] Musculoskeletal: Reports sickle cell pain Integument: Denies rash or skin lesions [] Neurologic: Denies headache, focal weakness or sensory changes [] All other systems were reviewed and found to be within normal limits, except as documented in this note. Current Medications Current Medications Current Medications Medications (Trade) Dose Ordered Sig/Shoshana Start Time Stop Time Status Last Admin Dose Admin Acetaminophen (Tylenol) 650 mg PRN Q4HRS PRN 12/30/18 16:30 Diazepam (Valium) 2 mg PRN Q6HRS PRN 12/30/18 16:30 UNV Diphenhydramine HCl (Benadryl) 25 mg PRN Q4HRS PRN 12/30/18 16:30 Docusate Sodium (Colace) 100 mg PRN BID PRN 12/30/18 16:30 Folic Acid (Folic Acid) 1 mg DAILY 12/31/18 09:00 Guaifenesin (Robitussin) 200 mg PRN Q4HRS PRN 12/30/18 16:30 Hydromorphone HCl (Dilaudid) 2 mg PRN Q4HRS PRN 12/30/18 16:30 UNV Hydroxyurea (Hydrea) 1,000 mg DAILY 12/31/18 09:00 UNV Multivitamins (Thera M Plus) 1 tab DAILY 12/31/18 09:00 Ondansetron HCl (Zofran) 4 mg PRN Q8HRS PRN 12/30/18 17:00 12/31/18 16:59 Oxycodone HCl (Roxicodone) 30 mg Q4HRS 12/30/18 20:00 UNV Sodium Chloride 1,000 ml @ 75 mls/hr 1X ONCE 12/30/18 17:00 12/31/18 06:19 Zolpidem Tartrate (Ambien) 5 mg PRN QHS PRN 12/30/18 16:30 Allergies Allergies Allergies Coded Allergies Type Severity Reaction Last Updated Verified Sulfa (Sulfonamide Antibiotics) Allergy Intermediate 11/05/18 Yes Physical Exam Physical Exam Constitutional: Well developed, well nourished, no acute distress, non-toxic appearance. [] HENT: Normocephalic, atraumatic, bilateral external ears normal, oropharynx moist, no oral exudates, nose normal. [] Eyes: PERRLA, EOMI, conjunctiva normal, no discharge. [] Neck: Normal range of motion, no tenderness, supple, no stridor. [] Cardiovascular:Heart rate regular rhythm, no murmur [] Lungs & Thorax: Bilateral breath sounds clear to auscultation [] Abdomen: Bowel sounds normal, soft, no tenderness, no masses, no pulsatile masses. [] Skin: Warm, dry, no erythema, no rash. [] Back: No tenderness, no CVA tenderness. [] Extremities: No tenderness, no cyanosis, no clubbing, ROM intact, no edema. [] Neurologic: Alert and oriented X 3, normal motor function, normal sensory function, no focal deficits noted. [] Psychologic: Affect normal, judgement normal, mood normal. [] Current Patient Data Vital Signs Vital Signs Date Time Temp Pulse Resp B/P (MAP) Pulse Ox O2 Delivery O2 Flow Rate FiO2 12/30/18 15:46 18 94 Room Air 12/30/18 12:35 98.2 75 103/67 (79) 98.2 Lab Values Laboratory Tests Test 12/30/18 14:50 White Blood Count 11.5 x10^3/uL (4.0-11.0) H Red Blood Count 3.95 x10^6/uL (4.30-5.70) L Hemoglobin 10.5 g/dL (13.0-17.5) L Hematocrit 31.3 % (39.0-53.0) L Mean Corpuscular Volume 79 fL (79-100) Mean Corpuscular Hemoglobin 27 pg (25-35) Mean Corpuscular Hemoglobin Concent 34 g/dL (31-37) Red Cell Distribution Width 25.4 % (11.5-14.5) H Platelet Count 361 x10^3/uL (140-400) Neutrophils (%) (Auto) 30 % (31-73) L Lymphocytes (%) (Auto) 62 % (24-48) H Monocytes (%) (Auto) 6 % (0-9) Eosinophils (%) (Auto) 2 % (0-3) Basophils (%) (Auto) 1 % (0-3) Neutrophils # (Auto) 3.4 x10^3/uL (1.8-7.7) Lymphocytes # (Auto) 7.1 x10^3/uL (1.0-4.8) H Monocytes # (Auto) 0.7 x10^3/uL (0.0-1.1) Eosinophils # (Auto) 0.2 x10^3/uL (0.0-0.7) Basophils # (Auto) 0.1 x10^3/uL (0.0-0.2) Segmented Neutrophils % 41 % (35-66) Lymphocytes % 46 % (24-48) Monocytes % 10 % (0-10) Eosinophils % 3 % (0-5) Platelet Estimate Adequate (ADEQUATE) Polychromasia Slight Anisocytosis Mod Sickle Cells Few Target Cells Many Schistocytes Occ Absolute Reticulocyte Count 0.282 x10^6/uL (0.020-0.120) Percent Reticulocyte Count 7.2 % (0.5-2.3) H Immature Reticulocyte Fraction 0.69 (0.20-0.60) H Sodium Level 139 mmol/L (136-145) Potassium Level 4.7 mmol/L (3.5-5.1) Chloride Level 107 mmol/L (98-107) Carbon Dioxide Level 21 mmol/L (21-32) Anion Gap 11 (6-14) Blood Urea Nitrogen 10 mg/dL (8-26) Creatinine 1.0 mg/dL (0.7-1.3) Estimated GFR (Cockcroft-Gault) 101.2 BUN/Creatinine Ratio 10 (6-20) Glucose Level 98 mg/dL (70-99) Calcium Level 8.6 mg/dL (8.5-10.1) Total Bilirubin 2.6 mg/dL (0.2-1.0) H Aspartate Amino Transferase (AST) 40 U/L (15-37) H Alanine Aminotransferase (ALT) 39 U/L (16-63) Alkaline Phosphatase 86 U/L (46-116) Total Protein 7.1 g/dL (6.4-8.2) Albumin 3.7 g/dL (3.4-5.0) Albumin/Globulin Ratio 1.1 (1.0-1.7) Laboratory Tests 12/30/18 14:50 Laboratory Tests 12/30/18 14:50 EKG EKG [] Radiology/Procedures Radiology/Procedures [] Course & Med Decision Making Course & Med Decision Making Pertinent Labs and Imaging studies reviewed. (See chart for details) This is a 38-year-old male patient with history of sickle cell presented to the ED today complaining of sickle cell pain from his knees all the way to the tarso since yesterday. CBC with a WBC of 11.5, hemoglobin 10.5, hematocrit 31.3, CMP with no acute findings. Percentage reticulocyte count 7.2 absolute reticulocyte 0.282. Patient was given Dilaudid and Benadryl. Still complaining of pain and requesting to be admitted. IV fluids in low speed because patient has an IV on the index finger. Spoke with who accepted patient for admission. Dragon Disclaimer Dragon Disclaimer This electronic medical record was generated, in whole or in part, using a voice recognition dictation system. Departure Departure Impression: Primary Impression: Sickle cell anemia with pain Disposition: ADMITTED INPATIENT Condition: STABLE Referrals: BISMARK MARQUES MD (PCP) CONSUELO GIMENEZ APRN Dec 30, 2018 17:01
[2018-12-30] MEDS: HYDROmorphone 2 MG/ML VIAL IV PRN ×3 (17:20→21:20)
[2018-12-30] MEDS: diphenhydrAMINE 50 MG/ML VIAL IVP PRN ×2 (17:25→21:19)
--- NOTE | 2018-12-30 18:02 | RAD ---
CHEST PA LATERAL History: Sickle cell crisis. Comparison: Two-view chest November 25, 2018. Findings: The cardiomediastinal silhouette is normal. Pulmonary vasculature is normal. The lungs are clear. No pleural effusion or pneumothorax is seen. There is no acute bone abnormality. Left shoulder arthroplasty. IMPRESSION: No acute cardiopulmonary process. Electronically signed by: Roscoe Mobley MD (12/30/2018 5:59 PM) [id number]
[2018-12-30 18:15] VITALS: BP 99/54
[2018-12-30] MEDS: IV NORMAL SALINE 1000ML BAG 1,000 ML IV SCH (18:57)
[2018-12-30 19:00] VITALS: BP 92/56
[2018-12-30 23:00] VITALS: BP 98/59
[2018-12-31] MEDS: HYDROmorphone 2 MG/ML VIAL IV PRN ×11 (01:40→23:58)
[2018-12-31] MEDS: diphenhydrAMINE 50 MG/ML VIAL IVP PRN ×6 (01:40→23:58)
[2018-12-31 03:00] VITALS: BP 91/61
[2018-12-31 07:00] VITALS: BP 84/48
--- NOTE | 2018-12-31 08:06 | PDOC2 ---
CONSULT Date of Consult Date of Consult DATE: 12/31/18 TIME: 08:05 DATE OF CONSULTATION: 12/31/2018 HEMATOLOGY ONCOLOGY CONSULTATION REQUESTING PHYSICIAN: primary care REASON FOR CONSULTATION: Sickle cell crisis. HISTORY OF PRESENT ILLNESS: The patient is a 38-year-old -[place] man cell disease who recently got out of [facility], history of multiple illicit drugs, extreme entitlement, does not take personal pt responsibility, has 2 children currently, and has been frequently admitted and dischargd between [place] and since recently getting out of [facility]. Has refused methadone, is hostile, and believes he is entitled to Social Security which he has applied for but not yet received. He plans on moving to a warmer environment when he gets that potentially. He has a lot of relationship issues. I have offered methadone many times and he continues to refuse it, I do think he would benefit from chronic pain medications but do not want to give any patients especially high risk like him anything besides methadone these days. He has a problem with this and would like another it network engineer but has not yet found 1. Admitted with pain, severe, acute on chronic, left shoulder, extending to abdomen and legs, better with pain meds, worse with time, and reticulocyte is slightly elevated at 7.2%. Hemoglobin is over 10 and he has been prescribed Hydrea but has not been compliant. PAST MEDICAL HISTORY: Sickle cell disease, history of depression, anxiety, and osteonecrosis of the left shoulder. surgeries: L shoulder surgery ALL: sulfa meds: see attached list FAMILY HISTORY: Mother had sickle cell trait, aunt had sickle cell disease. SOCIAL HISTORY: recently in [facility], 2 daughters 5 and 17, h/o illicit drugs REVIEW OF SYSTEMS: A 10-point review of system was positive for shoulder pain, abdominal pain, trouble breathing, frequent bowel movements though formed, weight gain, hoarse voice, dysuria, and otherwise Rest of the system review is negative. PHYSICAL EXAMINATION: GENERAL APPEARANCE: The patient is a 38-year-old -Marshallese gentleman who is in no acute cardiorespiratory distress. Upset, circular speech. VITAL SIGNS: vitals reviewed HEAD: Atraumatic, normocephalic. NECK: Supple. nl ROM. CHEST: Bilaterally symmetrical, on RA w/o resp distress. ABDOMEN: Soft, nontender. CENTRAL NERVOUS SYSTEM: No focal deficits. A&Ox3 but will deny things and then when confronted "remembers" them. SKIN: No rashes. L shoulder scar. PSYCHOLOGIC: Mood irritable and affect disenchanted. LABORATORY DATA: white count 11.5, hemoglobin 10.5, platelets 361 Reticulocyte 7.2 Creatinine 1.0 T bili 2.6 Rads: CXR: NACPD Case discussed with pain team at , patient, [facility] and [facility], including labs and radiology, please see note for summary details. 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, multiple social issues preclude good care for him, including his noncompliance and sense of entitlement and lack of personal responsibility Sickle cell: Recommend continuing Hydrea, folic acid, pain meds per primary AVN: I do think he needs some chronic pain medications and recommend follow-up with ortho as able regarding his AVN, he refuses methadone, i will offer nothing else, radha w/ his hi risk behavior Acute crisis: Pain control per primary, will order UA and prns' for sore throat Prophylaxis: We will add Lovenox Disposition: After continued clinical improvement Thank you kindly for this consultation and please do not hesitate to call with any further questions. Past Medical History Heme/Onc: Anemia NOS, Sickle cell disease Past Surgical History Past Surgical History: No pertinent history Family History Family History: No Significant Social History No ALCOHOL: none Drugs: None Lives: with Family Current Problem List Problem List Problems Medical Problems: (1) Sickle cell anemia with pain Status: Acute Current Medications Current Medications Current Medications Hydromorphone HCl (Dilaudid) 1 mg 1X ONCE IV Last administered on 12/30/18at 14:56; Start 12/30/18 at 13:45; Stop 12/30/18 at 13:46; Status DC Ondansetron HCl (Zofran) 4 mg 1X ONCE IV Last administered on 12/30/18at 14:57; Start 12/30/18 at 13:45; Stop 12/30/18 at 13:46; Status DC Hydromorphone HCl (Dilaudid) 1 mg 1X ONCE IV Last administered on 12/30/18at 15:46; Start 12/30/18 at 15:30; Stop 12/30/18 at 15:31; Status DC Diphenhydramine HCl (Benadryl) 25 mg 1X ONCE IVP Last administered on 12/30/18at 15:44; Start 12/30/18 at 15:30; Stop 12/30/18 at 15:31; Status DC Ondansetron HCl (Zofran) 4 mg PRN Q4HRS PRN IV NAUSEA/VOMITING; Start 12/30/18 at 16:30 Zolpidem Tartrate (Ambien) 5 mg PRN QHS PRN PO INSOMNIA; Start 12/30/18 at 16:30 Acetaminophen (Tylenol) 650 mg PRN Q4HRS PRN PO TEMP OVER 100.4F OR MILD PAIN; Start 12/30/18 at 16:30 Diphenhydramine HCl (Benadryl) 25 mg PRN Q4HRS PRN IVP ITCHING Last administere d on 12/31/18at 05:43; Start 12/30/18 at 16:30 Docusate Sodium (Colace) 100 mg PRN BID PRN PO HARD STOOLS; Start 12/30/18 at 16:30 Guaifenesin (Robitussin) 200 mg PRN Q4HRS PRN PO COUGH; Start 12/30/18 at 16:30 Hydromorphone HCl (Dilaudid) 1 mg PRN Q2HRS PRN IV SEVERE PAIN 7-10 Last administered on 12/31/18at 07:50; Start 12/30/18 at 16:30 Sodium Chloride 1,000 ml @ 150 mls/hr Q6H40M IV Last administered on 12/30/18at 18:57; Start 12/30/18 at 16:30 Sodium Chloride 1,000 ml @ 1,000 mls/hr 1X ONCE IV Last administered on 12/30/18at 17:18; Start 12/30/18 at 16:30; Stop 12/30/18 at 17:29; Status DC Diazepam (Valium) 2 mg PRN Q6HRS PRN PO ANXIETY Last administered on 12/30/18at 17:22; Start 12/30/18 at 16:30 Hydromorphone HCl (Dilaudid) 2 mg PRN Q4HRS PRN PO SEVERE PAIN; Start 12/30/18 at 16:30 Hydroxyurea (Hydrea) 1,000 mg DAILY PO ; Start 12/31/18 at 09:00 Multivitamins (Thera M Plus) 1 tab DAILY PO ; Start 12/31/18 at 09:00 Oxycodone HCl (Roxicodone) 30 mg Q4HRS PO Last administered on 12/31/18at 05:41; Start 12/30/18 at 20:00 Folic Acid (Folic Acid) 1 mg DAILY PO ; Start 12/31/18 at 09:00 Ondansetron HCl (Zofran) 4 mg PRN Q8HRS PRN IV NAUSEA/VOMITING; Start 12/30/18 at 17:00; Stop 12/31/18 at 16:59 Sodium Chloride 1,000 ml @ 75 mls/hr 1X ONCE IV Last administered on 12/31/18at 04:50; Start 12/30/18 at 17:00; Stop 12/31/18 at 06:19; Status DC Active Scripts Active Diazepam 2 Mg Tablet 2 Mg PO PRN Q6HRS PRN Hydrea (Hydroxyurea) 500 Mg Capsule 1,000 Mg PO DAILY Thera-M Tablet (Multivits,Ca,Minerals/Iron/Fa) 1 Each Tablet 1 Tab PO DAILY [Folic Acid] 1 MG Tablet 1 Mg PO DAILY Oxycodone Hcl Immed.release (Oxycodone Hcl) 30 Mg Tablet 30 Mg PO Q4HRS Dilaudid (Hydromorphone Hcl) 2 Mg Tablet 2 Mg PO PRN Q4HRS PRN Allergies Allergies: Coded Allergies: Sulfa (Sulfonamide Antibiotics) (Verified Allergy, Intermediate, 11/05/18) Vitals VITALS Vital Signs Date Time Temp Pulse Resp B/P (MAP) Pulse Ox O2 Delivery O2 Flow Rate FiO2 12/31/18 03:00 97.6 72 18 91/61 (71) 94 Room Air 97.6 Labs Labs Laboratory Tests Test 12/30/18 14:50 White Blood Count 11.5 x10^3/uL (4.0-11.0) Red Blood Count 3.95 x10^6/uL (4.30-5.70) Hemoglobin 10.5 g/dL (13.0-17.5) Hematocrit 31.3 % (39.0-53.0) Mean Corpuscular Volume 79 fL (79-100) Mean Corpuscular Hemoglobin 27 pg (25-35) Mean Corpuscular Hemoglobin Concent 34 g/dL (31-37) Red Cell Distribution Width 25.4 % (11.5-14.5) Platelet Count 361 x10^3/uL (140-400) Neutrophils (%) (Auto) 30 % (31-73) Lymphocytes (%) (Auto) 62 % (24-48) Monocytes (%) (Auto) 6 % (0-9) Eosinophils (%) (Auto) 2 % (0-3) Basophils (%) (Auto) 1 % (0-3) Neutrophils # (Auto) 3.4 x10^3/uL (1.8-7.7) Lymphocytes # (Auto) 7.1 x10^3/uL (1.0-4.8) Monocytes # (Auto) 0.7 x10^3/uL (0.0-1.1) Eosinophils # (Auto) 0.2 x10^3/uL (0.0-0.7) Basophils # (Auto) 0.1 x10^3/uL (0.0-0.2) Segmented Neutrophils % 41 % (35-66) Lymphocytes % 46 % (24-48) Monocytes % 10 % (0-10) Eosinophils % 3 % (0-5) Platelet Estimate Adequate (ADEQUATE) Polychromasia Slight Anisocytosis Mod Sickle Cells Few Target Cells Many Schistocytes Occ Absolute Reticulocyte Count 0.282 x10^6/uL (0.020-0.120) Percent Reticulocyte Count 7.2 % (0.5-2.3) Immature Reticulocyte Fraction 0.69 (0.20-0.60) Sodium Level 139 mmol/L (136-145) Potassium Level 4.7 mmol/L (3.5-5.1) Chloride Level 107 mmol/L (98-107) Carbon Dioxide Level 21 mmol/L (21-32) Anion Gap 11 (6-14) Blood Urea Nitrogen 10 mg/dL (8-26) Creatinine 1.0 mg/dL (0.7-1.3) Estimated GFR (Cockcroft-Gault) 101.2 BUN/Creatinine Ratio 10 (6-20) Glucose Level 98 mg/dL (70-99) Calcium Level 8.6 mg/dL (8.5-10.1) Total Bilirubin 2.6 mg/dL (0.2-1.0) Aspartate Amino Transf (AST/SGOT) 40 U/L (15-37) Alanine Aminotransferase (ALT/SGPT) 39 U/L (16-63) Alkaline Phosphatase 86 U/L (46-116) Total Protein 7.1 g/dL (6.4-8.2) Albumin 3.7 g/dL (3.4-5.0) Albumin/Globulin Ratio 1.1 (1.0-1.7) Laboratory Tests Test 12/30/18 14:50 White Blood Count 11.5 x10^3/uL (4.0-11.0) Red Blood Count 3.95 x10^6/uL (4.30-5.70) Hemoglobin 10.5 g/dL (13.0-17.5) Hematocrit 31.3 % (39.0-53.0) Mean Corpuscular Volume 79 fL (79-100) Mean Corpuscular Hemoglobin 27 pg (25-35) Mean Corpuscular Hemoglobin Concent 34 g/dL (31-37) Red Cell Distribution Width 25.4 % (11.5-14.5) Platelet Count 361 x10^3/uL (140-400) Neutrophils (%) (Auto) 30 % (31-73) Lymphocytes (%) (Auto) 62 % (24-48) Monocytes (%) (Auto) 6 % (0-9) Eosinophils (%) (Auto) 2 % (0-3) Basophils (%) (Auto) 1 % (0-3) Neutrophils # (Auto) 3.4 x10^3/uL (1.8-7.7) Lymphocytes # (Auto) 7.1 x10^3/uL (1.0-4.8) Monocytes # (Auto) 0.7 x10^3/uL (0.0-1.1) Eosinophils # (Auto) 0.2 x10^3/uL (0.0-0.7) Basophils # (Auto) 0.1 x10^3/uL (0.0-0.2) Segmented Neutrophils % 41 % (35-66) Lymphocytes % 46 % (24-48) Monocytes % 10 % (0-10) Eosinophils % 3 % (0-5) Platelet Estimate Adequate (ADEQUATE) Polychromasia Slight Anisocytosis Mod Sickle Cells Few Target Cells Many Schistocytes Occ Absolute Reticulocyte Count 0.282 x10^6/uL (0.020-0.120) Percent Reticulocyte Count 7.2 % (0.5-2.3) Immature Reticulocyte Fraction 0.69 (0.20-0.60) Sodium Level 139 mmol/L (136-145) Potassium Level 4.7 mmol/L (3.5-5.1) Chloride Level 107 mmol/L (98-107) Carbon Dioxide Level 21 mmol/L (21-32) Anion Gap 11 (6-14) Blood Urea Nitrogen 10 mg/dL (8-26) Creatinine 1.0 mg/dL (0.7-1.3) Estimated GFR (Cockcroft-Gault) 101.2 BUN/Creatinine Ratio 10 (6-20) Glucose Level 98 mg/dL (70-99) Calcium Level 8.6 mg/dL (8.5-10.1) Total Bilirubin 2.6 mg/dL (0.2-1.0) Aspartate Amino Transf (AST/SGOT) 40 U/L (15-37) Alanine Aminotransferase (ALT/SGPT) 39 U/L (16-63) Alkaline Phosphatase 86 U/L (46-116) Total Protein 7.1 g/dL (6.4-8.2) Albumin 3.7 g/dL (3.4-5.0) Albumin/Globulin Ratio 1.1 (1.0-1.7) BISMARK MOTT MD Dec 31, 2018 08:06
[2018-12-31] MEDS: ENOXAPARIN 40 MG/0.4 ML SYRINGE. SQ SCH (09:00)
[2018-12-31] MEDS: MULTIVITAMIN with MINERAL TABLET. PO SCH (09:27)
[2018-12-31] MEDS: FOLIC ACID 1 MG TABLET. PO SCH (09:27)
[2018-12-31] MEDS: HYDROXYUREA 500 MG CAPSULE PO SCH (09:40)
[2018-12-31] MEDS ORDERED: guaiFENesin/CODEINE 100mg/10mg 5 ML LIQUID PO PRN (09:45)
[2018-12-31] MEDS ORDERED: PHENOL ORAL SPRAY 177ML BOTTLE. PO PRN (09:45)
--- NOTE | 2018-12-31 10:35 | NUR ---
Pt is becoming verbally aggressive with this RN. Pt requested an increase in his Benadryl and this RN told the pt that she would ask Dr. Vann. Pt stated that "you are not advocating for me, I am telling you what I need." This RN administered pt's current orders. This RN paged Dr. Vann.
--- NOTE | 2018-12-31 11:36 | PDOC ---
[employer] PROGRESS NOTE Chief Complaint Chief Complaint sickle cell crisis evidenced/supported by elev retic ct, both absolute and percentage retic Narcotics tolerance Anemia of sickle cell History of Present Illness History of Present Illness 12/31/18 Pt seen and examined by me Complains of pain DW RN Chart reviewed Vitals/I&O Vitals/I&O: Vital Signs Date Time Temp Pulse Resp B/P (MAP) Pulse Ox O2 Delivery O2 Flow Rate FiO2 12/31/18 07:00 98.0 64 16 84/48 (60) 94 Room Air 98.0 I & O 12/30/18 12/30/18 12/31/18 15:00 23:00 07:00 Intake Total 1000 ml Output Total 750 ml Balance 250 ml Physical Exam General: Alert, Oriented X3, Cooperative, No acute distress Heart: Regular rate Abdomen: Normal bowel sounds, Soft, No tenderness, No hepatosplenomegaly, No masses Extremities: No clubbing, No cyanosis, No edema, Normal pulses, No tenderness/swelling Skin: No rashes, No breakdown, No significant lesion Labs Labs: Laboratory Tests Test 12/30/18 14:50 White Blood Count 11.5 x10^3/uL (4.0-11.0) Red Blood Count 3.95 x10^6/uL (4.30-5.70) Hemoglobin 10.5 g/dL (13.0-17.5) Hematocrit 31.3 % (39.0-53.0) Mean Corpuscular Volume 79 fL (79-100) Mean Corpuscular Hemoglobin 27 pg (25-35) Mean Corpuscular Hemoglobin Concent 34 g/dL (31-37) Red Cell Distribution Width 25.4 % (11.5-14.5) Platelet Count 361 x10^3/uL (140-400) Neutrophils (%) (Auto) 30 % (31-73) Lymphocytes (%) (Auto) 62 % (24-48) Monocytes (%) (Auto) 6 % (0-9) Eosinophils (%) (Auto) 2 % (0-3) Basophils (%) (Auto) 1 % (0-3) Neutrophils # (Auto) 3.4 x10^3/uL (1.8-7.7) Lymphocytes # (Auto) 7.1 x10^3/uL (1.0-4.8) Monocytes # (Auto) 0.7 x10^3/uL (0.0-1.1) Eosinophils # (Auto) 0.2 x10^3/uL (0.0-0.7) Basophils # (Auto) 0.1 x10^3/uL (0.0-0.2) Segmented Neutrophils % 41 % (35-66) Lymphocytes % 46 % (24-48) Monocytes % 10 % (0-10) Eosinophils % 3 % (0-5) Platelet Estimate Adequate (ADEQUATE) Polychromasia Slight Anisocytosis Mod Sickle Cells Few Target Cells Many Schistocytes Occ Absolute Reticulocyte Count 0.282 x10^6/uL (0.020-0.120) Percent Reticulocyte Count 7.2 % (0.5-2.3) Immature Reticulocyte Fraction 0.69 (0.20-0.60) Sodium Level 139 mmol/L (136-145) Potassium Level 4.7 mmol/L (3.5-5.1) Chloride Level 107 mmol/L (98-107) Carbon Dioxide Level 21 mmol/L (21-32) Anion Gap 11 (6-14) Blood Urea Nitrogen 10 mg/dL (8-26) Creatinine 1.0 mg/dL (0.7-1.3) Estimated GFR (Cockcroft-Gault) 101.2 BUN/Creatinine Ratio 10 (6-20) Glucose Level 98 mg/dL (70-99) Calcium Level 8.6 mg/dL (8.5-10.1) Total Bilirubin 2.6 mg/dL (0.2-1.0) Aspartate Amino Transf (AST/SGOT) 40 U/L (15-37) Alanine Aminotransferase (ALT/SGPT) 39 U/L (16-63) Alkaline Phosphatase 86 U/L (46-116) Total Protein 7.1 g/dL (6.4-8.2) Albumin 3.7 g/dL (3.4-5.0) Albumin/Globulin Ratio 1.1 (1.0-1.7) Review of Systems Review of Systems: (+) generalized pain (-) SOB Assessment and Plan Assessmemt and Plan Problems Medical Problems: (1) Sickle cell anemia with pain Status: Acute Plan: pain meds O2 IV fluids folic acid daily reticulocyte count full code Comment Review of Relevant I have reviewed the following items jorge luis (where applicable) has been applied. Medications: Current Medications Medications (Trade) Dose Ordered Sig/Shoshana Route PRN Reason Start Time Stop Time Status Last Admin Dose Admin Hydromorphone HCl (Dilaudid) 1 mg 1X ONCE IV 12/30/18 13:45 12/30/18 13:46 DC 12/30/18 14:56 Ondansetron HCl (Zofran) 4 mg 1X ONCE IV 12/30/18 13:45 12/30/18 13:46 DC 12/30/18 14:57 Hydromorphone HCl (Dilaudid) 1 mg 1X ONCE IV 12/30/18 15:30 12/30/18 15:31 DC 12/30/18 15:46 Diphenhydramine HCl (Benadryl) 25 mg 1X ONCE IVP 12/30/18 15:30 12/30/18 15:31 DC 12/30/18 15:44 Diphenhydramine HCl (Benadryl) 25 mg PRN Q4HRS PRN IVP ITCHING 12/30/18 16:30 12/31/18 10:25 Hydromorphone HCl (Dilaudid) 1 mg PRN Q2HRS PRN IV SEVERE PAIN 7-10 12/30/18 16:30 12/31/18 10:23 Sodium Chloride 1,000 ml @ 150 mls/hr Q6H40M IV 12/30/18 16:30 12/30/18 18:57 Sodium Chloride 1,000 ml @ 1,000 mls/hr 1X ONCE IV 12/30/18 16:30 12/30/18 17:29 DC 12/30/18 17:18 Diazepam (Valium) 2 mg PRN Q6HRS PRN PO ANXIETY 12/30/18 16:30 12/30/18 17:22 Hydroxyurea (Hydrea) 1,000 mg DAILY PO 12/31/18 09:00 12/31/18 09:40 Multivitamins (Thera M Plus) 1 tab DAILY PO 12/31/18 09:00 12/31/18 09:27 Oxycodone HCl (Roxicodone) 30 mg Q4HRS PO 12/30/18 20:00 12/31/18 09:27 Folic Acid (Folic Acid) 1 mg DAILY PO 12/31/18 09:00 12/31/18 09:27 Sodium Chloride 1,000 ml @ 75 mls/hr 1X ONCE IV 12/30/18 17:00 12/31/18 06:19 DC 12/31/18 04:50 FREDA TAVAREZ III DO Dec 31, 2018 11:36
[2018-12-31] MEDS: IV NORMAL SALINE 1000ML BAG 1,000 ML IV SCH ×3 (12:30→19:58)
[2018-12-31 15:00] VITALS: BP 84/48
--- NOTE | 2018-12-31 15:04 | NUR ---
SW following for discharge planning. Chart reviewed, discussed with RN. Pt is from home. No PT/OT needs, pt is becoming verbally aggressive. No SW needs at this time. SW will continue to follow.
[2018-12-31 15:42] VITALS: BP 108/60
[2018-12-31 16:07] LABS: BILIRUBIN,URINE NEGATIVE (NEG); CLARITY,URINE CLEAR; COLOR,URINE YELLOW; NITRITE,URINE NEGATIVE (NEG); PROTEIN,URINE NEGATIVE (NEG-TRACE)
[2018-12-31 16:15] LABS: BACTERIA,URINE 0 /HPF (0-FEW); RBC,URINE 0 /HPF (0-2); WBC,URINE OCC /HPF (0-4)
[2018-12-31 19:00] VITALS: BP 107/47
[2019-01-01] MEDS: HYDROmorphone 2 MG/ML VIAL IV PRN ×10 (02:01→22:37)
[2019-01-01] MEDS: diphenhydrAMINE 50 MG/ML VIAL IVP PRN ×5 (04:28→20:34)
[2019-01-01 07:00] VITALS: BP 103/69
[2019-01-01] MEDS: ENOXAPARIN 40 MG/0.4 ML SYRINGE. SQ SCH (07:47)
[2019-01-01] MEDS: IV NORMAL SALINE 1000ML BAG 1,000 ML IV SCH ×5 (08:30→22:08)
[2019-01-01] MEDS: FOLIC ACID 1 MG TABLET. PO SCH (08:46)
[2019-01-01] MEDS: MULTIVITAMIN with MINERAL TABLET. PO SCH (08:46)
[2019-01-01] MEDS: HYDROXYUREA 500 MG CAPSULE PO SCH (08:54)
[2019-01-01 11:00] VITALS: BP 114/70
--- NOTE | 2019-01-01 11:04 | NUR ---
Patient refused lab draw this AM, went to speak to patient with laborer high density press present. Educated the patient as to why we need his labs to further care for the patient. Patient agreed to have laborer high density press draw labs, patient only let laborer high density press stick patient once. technical education teacher offered patient a finger stick for labs patient refused that lab draw, laborer high density press stated next tech would be in at 1230. MD Soo notified. Patient request MD Soo phone number, patient has MD card at beside but MD Soo stated he would call down to his room. Patient then requested paperwork from his stay, stated that he would have to sign a release of information form. Patient at this point is becoming verbally aggressive stating "I'm going to call my family up her for you".
--- NOTE | 2019-01-01 11:10 | NUR ---
Internet Cafe Manager observed patients medication hydroxyurea in the trash, educating patient that is also a refusal to his sickle cell treatment.
--- NOTE | 2019-01-01 11:13 | PDOC ---
[employer] PROGRESS NOTE Chief Complaint Chief Complaint sickle cell crisis evidenced/supported by elev retic ct, both absolute and percentage retic Narcotics tolerance Anemia of sickle cell History of Present Illness History of Present Illness 12/31/18 Pt seen and examined by me Complains of pain DW RN Chart reviewed 01/01/19 Pt seen and examined by me States that lab was unable to draw blood this morning DW RN Chart reviewed Vitals/I&O Vitals/I&O: Vital Signs Date Time Temp Pulse Resp B/P (MAP) Pulse Ox O2 Delivery O2 Flow Rate FiO2 01/01/19 07:00 97.8 81 18 103/69 (80) 92 Room Air 97.8 I & O 12/31/18 12/31/18 01/01/19 15:00 23:00 07:00 Intake Total 120 ml 1500 ml 480 ml Output Total 400 ml 750 ml 1050 ml Balance -280 ml 750 ml -570 ml Physical Exam General: Alert, Oriented X3, Cooperative, No acute distress Heart: Regular rate Abdomen: Normal bowel sounds, Soft, No tenderness, No hepatosplenomegaly, No masses Extremities: No clubbing, No cyanosis, No edema, Normal pulses, No tenderness/swelling Skin: No rashes, No breakdown, No significant lesion Labs Labs: Laboratory Tests Test 12/31/18 14:00 Urine Collection Type Unknown Urine Color Yellow Urine Clarity Clear Urine pH 6.0 Urine Specific [place] 1.010 Urine Protein Negative mg/dL (NEG-TRACE) Urine Glucose (UA) Negative mg/dL (NEG) Urine Ketones (Stick) Negative mg/dL (NEG) Urine Blood Negative (NEG) Urine Nitrite Negative (NEG) Urine Bilirubin Negative (NEG) Urine Urobilinogen Dipstick 1.0 mg/dL (0.2 mg/dL) Urine Leukocyte Esterase Trace (NEG) Urine RBC 0 /HPF (0-2) Urine WBC Occ /HPF (0-4) Urine Bacteria 0 /HPF (0-FEW) Review of Systems Review of Systems: (+) generalized pain (-) CP, SOB Assessment and Plan Assessmemt and Plan Problems Medical Problems: (1) Sickle cell anemia with pain Status: Acute Plan: awaiting reticulocyte count pain meds prn IV fluids awaiting heme/onc recs dvt ppx PT/OT full code Comment Review of Relevant I have reviewed the following items jorge luis (where applicable) has been applied. Medications: Current Medications Medications (Trade) Dose Ordered Sig/Shoshana Route PRN Reason Start Time Stop Time Status Last Admin Dose Admin Diphenhydramine HCl (Benadryl) 50 mg PRN Q4HRS PRN IVP ITCHING 12/31/18 11:45 01/01/19 08:46 Hydromorphone HCl (Dilaudid) 2 mg PRN Q2HRS PRN IV SEVERE PAIN 7-10 12/31/18 11:45 01/01/19 10:42 FREDA TAVAREZ III DO Jan 01, 2019 11:13
[2019-01-01 15:00] VITALS: BP 112/71
--- NOTE | 2019-01-01 15:20 | NUR ---
MD Soo has been called multiple times in regards to patients blood draw for his recti count. Patient has refused finger stick. Patient spoke to MD Soo on the phone has now agreed to the finger stick for blood.
[2019-01-01 16:44] LABS: HEMATOCRIT 31.3 % (39.0-53.0); HEMOGLOBIN 10.6 g/dL (13.0-17.5)
--- NOTE | 2019-01-01 18:00 | NUR ---
PICC Pre-Insertion Note- Allergies and reactions sulfa INR n/a BUN 10 Cr 1.0 Platelets 361 Blood culture done no blood culture results n/a Order Verified yes Consent signed yes Previous PICC placement yes Past Medical/Surgical history and current diagnosis reviewed yes Patient Medical /Surgical History Related to PICC line placement Past central line or venous access device placement Special considerations for PICC line placement None PICC placement indication Multiple/ Frequent blood draws, Poor peripheral intravenous access name of PICC Nurse Jennifer Rondon RN
--- NOTE | 2019-01-01 18:49 | NUR ---
PICC Insertion Note- Procedure: Following complete explanation of the PICC procedure including the indications, risks, and potential complications, informed consent was obtained. The possibility for infection was discussed along with signs, symptoms, and prevention. All the questions were answered. Written and verbal patient education was provided. Hand hygiene performed. Standardized central line checklist was utilized. The patient was placed in the supine position, the arm was prepped with chlorhexidine and patient draped with maximum sterile barrier. 2 mL 1% lidocaine was infiltrated into the skin to provide local anesthesia. A thorough assessment of right upper extremity completed. Using real-time ultrasound guidance and standardized micro puncture set, the basilic vein was punctured and a peel away sheath was placed using the modified Seldinger technique. A tip location device was used to ensure adequate catheter placement. The catheter was secured using a securement device and an antimicrobial patch was applied directly on the insertion site followed by a transparent dressing. All ports withdraw blood and flush without resistance. Patient tolerated the procedure without apparent complication(s). Single Lumen Power PICC placement successful and uncomplicated. Placement verified by EKG tip confirmation system and/or chest x-ray. Tip located in the CAJ/SVC. Complications: none Catheter trimmed at 43cm with 1cm visible at insertion site.
[2019-01-01 19:00] VITALS: BP 111/69
[2019-01-01] MEDS: ZOLPIDEM 5 MG TABLET. PO PRN (22:36)
[2019-01-01 23:00] VITALS: BP 112/74
[2019-01-02] MEDS: HYDROmorphone 2 MG/ML VIAL IV PRN ×11 (00:28→22:35)
[2019-01-02] MEDS: diphenhydrAMINE 50 MG/ML VIAL IVP PRN ×6 (00:28→20:34)
[2019-01-02 03:00] VITALS: BP 102/61
[2019-01-02] MEDS: IV NORMAL SALINE 1000ML BAG 1,000 ML IV SCH ×3 (04:29→18:42)
[2019-01-02 07:00] VITALS: BP 91/59
[2019-01-02] MEDS: MULTIVITAMIN with MINERAL TABLET. PO SCH (08:24)
[2019-01-02] MEDS: FOLIC ACID 1 MG TABLET. PO SCH (08:24)
[2019-01-02] MEDS: ENOXAPARIN 40 MG/0.4 ML SYRINGE. SQ SCH (08:31)
[2019-01-02] MEDS: HYDROXYUREA 500 MG CAPSULE PO SCH (08:36)
[2019-01-02 11:00] VITALS: BP 83/73
--- NOTE | 2019-01-02 11:42 | PDOC ---
[employer] PROGRESS NOTE Chief Complaint Chief Complaint sickle cell crisis evidenced/supported by elev retic ct, both absolute and percentage retic Narcotics tolerance Anemia of sickle cell History of Present Illness History of Present Illness 12/31/18 Pt seen and examined by me Complains of pain DW RN Chart reviewed 01/01/19 Pt seen and examined by me States that lab was unable to draw blood this morning DW RN Chart reviewed 01/02/19 Pt seen and examined by me Reports generalized pain DW RN Chart reviewed Vitals/I&O Vitals/I&O: Vital Signs Date Time Temp Pulse Resp B/P (MAP) Pulse Ox O2 Delivery O2 Flow Rate FiO2 01/02/19 10:36 Room Air 01/02/19 07:00 98.3 64 18 91/59 (70) 95 98.3 I & O 01/01/19 01/01/19 01/02/19 15:00 23:00 07:00 Intake Total 750 ml 250 ml 600 ml Output Total 750 ml 1600 ml 700 ml Balance 0 ml -1350 ml -100 ml Physical Exam General: Alert, Oriented X3, Cooperative, No acute distress Heart: Regular rate Abdomen: Normal bowel sounds, Soft, No tenderness, No hepatosplenomegaly, No masses Extremities: No clubbing, No cyanosis, No edema, Normal pulses, No tenderness/swelling, Other (PICC in right arm, no surrounding erythema or drainage) Skin: No rashes, No breakdown, No significant lesion Labs Labs: Laboratory Tests Test 01/01/19 16:40 Red Blood Count 3.96 x10^6/uL (4.30-5.70) Hemoglobin 10.6 g/dL (13.0-17.5) Hematocrit 31.3 % (39.0-53.0) Mean Corpuscular Hemoglobin Concent 34 g/dL (31-37) Absolute Reticulocyte Count 0.323 x10^6/uL (0.020-0.120) Percent Reticulocyte Count 8.2 % (0.5-2.3) Immature Reticulocyte Fraction 0.69 (0.20-0.60) Review of Systems Review of Systems: (+) generalized pain (-) CP, SOB Assessment and Plan Assessmemt and Plan Problems Medical Problems: (1) Sickle cell anemia with pain Status: Acute Sickle cell crisis Narcotic tolerance Sickle cell anemia Plan: daily reticulocyte count pain meds prn IV fluids awaiting heme/onc recs dvt ppx PT/OT full code Comment Review of Relevant I have reviewed the following items jorge luis (where applicable) has been applied. FREDA TAVAREZ III DO Jan 02, 2019 11:42
[2019-01-02 19:00] VITALS: BP 107/68
[2019-01-02] MEDS: ZOLPIDEM 5 MG TABLET. PO PRN (22:35)
[2019-01-02 23:30] VITALS: BP 115/71
[2019-01-03] MEDS: HYDROmorphone 2 MG/ML VIAL IV PRN ×11 (00:36→22:40)
[2019-01-03] MEDS: IV NORMAL SALINE 1000ML BAG 1,000 ML IV SCH ×4 (00:36→20:44)
[2019-01-03] MEDS: diphenhydrAMINE 50 MG/ML VIAL IVP PRN ×6 (00:36→21:28)
[2019-01-03 02:47] VITALS: BP 112/73
[2019-01-03 07:00] VITALS: BP 106/75
[2019-01-03] MEDS: FOLIC ACID 1 MG TABLET. PO SCH (08:47)
[2019-01-03] MEDS: HYDROXYUREA 500 MG CAPSULE PO SCH (08:52)
[2019-01-03] MEDS: MULTIVITAMIN with MINERAL TABLET. PO SCH (08:52)
[2019-01-03] MEDS: ENOXAPARIN 40 MG/0.4 ML SYRINGE. SQ SCH (08:53)
--- NOTE | 2019-01-03 09:31 | PDOC ---
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, multiple social issues preclude good care for him, including his noncompliance and sense of entitlement and lack of personal responsibility Sickle cell: Recommend continuing Hydrea, folic acid, he has continued to be noncompliant as an outpt, pain meds per primary AVN: I do think he needs some chronic pain medications and recommend follow-up with ortho as able regarding his AVN, he refuses methadone, i will offer nothing else, radha w/ his hi risk behavior, he can see me in follow-up as an outpatient should he decide to comply with our recommendations for comprehensive care Acute crisis: Pain control per primary, his labs are about as good as they have looked, since residential dc, I would suspect this is about his baseline reticulocyte , would suspect he's good for discharge soon Prophylaxis: Lovenox Disposition: today? f/u w/ me as outpt prn Thank you kindly and please do not hesitate to call with questions. OBJECTIVE Vital Signs Vital Signs Date Time Temp Pulse Resp B/P (MAP) Pulse Ox O2 Delivery O2 Flow Rate FiO2 01/03/19 09:02 19 94 Room Air 01/03/19 08:48 20 93 Room Air 01/03/19 07:18 16 94 Room Air 01/03/19 07:00 98.5 85 14 106/75 (85) 94 Room Air 98.5 01/03/19 06:31 14 94 Room Air 01/03/19 06:09 16 94 Room Air 01/03/19 05:12 16 94 Room Air 01/03/19 04:32 16 94 Room Air 01/03/19 04:31 16 94 Room Air 01/03/19 03:53 12 94 Room Air 01/03/19 02:47 98.1 79 12 112/73 (86) 94 Room Air 98.1 01/03/19 02:38 12 92 Room Air 01/03/19 01:42 9 92 Room Air 01/03/19 01:10 9 92 Room Air 01/03/19 00:36 16 92 Room Air 01/03/19 00:35 92 Room Air 01/02/19 23:30 98.1 82 13 115/71 (86) 92 Room Air 98.1 01/02/19 23:15 14 Room Air 01/02/19 22:35 16 95 Room Air 01/02/19 21:20 14 95 Room Air 01/02/19 21:20 14 95 Room Air 01/02/19 20:37 16 95 Room Air 01/02/19 20:33 16 95 Room Air 01/02/19 19:56 Room Air 01/02/19 19:29 Room Air 01/02/19 19:00 99.2 84 20 107/68 (81) 94 Room Air 99.2 01/02/19 18:38 Room Air 01/02/19 18:37 Room Air 01/02/19 18:36 Room Air 01/02/19 16:36 Room Air 01/02/19 16:36 Room Air 01/02/19 13:44 Room Air 01/02/19 13:44 Room Air 01/02/19 12:32 Room Air 01/02/19 12:31 Room Air 01/02/19 11:58 Room Air 01/02/19 11:00 98.1 78 18 83/73 (76) 95 Room Air 98.1 01/02/19 10:36 Room Air 01/02/19 10:35 Room Air 01/02/19 10:32 Room Air I & O Intake and Output 01/03/19 07:00 Intake Total 2360 ml Output Total 400 ml Balance 1960 ml Intake Oral 360 ml IV Total 2000 ml Output Urine Total 400 ml COMMENT Lab Laboratory Tests Test 01/03/19 06:02 Red Blood Count 3.80 x10^6/uL (4.30-5.70) Absolute Reticulocyte Count 0.290 x10^6/uL (0.020-0.120) Percent Reticulocyte Count 7.6 % (0.5-2.3) Immature Reticulocyte Fraction 0.69 (0.20-0.60) BISMARK MOTT MD Jan 03, 2019 09:31
[2019-01-03 11:00] VITALS: BP 117/74
--- NOTE | 2019-01-03 12:05 | PDOC ---
[facility] [facility] PROGRESS NOTE Chief Complaint Chief Complaint sickle cell crisis evidenced/supported by elev retic ct, both absolute and percentage retic Narcotics tolerance Anemia of sickle cell History of Present Illness History of Present Illness 12/31/18 Pt seen and examined by me Complains of pain DW RN Chart reviewed 01/01/19 Pt seen and examined by me States that lab was unable to draw blood this morning DW RN Chart reviewed 01/02/19 Pt seen and examined by me Reports generalized pain DW RN Chart reviewed 01/03/19 Pt seen and examined. Pt walking around. Reports pain Chart reviewed Vitals/I&O Vitals/I&O: Vital Signs Date Time Temp Pulse Resp B/P (MAP) Pulse Ox O2 Delivery O2 Flow Rate FiO2 01/03/19 11:13 19 93 Room Air 01/03/19 11:00 98.7 93 117/74 (88) 98.7 I & O 01/02/19 01/02/19 01/03/19 15:00 23:00 07:00 Intake Total 1180 ml 1180 ml Output Total 400 ml Balance 1180 ml 780 ml Physical Exam Physical Exam: HEENT: No scleral icterus. Atraumatic. General: Alert, mild distress Heart: Regular rate, No murmurs Lungs: Clear, Other (No respiratory distress) Abdomen: Normal bowel sounds, Soft, Other (Tenderness) Extremities: No clubbing, No cyanosis Labs Labs: Laboratory Tests Test 01/03/19 06:02 Red Blood Count 3.80 x10^6/uL (4.30-5.70) Absolute Reticulocyte Count 0.290 x10^6/uL (0.020-0.120) Percent Reticulocyte Count 7.6 % (0.5-2.3) Immature Reticulocyte Fraction 0.69 (0.20-0.60) Review of Systems Review of Systems: GI: Admits abdominal pain Cardiovascular: Denies chest pain Assessment and Plan Assessmemt and Plan Problems Medical Problems: (1) Sickle cell anemia with pain Status: Acute sickle cell crisis evidenced/supported by elev retic ct, both absolute and percentage retic Narcotics tolerance Anemia of sickle cell PLAN - Pain medication prn - Recheck reticulocyte count - Plan to discharge tomorrow morning - IV fluids - DVT ppx - PT/OT Full code Comment Review of Relevant I have reviewed the following items jorge luis (where applicable) has been applied. Medications: Current Medications Medications (Trade) Dose Ordered Sig/Shoshana Route PRN Reason Start Time Stop Time Status Last Admin Dose Admin Hydromorphone HCl (Dilaudid) 3 mg PRN Q2HR PRN IV SEVERE PAIN 2ND CHOICE 01/02/19 18:30 01/03/19 11:13 FREDA TAVAREZ III DO Jan 03, 2019 12:05
--- NOTE | 2019-01-03 12:44 | NUR ---
SW following. Discussed with RN and Dr. Vann. Dr. Vann advised, discharge tomorrow morning (01/04/19). RN advised no SW needs. SW will continue to follow should any discharge needs arise.
[2019-01-03 15:00] VITALS: BP 127/92
[2019-01-03 19:00] VITALS: BP 106/76
--- NOTE | 2019-01-03 20:00 | NUR ---
Patient called several time for schedule oxycodone due at this time. Requests to be given Benadryl. Educated patient that Benadryl is ordered every 4 hours and was last given at 17:25 per APR documentation. Pt states that the dayshift nurse did not given him his Benadryl. Also, states that he believes that she wasn't giving him all of his medication because she is taking some for herself. "I know how junkies act and she moves like a junkie". Informed patient that dayshift nurse was still here and could be asked to clarify if he was given Benadryl at 17:25 but patient denied need. States that no one gives him his medications when he asks for them or can have them. Attempted to reassure patient that this nurse would give him his medication as frequent as it is ordered.
--- NOTE | 2019-01-03 20:40 | NUR ---
Called multiple times repeatedly for prn IV Dilaudid before it is due. Continues to be argumentative with this nurse and accusatory of prior nurses of not giving him all the medication that he can have. Argued with this nurse about diluting medication in saline, pushing it over two minutes and not using the port closest to his body. Educated patient that it is easier to waste medication when adding it to saline and also easier to push medication over two minutes because of the larger volume. Continues to be argumentative about getting medications and how it is given. Accuses this nurse of having an attitude.
[2019-01-03 23:00] VITALS: BP 111/79
--- NOTE | 2019-01-03 23:00 | NUR ---
Patient calls SEJAL Orozco into room. Tells Ernesto that he believes this nurse is a racist and would like a different nurse. Called nursing welding supervisor Tammy for assistance. Tammy and this nurse discussed his concerns with patient. Educated patient again on the frequency of medications ordered and why they have been given again. Issues seemed to be resolved at this time.
[2019-01-04] MEDS: HYDROmorphone 2 MG/ML VIAL IV PRN ×11 (00:40→23:33)
[2019-01-04] MEDS: diphenhydrAMINE 50 MG/ML VIAL IVP PRN ×6 (01:44→23:32)
[2019-01-04 03:00] VITALS: BP 112/74
[2019-01-04] MEDS: IV NORMAL SALINE 1000ML BAG 1,000 ML IV SCH ×3 (04:01→16:49)
[2019-01-04 07:00] VITALS: BP 111/80
[2019-01-04] MEDS: FOLIC ACID 1 MG TABLET. PO SCH (08:15)
[2019-01-04] MEDS: MULTIVITAMIN with MINERAL TABLET. PO SCH (08:16)
[2019-01-04] MEDS: ENOXAPARIN 40 MG/0.4 ML SYRINGE. SQ SCH (08:20)
[2019-01-04] MEDS: HYDROXYUREA 500 MG CAPSULE PO SCH (08:20)
--- NOTE | 2019-01-04 09:55 | PDOC ---
[facility] [facility] PROGRESS NOTE Chief Complaint Chief Complaint sickle cell crisis evidenced/supported by elev retic ct, both absolute and percentage retic Narcotics tolerance Anemia of sickle cell History of Present Illness History of Present Illness 12/31/18 Pt seen and examined by me Complains of pain DW RN Chart reviewed 01/01/19 Pt seen and examined by me States that lab was unable to draw blood this morning DW RN Chart reviewed 01/02/19 Pt seen and examined by me Reports generalized pain DW RN Chart reviewed 01/03/19 Pt seen and examined. Pt walking around. Reports pain Chart reviewed 01/04/19 Pt seen and examined by me Reports pain. Wants to be discharged tomorrow DW RN Chart reviewed Vitals/I&O Vitals/I&O: Vital Signs Date Time Temp Pulse Resp B/P (MAP) Pulse Ox O2 Delivery O2 Flow Rate FiO2 01/04/19 08:16 Room Air 01/04/19 07:00 98.5 108 20 111/80 (90) 97 98.5 I & O 01/03/19 01/03/19 01/04/19 15:00 23:00 07:00 Intake Total 1120 ml 1000 ml Output Total 2550 ml 250 ml 1200 ml Balance -2550 ml 870 ml -200 ml Physical Exam Physical Exam: HEENT: No scleral icterus. Atraumatic. General: Alert, mild distress Heart: Regular rate, No murmurs Lungs: Clear, Other (No respiratory distress) Abdomen: Normal bowel sounds, Soft, Other (Tenderness) Extremities: No clubbing, No cyanosis, Other (PICC line in right arm) Skin: No rashes Labs Labs: Laboratory Tests Test 01/04/19 09:10 Red Blood Count 3.93 x10^6/uL (4.30-5.70) Absolute Reticulocyte Count 0.317 x10^6/uL (0.020-0.120) Percent Reticulocyte Count 8.1 % (0.5-2.3) Immature Reticulocyte Fraction 0.65 (0.20-0.60) Review of Systems Review of Systems: (-) CP, SOB Assessment and Plan Assessmemt and Plan Problems Medical Problems: (1) Sickle cell anemia with pain Status: Acute sickle cell crisis evidenced/supported by elev retic ct, both absolute and percentage retic Narcotics tolerance Anemia of sickle cell Plan: - Pain medication prn - Retic count 8.1 this AM - plan to d/c today follow meeting with child welfare caseworker - IV fluids - DVT ppx - PT/OT Full code Comment Review of Relevant I have reviewed the following items jorge luis (where applicable) has been applied. FREDA TAVAREZ III DO Jan 04, 2019 09:55
[2019-01-04 11:00] VITALS: BP 107/71
[2019-01-04 15:00] VITALS: BP 112/80
--- NOTE | 2019-01-04 15:14 | NUR ---
SW following. Discussed with RN, pt retic count increased again today. Anticipate discharge home with self care tomorrow (01/05/19). SW will continue to follow.
[2019-01-04 19:00] VITALS: BP 107/72
[2019-01-05] VITALS: BP 105/67
[2019-01-05] MEDS: IV NORMAL SALINE 1000ML BAG 1,000 ML IV SCH ×2 (00:14→06:53)
[2019-01-05] MEDS: HYDROmorphone 2 MG/ML VIAL IV PRN ×4 (02:05→08:17)
[2019-01-05 03:00] VITALS: BP 101/68
[2019-01-05] MEDS: diphenhydrAMINE 50 MG/ML VIAL IVP PRN ×2 (03:44→08:17)
[2019-01-05 07:00] VITALS: BP 102/63
[2019-01-05] MEDS: ENOXAPARIN 40 MG/0.4 ML SYRINGE. SQ SCH (08:22)
[2019-01-05] MEDS: FOLIC ACID 1 MG TABLET. PO SCH (08:22)
[2019-01-05] MEDS: HYDROXYUREA 500 MG CAPSULE PO SCH (08:22)
[2019-01-05] MEDS: MULTIVITAMIN with MINERAL TABLET. PO SCH (08:22)
--- NOTE | 2019-01-05 10:07 | NUR ---
MD Soo discharged patient, upon arriving to his room to remove his PICC line patient refused to have it removed until he see the MD again, MD Soo gave a one time order for Dilaudid IV now, then remove the line. Patient then proceed to ask for his IV Benadryl and PO oxycodone. Educated that we could not given those medications three hours early, but that the MD gave him prescriptions that he could and take once at home. Then patient proceed to say that he needed more medications so he could make it to see him PCP, educated patient that he would have enough for the week and could see his PCP on Thursday, then patient stated that he did not have a PCP. Resources given to patient.
--- NOTE | 2019-01-05 11:11 | NUR ---
SW following. Discussed with RN, pt is discharging home with self care. RN advised no SW needs.
--- NOTE | 2019-01-05 11:24 | NUR ---
Discharge Note: ANETA CASPER Discharge instructions and discharge home medications reviewed with Patient and a copy given. All questions have been answered and understanding verbalized. The following instructions and handouts were given: Sickle cell Discontinued lines and drains: PICC Line intact. Patient discharged to Home or Self Care with Friend via Ambulated Patient refused to sign D/C paperwork, two nurse verified.
--- NOTE | 2019-01-05 11:25 | PDOC ---
[employer] [facility] PROGRESS NOTE Chief Complaint Chief Complaint sickle cell crisis evidenced/supported by elev retic ct, both absolute and percentage retic Narcotics tolerance Anemia of sickle cell History of Present Illness History of Present Illness 12/31/18 Pt seen and examined by me Complains of pain DW RN Chart reviewed 01/01/19 Pt seen and examined by me States that lab was unable to draw blood this morning DW RN Chart reviewed 01/02/19 Pt seen and examined by me Reports generalized pain DW RN Chart reviewed 01/03/19 Pt seen and examined. Pt walking around. Reports pain Chart reviewed 01/04/19 Pt seen and examined by me Reports pain. Wants to be discharged tomorrow DW RN Chart reviewed 01/05/19 Pt seen and examined while laying in bed. Cousin is present in room. Pt ready to be discharged today. Discussed case with RN. Chart reviewed Vitals/I&O Vitals/I&O: Vital Signs Date Time Temp Pulse Resp B/P (MAP) Pulse Ox O2 Delivery O2 Flow Rate FiO2 01/05/19 07:00 98.2 82 18 102/63 (76) 93 Room Air 98.2 I & O 01/04/19 01/04/19 01/05/19 15:00 23:00 07:00 Intake Total 1000 ml 1100 ml 240 ml Output Total 1600 ml Balance -600 ml 1100 ml 240 ml Physical Exam Physical Exam: HEENT: No scleral icterus. Atraumatic. General: Alert, No acute distress Lungs: Other (No respiratory distress. No visible cough. ) Abdomen: Normal bowel sounds, Soft, Other (Tenderness) Extremities: No clubbing, No cyanosis, Other (PICC line in right arm which was just about to be removed) Skin: No rashes, No significant lesion Review of Systems Review of Systems: Neurologic: Admits headache GI: Admits abdominal pain Assessment and Plan Assessmemt and Plan Problems Medical Problems: (1) Sickle cell anemia with pain Status: Acute sickle cell crisis evidenced/supported by elev retic ct, both absolute and percentage retic Narcotics tolerance Anemia of sickle cell PLAN -Patient at baseline, prepare to discharge today Comment Review of Relevant I have reviewed the following items jorge luis (where applicable) has been applied. FREDA TAVAREZ III, DO Jan 05, 2019 11:25
--- NOTE | 2019-01-10 09:10 | DS ---
DATE OF DISCHARGE: 01/05/2019 ADMISSION DIAGNOSIS: Sickle cell crisis. DISCHARGE DIAGNOSIS: Resolving sickle cell crisis. HOSPITAL COURSE: The patient is a pleasant middle-aged male, who presented with sickle cell crisis. We gave him IV fluids, folic acid, oxygen. We consulted Hematology/Oncology, checked daily retic counts and basically over the next week his symptoms improved. We discharged to home with a prescription for Dilaudid and Xanax. DISPOSITION: Home. ACTIVITY: As tolerated. DIET: Low sodium. MEDICATIONS: Please see MRAD. TOTAL TIME: 34 minutes. FREDA TAVAREZ DO DR: KAMRYN/ella JOB#: [id number] / [id number]
== END 2019-01-05 11:34 | disposition home or self-care (01) | DRG 812 ==
LOC: ER 10:58 → 5 SOUTH 16:15
PROVIDERS: ADMIT Internal Medicine; ATTEND Internal Medicine
PROC: 02HV33Z Insertion of Infusion Device into Superior Vena Cava, Percutaneous Approach (ICD-10-PCS; principal; 2019-01-01)
PROC: B548ZZA Ultrasonography of Superior Vena Cava, Guidance (ICD-10-PCS; 2019-01-01)
DX: D57.00 Hb-SS disease with crisis, unspecified (principal); M87.9 Osteonecrosis, unspecified; G89.29 Other chronic pain; Z83.2 Family history of diseases of the blood and blood-forming organs and certain disorders involving the immune mechanism; Z91.19 Patient's noncompliance with other medical treatment and regimen; F32.9 Major depressive disorder, single episode, unspecified; F41.9 Anxiety disorder, unspecified; M19.90 Unspecified osteoarthritis, unspecified site; Z88.2 Allergy status to sulfonamides; Z79.899 Other long term (current) drug therapy
CPT/HCPCS: 36415; 36569; 71046; 80053; 81001; 85007; 85014; 85018; 85025; 85045; 87086; 96361; 96374; 96375; J1170; J1200; J2405; J7030; 99285-25; G0378

== ENCOUNTER 2019-02-13 07:52 | Inpatient (IN) | payer SELFPAY ==
[~2019-02-13] VITALS: Ht 172.7 cm; Wt 79.4 kg
[~2019-02-13 07:52] MED LIST changes: +DIPH25CA23 PO
[2019-02-13] MEDS ORDERED: IV NORMAL SALINE 1000ML BAG 1,000 ML IV SCH (08:22)
[2019-02-13] MEDS ORDERED: ONDANSETRON PF 4 MG/2 ML VIAL. IV ONE (08:30)
[2019-02-13] MEDS ORDERED: HYDROmorphone 2 MG/ML VIAL IV ONE ×2 (08:30→11:45)
[2019-02-13] MEDS ORDERED: diphenhydrAMINE 50 MG/ML VIAL IVP ONE ×3 (08:30→14:30)
--- NOTE | 2019-02-13 08:32 | PHYS DOC ---
Past Medical History Past Medical History: Arthritis, Sickle Cell Disease Past Surgical History: Other Additional Past Surgical Histo: L. SHOULDER AND BILATERAL HIP Additional Information: Denies smoking - Alcohol Use: Occasionally Drug Use: None Adult General Chief Complaint Chief Complaint: PAIN CONTROL HPI HPI Patient is a 38 year old patient with history of sickle cell disease and arthritis and frequent recent ER visits and hospitalization who presents with complaining of back pain and hip pain. Patient complaining of low back pain and bilateral hip pain since yesterday as a constant pain that getting worse with movement and rated his pain 10 over 10. Patient states he took his oxycodone at noon yesterday and denies recent dehydration, chest pain, shortness of breath, focal neuro deficit. Patient demanding for pain medication including hydrocodone, Benadryl, Zofran Review of Systems Review of Systems Constitutional: Denies fever or chills [] Eyes: Denies change in visual acuity, redness, or eye pain [] HENT: Denies nasal congestion or sore throat [] Respiratory: Denies cough or shortness of breath [] Cardiovascular: No additional information not addressed in HPI [] GI: Denies abdominal pain, nausea, vomiting, bloody stools or diarrhea [] : Denies dysuria or hematuria [] Musculoskeletal: Was back pain and joint pain.] Integument: Denies rash or skin lesions [] Neurologic: Denies headache, focal weakness or sensory changes [] Endocrine: Denies polyuria or polydipsia [] All other systems were reviewed and found to be within normal limits, except as documented in this note. Current Medications Current Medications Current Medications Medications (Trade) Dose Ordered Sig/Shoshana Start Time Stop Time Status Last Admin Dose Admin Diphenhydramine HCl (Benadryl) 25 mg 1X ONCE 02/13/19 09:30 02/13/19 09:33 DC 02/13/19 09:33 25 MG Hydromorphone HCl (Dilaudid) 1 mg 1X ONCE 02/13/19 11:45 02/13/19 11:46 DC 02/13/19 11:50 1 MG Ondansetron HCl (Zofran) 4 mg 1X ONCE 02/13/19 09:30 02/13/19 09:33 DC 02/13/19 09:34 4 MG Sodium Chloride 1,000 ml @ 1,000 mls/hr 1X ONCE 02/13/19 11:00 02/13/19 11:59 DC 02/13/19 11:01 1,000 MLS/HR Allergies Allergies Allergies Coded Allergies Type Severity Reaction Last Updated Verified Sulfa (Sulfonamide Antibiotics) Allergy Intermediate 11/05/18 Yes Physical Exam Physical Exam Constitutional: Well developed, well nourished, mild distress, non-toxic appearance. [] HENT: Normocephalic, atraumatic. Eyes: PERRLA, EOMI, conjunctiva normal, no discharge. [] Neck: Normal range of motion, no tenderness, supple, no stridor. [] Cardiovascular:Heart rate regular rhythm, no murmur [] Lungs & Thorax: Bilateral breath sounds clear to auscultation [] Abdomen: Bowel sounds normal, soft, no tenderness, no masses, no pulsatile masses. [] Skin: Warm, dry, no erythema, no rash. [] Back: No tenderness, no CVA tenderness. [] Extremities: No tenderness, no cyanosis, no clubbing, ROM intact, no edema. [] Neurologic: Alert and oriented X 3, no focal deficits noted. [] Psychologic: Affect anxious, judgement normal, mood normal. [] Current Patient Data Vital Signs Vital Signs Date Time Temp Pulse Resp B/P (MAP) Pulse Ox O2 Delivery O2 Flow Rate FiO2 02/13/19 11:38 73 98 02/13/19 11:01 16 02/13/19 10:30 Room Air 02/13/19 07:59 98.2 111/56 (74) 98.2 Lab Values Laboratory Tests Test 02/13/19 10:55 White Blood Count 12.0 x10^3/uL (4.0-11.0) H Red Blood Count 3.98 x10^6/uL (4.30-5.70) L Hemoglobin 10.6 g/dL (13.0-17.5) L Hematocrit 32.5 % (39.0-53.0) L Mean Corpuscular Volume 81 fL (79-100) Mean Corpuscular Hemoglobin 27 pg (25-35) Mean Corpuscular Hemoglobin Concent 33 g/dL (31-37) Red Cell Distribution Width 26.0 % (11.5-14.5) H Platelet Count 459 x10^3/uL (140-400) H Neutrophils (%) (Auto) 66 % (31-73) Lymphocytes (%) (Auto) 19 % (24-48) L Monocytes (%) (Auto) 11 % (0-9) H Eosinophils (%) (Auto) 3 % (0-3) Basophils (%) (Auto) 1 % (0-3) Neutrophils # (Auto) 7.9 x10^3/uL (1.8-7.7) H Lymphocytes # (Auto) 2.3 x10^3/uL (1.0-4.8) Monocytes # (Auto) 1.4 x10^3/uL (0.0-1.1) H Eosinophils # (Auto) 0.3 x10^3/uL (0.0-0.7) Basophils # (Auto) 0.1 x10^3/uL (0.0-0.2) Platelet Estimate Increased (ADEQUATE) Polychromasia Present Poikilocytosis Slight Anisocytosis Mod Sickle Cells Present Target Cells Present Bonilla-Friend Bodies Present Absolute Reticulocyte Count 0.317 x10^6/uL (0.020-0.120) Percent Reticulocyte Count 8.0 % (0.5-2.3) H Immature Reticulocyte Fraction 0.71 (0.20-0.60) H Sodium Level 139 mmol/L (136-145) Potassium Level 4.5 mmol/L (3.5-5.1) Chloride Level 104 mmol/L (98-107) Carbon Dioxide Level 29 mmol/L (21-32) Anion Gap 6 (6-14) Blood Urea Nitrogen 8 mg/dL (8-26) Creatinine 1.0 mg/dL (0.7-1.3) Estimated GFR (Cockcroft-Gault) 101.2 BUN/Creatinine Ratio 8 (6-20) Glucose Level 105 mg/dL (70-99) H Calcium Level 8.5 mg/dL (8.5-10.1) Total Bilirubin 1.8 mg/dL (0.2-1.0) H Aspartate Amino Transferase (AST) 27 U/L (15-37) Alanine Aminotransferase (ALT) 20 U/L (16-63) Alkaline Phosphatase 82 U/L (46-116) Total Protein 7.5 g/dL (6.4-8.2) Albumin 3.2 g/dL (3.4-5.0) L Albumin/Globulin Ratio 0.7 (1.0-1.7) L Laboratory Tests 02/13/19 10:55 Laboratory Tests 02/13/19 10:55 EKG EKG [] Radiology/Procedures Radiology/Procedures [] Course & Med Decision Making Course & Med Decision Making Pertinent Labs reviewed. (See chart for details) Evaluation of patient in ER showed 38-year-old male patient with history of sickle cell disease and frequent hospitalization with sickle cell crisis presented to ER with complaining of low back pain and bilateral hip pain. Patient did not have IV access and treated with IM medication before having IV access without change of his pain. After starting IV line and IV fluid and IV Dilaudid patient felt better. Labs showed leukocytosis at 8. Patient requiring admission for further evaluation and treatment. Discussed with Dr. Vann who is in agreement with admission. Discussed findings and plan with patient and family, who acknowledge understanding and agreement. Dragon Disclaimer Dragon Disclaimer This electronic medical record was generated, in whole or in part, using a voice recognition dictation system. Departure Departure Impression: Primary Impression: Sickle cell crisis Additional Impressions: Sickle cell anemia with pain Reticulocytosis Disposition: ADMITTED INPATIENT (at 1210) Admitting Physician: MCKENNA (Dr Vann accepted admission at 12:30) Condition: IMPROVED Referrals: BISMARK MOTT MD (PCP) Problem Qualifiers KATHI MENDOSA MD Feb 13, 2019 08:32
[2019-02-13] MEDS ORDERED: diphenhydrAMINE 50 MG/ML VIAL IM ONE (09:30)
[2019-02-13] MEDS ORDERED: ONDANSETRON PF 4 MG/2 ML VIAL. IM ONE (09:30)
[2019-02-13] MEDS ORDERED: HYDROmorphone 2 MG/ML VIAL IM ONE (09:30)
[2019-02-13] MEDS ORDERED: IV NORMAL SALINE 1000ML BAG 1,000 ML IV ONE (11:00)
[2019-02-13 11:06] LABS: BASO # 0.1 x10^3/uL (0.0-0.2); BASO % 1 % (0-3); EOS # 0.3 x10^3/uL (0.0-0.7); EOS % 3 % (0-3); HEMATOCRIT 32.5 % (39.0-53.0); HEMOGLOBIN 10.6 g/dL (13.0-17.5); LYMPH # 2.3 x10^3/uL (1.0-4.8); LYMPH % 19 % (24-48); MEAN CORPUSCULAR HEMOGLOBIN 27 pg (25-35); MEAN CORPUSCULAR HGB CONC 33 g/dL (31-37); MEAN CORPUSCULAR VOLUME 81 fL (79-100); MONO # 1.4 x10^3/uL (0.0-1.1); MONO % 11 % (0-9); NEUT # 7.9 x10^3/uL (1.8-7.7); NEUT % 66 % (31-73); PLATELET COUNT 459 x10^3/uL (140-400)
[2019-02-13 11:13] LABS: CALCIUM 8.5 mg/dL (8.5-10.1); GFR 101.2; POTASSIUM 4.5 mmol/L (3.5-5.1)
[2019-02-13 11:19] LABS: ALBUMIN 3.2 g/dL (3.4-5.0); ALBUMIN/GLOBULIN RATIO 0.7 (1.0-1.7); TOTAL BILIRUBIN 1.8 mg/dL (0.2-1.0); TOTAL PROTEIN 7.5 g/dL (6.4-8.2)
[2019-02-13] MEDS ORDERED: HYDROmorphone 2 MG/ML VIAL IV PRN (12:30)
--- NOTE | 2019-02-13 13:45 | PDOC1 ---
History and Physical Date of Admission: Date of Admission DATE: 02/13/19 TIME: 13:39 Chief Complaint: Problems: (1) Sickle cell crisis (2) Sickle cell anemia with pain Chief Complain: Diffuse pain secondary to sickle cell crisis History of Present Illness: HPI: The patient is a pleasant 38-year-old -[place] male well-known to my service because he has sickle cell crisis every month or so Once again he presents to the ER with diffuse pain Rates at 10 out 10 It's worse with moving better with sitting still He tried increasing his home meds but that didn't help Describes the pain as agonizing While in the ER we noticed his reticulocyte count is 8% which is quite high We are going to admit the patient and give him sickle cell crisis protocol Past Medical/Surgical History: PMH/PSH: Sickle cell disease Past Medical History: Arthritis, Sickle Cell Disease Past Surgical History: Other Additional Past Surgical Histo: L. SHOULDER AND BILATERAL HIP Additional Information: Denies smoking - Alcohol Use: Occasionally Drug Use: None Allergies: Allergies: Coded Allergies: Sulfa (Sulfonamide Antibiotics) (Verified Allergy, Intermediate, 11/05/18) Family History: Family History: Sickle cell disease Social History: Social Hisoty: He does not drink smoke or take drugs Current Medications: Current Medications Current Medications Sodium Chloride 1,000 ml @ 1,000 mls/hr Q1H IV ; Start 02/13/19 at 08:22; Stop 02/13/19 at 09:21; Status DC Hydromorphone HCl (Dilaudid) 1 mg 1X ONCE IV ; Start 02/13/19 at 08:30; Stop 02/13/19 at 08:31; Status DC Ondansetron HCl (Zofran) 4 mg 1X ONCE IV ; Start 02/13/19 at 08:30; Stop 02/13/19 at 08:31; Status DC Diphenhydramine HCl (Benadryl) 50 mg 1X ONCE IVP ; Start 02/13/19 at 08:30; Stop 02/13/19 at 08:31; Status DC Hydromorphone HCl (Dilaudid) 1 mg 1X ONCE IM Last administered on 02/13/19at 09:33; Start 02/13/19 at 09:30; Stop 02/13/19 at 09:33; Status DC Ondansetron HCl (Zofran) 4 mg 1X ONCE IM Last administered on 02/13/19at 09:34; Start 02/13/19 at 09:30; Stop 02/13/19 at 09:33; Status DC Diphenhydramine HCl (Benadryl) 25 mg 1X ONCE IM Last administered on 02/13/19at 09:33; Start 02/13/19 at 09:30; Stop 02/13/19 at 09:33; Status DC Sodium Chloride 1,000 ml @ 1,000 mls/hr 1X ONCE IV Last administered on 02/13/19at 11:01; Start 02/13/19 at 11:00; Stop 02/13/19 at 11:59; Status DC Hydromorphone HCl (Dilaudid) 1 mg 1X ONCE IV Last administered on 02/13/19at 11:50; Start 02/13/19 at 11:45; Stop 02/13/19 at 11:46; Status DC Diphenhydramine HCl (Benadryl) 50 mg 1X ONCE IVP Last administered on 02/13/19at 12:02; Start 02/13/19 at 12:00; Stop 02/13/19 at 12:01; Status DC Sodium Chloride 1,000 ml @ 150 mls/hr Q6H40M IV ; Start 02/13/19 at 12:16; Stop 02/14/19 at 12:15 Hydromorphone HCl (Dilaudid) 1 mg PRN Q4HRS PRN IV PAIN; Start 02/13/19 at 12:30; Stop 02/13/19 at 18:00 Active Scripts Active Diphenhydramine Hcl 25 Mg Capsule 25 Mg PO PRN Q6HRS PRN Hydrea (Hydroxyurea) 500 Mg Capsule 1,000 Mg PO DAILY [Folic Acid] 1 MG Tablet 1 Mg PO DAILY Oxycodone Hcl Immed.release (Oxycodone Hcl) 30 Mg Tablet 30 Mg PO Q4HRS Dilaudid (Hydromorphone Hcl) 2 Mg Tablet 2 Mg PO PRN Q4HRS PRN Diazepam 2 Mg Tablet 2 Mg PO PRN Q6HRS PRN Thera-M Tablet (Multivits,Ca,Minerals/Iron/Fa) 1 Each Tablet 1 Tab PO DAILY ROS: Review of Systems Review of System REVIEW OF SYSTEMS: GENERAL: Complains of diffuse pain SKIN: No bruising, hair changes or rashes. EYES: No blurred, double or loss of vision. NOSE AND THROAT: No history of nosebleeds, hoarseness or sore throat. HEART: No history of palpitations, chest pain or shortness of breath on exertion. LUNGS: Denies cough, hemoptysis, wheezing or shortness of breath. GASTROINTESTINAL: Denies changes in appetite, nausea, vomiting, diarrhea or constipation. GENITOURINARY: No history of frequency, urgency, hesitancy or nocturia. NEUROLOGIC: Bock of diffuse pain PSYCHIATRIC: Combines of depression ENDOCRINE: No history of heat or cold intolerance, polyuria or polydipsia. EXTREMITIES: Bock of extremity pain especially in the joints Physical Exam: Vital Signs: Vital Signs Date Time Temp Pulse Resp B/P (MAP) Pulse Ox O2 Delivery O2 Flow Rate FiO2 02/13/19 13:08 58 95 02/13/19 11:50 Room Air 02/13/19 11:01 16 02/13/19 07:59 98.2 111/56 (74) 98.2 Physcial Exam: GEN: In mild distress complaining of pain HEENT: Normal cephalic, atraumatic, external auditory canals are patent EYES: Extraocular muscles are intact, pupil are equally round and reactive to light and accommodation MUSCULOSKELETAL: Well developed , well nourished ENDOCRINE: No thyromegaly was palpated LYMPHATICS: No cervical chain or axillary nodes were noted HEMATOPOIETIC: No bruising NECK: Supple, no JVD, no thyromegaly was noted LUNGS: Clear to auscultation in all lung vaughan without rhonchi or wheezing HEART: RRR, S!, S2 present. Peripheral pulses intact, no obvious murmurs noted ABDOMEN: Tender to palpation probably secondary to his sickle cell crisis EXTREMITIES: Joints are a little swollen and painful to the touch NEUROLOGIC: In mild distress complaining of pain PSYCHIATRIC: Seems depressed SKIN: No ulcerations or rashes, good skin turgor, no jaundice VASCULAR: Good capillary refill, neurovascular bundle appears to be intact Labs: Labs: Laboratory Tests Test 02/13/19 10:55 White Blood Count 12.0 x10^3/uL (4.0-11.0) Red Blood Count 3.98 x10^6/uL (4.30-5.70) Hemoglobin 10.6 g/dL (13.0-17.5) Hematocrit 32.5 % (39.0-53.0) Mean Corpuscular Volume 81 fL (79-100) Mean Corpuscular Hemoglobin 27 pg (25-35) Mean Corpuscular Hemoglobin Concent 33 g/dL (31-37) Red Cell Distribution Width 26.0 % (11.5-14.5) Platelet Count 459 x10^3/uL (140-400) Neutrophils (%) (Auto) 66 % (31-73) Lymphocytes (%) (Auto) 19 % (24-48) Monocytes (%) (Auto) 11 % (0-9) Eosinophils (%) (Auto) 3 % (0-3) Basophils (%) (Auto) 1 % (0-3) Neutrophils # (Auto) 7.9 x10^3/uL (1.8-7.7) Lymphocytes # (Auto) 2.3 x10^3/uL (1.0-4.8) Monocytes # (Auto) 1.4 x10^3/uL (0.0-1.1) Eosinophils # (Auto) 0.3 x10^3/uL (0.0-0.7) Basophils # (Auto) 0.1 x10^3/uL (0.0-0.2) Absolute Reticulocyte Count 0.317 x10^6/uL (0.020-0.120) Percent Reticulocyte Count 8.0 % (0.5-2.3) Immature Reticulocyte Fraction 0.71 (0.20-0.60) Sodium Level 139 mmol/L (136-145) Potassium Level 4.5 mmol/L (3.5-5.1) Chloride Level 104 mmol/L (98-107) Carbon Dioxide Level 29 mmol/L (21-32) Anion Gap 6 (6-14) Blood Urea Nitrogen 8 mg/dL (8-26) Creatinine 1.0 mg/dL (0.7-1.3) Estimated GFR (Cockcroft-Gault) 101.2 BUN/Creatinine Ratio 8 (6-20) Glucose Level 105 mg/dL (70-99) Calcium Level 8.5 mg/dL (8.5-10.1) Total Bilirubin 1.8 mg/dL (0.2-1.0) Aspartate Amino Transf (AST/SGOT) 27 U/L (15-37) Alanine Aminotransferase (ALT/SGPT) 20 U/L (16-63) Alkaline Phosphatase 82 U/L (46-116) Total Protein 7.5 g/dL (6.4-8.2) Albumin 3.2 g/dL (3.4-5.0) Albumin/Globulin Ratio 0.7 (1.0-1.7) Laboratory Tests Test 02/13/19 10:55 White Blood Count 12.0 x10^3/uL (4.0-11.0) Red Blood Count 3.98 x10^6/uL (4.30-5.70) Hemoglobin 10.6 g/dL (13.0-17.5) Hematocrit 32.5 % (39.0-53.0) Mean Corpuscular Volume 81 fL (79-100) Mean Corpuscular Hemoglobin 27 pg (25-35) Mean Corpuscular Hemoglobin Concent 33 g/dL (31-37) Red Cell Distribution Width 26.0 % (11.5-14.5) Platelet Count 459 x10^3/uL (140-400) Neutrophils (%) (Auto) 66 % (31-73) Lymphocytes (%) (Auto) 19 % (24-48) Monocytes (%) (Auto) 11 % (0-9) Eosinophils (%) (Auto) 3 % (0-3) Basophils (%) (Auto) 1 % (0-3) Neutrophils # (Auto) 7.9 x10^3/uL (1.8-7.7) Lymphocytes # (Auto) 2.3 x10^3/uL (1.0-4.8) Monocytes # (Auto) 1.4 x10^3/uL (0.0-1.1) Eosinophils # (Auto) 0.3 x10^3/uL (0.0-0.7) Basophils # (Auto) 0.1 x10^3/uL (0.0-0.2) Absolute Reticulocyte Count 0.317 x10^6/uL (0.020-0.120) Percent Reticulocyte Count 8.0 % (0.5-2.3) Immature Reticulocyte Fraction 0.71 (0.20-0.60) Sodium Level 139 mmol/L (136-145) Potassium Level 4.5 mmol/L (3.5-5.1) Chloride Level 104 mmol/L (98-107) Carbon Dioxide Level 29 mmol/L (21-32) Anion Gap 6 (6-14) Blood Urea Nitrogen 8 mg/dL (8-26) Creatinine 1.0 mg/dL (0.7-1.3) Estimated GFR (Cockcroft-Gault) 101.2 BUN/Creatinine Ratio 8 (6-20) Glucose Level 105 mg/dL (70-99) Calcium Level 8.5 mg/dL (8.5-10.1) Total Bilirubin 1.8 mg/dL (0.2-1.0) Aspartate Amino Transf (AST/SGOT) 27 U/L (15-37) Alanine Aminotransferase (ALT/SGPT) 20 U/L (16-63) Alkaline Phosphatase 82 U/L (46-116) Total Protein 7.5 g/dL (6.4-8.2) Albumin 3.2 g/dL (3.4-5.0) Albumin/Globulin Ratio 0.7 (1.0-1.7) Assessment/Plan Assessment/Plan Sickle cell crisis with intractable pain Plan IV fluids IV narcotics O2 per nasal cannula Thiamine IV Folic acid Consult hematology Trend his reticulocyte count levels Home meds DVT prophylaxis Full code Long-term prognosis quite guarded at best because he has severe disease FREDA TAVAREZ III DO Feb 13, 2019 13:45
[2019-02-13] MEDS: IV NORMAL SALINE 1000ML BAG 1,000 ML IV SCH ×2 (13:58→19:36)
[2019-02-13 14:19] LABS: PLT ESTIMATE INCREASED (ADEQUATE)
[2019-02-13 14:20] LABS: ANISOCYTOSIS MOD; HOWELL-JOLLY BODIES PRESENT; POIKILOCYTOSIS SLIGHT; SICKLE CELLS PRESENT; TARGET CELLS PRESENT
[2019-02-13 14:21] LABS: POLYCHROMASIA PRESENT
[2019-02-13] MEDS: HYDROmorphone 2 MG/ML VIAL IV PRN ×4 (14:31→22:05)
--- NOTE | 2019-02-13 15:15 | NUR ---
pt admitted to room 588. Dr. Vann in to see pt. orders for IV dilaudid 1 mg q 2 and IV benadryl 50 mg q6 ordered. pt oriented to room and call light.
[2019-02-13 17:00] VITALS: BP 104/50
[2019-02-13] MEDS: HYDROXYUREA 500 MG CAPSULE PO SCH (18:00)
[2019-02-13 19:00] VITALS: BP 91/46
[2019-02-13] MEDS: diphenhydrAMINE 50 MG/ML VIAL IVP PRN (19:31)
[2019-02-13 23:00] VITALS: BP 84/50
[2019-02-14] MEDS: HYDROmorphone 2 MG/ML VIAL IV PRN ×11 (00:36→23:08)
[2019-02-14] MEDS: diphenhydrAMINE 50 MG/ML VIAL IVP PRN ×4 (01:55→20:05)
[2019-02-14] MEDS: IV NORMAL SALINE 1000ML BAG 1,000 ML IV SCH ×4 (01:55→23:08)
[2019-02-14 03:00] VITALS: BP 100/74
--- NOTE | 2019-02-14 05:11 | NUR ---
Throughout shift, whenever administering IV pain medication, pt would question the nurse as to why the IV pain medication is being pushed in so slowly. Educated pt that it is hospital policy to administer IV Dilaudid slowly over at least 2 minutes. Pt dismissed this RN's education, states that information is not true, and also states that no other nurses do that. Informed pt that is policy and that is what will be followed on my shift. Pt also stated multiple times that this RN is singeling him out and doesn't treat any other patients this way. Informed pt that all patients are treated the same and IV pain medication is administered the same. Pt has aggressive speaking toward staff regarding these matters.
[2019-02-14 07:00] VITALS: BP 101/58
[2019-02-14] MEDS: FOLIC ACID 1 MG TABLET. PO SCH (07:57)
[2019-02-14] MEDS: MULTIVITAMIN with MINERAL TABLET. PO SCH (07:57)
[2019-02-14] MEDS: HYDROXYUREA 500 MG CAPSULE PO SCH (08:06)
[2019-02-14 10:59] VITALS: BP 141/55
[2019-02-14 15:00] VITALS: BP 98/60
--- NOTE | 2019-02-14 16:05 | PDOC ---
[employer] PROGRESS NOTE Chief Complaint Chief Complaint Chief Complain: Diffuse pain secondary to sickle cell crisis History of Present Illness History of Present Illness 02/14/19 Saw and examined pt. The patient is a pleasant 38-year-old -[place] who was alert and conversant throughout meeting Pt complained of severe pain throughout body from sickle cell crisis and asked for more medication to manage pain Reticulocyte count is 8% Vitals/I&O Vitals/I&O: Vital Signs Date Time Temp Pulse Resp B/P (MAP) Pulse Ox O2 Delivery O2 Flow Rate FiO2 02/14/19 15:00 97.8 73 17 98/60 (73) 98 Nasal Cannula 2.0 97.8 I & O 02/13/19 02/13/19 02/14/19 15:00 23:00 07:00 Intake Total 1000 ml 1240 ml 1450 ml Output Total 750 ml 700 ml Balance 1000 ml 490 ml 750 ml Physical Exam General: Alert, Oriented X3, Cooperative, severe distress (pt in severe pain ) Heart: Regular rate Lungs: Clear, Other Abdomen: Soft, Other (diffuse abdominal tenderness ) Extremities: Other (pain in ue and le b/l ) Skin: No rashes Review of Systems Review of Systems: Gen: Pt is in severe discomfort from sickle cell crisis and says has pain diffusely throughout body. Denies f/c Extremities: claims pain bl in ue and le Resp: Pt denies SOA GI: denies N/V Assessment and Plan Assessmemt and Plan Assessment/Plan Sickle cell crisis with intractable pain Plan IV fluids IV narcotics O2 per nasal cannula Thiamine IV Folic acid Consult hematology Trend his reticulocyte count levels Home meds DVT prophylaxis Full code Long-term prognosis quite guarded at best because he has severe disease Comment Review of Relevant I have reviewed the following items jorge luis (where applicable) has been applied. Medications: Current Medications Medications (Trade) Dose Ordered Sig/Shoshana Route PRN Reason Start Time Stop Time Status Last Admin Dose Admin Hydroxyurea (Hydrea) 1,000 mg DAILY PO 02/13/19 18:00 02/14/19 08:06 Multivitamins (Thera M Plus) 1 tab DAILY PO 02/14/19 09:00 02/14/19 07:57 Oxycodone HCl (Roxicodone) 30 mg Q4HRS PO 02/14/19 00:00 02/14/19 12:47 Folic Acid (Folic Acid) 1 mg DAILY PO 02/14/19 09:00 02/14/19 07:57 Hydromorphone HCl (Dilaudid) 2 mg PRN Q2HR PRN IV PAIN 02/14/19 14:00 02/14/19 14:01 FREDA TAVAREZ III DO Feb 14, 2019 16:05
[2019-02-14 19:00] VITALS: BP 99/58
--- NOTE | 2019-02-14 19:27 | NUR ---
Throughout the shift patient kept questioning the way this RN would administer IV medications, he would state he did not want it flushed, why this RN takes too long to administer it, or why this RN could not administer all the medications at the same time. This RN tried to educate patient but all he would state was all you nurses do everything differently. This RN tried not to feed into his arguments. At 1700 when this RN went in to administer his 1600 dose of Oxycodone IR, patient stated that this RN never gave him is 1600 dose of IV Dilaudid. This RN stated that the Dilaudid was administered at 1604 and this RN wrote the time he would have it next on the white board, this RN also initialled at the time nurse was in the room. Patient kept stating this RN was lying and that this RN did not care about him and that he wanted to talk to the nursing food and nutrition services supervisor. This RN told patient there was no need to speak to the nursing food and nutrition services supervisor, patient became upset and arguing more, so this RN left the room. Patient called on the call light and asked the community associate to call the nursing food and nutrition services supervisor for him. Nursing food and nutrition services supervisor was paged and was made aware of the situation.
[2019-02-14 23:00] VITALS: BP 113/71
--- NOTE | 2019-02-14 23:41 | CONS ---
DATE OF CONSULTATION: 02/14/2019 HEMATOLOGY-ONCOLOGY CONSULTATION REPORT REQUESTING PHYSICIAN: Dr. Quiana Vann. REASON FOR CONSULTATION: Sickle cell crisis. HISTORY OF PRESENT ILLNESS: The patient is a 38-year-old -[place] gentleman, who has history of sickle cell disease with hemoglobin electrophoresis consistent with SS disease with the 9% hemoglobin. He also has a history of avascular necrosis with the left shoulder surgery in 2007, and left shoulder replacement in 03/2018, and bilateral hip injections in 05/2018. He has had multiple admissions to [facility]. He has also had a history of being treated with hydroxyurea. His current dose of hydroxyurea is 1000 mg daily. He presented to [facility] on 02/13/2019, with the complaints of back pain, bilateral shoulder pains consistent with sickle cell crisis. He was started on pain medications and oxygen. His hemoglobin was noted to be 10.6 on 02/13/2019 with a reticulocyte count of 8.0. PAST MEDICAL HISTORY: Acute chest syndrome in 2002, anxiety, arthralgia, avascular necrosis, status post left shoulder surgery, back pain, depression and UTI. FAMILY HISTORY: Positive for sickle cell disease. SOCIAL HISTORY: No smoking or alcohol abuse. REVIEW OF SYSTEMS: A 12-point review of system was performed. Pertinent positives are mentioned in the history of present illness. Rest of the system review is negative. PHYSICAL EXAMINATION: GENERAL APPEARANCE: The patient is a 38-year-old -[place] gentleman, who is in no acute cardiorespiratory distress. VITAL SIGNS: Blood pressure 141/55, temperature of 97.8. HEENT: Head atraumatic, normocephalic. EYES: No icterus. NECK: Supple. CHEST: Bilaterally symmetrical. HEART: S1, S2 normal. ABDOMEN: Soft, nontender. CENTRAL NERVOUS SYSTEM: No focal deficits. LYMPHATICS: No lymphadenopathy. SKIN: No rashes. PSYCHOLOGIC: Mood and affect are appropriate. LABORATORY DATA: WBC 12, hemoglobin 10.6 and platelet count 459. Reticulocyte count 8.0. IMPRESSION AND PLAN: 1. Sickle cell crisis. Agree to continue pain management per Dr. Quiana Vann. Continue IV fluids and oxygen as needed. Continue hydroxyurea 1000 mg daily and folic acid. 2. 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 Reticulocyte count is elevated at 8%. Continue to monitor. NAVEEN RESENDIZ MD DR: Sherry JOB#: [id number] / [id number]
[2019-02-15] MEDS: HYDROmorphone 2 MG/ML VIAL IV PRN ×10 (01:27→21:43)
[2019-02-15 03:00] VITALS: BP 100/56
[2019-02-15] MEDS: diphenhydrAMINE 50 MG/ML VIAL IVP PRN ×4 (03:09→21:43)
[2019-02-15] MEDS: IV NORMAL SALINE 1000ML BAG 1,000 ML IV SCH ×3 (05:56→20:06)
--- NOTE | 2019-02-15 06:34 | NUR ---
Throughout the shift, patient requests IV medications to be "pushed fast." RN provides education to patient on why this is unsafe practice. Patient states that he doesn't get any pain relief unless it is pushed fast. Reinforced education on unsafe practice. Patient declines understanding. Will pass along to day RN.
[2019-02-15 07:00] VITALS: BP 117/74
[2019-02-15] MEDS: MULTIVITAMIN with MINERAL TABLET. PO SCH (09:16)
[2019-02-15] MEDS: FOLIC ACID 1 MG TABLET. PO SCH (09:16)
[2019-02-15] MEDS: HYDROXYUREA 500 MG CAPSULE PO SCH (09:22)
[2019-02-15 10:50] VITALS: BP 116/82
--- NOTE | 2019-02-15 12:08 | PDOC ---
[employer] PROGRESS NOTE Chief Complaint Chief Complaint Chief Complain: Diffuse pain secondary to sickle cell crisis History of Present Illness History of Present Illness 02/14/19 Saw and examined pt. The patient is a pleasant 38-year-old -[place] Citizen who was alert and conversant throughout meeting Pt complained of severe pain throughout body from sickle cell crisis and asked for more medication to manage pain Reticulocyte count is 8 1720 Patient seen and examined He still has a lot of pain Reticulocyte count pending Discussed with case management Chart reviewed Vitals/I&O Vitals/I&O: Vital Signs Date Time Temp Pulse Resp B/P (MAP) Pulse Ox O2 Delivery O2 Flow Rate FiO2 02/15/19 10:50 98.1 90 18 116/82 (93) 95 Room Air 98.1 02/15/19 09:16 2.0 I & O 02/14/19 02/14/19 02/15/19 15:00 23:00 07:00 Intake Total 600 ml 300 ml 1000 ml Output Total 475 ml 1600 ml 1600 ml Balance 125 ml -1300 ml -600 ml Physical Exam General: Alert, Oriented X3, Cooperative, severe distress (pt in severe pain ) Heart: Regular rate Lungs: Clear, Other Abdomen: Soft, Other (diffuse abdominal tenderness ) Extremities: Other (pain in ue and le b/l ) Skin: No rashes Review of Systems Review of Systems: Complains of pain complains of weakness Assessment and Plan Assessmemt and Plan Problems Medical Problems: (1) Reticulocytosis Status: Acute (2) Sickle cell anemia with pain Status: Acute Sickle cell crisis with intractable pain Plan IV fluids IV narcotics O2 per nasal cannula Thiamine IV Folic acid Consult hematology Trend his reticulocyte count levels Home meds DVT prophylaxis Full code Long-term prognosis quite guarded at best because he has severe disease Comment Review of Relevant I have reviewed the following items jorge luis (where applicable) has been applied. Medications: Current Medications Medications (Trade) Dose Ordered Sig/Shoshana Route PRN Reason Start Time Stop Time Status Last Admin Dose Admin Hydromorphone HCl (Dilaudid) 2 mg PRN Q2HR PRN IV PAIN 02/14/19 14:00 02/15/19 10:02 Sodium Chloride 1,000 ml @ 150 mls/hr Q6H40M IV 02/14/19 16:00 02/15/19 05:56 FREDA TAVAREZ III DO Feb 15, 2019 12:08
--- NOTE | 2019-02-15 12:54 | PDOC ---
PROGRESS NOTES Subjective Subjective HPI - f/u of Sickle cell crisis ROS - has diffuse bone pains Objective Objective Vital Signs Date Time Temp Pulse Resp B/P (MAP) Pulse Ox O2 Delivery O2 Flow Rate FiO2 02/15/19 12:08 Room Air 02/15/19 10:50 98.1 90 18 116/82 (93) 95 98.1 02/15/19 09:16 2.0 Intake and Output 02/15/19 07:00 Intake Total 1900 ml Output Total 3675 ml Balance -1775 ml Intake Oral 900 ml IV Total 1000 ml Output Urine Total 3675 ml Physical Exam General: Alert, No acute distress Psych/Mental Status: Mental status NL Assessment Assessment Problems Medical Problems: (1) Reticulocytosis Status: Acute (2) Sickle cell anemia with pain Status: Acute IMPRESSION AND PLAN: 1. Sickle cell crisis. Agree to continue pain management per Dr. Quiana Vann. Continue IV fluids and oxygen as needed. Continue hydroxyurea 1000 mg daily and folic acid. 2. 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 Reticulocyte count is elevated at 8%. Continue to monitor. 3. Pain management per DR Vann. Comment Review of Relevant I have reviewed the following items jorge luis (where applicable) has been applied. Medications Current Medications Sodium Chloride 1,000 ml @ 1,000 mls/hr Q1H IV ; Start 02/13/19 at 08:22; Stop 02/13/19 at 09:21; Status DC Hydromorphone HCl (Dilaudid) 1 mg 1X ONCE IV ; Start 02/13/19 at 08:30; Stop 02/13/19 at 08:31; Status DC Ondansetron HCl (Zofran) 4 mg 1X ONCE IV ; Start 02/13/19 at 08:30; Stop 02/13/19 at 08:31; Status DC Diphenhydramine HCl (Benadryl) 50 mg 1X ONCE IVP ; Start 02/13/19 at 08:30; Stop 02/13/19 at 08:31; Status DC Hydromorphone HCl (Dilaudid) 1 mg 1X ONCE IM Last administered on 02/13/19at 09:33; Start 02/13/19 at 09:30; Stop 02/13/19 at 09:33; Status DC Ondansetron HCl (Zofran) 4 mg 1X ONCE IM Last administered on 02/13/19at 09:34; Start 02/13/19 at 09:30; Stop 02/13/19 at 09:33; Status DC Diphenhydramine HCl (Benadryl) 25 mg 1X ONCE IM Last administered on 02/13/19at 09:33; Start 02/13/19 at 09:30; Stop 02/13/19 at 09:33; Status DC Sodium Chloride 1,000 ml @ 1,000 mls/hr 1X ONCE IV Last administered on 02/13/19at 11:01; Start 02/13/19 at 11:00; Stop 02/13/19 at 11:59; Status DC Hydromorphone HCl (Dilaudid) 1 mg 1X ONCE IV Last administered on 02/13/19at 11:50; Start 02/13/19 at 11:45; Stop 02/13/19 at 11:46; Status DC Diphenhydramine HCl (Benadryl) 50 mg 1X ONCE IVP Last administered on 02/13/19at 12:02; Start 02/13/19 at 12:00; Stop 02/13/19 at 12:01; Status DC Sodium Chloride 1,000 ml @ 150 mls/hr Q6H40M IV Last administered on 02/14/19at 09:07; Start 02/13/19 at 12:16; Stop 02/14/19 at 12:15; Status DC Hydromorphone HCl (Dilaudid) 1 mg PRN Q4HRS PRN IV PAIN; Start 02/13/19 at 12:30; Stop 02/13/19 at 14:08; Status DC Hydromorphone HCl (Dilaudid) 1 mg PRN Q2HR PRN IV PAIN Last administered on 02/14/19at 11:34; Start 02/13/19 at 14:15; Stop 02/14/19 at 13:51; Status DC Diphenhydramine HCl (Benadryl) 50 mg 1X ONCE IVP Last administered on 02/13/19at 14:30; Start 02/13/19 at 14:30; Stop 02/13/19 at 14:31; Status DC Diphenhydramine HCl (Benadryl) 50 mg PRN Q6HRS PRN IVP itching Last administered on 02/15/19at 09:16; Start 02/13/19 at 15:15 Hydroxyurea (Hydrea) 1,000 mg DAILY PO Last administered on 02/15/19 09:22; Start 02/13/19 at 18:00 Multivitamins (Thera M Plus) 1 tab DAILY PO Last administered on 02/15/19 09:16; Start 02/14/19 at 09:00 Oxycodone HCl (Roxicodone) 30 mg Q4HRS PO Last administered on 02/15/19at 12:08; Start 02/14/19 at 00:00 Folic Acid (Folic Acid) 1 mg DAILY PO Last administered on 02/15/19 09:16; Start 02/14/19 at 09:00 Hydromorphone HCl (Dilaudid) 2 mg PRN Q2HR PRN IV PAIN Last administered on 02/15/19 12:08; Start 02/14/19 at 14:00 Sodium Chloride 1,000 ml @ 150 mls/hr Q6H40M IV Last administered on 02/15/19at 12:07; Start 02/14/19 at 16:00 Active Scripts Active Diphenhydramine Hcl 25 Mg Capsule 25 Mg PO PRN Q6HRS PRN Hydrea (Hydroxyurea) 500 Mg Capsule 1,000 Mg PO DAILY [Folic Acid] 1 MG Tablet 1 Mg PO DAILY Oxycodone Hcl Immed.release (Oxycodone Hcl) 30 Mg Tablet 30 Mg PO Q4HRS Thera-M Tablet (Multivits,Ca,Minerals/Iron/Fa) 1 Each Tablet 1 Tab PO DAILY Vitals/I & O Vital Sign - Last 24 Hours 02/14/19 02/14/19 02/14/19 02/14/19 14:01 14:06 15:00 15:00 Temp 97.8 97.8 Pulse 73 Resp 17 B/P (MAP) 98/60 (73) Pulse Ox 98 O2 Delivery Nasal Cannula Nasal Cannula Nasal Cannula Nasal Cannula O2 Flow Rate 2.0 2.0 2.0 2.0 02/14/19 02/14/19 02/14/19 02/14/19 16:04 17:04 17:05 18:10 O2 Delivery Nasal Cannula Nasal Cannula Nasal Cannula Nasal Cannula O2 Flow Rate 2.0 2.0 2.0 2.0 02/14/19 02/14/19 02/14/19 02/14/19 19:00 19:26 20:04 20:25 Temp 99.0 99.0 Pulse 80 Resp 21 15 15 B/P (MAP) 99/58 (72) Pulse Ox 95 98 98 O2 Delivery Room Air Nasal Cannula Nasal Cannula Nasal Cannula O2 Flow Rate 2.0 02/14/19 02/14/19 02/14/19 02/14/19 21:05 21:05 23:00 23:08 Temp 98.0 98.0 Pulse 81 Resp 20 15 B/P (MAP) 113/71 (85) Pulse Ox 98 98 96 98 O2 Delivery Nasal Cannula Nasal Cannula Room Air Nasal Cannula O2 Flow Rate 2.0 2.0 2.0 02/15/19 02/15/19 02/15/19 02/15/19 00:00 00:13 01:22 01:27 Resp 18 Pulse Ox 98 98 98 98 O2 Delivery Room Air Nasal Cannula Room Air Room Air O2 Flow Rate 2.0 02/15/19 02/15/19 02/15/19 02/15/19 02:00 03:00 03:41 04:16 Temp 98.0 98.0 Pulse 81 Resp 19 B/P (MAP) 100/56 (71) Pulse Ox 98 98 98 98 O2 Delivery Room Air Room Air Room Air Room Air 02/15/19 02/15/19 02/15/19 02/15/19 04:16 05:15 05:56 06:31 Pulse Ox 98 98 98 98 O2 Delivery Room Air Room Air Room Air Room Air 02/15/19 02/15/19 02/15/19 02/15/19 07:00 08:02 08:05 08:40 Temp 98.0 98.0 Pulse 86 Resp 18 B/P (MAP) 117/74 (88) Pulse Ox 95 O2 Delivery Room Air Room Air Nasal Cannula Room Air O2 Flow Rate 2.0 02/15/19 02/15/19 02/15/19 02/15/19 09:16 10:02 10:30 10:30 O2 Delivery Nasal Cannula Room Air Room Air Room Air O2 Flow Rate 2.0 02/15/19 02/15/19 02/15/19 10:50 12:08 12:08 Temp 98.1 98.1 Pulse 90 Resp 18 B/P (MAP) 116/82 (93) Pulse Ox 95 O2 Delivery Room Air Room Air Room Air Intake and Output 02/14/19 02/14/19 02/15/19 15:00 23:00 07:00 Intake Total 600 ml 300 ml 1000 ml Output Total 475 ml 1600 ml 1600 ml Balance 125 ml -1300 ml -600 ml NAVEEN RESENDIZ MD Feb 15, 2019 12:54
[2019-02-15 15:00] VITALS: BP 110/80
[2019-02-15 19:00] VITALS: BP 119/72
[2019-02-15 23:00] VITALS: BP 96/64
[2019-02-16] MEDS: HYDROmorphone 2 MG/ML VIAL IV PRN ×9 (00:18→20:53)
[2019-02-16 03:00] VITALS: BP 107/70
[2019-02-16] MEDS: IV NORMAL SALINE 1000ML BAG 1,000 ML IV SCH ×4 (03:02→23:11)
[2019-02-16] MEDS: diphenhydrAMINE 50 MG/ML VIAL IVP PRN ×4 (04:14→23:10)
[2019-02-16 07:00] VITALS: BP 117/77
--- NOTE | 2019-02-16 08:45 | PDOC ---
PROGRESS NOTES Chief Complaint Chief Complaint Sickle cell crisis/pain - retic percentage coming down. dilaudid dosing 3mgs, q3hrs prn. Schedule oxycodone IR 30 mg q4hrs. I have advised him I will reorder this. 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 With benadryl dosing will bladder scan if his UOP drops FEN - General diet PPX - lovenox FULL CODE Dispo - inpatient for SCD pain crisis History of Present Illness History of Present Illness Mr Licea is a 38yo M w/ PMHx SCD, Osteonecrosis of left shoulder, depression with anxiety who presents with diffuse bone pain, lower back pain, bilateral hip pain, right rib pain and bilateral shoulder pain just recovering from a recent sickle cell crisis. Found with 0.317 absolute retic and 8% retics. CXR negative for abnormality. He has noted he is experiencing slow urine stream and burning on urination as well as dysuria. No risk for STIs, no prior UTI, but has had priapism previously. He has been told he has enlarged prostate. He has been taking folate and hydroxyurea. Retic 8 on admit 02/14: Complained of severe pain throughout body from sickle cell crisis and asked for more medication to manage pain 02/15: Still c/o diffuse pain Patient c/o right shoulder, left shoulder, right hip. Requesting IV benadryl q4hrs and dilaudid dose increase. I have advised him I will decrease dilaudid frequency with the dose increase and benadryl dosing should be the same or discontinued given his history of urinary retention. Denies CP or SOB Vitals Vitals Vital Signs Date Time Temp Pulse Resp B/P (MAP) Pulse Ox O2 Delivery O2 Flow Rate FiO2 02/16/19 07:33 Room Air 02/16/19 07:00 98.3 71 18 117/77 (90) 93 98.3 02/15/19 09:16 2.0 Physical Exam General: Alert, No acute distress Heart: Regular rate Lungs: Clear, Other Abdomen: Soft, Other (diffuse abdominal tenderness ) Extremities: Other (pain in ue and le b/l ) Skin: No rashes Assessment and Plan Assessmemt and Plan Problems Medical Problems: (1) Reticulocytosis Status: Acute (2) Sickle cell anemia with pain Status: Acute Comment Review of Relevant I have reviewed the following items jorge luis (where applicable) has been applied. Medications Current Medications Sodium Chloride 1,000 ml @ 1,000 mls/hr Q1H IV ; Start 02/13/19 at 08:22; Stop 02/13/19 at 09:21; Status DC Hydromorphone HCl (Dilaudid) 1 mg 1X ONCE IV ; Start 02/13/19 at 08:30; Stop 02/13/19 at 08:31; Status DC Ondansetron HCl (Zofran) 4 mg 1X ONCE IV ; Start 02/13/19 at 08:30; Stop 02/13/19 at 08:31; Status DC Diphenhydramine HCl (Benadryl) 50 mg 1X ONCE IVP ; Start 02/13/19 at 08:30; Stop 02/13/19 at 08:31; Status DC Hydromorphone HCl (Dilaudid) 1 mg 1X ONCE IM Last administered on 02/13/19at 09:33; Start 02/13/19 at 09:30; Stop 02/13/19 at 09:33; Status DC Ondansetron HCl (Zofran) 4 mg 1X ONCE IM Last administered on 02/13/19at 09:34; Start 02/13/19 at 09:30; Stop 02/13/19 at 09:33; Status DC Diphenhydramine HCl (Benadryl) 25 mg 1X ONCE IM Last administered on 02/13/19at 09:33; Start 02/13/19 at 09:30; Stop 02/13/19 at 09:33; Status DC Sodium Chloride 1,000 ml @ 1,000 mls/hr 1X ONCE IV Last administered on 02/13/19at 11:01; Start 02/13/19 at 11:00; Stop 02/13/19 at 11:59; Status DC Hydromorphone HCl (Dilaudid) 1 mg 1X ONCE IV Last administered on 02/13/19at 11:50; Start 02/13/19 at 11:45; Stop 02/13/19 at 11:46; Status DC Diphenhydramine HCl (Benadryl) 50 mg 1X ONCE IVP Last administered on 02/13/19at 12:02; Start 02/13/19 at 12:00; Stop 02/13/19 at 12:01; Status DC Sodium Chloride 1,000 ml @ 150 mls/hr Q6H40M IV Last administered on 02/14/19at 09:07; Start 02/13/19 at 12:16; Stop 02/14/19 at 12:15; Status DC Hydromorphone HCl (Dilaudid) 1 mg PRN Q4HRS PRN IV PAIN; Start 02/13/19 at 12:30; Stop 02/13/19 at 14:08; Status DC Hydromorphone HCl (Dilaudid) 1 mg PRN Q2HR PRN IV PAIN Last administered on 02/14/19at 11:34; Start 02/13/19 at 14:15; Stop 02/14/19 at 13:51; Status DC Diphenhydramine HCl (Benadryl) 50 mg 1X ONCE IVP Last administered on 02/13/19at 14:30; Start 02/13/19 at 14:30; Stop 02/13/19 at 14:31; Status DC Diphenhydramine HCl (Benadryl) 50 mg PRN Q6HRS PRN IVP itching Last administered on 02/16/19at 04:14; Start 02/13/19 at 15:15 Hydroxyurea (Hydrea) 1,000 mg DAILY PO Last administered on 02/15/19at 09:22; Start 02/13/19 at 18:00 Multivitamins (Thera M Plus) 1 tab DAILY PO Last administered on 02/15/19at 09:16; Start 02/14/19 at 09:00 Oxycodone HCl (Roxicodone) 30 mg Q4HRS PO Last administered on 02/16/19at 04:14; Start 02/14/19 at 00:00 Folic Acid (Folic Acid) 1 mg DAILY PO Last administered on 02/15/19at 09:16; Start 02/14/19 at 09:00 Hydromorphone HCl (Dilaudid) 2 mg PRN Q2HR PRN IV PAIN Last administered on 02/16/19at 07:33; Start 02/14/19 at 14:00 Sodium Chloride 1,000 ml @ 150 mls/hr Q6H40M IV Last administered on 02/16/19at 03:02; Start 02/14/19 at 16:00 Active Scripts Active Diphenhydramine Hcl 25 Mg Capsule 25 Mg PO PRN Q6HRS PRN Hydrea (Hydroxyurea) 500 Mg Capsule 1,000 Mg PO DAILY [Folic Acid] 1 MG Tablet 1 Mg PO DAILY Oxycodone Hcl Immed.release (Oxycodone Hcl) 30 Mg Tablet 30 Mg PO Q4HRS Thera-M Tablet (Multivits,Ca,Minerals/Iron/Fa) 1 Each Tablet 1 Tab PO DAILY Vitals/I & O Vital Sign - Last 24 Hours 02/15/19 02/15/19 02/15/19 02/15/19 09:16 10:02 10:30 10:30 O2 Delivery Nasal Cannula Room Air Room Air Room Air O2 Flow Rate 2.0 02/15/19 02/15/19 02/15/19 02/15/19 10:50 12:08 12:08 14:23 Temp 98.1 98.1 Pulse 90 Resp 18 B/P (MAP) 116/82 (93) Pulse Ox 95 O2 Delivery Room Air Room Air Room Air Room Air 02/15/19 02/15/19 02/15/19 02/15/19 14:26 14:26 15:00 15:26 Temp 98.1 98.1 Pulse 90 Resp 18 B/P (MAP) 110/80 (90) Pulse Ox 95 O2 Delivery Room Air Room Air Room Air Room Air 02/15/19 02/15/19 02/15/19 02/15/19 16:47 16:47 17:30 18:00 O2 Delivery Room Air Room Air Nasal Cannula Room Air 02/15/19 02/15/19 02/15/19 02/15/19 19:00 19:22 20:05 20:06 Temp 98.0 98.0 Pulse 84 Resp 18 B/P (MAP) 119/72 (88) Pulse Ox 95 O2 Delivery Room Air Room Air Room Air Room Air 02/15/19 02/15/19 02/15/19 02/15/19 20:15 21:05 21:43 22:15 O2 Delivery Room Air Room Air Room Air Room Air 02/15/19 02/16/19 02/16/19 02/16/19 23:00 00:17 00:18 00:52 Temp 98.4 98.4 Pulse 88 Resp 18 B/P (MAP) 96/64 (75) Pulse Ox 94 O2 Delivery Room Air Room Air Room Air Room Air 02/16/19 02/16/19 02/16/19 02/16/19 01:16 03:00 03:03 04:14 Temp 97.9 97.9 Pulse 79 Resp 18 B/P (MAP) 107/70 (82) Pulse Ox 96 O2 Delivery Room Air Room Air Room Air Room Air 02/16/19 02/16/19 02/16/19 02/16/19 04:18 05:13 05:14 05:51 O2 Delivery Room Air Room Air Room Air Room Air 02/16/19 02/16/19 07:00 07:33 Temp 98.3 98.3 Pulse 71 Resp 18 B/P (MAP) 117/77 (90) Pulse Ox 93 O2 Delivery Room Air Room Air Intake and Output 02/15/19 02/15/19 02/16/19 15:00 23:00 07:00 Intake Total 300 ml 550 ml 360 ml Output Total 1900 ml 900 ml Balance -1600 ml -350 ml 360 ml HUNTER SHARMA MD Feb 16, 2019 08:45
[2019-02-16] MEDS: FOLIC ACID 1 MG TABLET. PO SCH (10:17)
[2019-02-16] MEDS: MULTIVITAMIN with MINERAL TABLET. PO SCH (10:18)
[2019-02-16 10:23] LABS: BASO # 0.1 x10^3/uL (0.0-0.2); BASO % 1 % (0-3); EOS # 0.2 x10^3/uL (0.0-0.7); EOS % 2 % (0-3); HEMOGLOBIN 11.3 g/dL (13.0-17.5); LYMPH % 48 % (24-48); MEAN CORPUSCULAR HEMOGLOBIN 26 pg (25-35); MEAN CORPUSCULAR HGB CONC 33 g/dL (31-37); MEAN CORPUSCULAR VOLUME 79 fL (79-100); MONO # 0.6 x10^3/uL (0.0-1.1); MONO % 6 % (0-9); NEUT # 4.5 x10^3/uL (1.8-7.7); NEUT % 43 % (31-73); PLATELET COUNT 491 x10^3/uL (140-400); RED BLOOD COUNT 4.28 x10^6/uL (4.30-5.70); RED CELL DISTRIBUTION WIDTH 25.6 % (11.5-14.5); WHITE BLOOD COUNT 10.4 x10^3/uL (4.0-11.0)
[2019-02-16] MEDS: HYDROXYUREA 500 MG CAPSULE PO SCH (10:25)
[2019-02-16 10:58] LABS: % EOS 5 % (0-5); % LYMPHS 38 % (24-48); % MONOS 8 % (0-10); % SEGS 49 % (35-66); PLT ESTIMATE INCREASED (ADEQUATE); POIKILOCYTOSIS MOD; POLYCHROMASIA MOD
[2019-02-16 10:59] LABS: ANISOCYTOSIS MOD; SICKLE CELLS PRESENT; TARGET CELLS PRESENT
[2019-02-16 11:00] VITALS: BP 113/69
--- NOTE | 2019-02-16 11:01 | PDOC ---
PROGRESS NOTES Subjective Subjective HPI - f/u of Sickle cell crisis ROS -has diffuse bony pains Objective Objective Vital Signs Date Time Temp Pulse Resp B/P (MAP) Pulse Ox O2 Delivery O2 Flow Rate FiO2 02/16/19 10:18 Room Air 02/16/19 07:00 98.3 71 18 117/77 (90) 93 98.3 02/15/19 09:16 2.0 Intake and Output 02/16/19 07:00 Intake Total 1210 ml Output Total 2800 ml Balance -1590 ml Intake Oral 1210 ml Output Urine Total 2800 ml # Voids 6 Physical Exam General: Alert, Oriented X3, No acute distress Neuro: Normal speech Psych/Mental Status: Mental status NL Assessment Assessment Problems Medical Problems: (1) Reticulocytosis Status: Acute (2) Sickle cell anemia with pain Status: Acute IMPRESSION AND PLAN: 1. Sickle cell crisis. Agree to continue pain management per Dr. Quiana Vann. Continue IV fluids and oxygen as needed. Continue hydroxyurea 1000 mg daily and folic acid. 2. 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 Reticulocyte count is elevated at 8%. Continue to monitor. Hb 11.3, Retic 7.1. 3. Pain management per DR Vann. Comment Review of Relevant I have reviewed the following items jorge luis (where applicable) has been applied. Labs Laboratory Tests Test 02/16/19 10:00 White Blood Count 10.4 x10^3/uL (4.0-11.0) Red Blood Count 4.33 x10^6/uL (4.30-5.70) Hemoglobin 11.3 g/dL (13.0-17.5) Hematocrit 34.0 % (39.0-53.0) Mean Corpuscular Volume 79 fL (79-100) Mean Corpuscular Hemoglobin 26 pg (25-35) Mean Corpuscular Hemoglobin Concent 33 g/dL (31-37) Red Cell Distribution Width 25.6 % (11.5-14.5) Platelet Count 491 x10^3/uL (140-400) Neutrophils (%) (Auto) 43 % (31-73) Lymphocytes (%) (Auto) 48 % (24-48) Monocytes (%) (Auto) 6 % (0-9) Eosinophils (%) (Auto) 2 % (0-3) Basophils (%) (Auto) 1 % (0-3) Neutrophils # (Auto) 4.5 x10^3/uL (1.8-7.7) Lymphocytes # (Auto) 5.0 x10^3/uL (1.0-4.8) Monocytes # (Auto) 0.6 x10^3/uL (0.0-1.1) Eosinophils # (Auto) 0.2 x10^3/uL (0.0-0.7) Basophils # (Auto) 0.1 x10^3/uL (0.0-0.2) Segmented Neutrophils % 49 % (35-66) Lymphocytes % 38 % (24-48) Monocytes % 8 % (0-10) Eosinophils % 5 % (0-5) Platelet Estimate Increased (ADEQUATE) Large Platelets Occ Polychromasia Mod Poikilocytosis Mod Anisocytosis Mod Sickle Cells Present Target Cells Present Absolute Reticulocyte Count 0.307 x10^6/uL (0.020-0.120) Percent Reticulocyte Count 7.1 % (0.5-2.3) Immature Reticulocyte Fraction 0.63 (0.20-0.60) Laboratory Tests Test 02/16/19 10:00 White Blood Count 10.4 x10^3/uL (4.0-11.0) Red Blood Count 4.33 x10^6/uL (4.30-5.70) Hemoglobin 11.3 g/dL (13.0-17.5) Hematocrit 34.0 % (39.0-53.0) Mean Corpuscular Volume 79 fL (79-100) Mean Corpuscular Hemoglobin 26 pg (25-35) Mean Corpuscular Hemoglobin Concent 33 g/dL (31-37) Red Cell Distribution Width 25.6 % (11.5-14.5) Platelet Count 491 x10^3/uL (140-400) Neutrophils (%) (Auto) 43 % (31-73) Lymphocytes (%) (Auto) 48 % (24-48) Monocytes (%) (Auto) 6 % (0-9) Eosinophils (%) (Auto) 2 % (0-3) Basophils (%) (Auto) 1 % (0-3) Neutrophils # (Auto) 4.5 x10^3/uL (1.8-7.7) Lymphocytes # (Auto) 5.0 x10^3/uL (1.0-4.8) Monocytes # (Auto) 0.6 x10^3/uL (0.0-1.1) Eosinophils # (Auto) 0.2 x10^3/uL (0.0-0.7) Basophils # (Auto) 0.1 x10^3/uL (0.0-0.2) Segmented Neutrophils % 49 % (35-66) Lymphocytes % 38 % (24-48) Monocytes % 8 % (0-10) Eosinophils % 5 % (0-5) Platelet Estimate Increased (ADEQUATE) Large Platelets Occ Polychromasia Mod Poikilocytosis Mod Anisocytosis Mod Sickle Cells Present Target Cells Present Absolute Reticulocyte Count 0.307 x10^6/uL (0.020-0.120) Percent Reticulocyte Count 7.1 % (0.5-2.3) Immature Reticulocyte Fraction 0.63 (0.20-0.60) Medications Current Medications Sodium Chloride 1,000 ml @ 1,000 mls/hr Q1H IV ; Start 02/13/19 at 08:22; Stop 02/13/19 at 09:21; Status DC Hydromorphone HCl (Dilaudid) 1 mg 1X ONCE IV ; Start 02/13/19 at 08:30; Stop 02/13/19 at 08:31; Status DC Ondansetron HCl (Zofran) 4 mg 1X ONCE IV ; Start 02/13/19 at 08:30; Stop 02/13/19 at 08:31; Status DC Diphenhydramine HCl (Benadryl) 50 mg 1X ONCE IVP ; Start 02/13/19 at 08:30; Stop 02/13/19 at 08:31; Status DC Hydromorphone HCl (Dilaudid) 1 mg 1X ONCE IM Last administered on 02/13/19at 09:33; Start 02/13/19 at 09:30; Stop 02/13/19 at 09:33; Status DC Ondansetron HCl (Zofran) 4 mg 1X ONCE IM Last administered on 02/13/19at 09:34; Start 02/13/19 at 09:30; Stop 02/13/19 at 09:33; Status DC Diphenhydramine HCl (Benadryl) 25 mg 1X ONCE IM Last administered on 02/13/19at 09:33; Start 02/13/19 at 09:30; Stop 02/13/19 at 09:33; Status DC Sodium Chloride 1,000 ml @ 1,000 mls/hr 1X ONCE IV Last administered on 02/13/19at 11:01; Start 02/13/19 at 11:00; Stop 02/13/19 at 11:59; Status DC Hydromorphone HCl (Dilaudid) 1 mg 1X ONCE IV Last administered on 02/13/19at 11:50; Start 02/13/19 at 11:45; Stop 02/13/19 at 11:46; Status DC Diphenhydramine HCl (Benadryl) 50 mg 1X ONCE IVP Last administered on 02/13/19at 12:02; Start 02/13/19 at 12:00; Stop 02/13/19 at 12:01; Status DC Sodium Chloride 1,000 ml @ 150 mls/hr Q6H40M IV Last administered on 02/14/19at 09:07; Start 02/13/19 at 12:16; Stop 02/14/19 at 12:15; Status DC Hydromorphone HCl (Dilaudid) 1 mg PRN Q4HRS PRN IV PAIN; Start 02/13/19 at 12:30; Stop 02/13/19 at 14:08; Status DC Hydromorphone HCl (Dilaudid) 1 mg PRN Q2HR PRN IV PAIN Last administered on 02/14/19at 11:34; Start 02/13/19 at 14:15; Stop 02/14/19 at 13:51; Status DC Diphenhydramine HCl (Benadryl) 50 mg 1X ONCE IVP Last administered on 02/13/19at 14:30; Start 02/13/19 at 14:30; Stop 02/13/19 at 14:31; Status DC Diphenhydramine HCl (Benadryl) 50 mg PRN Q6HRS PRN IVP itching Last administered on 02/16/19at 10:18; Start 02/13/19 at 15:15 Hydroxyurea (Hydrea) 1,000 mg DAILY PO Last administered on 02/16/19at 10:25; Start 02/13/19 at 18:00 Multivitamins (Thera M Plus) 1 tab DAILY PO Last administered on 02/16/19 10:18; Start 02/14/19 at 09:00 Oxycodone HCl (Roxicodone) 30 mg Q4HRS PO Last administered on 02/16/19 10:18; Start 02/14/19 at 00:00 Folic Acid (Folic Acid) 1 mg DAILY PO Last administered on 02/16/19 10:17; Start 02/14/19 at 09:00 Hydromorphone HCl (Dilaudid) 2 mg PRN Q2HR PRN IV PAIN Last administered on 02/16/19 10:18; Start 02/14/19 at 14:00 Sodium Chloride 1,000 ml @ 150 mls/hr Q6H40M IV Last administered on 02/16/19 10:18; Start 02/14/19 at 16:00 Active Scripts Active Diphenhydramine Hcl 25 Mg Capsule 25 Mg PO PRN Q6HRS PRN Hydrea (Hydroxyurea) 500 Mg Capsule 1,000 Mg PO DAILY [Folic Acid] 1 MG Tablet 1 Mg PO DAILY Oxycodone Hcl Immed.release (Oxycodone Hcl) 30 Mg Tablet 30 Mg PO Q4HRS Thera-M Tablet (Multivits,Ca,Minerals/Iron/Fa) 1 Each Tablet 1 Tab PO DAILY Vitals/I & O Vital Sign - Last 24 Hours 02/15/19 02/15/19 02/15/19 02/15/19 12:08 12:08 14:23 14:26 O2 Delivery Room Air Room Air Room Air Room Air 02/15/19 02/15/19 02/15/19 02/15/19 14:26 15:00 15:26 16:47 Temp 98.1 98.1 Pulse 90 Resp 18 B/P (MAP) 110/80 (90) Pulse Ox 95 O2 Delivery Room Air Room Air Room Air Room Air 02/15/19 02/15/19 02/15/19 02/15/19 16:47 17:30 18:00 19:00 Temp 98.0 98.0 Pulse 84 Resp 18 B/P (MAP) 119/72 (88) Pulse Ox 95 O2 Delivery Room Air Nasal Cannula Room Air Room Air 02/15/19 02/15/19 02/15/19 02/15/19 19:22 20:05 20:06 20:15 O2 Delivery Room Air Room Air Room Air Room Air 02/15/19 02/15/19 02/15/19 02/15/19 21:05 21:43 22:15 23:00 Temp 98.4 98.4 Pulse 88 Resp 18 B/P (MAP) 96/64 (75) Pulse Ox 94 O2 Delivery Room Air Room Air Room Air Room Air 02/16/19 02/16/19 02/16/19 02/16/19 00:17 00:18 00:52 01:16 O2 Delivery Room Air Room Air Room Air Room Air 02/16/19 02/16/19 02/16/19 02/16/19 03:00 03:03 04:14 04:18 Temp 97.9 97.9 Pulse 79 Resp 18 B/P (MAP) 107/70 (82) Pulse Ox 96 O2 Delivery Room Air Room Air Room Air Room Air 02/16/19 02/16/19 02/16/19 02/16/19 05:13 05:14 05:51 07:00 Temp 98.3 98.3 Pulse 71 Resp 18 B/P (MAP) 117/77 (90) Pulse Ox 93 O2 Delivery Room Air Room Air Room Air Room Air 02/16/19 02/16/19 02/16/19 02/16/19 07:33 08:15 10:18 10:18 O2 Delivery Room Air Room Air Room Air Room Air Intake and Output 02/15/19 02/15/19 02/16/19 15:00 23:00 07:00 Intake Total 300 ml 550 ml 360 ml Output Total 1900 ml 900 ml Balance -1600 ml -350 ml 360 ml NAVEEN RESENDIZ MD Feb 16, 2019 11:01
[2019-02-16 15:00] VITALS: BP 105/57
--- NOTE | 2019-02-16 15:15 | NUR ---
SW following. Discussed with RN, pt is from home, frequent admissions, requesting pain medication. RN advised no SW needs. SW will revisit if consulted. No further SW needs.
[2019-02-16 19:00] VITALS: BP 98/62
[2019-02-16 23:00] VITALS: BP 117/76
[2019-02-17] MEDS: HYDROmorphone 2 MG/ML VIAL IV PRN ×4 (00:36→11:35)
[2019-02-17 03:00] VITALS: BP 99/52
[2019-02-17] MEDS: diphenhydrAMINE 50 MG/ML VIAL IVP PRN ×2 (05:39→11:35)
[2019-02-17 07:00] VITALS: BP 110/64
[2019-02-17] MEDS: IV NORMAL SALINE 1000ML BAG 1,000 ML IV SCH ×2 (07:49→10:40)
[2019-02-17] MEDS: MULTIVITAMIN with MINERAL TABLET. PO SCH (09:00)
[2019-02-17] MEDS: FOLIC ACID 1 MG TABLET. PO SCH (09:00)
[2019-02-17] MEDS: HYDROXYUREA 500 MG CAPSULE PO SCH (09:00)
--- NOTE | 2019-02-17 10:23 | NUR ---
Patient called out for IV dressing change, notified patient that I would be in once I finished up what I was doing for a different patient. Patient then stated its an emergency. Upon arriving to the room dressing change was preformed, patient then asked if I would wrap the tap all around his arm. Educated patient that there is plenty of tap on his IV that there is no need for all the extra tape. 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 Educated that I am his RN and have been trained on IV dressing.
[2019-02-17 11:00] VITALS: BP 96/57
--- NOTE | 2019-02-17 13:52 | NUR ---
Patient was notified that he was being discharged home today nurse gave patient an hour to find a ride home upon returning to the room to have the patient sign his paperwork, patient stated that he needed more time to find a ride home. Patient has been educated several times that once they are discharged nursing has one hour to get them home. Patient then becomes verbal aggressive with nurse. Educated patient that we could provide a cab pass to a location that he could return to, patient stated that he needed more time, stated to patient that we would give him 30 more minutes to find a ride and if he could not find a ride we would be getting a cab pass for the patient. Patient then proceeds to follow nurse out of the room. Unit manger educated patient also that we would allow 30 more minutes for him to find a ride home but then would get a cab for him. Patient still be verbal aggressive walking back to room.
--- NOTE | 2019-02-17 15:14 | NUR ---
Discharge Note: ANETA CASPER Discharge instructions and discharge home medications reviewed with Patient and a copy given. All questions have been answered and understanding verbalized. The following instructions and handouts were given: Sickle cell Discontinued lines and drains: Peripheral IV intact. Patient discharged to Home or Self Care with Self via Wheelchair
--- NOTE | 2019-02-18 10:11 | DS ---
DATE OF DISCHARGE: 02/17/2019 ADMISSION DIAGNOSES: Sickle cell crisis and narcotic dependence. DISCHARGE DIAGNOSES: Resolving sickle cell crisis and narcotic dependence. HOSPITAL COURSE: The patient is a pleasant middle-aged male, who presented with a sickle cell crisis. We admitted him, gave him fluids, vitamins, folic acid, continued his hydroxyurea. We gave him IV narcotics, consulted Hem/Onc. We trended his reticulocyte count, gave him oxygen and over the next couple days, he improved. He is somewhat dependent on narcotics. He is a little difficult to get discharged because he really wants to stay for the narcotics, but yesterday I saw him and examined, he was at his baseline. I gave him a prescription for some p.r.n. Percocet 10 mg #20 one q. 6. Hem/Onc was okay with him going home. We discharged to home with close outpatient followup. DISPOSITION: Home. ACTIVITY: As tolerated. DIET: Low sodium. MEDICATIONS: Please see the MRAD. TOTAL TIME: 32 minutes. FREDA TAVAREZ DO DR: KAMRYN/ella JOB#: [id number] / [id number]
== END 2019-02-17 15:16 | disposition home or self-care (01) | DRG 812 ==
LOC: ER 07:52 → 4 NORTH 11:48 → 5 SOUTH 12:19
PROVIDERS: ADMIT Internal Medicine; ATTEND Internal Medicine
DX: D57.00 Hb-SS disease with crisis, unspecified (principal); F11.20 Opioid dependence, uncomplicated; G89.29 Other chronic pain; N40.0 Benign prostatic hyperplasia without lower urinary tract symptoms; M19.90 Unspecified osteoarthritis, unspecified site; F41.8 Other specified anxiety disorders; Z96.612 Presence of left artificial shoulder joint; Z88.2 Allergy status to sulfonamides; Z83.2 Family history of diseases of the blood and blood-forming organs and certain disorders involving the immune mechanism
CPT/HCPCS: 36415; 80053; 85007; 85025; 85045; 96361; 96372; 96374; 96375; J1170; J1200; J2405; J7030; 99285-25; G0378

== ENCOUNTER 2020-04-25 11:34 | Inpatient (IN) | payer MEDICAID ==
[~2020-04-25] VITALS: Ht 172.7 cm; Wt 78.0 kg
[~2020-04-25 11:34] MED LIST changes: +ACET325T21 PO; +HYDR500C16 PO; -MULT1TAB90 PO; +MULT1TAB92 PO; +OXYC1TAB20 PO; +OXYC20TA PO; +VANC125C10 PO; +VANC500V PO
[2020-04-25] MEDS: IV NORMAL SALINE 1000ML BAG 1,000 ML IV SCH ×3 (12:15→19:33)
[2020-04-25] MEDS: KETOROLAC 15 MG/ML VIAL. IM ONE ×2 (12:45→12:55)
[2020-04-25] MEDS ORDERED: ACETAMINOPHEN 500 MG TABLET PO ONE (12:45)
[2020-04-25 12:47] LABS: BARBITURATES NEG (NEG); BENZODIAZEPINES NEG (NEG); CANNABINOIDS POS (NEG); COCAINE NEG (NEG); METHADONE NEG (NEG); OPIATES NEG (NEG); PHENCYCLIDINE NEG (NEG)
[2020-04-25 12:49] LABS: AMPHETAMINE/METHAMPHETAMINE NEG (NEG)
--- NOTE | 2020-04-25 13:07 | RAD ---
INDICATION: Reason: shoulder pain x 1yr, yuliet hip sickle cell pain, no injury / Spl. Instructions: / History: COMPARISON: March 21, 2019 IMPRESSION: Pelvis: Single view obtained. Sclerosis within the osseous structures which could be related to the p atient's sickle cell disease. This includes at the femoral head region bilaterally with causes such a s avascular necrosis within the differential. No dislocation. Electronically signed by: Raheel Stein MD (04/25/2020 1:05 PM) [id number]
--- NOTE | 2020-04-25 13:07 | EKG ---
[facility] [address] [place] [address] Test Date: 2020-04-25 Test Time: 12:15:10 Pat Name: ANETA CASPER Department: Room: Gender: M [employer]her Tender: : 1980 Requested By: JENNIFFER HERNÁNDEZ Order Number: [id number] Reading MD: Measurements Intervals Norman Rate: 56 P: 64 OR: 194 QRS: 66 QRSD: 102 T: 36 QT: 422 QTc: 410 Interpretive Statements SINUS RHYTHM INCOMPLETE RIGHT BUNDLE BRANCH BLOCK OTHERWISE NORMAL ECG RI6.02 No previous ECG available for comparison
--- NOTE | 2020-04-25 13:09 | RAD ---
INDICATION: Reason: shoulder pain x 1yr, sickle cell pain, no injury / Spl. Instructions: / History: COMPARISON: March 23, 2019 FINDINGS: Single view of chest obtained. Cardiac mediastinal silhouette is enlarged. Left shoulder hemiarthroplasty changes. Sclerosis at the right humeral head. Mild interstitial opacities within the bilateral lungs IMPRESSION: * Mild interstitial opacities in the bilateral lungs. Could be from mild edema or interstitial infil trate. * Sclerosis at the right humeral head. Causes such as osteonecrosis are within the differential give n the patient's other findings. Electronically signed by: Raheel Stein MD (04/25/2020 1:07 PM) [id number]
[2020-04-25] MEDS ORDERED: HYDROmorphone 2 MG/ML VIAL IM ONE (13:15)
[2020-04-25] MEDS ORDERED: ONDANSETRON ODT 4 MG TAB.RAPDIS. PO ONE (13:15)
--- NOTE | 2020-04-25 13:29 | PHYS DOC ---
Past Medical History Past Medical History: Arthritis, Sickle Cell Disease Past Surgical History: Other Additional Past Surgical Histo: L. SHOULDER AND BILATERAL HIP Smoking Status: Current Every Day Smoker Alcohol Use: Occasionally Drug Use: None General Adult EDM: Chief Complaint: PAIN CONTROL HPI: HPI: 39-year-old -[place] male, past medical history of sickle cell disease (EMR reviewed, admitted a few years ago for pain crisis with aspiration/hypoxia that required intubation) presents to the ED with complaints of " pain all over, " stating he follows with Dr. Aguilera at for hematology. Reports he was seen in [facility] care on April 19, was prescribed OxyContin 10 mg and reports this is not helping his pain. Reports pain is generalized and not localized to any joint. States he was seen in emergency department 2 weeks ago for pain crisis. Was told by Dr. Davila not to go to the ed for his pain ctrl, to go to the infusion clinic. States he was here yesterday and they are unable to obtain an IV. Tells RN they will need to use an ultrasound to get an IV, asked for an ED stretcher and a blanket. Denies any alcohol or drug use. No known history of Covid. Is requesting Dilaudid and Benadryl IM, along with IV fluids. When asked if he is compliant with hydroxyurea, patient does not answer and looks confused. Review of Systems: Review of Systems: Constitutional: Denies fever or chills. [] Eyes: Denies change in visual acuity or eye discharge HENT: Denies nasal congestion or sore throat. [] Respiratory: Denies cough or shortness of breath. [] Cardiovascular: Denies chest pain or edema or hemoptysis GI: Denies abdominal pain, nausea, vomiting, bloody stools or diarrhea. [] : Denies dysuria or hematuria Musculoskeletal: Denies back pain or joint pain or unilateral leg swelling Integument: Denies rash or diaphoresis Neurologic: Denies headache, neck stiffness, focal weakness or sensory changes. [] Endocrine: Denies polyuria or polydipsia. [] Lymphatic: Denies swollen glands. [] Psychiatric: Denies depression or anxiety. [] Heart Score: C/O Chest Pain: No Risk Factors: Risk Factors: DM, Current or recent (<one month) smoker, HTN, HLP, family history of CAD, obesity. Risk Scores: Score 0 - 3: 2.5% MACE over next 6 weeks - Discharge Home Score 4 - 6: 20.3% MACE over next 6 weeks - Admit for Clinical Observation Score 7 - 10: 72.7% MACE over next 6 weeks - Early Invasive Strategies Current Medications: Current Medications Medications (Trade) Dose Ordered Sig/Shoshana Start Time Stop Time Status Last Admin Dose Admin Acetaminophen (Tylenol) 1,000 mg 1X ONCE 04/25/20 12:45 04/25/20 12:46 DC 04/25/20 12:55 1,000 MG Hydromorphone HCl (Dilaudid) 1 mg 1X ONCE 04/25/20 13:15 04/25/20 13:16 DC Ketorolac Tromethamine (Toradol 15mg Vial) 15 mg 1X ONCE 04/25/20 12:45 04/25/20 12:46 DC 04/25/20 12:55 15 MG Ondansetron HCl (Zofran Odt) 4 mg 1X ONCE 04/25/20 13:15 04/25/20 13:16 DC Sodium Chloride 1,000 ml @ 1,000 mls/hr Q1H 04/25/20 12:15 04/25/20 13:14 DC Allergies: Allergies: Allergies Coded Allergies Type Severity Reaction Last Updated Verified Penicillins Allergy Intermediate 04/25/20 Yes Sulfa (Sulfonamide Antibiotics) Allergy Intermediate 11/05/18 Yes Physical Exam: PE: Constitutional: Athletic, afebrile, in no active distress HENT: Normocephalic, atraumatic, mucous membranes dry Eyes: EOMI, conjunctiva normal, no discharge. Neck: Normal range of motion, supple, Cardiovascular: S1/2 present, regular rhythm Lungs & Thorax: Speaking in full sentences, bilateral equal chest rise, no tachypnea or increased work of breathing Abdomen: soft, no tenderness, Skin: Warm, dry, no erythema, no rash. [] Back: No tenderness, no CVA tenderness. [] Extremities: No tenderness, no cyanosis, no lower extremity edema Neurologic: Alert and oriented X 3, normal motor function, normal sensory function, no focal deficits noted. [] Psychologic: Affect normal, judgement normal, mood normal. [] Current Patient Data: Labs: Laboratory Tests Test 04/25/20 11:40 Urine Opiates Screen Neg (NEG) Urine Methadone Screen Neg (NEG) Urine Barbiturates Neg (NEG) Urine Phencyclidine Screen Neg (NEG) Urine Amphetamine/Methamphetamine Neg (NEG) Urine Benzodiazepines Screen Neg (NEG) Urine Cocaine Screen Neg (NEG) Urine Cannabinoids Screen Pos (NEG) Urine Ethyl Alcohol Neg (NEG) Vital Signs: Vital Signs Date Time Temp Pulse Resp B/P (MAP) Pulse Ox O2 Delivery O2 Flow Rate FiO2 04/25/20 11:40 98.6 64 16 111/62 (78) 95 Room Air 98.6 EKG: EKG: Sinus rhythm at 56 bpm, no axis deviation, normal intervals, no T wave inversions, no ST elevations or ST depressions, no active chest pain Radiology/Procedures: Radiology/Procedures: IMAGING REPORT Signed PATIENT: ANETA CASPER ACCOUNT: [id number] : 1980 LOCATION: ER AGE: 39 SEX: M EXAM STATUS: REG ER ORD. PHYSICIAN: JENNIFFER HERNÁNDEZ DO REASON: shoulder pain x 1yr, yuliet hip sickle cell pain, no injury PROCEDURE: PELVIS INDICATION: Reason: shoulder pain x 1yr, yuliet hip sickle cell pain, no injury / Spl. Instructions: / History: COMPARISON: March 21, 2019 IMPRESSION: Pelvis: Single view obtained. Sclerosis within the osseous structures which could be related to the patient's sickle cell disease. This includes at the femoral head region bilaterally with causes such as avascular necrosis within the differential. No dislocation. Electronically signed by: Moe Caraballo MD (04/25/2020 1:05 PM) [id number] DICTATED and SIGNED BY: MOE CARABALLO MD IMAGING REPORT Signed PATIENT: ANETA CASPER ACCOUNT: [id number] : 1980 LOCATION: ER AGE: 39 SEX: M EXAM STATUS: REG ER ORD. PHYSICIAN: JENNIFFER HERNÁNDEZ DO REASON: shoulder pain x 1yr, sickle cell pain, no injury PROCEDURE: PORTABLE CHEST 1V INDICATION: Reason: shoulder pain x 1yr, sickle cell pain, no injury / Spl. Instructions: / History: COMPARISON: March 23, 2019 FINDINGS: Single view of chest obtained. Cardiac mediastinal silhouette is enlarged. Left shoulder hemiarthroplasty ch anges. Sclerosis at the right humeral head. Mild interstitial opacities within the bilateral lungs IMPRESSION: * Mild interstitial opacities in the bilateral lungs. Could be from mild edema or interstitial infiltrate. * Sclerosis at the right humeral head. Causes such as osteonecrosis are within the differential given the patient's other findings. Electronically signed by: Moe Caraballo MD (04/25/2020 1:07 PM) [id number] DICTATED and SIGNED BY: MOE CARABALLO MD DATE: 04/25/20 [id number] Course & Med Decision Making: Course & Med Decision Making Pertinent Labs and Imaging studies reviewed. (See chart for details) Concern for bilateral infiltrates, started on antibiotics/IV fluids/analgesia, Covid test pending. On reevaluation patient reports he does have some shortness of breath. CXR concerning for impending acute chest syndrome. Will admit for further medical management. Patient stable at time of admission and agrees with this plan. I have spoken with the patient and/or caregivers. I have explained the patient's condition, diagnosis and treatment plan based on the information available to me at this time. I have answered the patient's and/or caregivers questions and answered any concerns. The patient and/or caregivers have as good an understanding of the patient's diagnosis, condition and treatment plan as can be expected at this point. The patient has been stabilized within the capability of the emergency department. The patient will be transported for further care and management or will be moved to an observation or inpatient service. I have communicated with the staff or medical practitioner taking over this patient's care. Juany Disclaimer: Juany Disclaimer: This electronic medical record was generated, in whole or in part, using a voice recognition dictation system. Departure Departure Impression: Primary Impression: Sickle cell pain crisis Additional Impression: Person under investigation for COVID-19 Disposition: 09 ADMITTED INPT THIS HOSP Admitting Physician: MCKENNA (Dr. erwin) Condition: STABLE Referrals: BISMARK MOTT MD (PCP) JENNIFFER HERNÁNDEZ DO Apr 25, 2020 13:29
--- NOTE | 2020-04-25 13:57 | PDOC1 ---
History and Physical Date of Admission Date of Admission DATE: 04/25/20 TIME: 13:56 Identification/Chief Complaint Chief Complaint Diffuse pain Source Source: Patient History of Present Illness History of Present Illness Mr Licea is a 39yo M w/ PMHx SCD, Osteonecrosis of left shoulder, depression with anxiety who presents with diffuse bone pain, lower back pain, bilateral hip pain, right rib pain and bilateral shoulder pain as well as frontal chest pain. WBC 11.7, platelets 307, Hb 10.6 with 11.3% retics. Previously noted baseline 7% reticulocyte count. Na 138, K 4.3, BUN 4, Cr 1.1, glucose 85, Bili 3.6, albumin 3.7, Mg 2.2, troponin 0. CXR with bilateral abnormality. He has noted he is experiencing slow urine stream and burning on urination as well as dysuria. No risk for STIs, no prior UTI, but has had priapism previously. He has been told he has enlarged prostate. He has been taking folate and hydroxyurea. Just re-established with [facility] hematology. Hb electrophoresis consistent with SS diseaes and 9% hemoglobin previously. H/o AVN left shoulder with surgery in 2007, injection 2017, replacement 03/30. Bilateral hip injections 05/2018 H/o acute chest syndrome in 2002, 5 prior blood transfusions. Had frequent hospitalization at [facility] as well as [facility], [facility], [place], [place]. Was hospitalized at [facility] the end of October 2018, and was treated multiple times at [facility] in 2018. Has been to [facility] within the last month, discharged, seen in ED there 2 weeks ago , and was planning on having outpatient IVF at the cancer center, but was unable to establish IV access and instructed to go to the ED. He is just recovering from a recent sickle cell crisis. He was seen in establish care 04/19/[address] Aguilera at for hematology, was prescribed OxyContin 10 mg and reports this is not helping his pain. Previously incarcerated and transferred his care 11/2017 to [facility]. Admitted for further treatment of SCD with crisis Past Medical History Cardiovascular: Other Heme/Onc: Anemia NOS, Sickle cell disease Psych: Anxiety, Addictions Musculoskeletal: Other Infectious disease: Other Renal/: UTI, Other Past Surgical History Past Surgical History: Arthroscopy Family History Family History: Other Social History Smoke: 1 pack per day ALCOHOL: rare Drugs: Marijuana Current Medications Current Medications Current Medications Sodium Chloride 1,000 ml @ 1,000 mls/hr Q1H IV ; Start 04/25/20 at 12:15; Stop 04/25/20 at 13:14; Status DC Ketorolac Tromethamine (Toradol 15mg Vial) 15 mg 1X ONCE IM ; Start 04/25/20 at 12:45; Stop 04/25/20 at 12:46; Status DC Acetaminophen (Tylenol) 1,000 mg 1X ONCE PO Last administered on 04/25/20at 12:55; Start 04/25/20 at 12:45; Stop 04/25/20 at 12:46; Status DC Hydromorphone HCl (Dilaudid) 1 mg 1X ONCE IM Last administered on 04/25/20at 1 3:27; Start 04/25/20 at 13:15; Stop 04/25/20 at 13:16; Status DC Ondansetron HCl (Zofran Odt) 4 mg 1X ONCE PO Last administered on 04/25/20at 13:28; Start 04/25/20 at 13:15; Stop 04/25/20 at 13:16; Status DC Active Scripts Active Vancocin Hcl (Vancomycin Hcl) 125 Mg Capsule 1 Cap PO QID 4 Days Hydroxyurea 500 Mg Capsule 500 Mg PO DAILY 30 Days Diphenhydramine Hcl 25 Mg Capsule 25 Mg PO PRN Q6HRS PRN [Folic Acid] 1 MG Tablet 1 Mg PO DAILY Thera-M Tablet (Multivits,Ca,Minerals/Iron/Fa) 1 Each Tablet 1 Tab PO DAILY Reported Acetaminophen 325 Mg Tablet 2 Tab PO PRN Q4-6HRS PRN 24 Days Oxycodone-Acetaminophen 10-325 (Oxycodone Hcl/Acetaminophen) 1 Each Tablet 1 Tab PO TID Oxycodone Hcl 20 Mg Tablet 1 Tab PO QIDPRN PRN MDD 4 Tablet(s) 30 Days Oxycodone Hcl Immed.release (Oxycodone Hcl) 30 Mg Tablet 30 Mg PO PRN Q6HRS PRN Allergies Allergies: Coded Allergies: Penicillins (Verified Allergy, Intermediate, 04/25/20) Sulfa (Sulfonamide Antibiotics) (Verified Allergy, Intermediate, 11/05/18) ROS General: YES: Fatigue, Malaise; No: Chills, Night Sweats, Appetite, Other PSYCHOLOGICAL ROS: YES: Anxiety; No: Behavioral Disorder, Concentration difficultie, Decreased libido, Depression, Disorientation, Hallucinations, Hostility, Irritablity, Memory difficulties, Mood Swings, Obsessive thoughts, Physical abuse, Sexual abuse, Sleep disturbances, Suicidal ideation, Other Eyes: No Blurry vision, No Decreased vision, No Double vision, No Dry eyes, No Excessive tearing, No Eye Pain, No Itchy Eyes, No Loss of vision, No Photophobia, No Scotomata, No Uses contacts, No Uses glasses, No Other HEENT: No: Heacaches, Visual Changes, Hearing change, Nasal congestion, Nasal discharge, Oral lesions, Sinus pain, Sore Throat, Epistaxis, Sneezing, Snoring, Tinnitus, Vertigo, Vocal changes, Other ALLERGY AND IMMUNOLOGY: No: Hives, Insect Bite Sensitivity, Itchy/Watery Eyes, Nasal Congestion, Post Nasal Drip, Seasonal Allergies, Other Hematological and Lymphatic: YES: Blood Transfusions; No: Bleeding Problems, Blood Clots, Brusing, Night Sweats, Pallor, Swollen Lymph Nodes, Other ENDOCRINE: No: Breast Changes, Galactorrhea, Hair Pattern Changes, Hot Flashes, Malaise/lethargy, Mood Swings, Palpitations, Polydipsia/polyuria, Skin Changes, Temperature Intolerance, Unexpected Weight Changes, Other Breast: No New/Changing Breast Lumps, No Nipple changes, No Nipple discharge, No Other Respiratory: YES: Cough, Shortness of breath, SOB with excertion; No: Hemoptysis, Orthopnea, Pleuritic Pain, Sputum Changes, Stridor, Tachypnea, Wheezing, Other Cardiovascular: yes Chest Pain; No Palpitations, No Orthopnea, No Paroxysmal Noc. Dyspnea, No Edema, No Lt Headedness, No Other Gastrointestinal: No Nausea, No Vomiting, No Abdominal Pain, No Diarrhea, No Constipation, No Melena, No Hematochezia, No Other Genitourinary: No Dysuria, No Frequency, No Incontinence, No Hematuria, No Retention, No Discharge, No Urgency, No Pain, No Flank Pain, No Other, No , No , No , No , No , No , No Musculoskeletal: No Gait Disturbance, No Joint Pain, No Joint Stiffness, No Joint Swelling, No Muscle Pain, No Muscular Weakness, No Pain In:, No Swelling In:, No Other Neurological: No Behavorial Changes, No Bowel/Bladder ControlChng, No Confusion, No Dizziness, No Gait Disturbance, No Headaches, No Impaired Coord/balance, No Memory Loss, No Numbness/Tingling, No Seizures, No Speech Problems, No Tremors, No Visual Changes, No Weakness, No Other Skin: No Dry Skin, No Eczema, No Hair Changes, No Lumps, No Mole Changes, No Mottling, No Nail Changes, No Pruritus, No Rash, No Skin Lesion Changes, No Other, No Acne Physical Exam General: Alert, Oriented X3, Cooperative, severe distress HEENT: Atraumatic, PERRLA, EOMI, Mucous membr. moist/pink Lungs: Other (Bilateral crackles) Heart: S1S2, RRR, no thrills, no rubs, no gallops, no murmurs Abdomen: Normal bowel sounds, Soft, No tenderness, No hepatosplenomegaly, No masses Extremities: No clubbing, No cyanosis, No edema, Normal pulses Skin: No rashes, No breakdown, No significant lesion Neuro: Normal gait, Normal speech, Strength at 5/5 X4 ext, Normal tone, Sensation intact, Cranial nerves 3-12 NL, Reflexes 2+ Psych/Mental Status: Mental status NL, Mood NL Vitals Vitals Vital Signs Date Time Temp Pulse Resp B/P (MAP) Pulse Ox O2 Delivery O2 Flow Rate FiO2 04/25/20 11:40 98.6 64 16 111/62 (78) 95 Room Air 98.6 Labs Labs Laboratory Tests Test 04/25/20 11:40 Urine Opiates Screen Neg (NEG) Urine Methadone Screen Neg (NEG) Urine Barbiturates Neg (NEG) Urine Phencyclidine Screen Neg (NEG) Urine Amphetamine/Methamphetamine Neg (NEG) Urine Benzodiazepines Screen Neg (NEG) Urine Cocaine Screen Neg (NEG) Urine Cannabinoids Screen Pos (NEG) Urine Ethyl Alcohol Neg (NEG) Laboratory Tests Test 04/25/20 11:40 Urine Opiates Screen Neg (NEG) Urine Methadone Screen Neg (NEG) Urine Barbiturates Neg (NEG) Urine Phencyclidine Screen Neg (NEG) Urine Amphetamine/Methamphetamine Neg (NEG) Urine Benzodiazepines Screen Neg (NEG) Urine Cocaine Screen Neg (NEG) Urine Cannabinoids Screen Pos (NEG) Urine Ethyl Alcohol Neg (NEG) Images Images Chest radiograph: Cardiac mediastinal silhouette is enlarged. Left shoulder hemiarthroplasty changes. Sclerosis at the right humeral head. Mild interstitial opacities within the bilateral lungs IMPRESSION: * Mild interstitial opacities in the bilateral lungs. Could be from mild edema or interstitial infiltrate. * Sclerosis at the right humeral head. Causes such as osteonecrosis are within the differential given the patient's other findings. Pelvic Radiograph: Sclerosis within the osseous structures which could be related to the patient's sickle cell disease. This includes at the femoral head region bilaterally with causes such as avascular necrosis within the differential. No dislocation. VTE Prophylaxis Ordered VTE Prophylaxis Devices: No VTE Pharmacological Prophylaxi: Yes Assessment/Plan Assessment/Plan A/P: Severe Sickle cell crisis - with Reticulocyte %>10, will give aggressive IVF, dilaudid 2mg Q2hrs prn, can decrease to q3hrs tomorrow if pain under control. 10mg oxycodone prn q6hrs PO. 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 Is established with [facility] again within the past week Pneumonia - community acquired vs COVID 19 vs Chest syndrome. Will aggressively hydrate, empiric antibiotics Chronic pain syndrome Osteonecrosis of left shoulder - with prior surgical correction - replacement 03/2018 Chronic back pain - worse currently Chronic joint pain - 2/2 AVN and SCD crisis that is recurrent H/o blood transfusion - no indication now, has historically had at least 5 transfusions Hyperbilirubinemia - 2/2 SCD Dysuria - will check UA, culture if indicated Slow urine stream - BPH by history, will initiate flomax tonight. With benadryl dosing will bladder scan if his UOP drops Smoker - counseled on cessation FEN - General diet PPX - lovenox FULL CODE Dispo - inpatient for SCD pain crisis Justifications for Admission Other Justification HUNTER SHARMA MD Apr 25, 2020 13:57
[2020-04-25] MEDS ORDERED: AZITHRMYCN 500MG IVPB FOR OMNI 250 ML IV ONE (14:00)
[2020-04-25] MEDS ORDERED: cefTRIAXone IV Push 1 GM VIAL. IVP ONE (14:00)
[2020-04-25 14:03] LABS: BASO # 0.2 x10^3/uL (0.0-0.2); BASO % 1 % (0-3); EOS # 0.5 x10^3/uL (0.0-0.7); EOS % 5 % (0-3); HEMATOCRIT 29.3 % (39.0-53.0); HEMOGLOBIN 10.6 g/dL (13.0-17.5); LYMPH # 3.2 x10^3/uL (1.0-4.8); LYMPH % 28 % (24-48); MEAN CORPUSCULAR HEMOGLOBIN 34 pg (25-35); MEAN CORPUSCULAR HGB CONC 36 g/dL (31-37); MEAN CORPUSCULAR VOLUME 94 fL (79-100); MONO # 1.4 x10^3/uL (0.0-1.1); MONO % 12 % (0-9); NEUT # 6.3 x10^3/uL (1.8-7.7); NEUT % 54 % (31-73); PLATELET COUNT 307 x10^3/uL (140-400); RED BLOOD COUNT 3.11 x10^6/uL (4.30-5.70); RED CELL DISTRIBUTION WIDTH 23.2 % (11.5-14.5); WHITE BLOOD COUNT 11.7 x10^3/uL (4.0-11.0)
[2020-04-25] MEDS ORDERED: DOXYCYCLINE HYCLATE 100 MG in IV DEXTROSE 5% 100ML 100 ML IV ONE (14:15)
[2020-04-25 14:28] LABS: DIRECT BILIRUBIN 0.4 mg/dL (0.0-0.2); MAGNESIUM 2.2 mg/dL (1.8-2.4)
[2020-04-25 14:33] LABS: CALCIUM 8.5 mg/dL (8.5-10.1); CREATININE 1.1 mg/dL (0.7-1.3); GFR 90.2; POTASSIUM 4.3 mmol/L (3.5-5.1)
[2020-04-25 14:41] LABS: ALBUMIN 3.7 g/dL (3.4-5.0); ALBUMIN/GLOBULIN RATIO 1.2 (1.0-1.7); TOTAL BILIRUBIN 3.6 mg/dL (0.2-1.0); TOTAL PROTEIN 6.9 g/dL (6.4-8.2)
[2020-04-25 14:50] LABS: PLT ESTIMATE ADEQUATE (ADEQUATE); POLYCHROMASIA MOD; SICKLE CELLS MOD; TARGET CELLS MOD
[2020-04-25 14:51] LABS: ANISOCYTOSIS MOD
[2020-04-25] MEDS ORDERED: oxyCODONE/APAP 10/325 1 TAB TABLET PO PRN ×2 (15:45→18:30)
[2020-04-25] MEDS ORDERED: HYDROmorphone 2 MG/ML VIAL IVP PRN (15:45)
[2020-04-25] MEDS ORDERED: diphenhydrAMINE HCL 25 MG CAPSULE PO PRN (16:00)
[2020-04-25] MEDS ORDERED: ACETAMINOPHEN 325 MG TABLET. PO PRN (16:00)
[2020-04-25] MEDS: HYDROmorphone 2 MG/ML VIAL IVP PRN ×2 (16:18→19:54)
[2020-04-25] MEDS ORDERED: MAGNESIUM HYDROXIDE 2,400 MG/30 ML ORAL.SUSP. PO PRN (16:30)
[2020-04-25] MEDS ORDERED: POLYETHYLENE GLYCOL 3350 17 GM PACKET. PO PRN (16:30)
[2020-04-25] MEDS: PSYLLIUM HUSK (SUGAR FREE) 1 PKT PACKET PO SCH (16:30)
[2020-04-25 16:58] VITALS: BP 101/29
[2020-04-25] MEDS: diphenhydrAMINE 50 MG/ML VIAL IVP PRN (17:27)
[2020-04-25] MEDS ORDERED: AZITHROMYCIN 500 MG in IV NORMAL SALINE 250ML 250 ML IV ONE (18:15)
[2020-04-25] MEDS ORDERED: oxyCODONE IR 5 MG TABLET PO PRN (18:30)
[2020-04-25 19:00] VITALS: BP 88/36
[2020-04-25] MEDS: ENOXAPARIN 40 MG/0.4 ML SYRINGE. SQ SCH (19:51)
[2020-04-25] MEDS: DOXYCYCLINE HYCLATE 100 MG in IV DEXTROSE 5% 100ML 100 ML IV SCH (22:57)
[2020-04-25 23:00] VITALS: BP 91/43
[2020-04-26] MEDS: HYDROmorphone 2 MG/ML VIAL IVP PRN ×11 (00:13→22:27)
[2020-04-26] MEDS: diphenhydrAMINE 50 MG/ML VIAL IVP PRN ×5 (02:21→20:46)
[2020-04-26 03:00] VITALS: BP 105/58
[2020-04-26] MEDS: IV NORMAL SALINE 1000ML BAG 1,000 ML IV SCH ×2 (04:48→08:00)
[2020-04-26 07:00] VITALS: BP 107/61
[2020-04-26] MEDS ORDERED: FOLIC ACID 1 MG TABLET. PO SCH (09:00)
[2020-04-26] MEDS ORDERED: HYDROXYUREA 500 MG CAPSULE PO SCH (09:00)
--- NOTE | 2020-04-26 09:18 | PDOC ---
[employer] PROGRESS NOTE Date of Service DOS: DATE: 04/26/20 TIME: 09:01 Chief Complaint Chief Complaint A/P: Severe Sickle cell crisis - with Reticulocyte %>10, will give aggressive IVF, dilaudid 2mg Q2hrs prn, can decrease to q3hrs tomorrow if pain under control. 10mg oxycodone prn q6hrs PO. 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 Is established with [facility] again within the past week Pneumonia - community acquired vs COVID 19 vs Chest syndrome. 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 With benadryl dosing will bladder scan if his UOP drops Smoker - counseled on cessation FEN - General diet PPX - lovenox FULL CODE Dispo - inpatient for SCD pain crisis History of Present Illness History of Present Illness Mr Licea is a 39yo M w/ PMHx SCD, Osteonecrosis of left shoulder, depression with anxiety who presents with diffuse bone pain, lower back pain, bilateral hip pain, right rib pain and bilateral shoulder pain as well as frontal chest pain. WBC 11.7, platelets 307, Hb 10.6 with 11.3% retics. Previously noted baseline 7% reticulocyte count. Na 138, K 4.3, BUN 4, Cr 1.1, glucose 85, Bili 3.6, albumin 3.7, Mg 2.2, troponin 0. CXR with bilateral abnormality. He has noted he is experiencing slow urine stream and burning on urination as well as dysuria. No risk for STIs, no prior UTI, but has had priapism previously. He has been told he has enlarged prostate. He has been taking folate and hydroxyurea. Just re-established with [facility] hematology. Hb electrophoresis consistent with SS diseaes and 9% hemoglobin previously. H/o AVN left shoulder with surgery in 2007, injection 2017, replacement 03/30. Bilateral hip injections 05/2018 H/o acute chest syndrome in 2002, 5 prior blood transfusions. Had frequent hospitalization at [facility] as well as [facility], [facility], [place], [place]. Was hospitalized at [facility] the end of October 2018, and was treated multiple times at [facility] in 2018. Has been to [facility] within the last month, discharged, seen in ED there 2 weeks ago, and was planning on having outpatient IVF at the cancer center, but was unable to establish IV access and instructed to go to the ED. He is just recovering from a recent sickle cell crisis. He was seen in establish care 04/19/[address] Aguilera at for hematology, was prescribed OxyContin 10 mg and reports this is not helping his pain. Previously incarcerated and transferred his care 11/2017 to [facility]. Admitted for further treatment of SCD with crisis 04/26/2020: Patient seen and evaluated. States pain improved with Dilaudid. Discussed with RN, he is reportedly been requesting IV Dilaudid every 2 hours to the second, and reportedly disrespectful when his medication is not delivered in a timely fashion. Discussed with patient the need to treat our nursing staff with the same demanding respect that he desires. He is currently breathing on room air, however he does not feel like he is able to treat himself effectively at home with oral antibiotics and oral pain medications. Continue IV fluids and IV antibiotics. 04/27/2020: Patient seen and evaluated. He is COVID-19 and flu negative. He is refusing lab draws and IV antibiotics. He is only allowing treatment with pain medication. During the course of my evaluation he did not appear to be in any acute distress. He is breathing comfortably on room air, afebrile. After discussion with patient and evaluation, I do feel he is able to be effectively treated with oral antibiotics and oral pain medications. He is requesting his for home pain medications of Percocet 70840 mg. Greater than 30 minutes spent managing the discharge of this patient. Vitals/I&O Vitals/I&O: Vital Signs Date Time Temp Pulse Resp B/P (MAP) Pulse Ox O2 Delivery O2 Flow Rate FiO2 04/26/20 07:30 98 04/26/20 07:00 98.6 69 16 107/61 (76) Room Air 98.6 I & O 04/25/20 04/25/20 04/26/20 15:00 23:00 07:00 Intake Total 0 ml 1000 ml Output Total 800 ml Balance 0 ml 200 ml Physical Exam General: Alert, Oriented X3, Cooperative, No acute distress Heart: Regular rate Lungs: Clear, Other Abdomen: Normal bowel sounds, Soft, No tenderness, No masses Extremities: No clubbing, No cyanosis Skin: No rashes, No breakdown Labs Labs: Laboratory Tests Test 04/25/20 11:40 04/25/20 13:45 Urine Opiates Screen Neg (NEG) Urine Methadone Screen Neg (NEG) Urine Barbiturates Neg (NEG) Urine Phencyclidine Screen Neg (NEG) Urine Amphetamine/Methamphetamine Neg (NEG) Urine Benzodiazepines Screen Neg (NEG) Urine Cocaine Screen Neg (NEG) Urine Cannabinoids Screen Pos (NEG) Urine Ethyl Alcohol Neg (NEG) White Blood Count 11.7 x10^3/uL (4.0-11.0) Red Blood Count 3.17 x10^6/uL (4.30-5.70) Hemoglobin 10.6 g/dL (13.0-17.5) Hematocrit 29.3 % (39.0-53.0) Mean Corpuscular Volume 94 fL (79-100) Mean Corpuscular Hemoglobin 34 pg (25-35) Mean Corpuscular Hemoglobin Concent 36 g/dL (31-37) Red Cell Distribution Width 23.2 % (11.5-14.5) Platelet Count 307 x10^3/uL (140-400) Neutrophils (%) (Auto) 54 % (31-73) Lymphocytes (%) (Auto) 28 % (24-48) Monocytes (%) (Auto) 12 % (0-9) Eosinophils (%) (Auto) 5 % (0-3) Basophils (%) (Auto) 1 % (0-3) Neutrophils # (Auto) 6.3 x10^3/uL (1.8-7.7) Lymphocytes # (Auto) 3.2 x10^3/uL (1.0-4.8) Monocytes # (Auto) 1.4 x10^3/uL (0.0-1.1) Eosinophils # (Auto) 0.5 x10^3/uL (0.0-0.7) Basophils # (Auto) 0.2 x10^3/uL (0.0-0.2) Platelet Estimate Adequate (ADEQUATE) Polychromasia Mod Anisocytosis Mod Sickle Cells Mod Target Cells Mod Absolute Reticulocyte Count 0.359 x10^6/uL (0.020-0.120) Percent Reticulocyte Count 11.3 % (0.5-2.3) Immature Reticulocyte Fraction 0.65 (0.20-0.60) Sodium Level 138 mmol/L (136-145) Potassium Level 4.3 mmol/L (3.5-5.1) Chloride Level 106 mmol/L (98-107) Carbon Dioxide Level 23 mmol/L (21-32) Anion Gap 9 (6-14) Blood Urea Nitrogen 4 mg/dL (8-26) Creatinine 1.1 mg/dL (0.7-1.3) Estimated GFR (Cockcroft-Gault) 90.2 BUN/Creatinine Ratio 4 (6-20) Glucose Level 85 mg/dL (70-99) Lactic Acid Level 0.6 mmol/L (0.4-2.0) Calcium Level 8.5 mg/dL (8.5-10.1) Magnesium Level 2.2 mg/dL (1.8-2.4) Total Bilirubin 3.6 mg/dL (0.2-1.0) Direct Bilirubin 0.4 mg/dL (0.0-0.2) Aspartate Amino Transf (AST/SGOT) 32 U/L (15-37) Alanine Aminotransferase (ALT/SGPT) 19 U/L (16-63) Alkaline Phosphatase 97 U/L (46-116) Troponin I Quantitative < 0.017 ng/mL (0.000-0.055) Total Protein 6.9 g/dL (6.4-8.2) Albumin 3.7 g/dL (3.4-5.0) Albumin/Globulin Ratio 1.2 (1.0-1.7) Lipase 99 U/L (73-393) Procalcitonin < 0.10 ng/mL (0.00-0.10) Assessment and Plan Assessmemt and Plan Problems Medical Problems: (1) Person under investigation for COVID-19 Status: Acute (2) Sickle cell pain crisis Status: Acute Comment Review of Relevant I have reviewed the following items jorge luis (where applicable) has been applied. Medications: Current Medications Medications (Trade) Dose Ordered Sig/Shoshana Route PRN Reason Start Time Stop Time Status Last Admin Dose Admin Sodium Chloride 1,000 ml @ 1,000 mls/hr Q1H IV 04/25/20 12:15 04/25/20 13:14 DC 04/25/20 14:29 Acetaminophen (Tylenol) 1,000 mg 1X ONCE PO 04/25/20 12:45 04/25/20 12:46 DC 04/25/20 12:55 Hydromorphone HCl (Dilaudid) 1 mg 1X ONCE IM 04/25/20 13:15 04/25/20 13:16 DC 04/25/20 13:27 Ondansetron HCl (Zofran Odt) 4 mg 1X ONCE PO 04/25/20 13:15 04/25/20 13:16 DC 04/25/20 13:28 Ceftriaxone Sodium (Rocephin) 1 gm 1X ONCE IVP 04/25/20 14:00 04/25/20 14:01 DC 04/25/20 19:33 Doxycycline Hyclate 100 mg/ Dextrose 100 ml @ 50 mls/hr BID IV 04/25/20 21:00 04/25/20 22:57 Doxycycline Hyclate 100 mg/ Dextrose 100 ml @ 50 mls/hr 1X ONCE IV 04/25/20 14:15 04/25/20 16:14 DC 04/25/20 14:21 Enoxaparin Sodium (Lovenox 40mg Syringe) 40 mg Q24H SQ 04/25/20 21:00 04/25/20 19:51 Hydromorphone HCl (Dilaudid) 2 mg PRN Q2HRS PRN IVP SEVERE PAIN 7-10 04/25/20 16:00 04/26/20 07:30 Diphenhydramine HCl (Benadryl) 25 mg PRN Q4HRS PRN IVP ITCHING 04/25/20 16:00 04/26/20 07:31 Sodium Chloride 1,000 ml @ 70 mls/hr [id number] IV 04/25/20 16:00 04/28/20 02:14 04/26/20 04:48 Azithromycin 500 mg/Sodium Chloride 250 ml @ 250 mls/hr 1X ONCE IV 04/25/20 18:15 04/25/20 19:14 DC 04/25/20 19:34 Oxycodone HCl (Roxicodone) 10 mg PRN Q4HRS PRN PO MILD TO MODERATE PAIN 04/25/20 18:30 04/25/20 21:47 Justifications for Admission Other Justification WILLIE DUNCAN MD Apr 26, 2020 09:18
[2020-04-26] MEDS: MULTIVITAMIN with MINERAL TABLET. PO SCH ×2 (09:27→10:12)
[2020-04-26] MEDS: POLYETHYLENE GLYCOL 3350 17 GM PACKET. PO SCH ×2 (09:28→10:12)
[2020-04-26] MEDS: DOXYCYCLINE HYCLATE 100 MG in IV DEXTROSE 5% 100ML 100 ML IV SCH ×2 (09:43→19:51)
--- NOTE | 2020-04-26 10:12 | NUR ---
This pt is not a very nice person or patient. Anytime that I would push his pain med he would tell me I am not doing it right, then would ask me to now flush it. I explained that I have to flush the med, then he would go thru a montage of how we dont listen to him and how its his body, he speaks to you like you are a peon. he thinks he is the only pt on the floor and get priorty over everyone else. I have since fired myself from this pt and do not wish to treat him any longer. Deangelo Aldridge RN
--- NOTE | 2020-04-26 12:06 | NUR ---
RN in room and administered dose of dilaudid and benadryl IV. after RN left room, pt called out construction project mgr light accusing RN of giving him something other than dilaudid. pt states "whatever you gave me doesn't feel like what the other nurses have been giving. it was not pain medicine". RN reassured patient that it was pain meds but patient still accusing staff of lying. pt has also been reminded multiple times that he is PUI and is not allowed to leave room. pt continues to leave room without mask up over mouth and nose and continues to forget what room he is in.
--- NOTE | 2020-04-26 12:57 | NUR ---
SW following for discharge planning. Spoke with RN and reviewed chart. Pt has a hx of frequent hospitalizations and non compliance per chart review. Pt pacing the unit today requesting pain medication. Pt refusing labs. Pt on IV pain medication and admitted with a dx of sickle cell pain. Pt's Medicaid approved since last admission. Pt discharged home with Mireille BARAHONA on last admission. Pt currently COVID negative, room air. Pt on IV Rocephin and IV Doxycycline. SW following.
[2020-04-26] MEDS ORDERED: cefTRIAXone IV Push 1 GM VIAL. IVP SCH (14:00)
--- NOTE | 2020-04-26 14:59 | NUR ---
RN in room to give patient pain meds. meds drawn up at bedside for patient to witness. pt asked what the dose was and RN informed him it was 2 mg of dilaudid. RN flushed line, administered medication, flushed line again. pt states "I didn't want it flushed." RN stated reasons for flushing line and pt replied "well you are gonna do what you want anyway then." and rolled over in bed. RN left room. approx 5 minutes later, IV was beeping as RN walked by. Entered room and IV machine was beeping low battery. RN plugged machine back into wall and pt again accused RN of giving him something other than diluadid. RN reminded him that she aldair the medication up at the bedside and showed him at that time. pt states he did not see it well enough and requests RN draw up at bedside again next dose.
[2020-04-26] MEDS: PSYLLIUM HUSK (SUGAR FREE) 1 PKT PACKET PO SCH (16:00)
[2020-04-26] MEDS ORDERED: ONDANSETRON PF 4 MG/2 ML VIAL. IVP PRN (16:30)
--- NOTE | 2020-04-26 16:35 | NUR ---
patient had visitor in room for approximately 1 minute. shortly after visitor left, pt HR went to 143 and sustained for several minutes, after HR had been in 80's entire shift. RN checked on patient and he was not out of bed. pt then c/o "spitting up blood" and coughed a large amount of phlegm into trash can, RN did not notice any blood. pt then became nauseated and vomited into trash can just what appeared to be white/yellow liquid. order for horace obtained.
[2020-04-26 19:00] VITALS: BP 111/58
[2020-04-26] MEDS: ENOXAPARIN 40 MG/0.4 ML SYRINGE. SQ SCH ×2 (19:50→21:00)
[2020-04-26 20:27] LABS: AMPHETAMINE/METHAMPHETAMINE NEG (NEG); BARBITURATES NEG (NEG); BENZODIAZEPINES NEG (NEG); CANNABINOIDS POS (NEG); COCAINE NEG (NEG); METHADONE NEG (NEG); OPIATES POS (NEG); PHENCYCLIDINE NEG (NEG)
[2020-04-26 23:00] VITALS: BP 104/72
[2020-04-27] MEDS: IV NORMAL SALINE 1000ML BAG 1,000 ML IV SCH (01:10)
[2020-04-27] MEDS: HYDROmorphone 2 MG/ML VIAL IVP PRN ×3 (01:11→06:00)
[2020-04-27] MEDS: diphenhydrAMINE 50 MG/ML VIAL IVP PRN ×2 (01:11→06:00)
--- NOTE | 2020-04-27 01:19 | NUR ---
Pt with complaints of getting normal saline flush in between meds. Pt states since he has fluids going he does not need a flush. Pt inform of needing to flush line in between medications. Pt states this nurse didnt give him his dilaudid. Informed pt that this nurse administered medication while he was complaining of nurses not knowing what they are doing. Pt informed of medication already given and pt states "you think you slick just because I'm laying in this bed yall think I'm weak or something" pt informed that this nurse has already administered medication and this nurse emptied urinal and left room. Call light within reach at this time.
[2020-04-27 03:00] VITALS: BP 92/48
--- NOTE | 2020-04-27 06:45 | NUR ---
Attempted to take peripheral IV out this am in his left shoulder since infiltration noted however pt refused. Pt states he wants the person who placed the IV to take it out. Pt informed of IV no longer working however he refused for this nurse to remove. Notified Sponge Press Operator of pt needing new peripheral. Day nurse informed. Pt with possible dc today and may not need peripheral. Pt informed of oral pain medications available at this time. Pt refused.
--- NOTE | 2020-04-27 07:40 | NUR ---
patient refusing to let RN remove IV that has infiltrated. also refusing labs until he gets a new IV. patient to discharge today, per Dr. Wisdom from 04/26. pt also asking for IM narcotics and refusing PO meds.
--- NOTE | 2020-04-27 08:42 | PDOC2 ---
CONSULT Date of Consult Date of Consult DATE: 04/27/20 TIME: 08:26 Reason for Consult Reason for Consult: Sickle cell disease and vaso-occlusive crisis Referring Physician Referring Physician: Dr. Wisdom Identification/Chief Complaint Chief Complaint Pain Source Source: Caregiver, Chart review, Patient History of Present Illness Reason for Visit: Britt Licea is a 39-year-old -N[place]alese male who presents for evaluation and management of sickle cell disease vaso-occlusive pain crisis. He presented to the emergency room at [facility] with diffuse bone pain, lower back pain, bilateral hip pain, right rib pain and bilateral shoulder pain as well as frontal chest pain. Labs at initial presentation were WBC 11.7, platelets 307, Hb 10.6 with 11.3% reticulocyte count. Chest x-ray was obtained for further evaluation and showed mild bilateral interstitial edema. Patient is currently on hydroxyurea 500 mg daily and folic acid. He follows with Dr. Aguilera at [facility]. 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 He was prescribed oxycodone 10 mg every 6 hours as needed by his inpatient pharmacist during his most recent office visit on 04/19/2020. He presented to the emergency room here due to uncontrolled pain. Hematology consultation has been sought due to patient's history of sickle cell disease and presentation with pain crisis Past Medical History Cardiovascular: Other Heme/Onc: Anemia NOS, Sickle cell disease Psych: Anxiety, Addictions Musculoskeletal: Other Infectious disease: Other Renal/: UTI, Other Past Surgical History Past Surgical History: Arthroscopy Family History Family History: Other Social History 1 pack per day ALCOHOL: rare Drugs: Marijuana Lives: with Family Current Problem List Problem List Problems Medical Problems: (1) Person under investigation for COVID-19 Status: Acute (2) Sickle cell pain crisis Status: Acute Current Medications Current Medications Current Medications Sodium Chloride 1,000 ml @ 1,000 mls/hr Q1H IV Last administered on 04/25/20at 14:29; Start 04/25/20 at 12:15; Stop 04/25/20 at 13:14; Status DC Ketorolac Tromethamine (Toradol 15mg Vial) 15 mg 1X ONCE IM ; Start 04/25/20 at 12:45; Stop 04/25/20 at 18:25; Status DC Acetaminophen (Tylenol) 1,000 mg 1X ONCE PO Last administered on 04/25/20at 12:55; Start 04/25/20 at 12:45; Stop 04/25/20 at 12:46; Status DC Hydromorphone HCl (Dilaudid) 1 mg 1X ONCE IM Last administered on 04/25/20at 13:27; Start 04/25/20 at 13:15; Stop 04/25/20 at 13:16; Status DC Ondansetron HCl (Zofran Odt) 4 mg 1X ONCE PO Last administered on 04/25/20at 13:28; Start 04/25/20 at 13:15; Stop 04/25/20 at 13:16; Status DC Ceftriaxone Sodium (Rocephin) 1 gm 1X ONCE IVP Last administered on 04/25/20at 19:33; Start 04/25/20 at 14:00; Stop 04/25/20 at 14:01; Status DC Azithromycin 250 ml @ 250 mls/hr 1X ONCE IV ; Start 04/25/20 at 14:00; Stop 04/25/20 at 14:59; Status Cancel Ceftriaxone Sodium (Rocephin) 1 gm DAILY IVP ; Start 04/26/20 at 14:00; Stop 04/26/20 at 17:13; Status DC Doxycycline Hyclate 100 mg/ Dextrose 100 ml @ 50 mls/hr BID IV Last admin istered on 04/26/20at 19:51; Start 04/25/20 at 21:00 Doxycycline Hyclate 100 mg/ Dextrose 100 ml @ 50 mls/hr 1X ONCE IV Last a dministered on 04/25/20at 14:21; Start 04/25/20 at 14:15; Stop 04/25/20 at 16:14; Status DC Hydromorphone HCl (Dilaudid) 2 mg PRN Q3HRS PRN IVP SEVERE PAIN 7-10; Start 04/25/20 at 15:45; Stop 04/25/20 at 15:49; Status DC Oxycodone/ Acetaminophen (Percocet 10/325) 1 tab PRN Q6HRS PRN PO MODERATE PAIN 4-6; Start 04/25/20 at 15:45; Stop 04/25/20 at 18:23; Status DC Enoxaparin Sodium (Lovenox 40mg Syringe) 40 mg Q24H SQ Last administered on 04/25/20at 19:51; Start 04/25/20 at 21:00 Hydromorphone HCl (Dilaudid) 2 mg PRN Q2HRS PRN IVP SEVERE PAIN 7-10 Last administered on 04/27/20at 06:00; Start 04/25/20 at 16:00 Diphenhydramine HCl (Benadryl) 25 mg PRN Q4HRS PRN IVP ITCHING Last administered on 04/27/20at 06:00; Start 04/25/20 at 16:00 Acetaminophen (Tylenol) 650 mg PRN Q6HRS PRN PO FEVER; Start 04/25/20 at 16:00 Diphenhydramine HCl (Benadryl) 25 mg PRN Q6HRS PRN PO ITCHING; Start 04/25/20 at 16:00 Hydroxyurea (Hydrea) 500 mg DAILY PO Last administered on 04/26/20at 09:28; Start 04/26/20 at 09:00 Multivitamins (Thera M Plus) 1 tab DAILY PO ; Start 04/26/20 at 09:00 Folic Acid (Folic Acid) 1 mg DAILY PO Last administered on 04/26/20at 09:27; Start 04/26/20 at 09:00 Sodium Chloride 1,000 ml @ 70 mls/hr [id number] IV Last administered on 04/27/20at 01:10; Start 04/25/20 at 16:00; Stop 04/28/20 at 02:14 Lorazepam (Ativan Inj) 1 mg PRN Q6HRS PRN IVP ANXIETY / AGITATION; Start 04/25/20 at 16:30 Magnesium Hydroxide (Milk Of Magnesia) 2,400 mg PRN DAILY PRN PO CONSTIPATION, 2ND CHOICE; Start 04/25/20 at 16:30 Psyllium Hydrophilic Mucilloid (Metamucil Fiber Packet) 1 pkt DAILY16 PO ; Start 04/25/20 at 16:30 Polyethylene Glycol (miraLAX PACKET) 17 gm PRN DAILY PRN PO CONSTIPATION, 1ST CHOICE; Start 04/25/20 at 16:30 Polyethylene Glycol (miraLAX PACKET) 17 gm DAILY PO ; Start 04/26/20 at 09:00 Azithromycin 500 mg/Sodium Chloride 250 ml @ 250 mls/hr 1X ONCE IV Last administered on 04/25/20at 19:34; Start 04/25/20 at 18:15; Stop 04/25/20 at 19:14; Status DC Oxycodone/ Acetaminophen (Percocet 10/325) 1 tab PRN Q4HRS PRN PO MODERATE PAIN 4-6; Start 04/25/20 at 18:30; Stop 04/25/20 at 18:25; Status DC Oxycodone HCl (Roxicodone) 10 mg PRN Q4HRS PRN PO MILD TO MODERATE PAIN Last administered on 04/25/20at 21:47; Start 04/25/20 at 18:30 Ondansetron HCl (Zofran) 4 mg PRN Q6HRS PRN IVP NAUSEA/VOMITING; Start 04/26/20 at 16:30 Ceftriaxone Sodium (Rocephin) 1 gm DAILY IVP ; Start 04/27/20 at 09:00 Active Scripts Active Vancocin Hcl (Vancomycin Hcl) 125 Mg Capsule 1 Cap PO QID 4 Days Hydroxyurea 500 Mg Capsule 500 Mg PO DAILY 30 Days Diphenhydramine Hcl 25 Mg Capsule 25 Mg PO PRN Q6HRS PRN [Folic Acid] 1 MG Tablet 1 Mg PO DAILY Thera-M Tablet (Multivits,Ca,Minerals/Iron/Fa) 1 Each Tablet 1 Tab PO DAILY Reported Acetaminophen 325 Mg Tablet 2 Tab PO PRN Q4-6HRS PRN 24 Days Oxycodone-Acetaminophen 10-325 (Oxycodone Hcl/Acetaminophen) 1 Each Tablet 1 Tab PO TID Oxycodone Hcl 20 Mg Tablet 1 Tab PO QIDPRN PRN MDD 4 Tablet(s) 30 Days Oxycodone Hcl Immed.release (Oxycodone Hcl) 30 Mg Tablet 30 Mg PO PRN Q6HRS PRN Allergies Allergies: Coded Allergies: Penicillins (Verified Allergy, Intermediate, 04/25/20) Sulfa (Sulfonamide Antibiotics) (Verified Allergy, Intermediate, 11/05/18) ROS General: YES: Fatigue, Malaise PSYCHOLOGICAL ROS: No: Hallucinations, Hostility Eyes: No Eye Pain, No Itchy Eyes HEENT: No: Oral lesions, Sinus pain ALLERGY AND IMMUNOLOGY: No: Nasal Congestion, Post Nasal Drip Hematological and Lymphatic: No: Brusing, Night Sweats ENDOCRINE: No: Malaise/lethargy, Mood Swings Breast: No Nipple discharge Respiratory: No: Shortness of breath, SOB with excertion Cardiovascular: No Paroxysmal Noc. Dyspnea, No Edema Gastrointestinal: No Diarrhea Genitourinary: No Other Musculoskeletal: No Joint Swelling Skin: No Nail Changes Physical Exam General: Alert, Oriented X3 HEENT: Atraumatic Lungs: Clear to auscultation Heart: Regular rate, Normal S1, Normal S2 Abdomen: Normal bowel sounds, Soft Extremities: No clubbing Skin: No rashes Neuro: Normal gait Psych/Mental Status: Mental status NL MUSCULOSKELETAL: No deformity Vitals VITALS Vital Signs Date Time Temp Pulse Resp B/P (MAP) Pulse Ox O2 Delivery O2 Flow Rate FiO2 04/27/20 06:30 Room Air 04/27/20 03:00 98.2 76 18 92/48 (63) 89 98.2 Labs Labs Laboratory Tests Test 04/25/20 11:40 04/25/20 13:45 04/25/20 16:21 04/26/20 20:10 Urine Opiates Screen Neg (NEG) Pos (NEG) Urine Methadone Screen Neg (NEG) Neg (NEG) Urine Barbiturates Neg (NEG) Neg (NEG) Urine Phencyclidine Screen Neg (NEG) Neg (NEG) Urine Amphetamine/Methamphetamine Neg (NEG) Neg (NEG) Urine Benzodiazepines Screen Neg (NEG) Neg (NEG) Urine Cocaine Screen Neg (NEG) Neg (NEG) Urine Cannabinoids Screen Pos (NEG) Pos (NEG) Urine Ethyl Alcohol Neg (NEG) Neg (NEG) White Blood Count 11.7 x10^3/uL (4.0-11.0) Red Blood Count 3.17 x10^6/uL (4.30-5.70) Hemoglobin 10.6 g/dL (13.0-17.5) Hematocrit 29.3 % (39.0-53.0) Mean Corpuscular Volume 94 fL (79-100) Mean Corpuscular Hemoglobin 34 pg (25-35) Mean Corpuscular Hemoglobin Concent 36 g/dL (31-37) Red Cell Distribution Width 23.2 % (11.5-14.5) Platelet Count 307 x10^3/uL (140-400) Neutrophils (%) (Auto) 54 % (31-73) Lymphocytes (%) (Auto) 28 % (24-48) Monocytes (%) (Auto) 12 % (0-9) Eosinophils (%) (Auto) 5 % (0-3) Basophils (%) (Auto) 1 % (0-3) Neutrophils # (Auto) 6.3 x10^3/uL (1.8-7.7) Lymphocytes # (Auto) 3.2 x10^3/uL (1.0-4.8) Monocytes # (Auto) 1.4 x10^3/uL (0.0-1.1) Eosinophils # (Auto) 0.5 x10^3/uL (0.0-0.7) Basophils # (Auto) 0.2 x10^3/uL (0.0-0.2) Platelet Estimate Adequate (ADEQUATE) Polychromasia Mod Anisocytosis Mod Sickle Cells Mod Target Cells Mod Absolute Reticulocyte Count 0.359 x10^6/uL (0.020-0.120) Percent Reticulocyte Count 11.3 % (0.5-2.3) Immature Reticulocyte Fraction 0.65 (0.20-0.60) Sodium Level 138 mmol/L (136-145) Potassium Level 4.3 mmol/L (3.5-5.1) Chloride Level 106 mmol/L (98-107) Carbon Dioxide Level 23 mmol/L (21-32) Anion Gap 9 (6-14) Blood Urea Nitrogen 4 mg/dL (8-26) Creatinine 1.1 mg/dL (0.7-1.3) Estimated GFR (Cockcroft-Gault) 90.2 BUN/Creatinine Ratio 4 (6-20) Glucose Level 85 mg/dL (70-99) Lactic Acid Level 0.6 mmol/L (0.4-2.0) Calcium Level 8.5 mg/dL (8.5-10.1) Magnesium Level 2.2 mg/dL (1.8-2.4) Total Bilirubin 3.6 mg/dL (0.2-1.0) Direct Bilirubin 0.4 mg/dL (0.0-0.2) Aspartate Amino Transf (AST/SGOT) 32 U/L (15-37) Alanine Aminotransferase (ALT/SGPT) 19 U/L (16-63) Alkaline Phosphatase 97 U/L (46-116) Troponin I Quantitative < 0.017 ng/mL (0.000-0.055) Total Protein 6.9 g/dL (6.4-8.2) Albumin 3.7 g/dL (3.4-5.0) Albumin/Globulin Ratio 1.2 (1.0-1.7) Lipase 99 U/L (73-393) Procalcitonin < 0.10 ng/mL (0.00-0.10) Coronavirus (PCR) Not detected (Not Detected) Laboratory Tests Test 04/26/20 20:10 Urine Opiates Screen Pos (NEG) Urine Methadone Screen Neg (NEG) Urine Barbiturates Neg (NEG) Urine Phencyclidine Screen Neg (NEG) Urine Amphetamine/Methamphetamine Neg (NEG) Urine Benzodiazepines Screen Neg (NEG) Urine Cocaine Screen Neg (NEG) Urine Cannabinoids Screen Pos (NEG) Urine Ethyl Alcohol Neg (NEG) Assessment/Plan Assessment/Plan Assessment: 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 Resume at the time of hospital discharge -Continue use of incentive spirometry -Continue bowel regimen given opiate use -Recommend continue to monitor CBC, reticulocyte count and LDH, reasonable to check every other day to minimize blood losses through phlebotomy -Resume follow-up with primary inpatient pharmacist after hospital discharge -No additional inpatient recommendations from hematology perspective -Rest per primary service Travis Sosa MD Medical Oncology/Hematology Ph: [phone] ELVIA SOSA MD Apr 27, 2020 08:42
[2020-04-27] MEDS ORDERED: cefTRIAXone IV Push 1 GM VIAL. IVP SCH (09:00)
--- NOTE | 2020-04-27 09:45 | NUR ---
RN in room with security to remove IV after pt attempted to leave unit with IV pole. pt questioning RN about when he will get a new IV. RN informed pt he will not be getting one as he is being discharged. pt demanding to see Dr. Wisdom. Dr. Wisdom on unit and will see patient.
--- NOTE | 2020-04-27 09:58 | NUR ---
SW following for discharge planning. Spoke with RN and reviewed chart. Pt up ad sandra. Pt to discharge home self-care today, 04/27. Pt at high risk for readmission. No further SW needs at this time.
--- NOTE | 2020-04-27 10:31 | PDOC3 ---
Discharge Summary Visit Information Date of Admission: Apr 25, 2020 Date of Discharge: Apr 27, 2020 Final Diagnosis Problems Medical Problems: (1) Person under investigation for COVID-19 Status: Acute (2) Sickle cell pain crisis Status: Acute Brief Hospital Course Allergies Allergies Coded Allergies Type Severity Reaction Last Updated Verified Penicillins Allergy Intermediate 04/25/20 Yes Sulfa (Sulfonamide Antibiotics) Allergy Intermediate 11/05/18 Yes Vital Signs Vital Signs Date Time Temp Pulse Resp B/P (MAP) Pulse Ox O2 Delivery O2 Flow Rate FiO2 04/27/20 06:30 Room Air 04/27/20 03:00 98.2 76 18 92/48 (63 89 98.2 Lab Results Laboratory Tests Test 04/25/20 11:40 04/25/20 13:45 04/25/20 16:21 04/26/20 20:10 Urine Opiates Screen Neg (NEG) Pos (NEG) Urine Methadone Screen Neg (NEG) Neg (NEG) Urine Barbiturates Neg (NEG) Neg (NEG) Urine Phencyclidine Screen Neg (NEG) Neg (NEG) Urine Amphetamine/Methamphetamine Neg (NEG) Neg (NEG) Urine Benzodiazepines Screen Neg (NEG) Neg (NEG) Urine Cocaine Screen Neg (NEG) Neg (NEG) Urine Cannabinoids Screen Pos (NEG) Pos (NEG) Urine Ethyl Alcohol Neg (NEG) Neg (NEG) White Blood Count 11.7 x10^3/uL (4.0-11.0) Red Blood Count 3.17 x10^6/uL (4.30-5.70) Hemoglobin 10.6 g/dL (13.0-17.5) Hematocrit 29.3 % (39.0-53.0) Mean Corpuscular Volume 94 fL (79-100) Mean Corpuscular Hemoglobin 34 pg (25-35) Mean Corpuscular Hemoglobin Concent 36 g/dL (31-37) Red Cell Distribution Width 23.2 % (11.5-14.5) Platelet Count 307 x10^3/uL (140-400) Neutrophils (%) (Auto) 54 % (31-73) Lymphocytes (%) (Auto) 28 % (24-48) Monocytes (%) (Auto) 12 % (0-9) Eosinophils (%) (Auto) 5 % (0-3) Basophils (%) (Auto) 1 % (0-3) Neutrophils # (Auto) 6.3 x10^3/uL (1.8-7.7) Lymphocytes # (Auto) 3.2 x10^3/uL (1.0-4.8) Monocytes # (Auto) 1.4 x10^3/uL (0.0-1.1) Eosinophils # (Auto) 0.5 x10^3/uL (0.0-0.7) Basophils # (Auto) 0.2 x10^3/uL (0.0-0.2) Platelet Estimate Adequate (ADEQUATE) Polychromasia Mod Anisocytosis Mod Sickle Cells Mod Target Cells Mod Absolute Reticulocyte Count 0.359 x10^6/uL (0.020-0.120) Percent Reticulocyte Count 11.3 % (0.5-2.3) Immature Reticulocyte Fraction 0.65 (0.20-0.60) Sodium Level 138 mmol/L (136-145) Potassium Level 4.3 mmol/L (3.5-5.1) Chloride Level 106 mmol/L (98-107) Carbon Dioxide Level 23 mmol/L (21-32) Anion Gap 9 (6-14) Blood Urea Nitrogen 4 mg/dL (8-26) Creatinine 1.1 mg/dL (0.7-1.3) Estimated GFR (Cockcroft-Gault) 90.2 BUN/Creatinine Ratio 4 (6-20) Glucose Level 85 mg/dL (70-99) Lactic Acid Level 0.6 mmol/L (0.4-2.0) Calcium Level 8.5 mg/dL (8.5-10.1) Magnesium Level 2.2 mg/dL (1.8-2.4) Total Bilirubin 3.6 mg/dL (0.2-1.0) Direct Bilirubin 0.4 mg/dL (0.0-0.2) Aspartate Amino Transf (AST/SGOT) 32 U/L (15-37) Alanine Aminotransferase (ALT/SGPT) 19 U/L (16-63) Alkaline Phosphatase 97 U/L (46-116) Troponin I Quantitative < 0.017 ng/mL (0.000-0.055) Total Protein 6.9 g/dL (6.4-8.2) Albumin 3.7 g/dL (3.4-5.0) Albumin/Globulin Ratio 1.2 (1.0-1.7) Lipase 99 U/L (73-393) Procalcitonin < 0.10 ng/mL (0.00-0.10) Coronavirus (PCR) Not detected (Not Detected) Laboratory Tests Test 04/26/20 20:10 Urine Opiates Screen Pos (NEG) Urine Methadone Screen Neg (NEG) Urine Barbiturates Neg (NEG) Urine Phencyclidine Screen Neg (NEG) Urine Amphetamine/Methamphetamine Neg (NEG) Urine Benzodiazepines Screen Neg (NEG) Urine Cocaine Screen Neg (NEG) Urine Cannabinoids Screen Pos (NEG) Urine Ethyl Alcohol Neg (NEG) Brief Hospital Course Mr. Licea is a 39 old male who presented with sickle cell crisis and acutely required pneumonia. He was treated with IV fluids, pain medication, and antibiotics. During the course of treatment patient began refusing blood draws, vitals, and IV antibiotics. During no time during the course of his treatment did he appear to be in any acute distress. Did express to patient that I feel that he would be able to be treated appropriately as outpatient with oral pain medication and oral antibiotics, however he did state to me that he feels he is uncomfortable taking care of himself at home. I asked patient where he lives and inquired if he was possibly homeless, he did not provide any answers to these questions. After further discussion I did feel that he would be able to be treated with oral antibiotics and oral pain medications at home. Stable for discharge home with self-care. Discharge Information Condition at Discharge: Stable Disposition/Orders: D/C to Home Scheduled Hydroxyurea (Hydroxyurea) 500 Mg Capsule, 500 MG PO DAILY for SS disease for 30 Days, #30 Prescribed by: LASHA CORBIN MD on 03/30/19 1451 Last Action: Continued on 04/25/20 155 by HUNTER SHARMA MD Multivits,Ca,Minerals/Iron/Fa (Thera-M Tablet) 1 Each Tablet, 1 TAB PO DAILY for mvi, #60 Prescribed by: CANDIDO MITCHELL on 11/15/18 1121 Last Action: Continued on 04/25/20 1550 by HUNTER SHARMA MD [Folic Acid] 1 MG TABLET, 1 MG PO DAILY for sickel cell, #60 Prescribed by: CANDIDO MITCHELL on 01/26/19 0945 Last Action: Converted on 04/25/200 by HUNTER SHARMA MD Scheduled PRN Acetaminophen (Acetaminophen) 325 Mg Tablet, 2 TAB PO PRN Q4-6HRS PRN for pain or fever for 24 Days, #100 Ref 0 (Reported) Entered as Reported by: KRZYSZTOF MCGUIRE on 03/09/19 1018 Last Action: Continued on 04/25/201549 by HUNTER SHARMA MD Diphenhydramine Hcl (Diphenhydramine Hcl) 25 Mg Capsule, 25 MG PO PRN Q6HRS PRN for ITCHING, #30 Prescribed by: CANDIDO MITCHELL on 01/26/1945 Last Action: Continued on 04/25/201549 by HUNTER SHARMA MD Discontinued Medications Oxycodone Hcl (Oxycodone Hcl Immed.release ) 30 Mg Tablet, 30 MG PO PRN Q6HRS PRN for PAIN, Ref 0 (Reported) Entered as Reported by: KRZYSZTOF MCGUIRE on 03/09/19 1018 Oxycodone Hcl (Oxycodone Hcl) 20 Mg Tablet, 1 TAB PO QIDPRN PRN for pain MDD 4 Tablet(s) for 30 Days, #120 Ref 0 (Reported) Entered as Reported by: KRZYSZTOF MCGUIRE on 03/09/19 1018 Oxycodone Hcl/Acetaminophen (Oxycodone-Acetaminophen 10-325) 1 Each Tablet, 1 TAB PO TID for pain, #90 (Reported) Entered as Reported by: KRZYSZTOF MCGUIRE on 03/09/19 1018 Vancomycin Hcl (Vancocin Hcl) 125 Mg Capsule, 1 CAP PO QID for c diff for 4 Days, #16 Ref 0 Prescribed by: LASHA CORBIN MD on 03/30/19 1451 Justicifation of Admission Dx: Justifications for Admission: Justification of Admission Dx: Yes WILLIE DUNCAN MD Apr 27, 2020 10:31
--- NOTE | 2020-04-27 10:36 | NUR ---
pt discharged. refused transportation and cab pass. demanding to walk home. security called. Marquis on unit to escort patient down for DC. scripts for percocet and levaquin given.
== END 2020-04-27 11:00 | disposition home or self-care (01) | DRG 811 ==
LOC: ER 11:34 → 6 SOUTH 15:02
PROVIDERS: ADMIT Internal Medicine; ATTEND Internal Medicine
DX: D57.00 Hb-SS disease with crisis, unspecified (principal); J15.6 Pneumonia due to other Gram-negative bacteria; F11.20 Opioid dependence, uncomplicated; G89.4 Chronic pain syndrome; M54.9 Dorsalgia, unspecified; R30.0 Dysuria; F12.90 Cannabis use, unspecified, uncomplicated; F17.210 Nicotine dependence, cigarettes, uncomplicated; N40.0 Benign prostatic hyperplasia without lower urinary tract symptoms; Z20.822 Contact with and (suspected) exposure to COVID-19; Z53.20 Procedure and treatment not carried out because of patient's decision for unspecified reasons; F41.8 Other specified anxiety disorders; M19.90 Unspecified osteoarthritis, unspecified site
CPT/HCPCS: 36415; 71045; 72170; 80053; 80307; 82248; 83605; 83690; 83735; 84145; 84484; 85025; 85045; 93005; 96365; 96372; 96375; J0456; J0696; J1170; J1200; J1650; J1885; J2405; J3490; J7030; J7050; J7060; U0003; 99285-25; G0378

== ENCOUNTER 2020-06-28 23:33 | Observation (INO) | payer OTHER ==
[~2020-06-28] VITALS: Ht 172.7 cm; Wt 77.0 kg
[2020-06-29] MEDS ORDERED: oxyCODONE/APAP 10/325 1 TAB TABLET PO ONE (01:30)
[2020-06-29] MEDS ORDERED: HYDROmorphone 2 MG/ML VIAL IVP ONE (01:30)
[2020-06-29] MEDS ORDERED: diphenhydrAMINE HCL 25 MG CAPSULE PO ONE (01:30)
--- NOTE | 2020-06-29 01:49 | PHYS DOC ---
Past Medical History Past Medical History: Arthritis, Sickle Cell Disease Past Surgical History: Other Additional Past Surgical Histo: L. SHOULDER AND BILATERAL HIP Smoking Status: Current Every Day Smoker Alcohol Use: Occasionally Drug Use: None General Adult EDM: Chief Complaint: PAIN CONTROL HPI: HPI: 39-year-old male past medical history sickle cell presents with a chief complaint of sickle cell pain. Patient states current exacerbation x1 day. Patient states pain is in his typical locations of his joints. Patient denies any associated chest pain or shortness of breath. Patient states he is on Percocet 10mg q 4-6hrs but did not take his pain medications today. When asked why, he tells me because it will not work. Patient is requesting dilaudid and benadryl. Patient appears in no acute distress. Review of Systems: Review of Systems: Review of systems: Constitutional symptoms- No fever, no chills. Eyes- No Discharge, No Visual Loss Respiratory symptoms- No shortness of breath, No wheezing, No Dyspnea on Exertion Cardiovascular Systems; No chest pain, No Palpitations, No syncope Gastrointestinal symptoms: NO abdominal pain, no nausea, no vomiting or diarrhea. Genitourinary symptoms: No dysuria. Musculoskeletal symptoms: No back pain Positive extremity pain. Positive joint pain NEUROLOGICAL Symptoms: No headache, no generalized weakness; No focal Weakness Heart Score: C/O Chest Pain: N/A Risk Factors: Risk Factors: DM, Current or recent (<one month) smoker, HTN, HLP, family history of CAD, obesity. Risk Scores: Score 0 - 3: 2.5% MACE over next 6 weeks - Discharge Home Score 4 - 6: 20.3% MACE over next 6 weeks - Admit for Clinical Observation Score 7 - 10: 72.7% MACE over next 6 weeks - Early Invasive Strategies Current Medications: Current Medications Medications (Trade) Dose Ordered Sig/Shoshana Start Time Stop Time Status Last Admin Dose Admin Diphenhydramine HCl (Benadryl) 25 mg 1X ONCE 06/29/20 02:00 06/29/20 02:01 Hydromorphone HCl (Dilaudid) 1 mg 1X ONCE 06/29/20 02:00 06/29/20 02:01 Oxycodone/ Acetaminophen (Percocet 10/325) 1 tab 1X ONCE 06/29/20 01:30 06/29/20 01:31 DC Allergies: Allergies: Allergies Coded Allergies Type Severity Reaction Last Updated Verified Penicillins Allergy Intermediate 04/25/20 Yes Sulfa (Sulfonamide Antibiotics) Allergy Intermediate 11/05/18 Yes Physical Exam: PE: General: alert, no acute distress. Skin: warm, dry and intact. Head:: Normocephalic, atraumatic. Neck: Trachea midline. Eyes: EOMI, Normal conjunctiva, No drainage CARDIOVASCULAR: Regular rate and rhythm RESPIRATORY: No respiratory distress Back: Full range of motion. MUSCULOSKELETAL: Full range of motion of bilateral upper and lower extremities. GASTROINTESTINAL: Abdomen soft without rebound or guarding. NEUROLOGICAL: Alert and noted to person, place and time. No neurological deficits observed Psychiatric: Cooperative. Normal judgment Current Patient Data: Vital Signs: Vital Signs Date Time Temp Pulse Resp B/P (MAP) Pulse Ox O2 Delivery O2 Flow Rate FiO2 06/29/20 01:13 93 20 95/55 (68) 95 Room Air 06/28/20 23:47 98.2 98.2 EKG: EKG: [] Radiology/Procedures: Radiology/Procedures: [] Course & Med Decision Making: Course & Med Decision Making Pertinent Labs and Imaging studies reviewed. (See chart for details) [] Patient was evaluated for chief complaint. Patient's vital signs stable for did not order any labs. Patient states current pain is in its typical location when he has acute sickle cell pain. Treatment included Dilaudid 1 mg IM and Benadryl 25 mg IM. Patient was redosed with Dilaudid 2mg IM. He was observed and fell asleep. Plan was to discharge. Patient requesting admission due to pain. Juany Disclaimer: Juany Disclaimer: This electronic medical record was generated, in whole or in part, using a voice recognition dictation system. Departure Departure Impression: Primary Impression: Sickle cell anemia with pain Disposition: ADMITTED INPATIENT Admitting Physician: HIMS Condition: STABLE Referrals: NO PCP (PCP) Patient Instructions: Sickle Cell Pain Crisis KAILEY WILD I DO June 29, 2020 01:49
[2020-06-29] MEDS ORDERED: diphenhydrAMINE 50 MG/ML VIAL IM ONE (02:00)
[2020-06-29] MEDS ORDERED: HYDROmorphone 2 MG/ML VIAL IM ONE ×2 (02:00→03:30)
[2020-06-29] MEDS ORDERED: MORPHINE SULFATE 2 MG/ML VIAL. IV PRN (05:30)
[2020-06-29] MEDS ORDERED: IV NORMAL SALINE 1000ML BAG 1,000 ML IV ONE (05:30)
[2020-06-29] MEDS: HYDROmorphone 2 MG/ML VIAL IVP PRN ×2 (06:52→11:36)
[2020-06-29 07:00] VITALS: BP 114/61
--- NOTE | 2020-06-29 10:11 | NUR ---
SW following. Discussed with RN, pt from home with family, room air, regular diet. Pain control. Dr. Orozco speaking with IR about port access, checking labs. If everything okay pt discharging home today. RN advised no SW needs at this time. SW will continue to follow.
[2020-06-29] MEDS ORDERED: ONDANSETRON PF 4 MG/2 ML VIAL. IVP PRN (10:15)
[2020-06-29] MEDS ORDERED: DOCUSATE SODIUM 100 MG CAPSULE. PO PRN (10:15)
[2020-06-29] MEDS ORDERED: DEXTROSE 50% 25 GM / 50ML DISP.SYRIN. IV PRN (10:15)
[2020-06-29] MEDS ORDERED: ACETAMINOPHEN 325 MG TABLET. PO PRN (10:15)
[2020-06-29] MEDS ORDERED: SENNOSIDES 8.6 MG TABLET PO PRN (10:15)
[2020-06-29] MEDS ORDERED: IV NORMAL SALINE 1000ML BAG 1,000 ML IV SCH (10:15)
--- NOTE | 2020-06-29 10:23 | PDOC1 ---
History and Physical Date of Service: DOS: DATE: 06/29/20 TIME: 10:15 Chief Complaint: Chief Complain: Joint pain History of Present Illness: HPI: 39-year-old male past medical history sickle cell presents with a chief complaint of sickle cell pain. Patient states current exacerbation x1 day. Patient states pain is in his typical locations of his joints. Patient denies any associated chest pain or shortness of breath. Patient states he is on Percocet 10mg q 4-6hrs but did not take his pain medications today. When asked why, he tells me because it will not work. Patient is requesting dilaudid and benadryl. Patient appears in no acute distress. Past Medical/Surgical History: PMH/PSH: Past Medical History: Arthritis, Sickle Cell Disease Past Surgical History: L. SHOULDER AND BILATERAL HIP Allergies: Allergies: Coded Allergies: Penicillins (Verified Allergy, Intermediate, 04/25/20) Sulfa (Sulfonamide Antibiotics) (Verified Allergy, Intermediate, 11/05/18) Family History: Family History: Sickle cell disease Social History: Social History: Smoking Status: Current Every Day Smoker, marijuana Alcohol Use: Occasionally Drug Use: Marijuana Current Medications: Current Medications Current Medications Hydromorphone HCl (Dilaudid) 1 mg 1X ONCE IVP ; Start 06/29/20 at 01:30; Stop 06/29/20 at 01:40; Status DC Oxycodone/ Acetaminophen (Percocet 10/325) 1 tab 1X ONCE PO ; Start 06/29/20 at 01:30; Stop 06/29/20 at 01:31; Status DC Diphenhydramine HCl (Benadryl) 50 mg 1X ONCE PO ; Start 06/29/20 at 01:30; Stop 06/29/20 at 01:40; Status DC Hydromorphone HCl (Dilaudid) 1 mg 1X ONCE IM Last administered on 06/29/20at 01:44; Start 06/29/20 at 02:00; Stop 06/29/20 at 02:01; Status DC Diphenhydramine HCl (Benadryl) 25 mg 1X ONCE IM Last administered on 06/29/20at 01:49; Start 06/29/20 at 02:00; Stop 06/29/20 at 02:01; Status DC Hydromorphone HCl (Dilaudid) 2 mg 1X ONCE IM Last administered on 06/29/20at 03:32; Start 06/29/20 at 03:30; Stop 06/29/20 at 03:31; Status DC Sodium Chloride 1,000 ml @ 1,000 mls/hr 1X ONCE IV ; Start 06/29/20 at 05:30; Stop 06/29/20 at 06:29; Status DC Morphine Sulfate (Morphine Sulfate) 2 mg PRN Q2HR PRN IV SEVERE PAIN 7-10; Start 06/29/20 at 05:30; Stop 06/30/20 at 05:29 Hydromorphone HCl (Dilaudid) 1 mg PRN Q4HRS PRN IVP SEVERE PAIN 7-10 Last administered on 06/29/20at 06:52; Start 06/29/20 at 05:30 Active Scripts Active Hydroxyurea 500 Mg Capsule 500 Mg PO DAILY 30 Days Diphenhydramine Hcl 25 Mg Capsule 25 Mg PO PRN Q6HRS PRN [Folic Acid] 1 MG Tablet 1 Mg PO DAILY Thera-M Tablet (Multivits,Ca,Minerals/Iron/Fa) 1 Each Tablet 1 Tab PO DAILY Reported Acetaminophen 325 Mg Tablet 2 Tab PO PRN Q4-6HRS PRN 24 Days ROS: Review of Systems Review of System REVIEW OF SYSTEMS: GENERAL: Denies weakness SKIN: No bruising, hair changes or rashes. EYES: No blurred, double or loss of vision. NOSE AND THROAT: No history of nosebleeds, hoarseness or sore throat. HEART: No history of palpitations, chest pain or shortness of breath on exertion. LUNGS: Denies cough, hemoptysis, wheezing or shortness of breath. GASTROINTESTINAL: Denies changes in appetite, nausea, vomiting, diarrhea or constipation. GENITOURINARY: No history of frequency, urgency, hesitancy or nocturia. NEUROLOGIC: Denies history of numbness, tingling, or tremor. PSYCHIATRIC: No history of panic, anxiety or depression. ENDOCRINE: No history of heat or cold intolerance, polyuria or polydipsia. EXTREMITIES: Denies joint pain, pain on walking or stiffness. Physical Exam: Vital Signs: Vital Signs Date Time Temp Pulse Resp B/P (MAP) Pulse Ox O2 Delivery O2 Flow Rate FiO2 06/29/20 07:52 Room Air 06/29/20 07:00 98.0 81 17 114/61 (78) 98 98.0 Physcial Exam: GEN: No apparent distress. Alert and oriented HEENT: Normal cephalic, atraumatic, external auditory canals are patent EYES: Extraocular muscles are intact, pupil are equally round and reactive to light and accommodation MUSCULOSKELETAL: Well developed , well nourished, good range of motion ENDOCRINE: No thyromegaly was palpated LYMPHATICS: No cervical chain or axillary nodes were noted HEMATOPOIETIC: No bruising NECK: Supple, no JVD, no thyromegaly was noted LUNGS: Clear to auscultation in all lung vaughan without rhonchi or wheezing HEART: RRR, S!, S2 present. Peripheral pulses intact, no obvious murmurs noted ABDOMEN: Soft, nontender. Positive bowel sounds, no organomegaly, normal bowel sounds EXTREMITIES: Without clubbing, cyanosis, or edema. Pedal pulses intact. Negative Homans sign NEUROLOGIC: Normal speech and tone. A&O x 3, moves all extremities, no obvious focal deficits PSYCHIATRIC: Normal affect, normal mood. Stable SKIN: No ulcerations or rashes, good skin turgor, no jaundice VASCULAR: Good capillary refill, neurovascular bundle appears to be intact Labs: Labs: No recent labs to review, pending complete chemistry and CBC panel Images: Images 04/25/20 PROCEDURE: PORTABLE CHEST 1V IMPRESSION: * Mild interstitial opacities in the bilateral lungs. Could be from mild edema or interstitial infiltrate. * Sclerosis at the right humeral head. Causes such as osteonecrosis are within the differential given the patient's other findings. Assessment/Plan Assessment/Plan Acute sickle cell crisis Admit to medicine for observation IV fluid bolus IV pain control Pending labs Resume home sickle cell disease medications Anticipate discharge in next 24 to 48 hours. Justifications for Admission Other Justification Acute sickle cell pain FABIEN LOYA MD June 29, 2020 10:23
[2020-06-29 10:41] VITALS: BP 94/58
[2020-06-29 11:50] LABS: BASO # 0.1 x10^3/uL (0.0-0.2); BASO % 1 % (0-3); EOS # 0.3 x10^3/uL (0.0-0.7); EOS % 3 % (0-3); HEMATOCRIT 26.1 % (39.0-53.0); HEMOGLOBIN 9.3 g/dL (13.0-17.5); LYMPH # 3.2 x10^3/uL (1.0-4.8); LYMPH % 29 % (24-48); MEAN CORPUSCULAR HEMOGLOBIN 35 pg (25-35); MEAN CORPUSCULAR HGB CONC 36 g/dL (31-37); MEAN CORPUSCULAR VOLUME 97 fL (79-100); MONO # 1.4 x10^3/uL (0.0-1.1); MONO % 13 % (0-9); NEUT # 6.1 x10^3/uL (1.8-7.7); NEUT % 55 % (31-73); PLATELET COUNT 269 x10^3/uL (140-400); RED BLOOD COUNT 2.69 x10^6/uL (4.30-5.70); RED CELL DISTRIBUTION WIDTH 24.1 % (11.5-14.5)
[2020-06-29] MEDS ORDERED: diphenhydrAMINE 50 MG/ML VIAL IVP PRN (12:15)
[2020-06-29 12:16] LABS: ALBUMIN 3.6 g/dL (3.4-5.0); ALBUMIN/GLOBULIN RATIO 1.3 (1.0-1.7); CREATININE 1.1 mg/dL (0.7-1.3); GFR 90.2; MAGNESIUM 1.9 mg/dL (1.8-2.4); POTASSIUM 4.4 mmol/L (3.5-5.1); TOTAL BILIRUBIN 3.9 mg/dL (0.2-1.0); TOTAL PROTEIN 6.4 g/dL (6.4-8.2)
--- NOTE | 2020-06-29 13:01 | DISCH ---
DISCHARGE INSTRUCTIONS Condition on Discharge Condition on Discharge: Stable Activity After Discharge Activity Instructions for Disc: Activity as tolerated Exercise Instruction after Dis: Progress as tolerated Driving Instructions after Dis: Do not drive Weight Bearing Status after Di: No restrictions Diet after Discharge Diet after Discharge: Cardiac, Regular Diet Texture: Regular Liquid Texture: Thin Liquid Swallowing Supervision: None needed Wound Incision Care Wound/Incision Care: No wound care needed Checks after Discharge Checks after discharge: Check blood press - daily, Check your Temp as needed Follow-Up Follow up with: PCP within 2 weeks of discharge Treatment/Equipment after DC Adaptive Equipment Issued: None FABIEN LOYA MD June 29, 2020 13:01
[2020-06-29 13:26] LABS: PLT ESTIMATE ADEQUATE (ADEQUATE)
[2020-06-29 13:27] LABS: ANISOCYTOSIS MOD; POLYCHROMASIA OCCASIONAL
[2020-06-29] MEDS ORDERED: HEPARIN PF 500 UNIT/5 ML DISP.SYRIN. IVP ONE (14:30)
--- NOTE | 2020-06-29 15:58 | NUR ---
Patient discharged home today with self care via ambulation accompanied by this RN. Patient is stable, port a cath was de access, prescription, and discharge paperwork given to patient. Patient verbalized understanding of followup and discharge instruction.
--- NOTE | 2020-07-02 22:40 | PDOC3 ---
[facility]-Discharge Summary Date of Admission: Date of Admission: June 29, 2020 Date of Discharge: Date of Discharge: June 29, 2020 Discharge Diagnosis: Discharge Diagnosis: Sickel cell crisis Hospital Course: Hospital Course: 39-year-old male past medical history sickle cell presents with a chief complaint of sickle cell pain. Patient states current exacerbation x1 day. Patient states pain is in his typical locations of his joints. Patient denies any associated chest pain or shortness of breath. Patient states he is on Percocet 10mg q 4-6hrs but did not take his pain medications today. When asked why, he tells me because it will not work. Patient is requesting dilaudid and benadryl. Patient appears in no acute distress. By day of discharge, pt was clinically stable, chest pain free and ready for discharge. Rest of hospital course was uneventful Disposition: Disposition/Orders: D/C to Home Activity: Activity: Resume previous activity Diet: Diet: Cardiac Medications: Home Meds Active Scripts Hydroxyurea (HYDROXYUREA) 500 Mg Capsule, 500 MG PO DAILY for SS disease for 30 Days, #30 CAP Prov:LASHA CORBIN MD 03/30/19 Diphenhydramine Hcl (DIPHENHYDRAMINE HCL) 25 Mg Capsule, 25 MG PO PRN Q6HRS PRN for ITCHING, #30 CAP Prov:CANDIDO MITCHELL MD 01/26/19 [Folic Acid] 1 MG TABLET No Conflict Check, 1 MG PO DAILY for sickel cell, #60 Prov:CANDIDO MITCHELL MD 01/26/19 Multivits,Ca,Minerals/Iron/Fa (THERA-M TABLET) 1 Each Tablet, 1 TAB PO DAILY for mvi, #60 TAB Prov:CANDIDO MITCHELL MD 11/15/18 Reported Medications Acetaminophen (ACETAMINOPHEN) 325 Mg Tablet, 2 TAB PO PRN Q4-6HRS PRN for pain or fever for 24 Days, #100 TAB 0 Refills 03/09/19 Scheduled Hydroxyurea (Hydroxyurea), 500 MG PO DAILY Multivits,Ca,Minerals/Iron/Fa (Thera-M Tablet), 1 TAB PO DAILY [Folic Acid], 1 MG PO DAILY Scheduled PRN Acetaminophen (Acetaminophen), 2 TAB PO PRN Q4-6HRS PRN for pain or fever, (Reported) Diphenhydramine Hcl (Diphenhydramine Hcl), 25 MG PO PRN Q6HRS PRN for ITCHING Total Time: Total Time: Total time spent was 35 minutes in preparing scripts, discharge planning with SW and RN, and preparing this discharge summary. Patient seen and examined on day of discharge. Justicifation of Admission Dx: Justifications for Admission: Justification of Admission Dx: Yes FABIEN LOYA MD July 02, 2020 22:40
== END 2020-06-29 16:06 | disposition home or self-care (01) ==
LOC: ER 23:33 → 4 NORTH 06-29 05:40
PROVIDERS: ADMIT Internal Medicine; ATTEND Internal Medicine
DX: D57.00 Hb-SS disease with crisis, unspecified (principal); F17.200 Nicotine dependence, unspecified, uncomplicated; F12.90 Cannabis use, unspecified, uncomplicated; M19.90 Unspecified osteoarthritis, unspecified site; Z79.899 Other long term (current) drug therapy
CPT/HCPCS: 36415; 80053; 83735; 85025; 96361; 96372; 96374; 96375; 96376; 99284; G0378; J1170; J1200; J1642; J7030; G0379

== ENCOUNTER 2020-07-08 11:49 | Inpatient (IN) | payer OTHER ==
[~2020-07-08] VITALS: Ht 175.3 cm; Wt 75.0 kg
[2020-07-08] MEDS ORDERED: MORPHINE SULFATE 4 MG/ML VIAL. IV ONE (12:30)
[2020-07-08] MEDS ORDERED: IV NORMAL SALINE 1000ML BAG 1,000 ML IV ONE (12:30)
[2020-07-08] MEDS ORDERED: HYDROmorphone 2 MG/ML VIAL IM ONE (12:30)
[2020-07-08] MEDS ORDERED: diphenhydrAMINE 50 MG/ML VIAL IVP ONE (12:30)
[2020-07-08] MEDS ORDERED: ONDANSETRON PF 4 MG/2 ML VIAL. IVP ONE (12:30)
[2020-07-08 13:17] LABS: CALCIUM 8.4 mg/dL (8.5-10.1); CREATININE 1.2 mg/dL (0.7-1.3); GFR 81.6; POTASSIUM 4.1 mmol/L (3.5-5.1)
[2020-07-08 13:18] LABS: BASO # 0.1 x10^3/uL (0.0-0.2); BASO % 1 % (0-3); EOS # 0.5 x10^3/uL (0.0-0.7); EOS % 4 % (0-3); HEMATOCRIT 22.2 % (39.0-53.0); HEMOGLOBIN 8.3 g/dL (13.0-17.5); LYMPH # 3.1 x10^3/uL (1.0-4.8); LYMPH % 25 % (24-48); MEAN CORPUSCULAR HEMOGLOBIN 35 pg (25-35); MEAN CORPUSCULAR HGB CONC 37 g/dL (31-37); MEAN CORPUSCULAR VOLUME 94 fL (79-100); MONO % 16 % (0-9); NEUT # 6.5 x10^3/uL (1.8-7.7); NEUT % 54 % (31-73); PLATELET COUNT 243 x10^3/uL (140-400); RED BLOOD COUNT 2.37 x10^6/uL (4.30-5.70); RED CELL DISTRIBUTION WIDTH 24.5 % (11.5-14.5); WHITE BLOOD COUNT 12.2 x10^3/uL (4.0-11.0)
--- NOTE | 2020-07-08 13:18 | ED.ADGEN ---
Past Medical History Past Medical History: Arthritis, Sickle Cell Disease Past Surgical History: Other Additional Past Surgical Histo: L. SHOULDER AND BILATERAL HIP Smoking Status: Former Smoker Alcohol Use: Occasionally Drug Use: None General Adult EDM: Chief Complaint: PAIN CONTROL HPI: HPI: Patient is a 39 year old AA male who presents emergency department with complaints of sickle cell pain. Patient states that he just aches all over mostly in his right arm. He denies any chest pain, shortness of breath, fever, abdominal pain, nausea, vomiting, diarrhea, wheezing, fatigue, palpitations, dysuria, hematuria, increased urinary frequency, or rash. Patient reports he has been having ongoing problems with his sickle cell disease for weeks. He recently had a port placed in his right chest. Patient has been taking his 10 mg oxycodone with no relief in his symptoms. Patient states that the sickle cell clinic that he goes to for pain control is currently closed today. He currently rates his pain a 10 out of 10 on the pain scale, he denies any alleviating or exacerbating factors, the pain is constant. Review of Systems: Review of Systems: Complete ROS is negative unless otherwise noted in HPI. Current Medications: Current Medications Medications (Trade) Dose Ordered Sig/Shoshana Start Time Stop Time Status Last Admin Dose Admin Diphenhydramine HCl (Benadryl) 25 mg 1X ONCE 07/08/20 12:30 07/08/20 12:31 DC 07/08/20 13:17 25 MG Hydromorphone HCl (Dilaudid) 1 mg 1X ONCE 07/08/20 12:30 07/08/20 12:32 DC 07/08/20 13:16 1 MG Morphine Sulfate (Morphine Sulfate) 4 mg 1X ONCE 07/08/20 12:30 07/08/20 12:31 DC Ondansetron HCl (Zofran) 4 mg 1X ONCE 07/08/20 12:30 07/08/20 12:32 DC 07/08/20 13:17 4 MG Sodium Chloride 1,000 ml @ 1,000 mls/hr Q1H ONCE 07/08/20 12:30 07/08/20 13:29 DC 07/08/20 13:17 1,000 MLS/HR Allergies: Allergies: Allergies Coded Allergies Type Severity Reaction Last Updated Verified Penicillins Allergy Intermediate 04/25/20 Yes Sulfa (Sulfonamide Antibiotics) Allergy Intermediate 11/05/18 Yes Physical Exam: PE: See Above Constitutional: Well developed, well nourished, no acute distress, non-toxic appearance. [] HENT: Normocephalic, atraumatic, bilateral external ears normal, nose normal. [] Eyes: PERRLA, EOMI, conjunctiva normal, no discharge. [] Neck: Normal range of motion, no stridor. [] Cardiovascular:Heart rate regular rhythm Lungs & Thorax: Respirations even and unlabored, no retractions, no respiratory distress Abdomen: soft, no tenderness, no rebound tenderness, no guarding, no palpable mass Skin: Warm, dry, no erythema, no rash. [] Extremities: No cyanosis, ROM intact, no edema. [] Neurologic: Alert and oriented X 3, normal motor, normal sensory, no focal deficits noted. [] Psychologic: Affect argumentative, judgement normal, mood agitated Current Patient Data: Labs: Laboratory Tests Test 07/08/20 12:55 White Blood Count 12.2 x10^3/uL (4.0-11.0) H Red Blood Count 2.40 x10^6/uL (4.30-5.70) L Hemoglobin 8.3 g/dL (13.0-17.5) L Hematocrit 22.2 % (39.0-53.0) L Mean Corpuscular Volume 94 fL (79-100) Mean Corpuscular Hemoglobin 35 pg (25-35) Mean Corpuscular Hemoglobin Concent 37 g/dL (31-37) Red Cell Distribution Width 24.5 % (11.5-14.5) H Platelet Count 243 x10^3/uL (140-400) Neutrophils (%) (Auto) 54 % (31-73) Lymphocytes (%) (Auto) 25 % (24-48) Monocytes (%) (Auto) 16 % (0-9) H Eosinophils (%) (Auto) 4 % (0-3) H Basophils (%) (Auto) 1 % (0-3) Neutrophils # (Auto) 6.5 x10^3/uL (1.8-7.7) Lymphocytes # (Auto) 3.1 x10^3/uL (1.0-4.8) Monocytes # (Auto) 2.0 x10^3/uL (0.0-1.1) H Eosinophils # (Auto) 0.5 x10^3/uL (0.0-0.7) Basophils # (Auto) 0.1 x10^3/uL (0.0-0.2) Segmented Neutrophils % 57 % (35-66) Lymphocytes % 25 % (24-48) Monocytes % 9 % (0-10) Eosinophils % 7 % (0-5) H Basophils % 1 % (0-3) Myelocytes % 1 % (0-0) H Nucleated Red Blood Cells 4 Platelet Estimate Adequate (ADEQUATE) Giant Platelets Polychromasia Mod Anisocytosis Mod Sickle Cells Mod Target Cells Few Schistocytes Occ Absolute Reticulocyte Count 0.214 x10^6/uL (0.020-0.120) Percent Reticulocyte Count 8.9 % (0.5-2.3) H Immature Reticulocyte Fraction 0.72 (0.20-0.60) H Sodium Level 146 mmol/L (136-145) H Potassium Level 4.1 mmol/L (3.5-5.1) Chloride Level 111 mmol/L (98-107) H Carbon Dioxide Level 26 mmol/L (21-32) Anion Gap 9 (6-14) Blood Urea Nitrogen 10 mg/dL (8-26) Creatinine 1.2 mg/dL (0.7-1.3) Estimated GFR (Cockcroft-Gault) 81.6 BUN/Creatinine Ratio 8 (6-20) Glucose Level 120 mg/dL (70-99) H Calcium Level 8.4 mg/dL (8.5-10.1) L Total Bilirubin 4.3 mg/dL (0.2-1.0) H Aspartate Amino Transferase (AST) 39 U/L (15-37) H Alanine Aminotransferase (ALT) 19 U/L (16-63) Alkaline Phosphatase 112 U/L (46-116) Total Protein 6.2 g/dL (6.4-8.2) L Albumin 3.6 g/dL (3.4-5.0) Albumin/Globulin Ratio 1.4 (1.0-1.7) Laboratory Tests 07/08/20 12:55 Laboratory Tests 07/08/20 12:55 Vital Signs: Vital Signs Date Time Temp Pulse Resp B/P (MAP) Pulse Ox O2 Delivery O2 Flow Rate FiO2 5/30/21 13:16 18 94 07/08/20 12:05 98.3 98 106/56 (73) Room Air 98.3 EKG: EKG: [] Heart Score: C/O Chest Pain: No Risk Scores: Score 0 - 3: 2.5% MACE over next 6 weeks - Discharge Home Score 4 - 6: 20.3% MACE over next 6 weeks - Admit for Clinical Observation Score 7 - 10: 72.7% MACE over next 6 weeks - Early Invasive Strategies Radiology/Procedures: Radiology/Procedures: PROCEDURE: CHEST AP ONLY XR CHEST 1V CLINICAL INDICATIONS: Reason: sickle cell pain COMPARISON: April 25, 2020. Findings: No acute lung infiltrate or pleural effusion or pulmonary edema or lung mass or pneumothorax is seen. The heart size, pulmonary vasculature, mediastinum and both hector are unremarkable. There is generalized increased bone density which may be noted with sickle cell disease. This was seen previously. Left shoulder arthroplasty is evident. There is a new finding of a right IJ Port-A-Cath and the tip is seen within the lower SVC at the junction with the right atrium. IMPRESSION: No acute radiographic abnormality is seen.[] Course & Med Decision Making: Course & Med Decision Making Pertinent Labs and Imaging studies reviewed. (See chart for details) [id number] with Dr. Camacho who is the admitting physician, and care was assumed following discussion of patient. Will admit patient for sickle cell crisis Patient's vital signs stable. Patient remains afebrile, appears nontoxic, respirations even and unlabored. Patient will be admitted to the med/surg floor. Patient's case and plan of care also discussed with Dr. Baird. [] Juany Disclaimer: Juany Disclaimer: This electronic medical record was generated, in whole or in part, using a voice recognition dictation system. Departure Departure Impression: Primary Impression: Sickle cell anemia with pain Additional Impression: Sickle cell crisis Disposition: ADMITTED INPATIENT Admitting Physician: MCKENNA Milner) Condition: STABLE Referrals: NO PCP (PCP) Problem Qualifiers SONIYA JOHN DIE SETTER July 08, 2020 13:18
[2020-07-08 13:23] LABS: ALBUMIN 3.6 g/dL (3.4-5.0); ALBUMIN/GLOBULIN RATIO 1.4 (1.0-1.7); TOTAL BILIRUBIN 4.3 mg/dL (0.2-1.0); TOTAL PROTEIN 6.2 g/dL (6.4-8.2)
[2020-07-08 14:02] LABS: % BASOS 1 % (0-3); % EOS 7 % (0-5); % LYMPHS 25 % (24-48); % MONOS 9 % (0-10); % MYELOS 1 % (0-0); % SEGS 57 % (35-66); NUCLEATED RBC 4
[2020-07-08 14:03] LABS: PLT ESTIMATE ADEQUATE (ADEQUATE); TARGET CELLS FEW
[2020-07-08 14:04] LABS: POLYCHROMASIA MOD; SICKLE CELLS MOD
[2020-07-08 14:05] LABS: ANISOCYTOSIS MOD
[2020-07-08 14:06] LABS: SCHISTOCYTES OCC
--- NOTE | 2020-07-08 14:16 | RAD ---
XR CHEST 1V CLINICAL INDICATIONS: Reason: sickle cell pain COMPARISON: April 25, 2020. Findings: No acute lung infiltrate or pleural effusion or pulmonary edema or lung mass or pneumothora x is seen. The heart size, pulmonary vasculature, mediastinum and both hector are unremarkable. There is generalized increased bone density which may be noted with sickle cell disease. This was seen prev iously. Left shoulder arthroplasty is evident. There is a new finding of a right IJ Port-A-Cath and t he tip is seen within the lower SVC at the junction with the right atrium. IMPRESSION: No acute radiographic abnormality is seen. Electronically signed by: Winston Bhakta MD (07/08/2020 2:14 PM) [id number]
[2020-07-08] MEDS ORDERED: HYDROmorphone 2 MG/ML VIAL IVP ONE (15:00)
[2020-07-08] MEDS ORDERED: MAGNESIUM HYDROXIDE 2,400 MG/30 ML ORAL.SUSP. PO PRN (15:15)
[2020-07-08] MEDS ORDERED: CALCIUM CARBONATE 500 MG TAB.CHEW PO PRN (15:15)
[2020-07-08] MEDS ORDERED: ZOLPIDEM 5 MG TABLET. PO PRN (15:15)
[2020-07-08] MEDS ORDERED: KETOROLAC 15 MG/ML VIAL. IV PRN (15:15)
[2020-07-08] MEDS ORDERED: MAG HYDROX/ALUMINUM HYD/SIMETH 30 ML ORAL.SUSP PO PRN (15:15)
[2020-07-08] MEDS ORDERED: ONDANSETRON PF 4 MG/2 ML VIAL. IVP PRN (15:15)
[2020-07-08] MEDS ORDERED: ACETAMINOPHEN 325 MG TABLET. PO PRN (15:15)
--- NOTE | 2020-07-08 15:15 | PDOC1 ---
History and Physical Date of Admission Date of Admission DATE: 07/08/20 TIME: 15:05 Identification/Chief Complaint Chief Complaint Shoulder pain Source Source: Patient History of Present Illness History of Present Illness Mr Licea is a 39yo M w/ PMHx SCD, Osteonecrosis of left shoulder, depression with anxiety who presents with right shoulder pain. He also notes diffuse bone pain, lower back pain, bilateral hip pain, right rib pain and bilateral shoulder pain as well as frontal chest pain. He has noted he is experiencing slow urine stream and burning on urination as well as dysuria. No risk for STIs, no prior UTI, but has had priapism previously. He has been told he has enlarged prostate. He has been taking folate and hydroxyurea. Just re-established with [facility] hematology. Hb electrophoresis consistent with SS diseaes and 9% hemoglobin previously. H/o AVN left shoulder with surgery in 2007, injection 2017, replacement 03/30. Bilateral hip injections 05/2018 H/o acute chest syndrome in 2002, 5 prior blood transfusions. Had frequent hospitalization at [facility] as well as [facility], [facility], [place], [place]. Was hospitalized at [facility] the end of October 2018, and was treated multiple times at [facility] in 2019. Has been to [facility] within the last 2 days and discharged, and was planning on having outpatient IVF at the cancer center, and now has [facility] port-a-cath for this. He was just recovering from a recent sickle cell crisis. He was seen in [facility] 04/19/[address] Aguilera at for hematology, was prescribed OxyContin 10 mg and reports this is not helping his pain. Previously incarcerated and transferred his care 11/2017 to [facility]. Labs with WBC 12.2, Hb 8.3, platelets 243 reticulocyte percentage 8.9%, NA 146, K4.1, chloride 111, BUN 10, CR 1.2, glucose 120, bilirubin 4.3 (Previously noted baseline 7% reticulocyte count.) CXR with no acute abnormality. Admitted for further treatment of SCD with crisis. Past Medical History Cardiovascular: Other Heme/Onc: Anemia NOS, Sickle cell disease Psych: Anxiety, Addictions Musculoskeletal: Other Infectious disease: Other Renal/: UTI, Other Past Surgical History Past Surgical History: Arthroscopy Family History Family History: Other Social History Smoke: No ALCOHOL: rare Drugs: Marijuana Current Medications Current Medications Current Medications Diphenhydramine HCl (Benadryl) 25 mg 1X ONCE IVP Last administered on 07/08/20at 13:17; Start 07/08/20 at 12:30; Stop 07/08/20 at 12:31; Status DC Morphine Sulfate (Morphine Sulfate) 4 mg 1X ONCE IV ; Start 07/08/20 at 12:30; Stop 07/08/20 at 12:31; Status DC Sodium Chloride 1,000 ml @ 1,000 mls/hr Q1H ONCE IV Last administered on 07/08/20at 13:17; Start 07/08/20 at 12:30; Stop 07/08/20 at 13:29; Status DC Hydromorphone HCl (Dilaudid) 1 mg 1X ONCE IM Last administered on 07/08/20at 13:16; Start 07/08/20 at 12:30; Stop 07/08/20 at 12:32; Status DC Ondansetron HCl (Zofran) 4 mg 1X ONCE IVP Last administered on 07/08/20at 13:17; Start 07/08/20 at 12:30; Stop 07/08/20 at 12:32; Status DC Active Scripts Active Hydroxyurea 500 Mg Capsule 500 Mg PO DAILY 30 Days Diphenhydramine Hcl 25 Mg Capsule 25 Mg PO PRN Q6HRS PRN [Folic Acid] 1 MG Tablet 1 Mg PO DAILY Thera-M Tablet (Multivits,Ca,Minerals/Iron/Fa) 1 Each Tablet 1 Tab PO DAILY Reported Acetaminophen 325 Mg Tablet 2 Tab PO PRN Q4-6HRS PRN 24 Days Allergies Allergies: Coded Allergies: Penicillins (Verified Allergy, Intermediate, 04/25/20) Sulfa (Sulfonamide Antibiotics) (Verified Allergy, Intermediate, 11/05/18) ROS General: YES: Fatigue, Malaise; No: Chills, Night Sweats, Appetite, Other PSYCHOLOGICAL ROS: No: Anxiety, Behavioral Disorder, Concentration difficultie, Decreased libido, Depression, Disorientation, Hallucinations, Hostility, Irritablity, Memory difficulties, Mood Swings, Obsessive thoughts, Physical abuse, Sexual abuse, Sleep disturbances, Suicidal ideation, Other Eyes: No Blurry vision, No Decreased vision, No Double vision, No Dry eyes, No Excessive tearing, No Eye Pain, No Itchy Eyes, No Loss of vision, No Photophobia, No Scotomata, No Uses contacts, No Uses glasses, No Other HEENT: No: Heacaches, Visual Changes, Hearing change, Nasal congestion, Nasal discharge, Oral lesions, Sinus pain, Sore Throat, Epistaxis, Sneezing, Snoring, Tinnitus, Vertigo, Vocal changes, Other ALLERGY AND IMMUNOLOGY: No: Hives, Insect Bite Sensitivity, Itchy/Watery Eyes, Nasal Congestion, Post Nasal Drip, Seasonal Allergies, Other Hematological and Lymphatic: No: Bleeding Problems, Blood Clots, Blood Transfusions, Brusing, Night Sweats, Pallor, Swollen Lymph Nodes, Other ENDOCRINE: No: Breast Changes, Galactorrhea, Hair Pattern Changes, Hot Flashes, Malaise/lethargy, Mood Swings, Palpitations, Polydipsia/polyuria, Skin Changes, Temperature Intolerance, Unexpected Weight Changes, Other Breast: No New/Changing Breast Lumps, No Nipple changes, No Nipple discharge, No Other Respiratory: No: Cough, Hemoptysis, Orthopnea, Pleuritic Pain, Shortness of breath, SOB with excertion, Sputum Changes, Stridor, Tachypnea, Wheezing, Other Cardiovascular: No Chest Pain, No Palpitations, No Orthopnea, No Paroxysmal Noc. Dyspnea, No Edema, No Lt Headedness, No Other Gastrointestinal: No Nausea, No Vomiting, No Abdominal Pain, No Diarrhea, No Constipation, No Melena, No Hematochezia, No Other Genitourinary: No Dysuria, No Frequency, No Incontinence, No Hematuria, No Retention, No Discharge, No Urgency, No Pain, No Flank Pain, No Other, No , No , No , No , No , No , No Musculoskeletal: No Gait Disturbance, No Joint Pain, No Joint Stiffness, No Joint Swelling, No Muscle Pain, No Muscular Weakness, No Pain In:, No Swelling In:, No Other Neurological: No Behavorial Changes, No Bowel/Bladder ControlChng, No Confusion, No Dizziness, No Gait Disturbance, No Headaches, No Impaired Coord /balance, No Memory Loss, No Numbness/Tingling, No Seizures, No Speech Problems, No Tremors, No Visual Changes, No Weakness, No Other Skin: No Dry Skin, No Eczema, No Hair Changes, No Lumps, No Mole Changes, No Mottling, No Nail Changes, No Pruritus, No Rash, No Skin Lesion Changes, No Other, No Acne Physical Exam General: Alert, Oriented X3, Cooperative, severe distress HEENT: Atraumatic, PERRLA, EOMI, Mucous membr. moist/pink Lungs: Clear to auscultation, Normal air movement Heart: S1S2, RRR, no thrills, no rubs, no gallops, no murmurs Abdomen: Normal bowel sounds, Soft, No tenderness, No hepatosplenomegaly, No masses Rectal Exam: not examined Extremities: No clubbing, No cyanosis, No edema, Normal pulses, No tenderness/swelling Skin: No rashes, No breakdown, No significant lesion Neuro: Normal gait, Normal speech, Strength at 5/5 X4 ext, Normal tone, Sensation intact, Cranial nerves 3-12 NL, Reflexes 2+ Psych/Mental Status: Mental status NL, Mood NL Vitals Vitals Vital Signs Date Time Temp Pulse Resp B/P (MAP) Pulse Ox O2 Delivery O2 Flow Rate FiO2 07/08/20 13:16 18 94 07/08/20 12:05 98.3 98 106/56 (73) Room Air 98.3 Labs Labs Laboratory Tests Test 07/08/20 12:55 White Blood Count 12.2 x10^3/uL (4.0-11.0) Red Blood Count 2.40 x10^6/uL (4.30-5.70) Hemoglobin 8.3 g/dL (13.0-17.5) Hematocrit 22.2 % (39.0-53.0) Mean Corpuscular Volume 94 fL (79-100) Mean Corpuscular Hemoglobin 35 pg (25-35) Mean Corpuscular Hemoglobin Concent 37 g/dL (31-37) Red Cell Distribution Width 24.5 % (11.5-14.5) Platelet Count 243 x10^3/uL (140-400) Neutrophils (%) (Auto) 54 % (31-73) Lymphocytes (%) (Auto) 25 % (24-48) Monocytes (%) (Auto) 16 % (0-9) Eosinophils (%) (Auto) 4 % (0-3) Basophils (%) (Auto) 1 % (0-3) Neutrophils # (Auto) 6.5 x10^3/uL (1.8-7.7) Lymphocytes # (Auto) 3.1 x10^3/uL (1.0-4.8) Monocytes # (Auto) 2.0 x10^3/uL (0.0-1.1) Eosinophils # (Auto) 0.5 x10^3/uL (0.0-0.7) Basophils # (Auto) 0.1 x10^3/uL (0.0-0.2) Segmented Neutrophils % 57 % (35-66) Lymphocytes % 25 % (24-48) Monocytes % 9 % (0-10) Eosinophils % 7 % (0-5) Basophils % 1 % (0-3) Myelocytes % 1 % (0-0) Nucleated Red Blood Cells 4 Platelet Estimate Adequate (ADEQUATE) Giant Platelets Polychromasia Mod Anisocytosis Mod Sickle Cells Mod Target Cells Few Schistocytes Occ Absolute Reticulocyte Count 0.214 x10^6/uL (0.020-0.120) Percent Reticulocyte Count 8.9 % (0.5-2.3) Immature Reticulocyte Fraction 0.72 (0.20-0.60) Sodium Level 146 mmol/L (136-145) Potassium Level 4.1 mmol/L (3.5-5.1) Chloride Level 111 mmol/L (98-107) Carbon Dioxide Level 26 mmol/L (21-32) Anion Gap 9 (6-14) Blood Urea Nitrogen 10 mg/dL (8-26) Creatinine 1.2 mg/dL (0.7-1.3) Estimated GFR (Cockcroft-Gault) 81.6 BUN/Creatinine Ratio 8 (6-20) Glucose Level 120 mg/dL (70-99) Calcium Level 8.4 mg/dL (8.5-10.1) Total Bilirubin 4.3 mg/dL (0.2-1.0) Aspartate Amino Transf (AST/SGOT) 39 U/L (15-37) Alanine Aminotransferase (ALT/SGPT) 19 U/L (16-63) Alkaline Phosphatase 112 U/L (46-116) Total Protein 6.2 g/dL (6.4-8.2) Albumin 3.6 g/dL (3.4-5.0) Albumin/Globulin Ratio 1.4 (1.0-1.7) Laboratory Tests Test 07/08/20 12:55 White Blood Count 12.2 x10^3/uL (4.0-11.0) Red Blood Count 2.40 x10^6/uL (4.30-5.70) Hemoglobin 8.3 g/dL (13.0-17.5) Hematocrit 22.2 % (39.0-53.0) Mean Corpuscular Volume 94 fL (79-100) Mean Corpuscular Hemoglobin 35 pg (25-35) Mean Corpuscular Hemoglobin Concent 37 g/dL (31-37) Red Cell Distribution Width 24.5 % (11.5-14.5) Platelet Count 243 x10^3/uL (140-400) Neutrophils (%) (Auto) 54 % (31-73) Lymphocytes (%) (Auto) 25 % (24-48) Monocytes (%) (Auto) 16 % (0-9) Eosinophils (%) (Auto) 4 % (0-3) Basophils (%) (Auto) 1 % (0-3) Neutrophils # (Auto) 6.5 x10^3/uL (1.8-7.7) Lymphocytes # (Auto) 3.1 x10^3/uL (1.0-4.8) Monocytes # (Auto) 2.0 x10^3/uL (0.0-1.1) Eosinophils # (Auto) 0.5 x10^3/uL (0.0-0.7) Basophils # (Auto) 0.1 x10^3/uL (0.0-0.2) Segmented Neutrophils % 57 % (35-66) Lymphocytes % 25 % (24-48) Monocytes % 9 % (0-10) Eosinophils % 7 % (0-5) Basophils % 1 % (0-3) Myelocytes % 1 % (0-0) Nucleated Red Blood Cells 4 Platelet Estimate Adequate (ADEQUATE) Giant Platelets Polychromasia Mod Anisocytosis Mod Sickle Cells Mod Target Cells Few Schistocytes Occ Absolute Reticulocyte Count 0.214 x10^6/uL (0.020-0.120) Percent Reticulocyte Count 8.9 % (0.5-2.3) Immature Reticulocyte Fraction 0.72 (0.20-0.60) Sodium Level 146 mmol/L (136-145) Potassium Level 4.1 mmol/L (3.5-5.1) Chloride Level 111 mmol/L (98-107) Carbon Dioxide Level 26 mmol/L (21-32) Anion Gap 9 (6-14) Blood Urea Nitrogen 10 mg/dL (8-26) Creatinine 1.2 mg/dL (0.7-1.3) Estimated GFR (Cockcroft-Gault) 81.6 BUN/Creatinine Ratio 8 (6-20) Glucose Level 120 mg/dL (70-99) Calcium Level 8.4 mg/dL (8.5-10.1) Total Bilirubin 4.3 mg/dL (0.2-1.0) Aspartate Amino Transf (AST/SGOT) 39 U/L (15-37) Alanine Aminotransferase (ALT/SGPT) 19 U/L (16-63) Alkaline Phosphatase 112 U/L (46-116) Total Protein 6.2 g/dL (6.4-8.2) Albumin 3.6 g/dL (3.4-5.0) Albumin/Globulin Ratio 1.4 (1.0-1.7) Images Images Chest radiograph: No acute lung infiltrate or pleural effusion or pulmonary edema or lung mass or pneumothorax is seen. The heart size, pulmonary vasculature, mediastinum and both hector are unremarkable. There is generalized increased bone density which may be noted with sickle cell disease. This was seen previously. Left shoulder arthroplasty is evident. There is a new finding of a right IJ Port-A-Cath and the tip is seen within the lower SVC at the junction with the right atrium. IMPRESSION: No acute radiographic abnormality is seen. VTE Prophylaxis Ordered VTE Prophylaxis Devices: No VTE Pharmacological Prophylaxi: Yes Assessment/Plan Assessment/Plan A/P: Severe Sickle cell crisis - with Reticulocyte %>10, will give aggressive IVF, d ilaudid 2mg Q2hrs prn, can decrease to q3hrs tomorrow if pain under control. 10mg oxycodone prn q6hrs PO. 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 Is established with [facility] again within the past week Right shoulder pain - with h/o osteonecrosis of left shoulder will monitor. topical and IV NSAIDs Chronic pain syndrome Osteonecrosis of left shoulder - with prior surgical correction - replacement 03/2018 Chronic back pain - worse currently Chronic joint pain - 2/2 AVN and SCD crisis that is recurrent H/o blood transfusion - no indication now, has historically had at least 5 transfusions Hyperbilirubinemia - 2/2 SCD Dysuria - will check UA, culture if indicated Slow urine stream - BPH by history, will initiate flomax tonight. With benadryl dosing will bladder scan if his UOP drops Smoker - counseled on cessation FEN - General diet PPX - lovenox FULL CODE Dispo - inpatient for SCD pain crisis Justifications for Admission Other Justification Acute sickle cell pain HUNTER SHARMA MD July 08, 2020 15:14
[2020-07-08] MEDS ORDERED: OXYC10TA PO (15:17)
[2020-07-08] MEDS ORDERED: POLY17PO52 PO (15:17)
[2020-07-08] MEDS: POLYETHYLENE GLYCOL 3350 17 GM PACKET. PO SCH (15:30)
[2020-07-08] MEDS: diphenhydrAMINE 50 MG/ML VIAL IVP PRN (20:00)
[2020-07-08] MEDS: HYDROmorphone 2 MG/ML VIAL IVP PRN (21:09)
[2020-07-08 23:00] VITALS: BP 119/47
[2020-07-09] MEDS: IV 1/2 NORMAL SALINE 1,000 ML IV SCH ×3 (00:09→11:15)
[2020-07-09] MEDS: ENOXAPARIN 40 MG/0.4 ML SYRINGE. SQ SCH ×3 (00:10→19:54)
[2020-07-09] MEDS: TAMSULOSIN 0.4 MG CAP.ER.24H. PO SCH ×2 (00:10→19:52)
[2020-07-09] MEDS: SENNOSIDES/DOCUSATE 8.6/50MG TABLET. PO SCH ×4 (00:10→19:52)
--- NOTE | 2020-07-09 00:51 | NUR ---
Patient admitted to [address] [place] [address] at 2303 with Sickle Cell Crisis/Sickle Cell Anemia with pain. RN reviewed past medical history with patient. During review of past medical history patient somewhat irritated, stating "I don't know why I have to do this" RN explained to patient on every admission history has to be reviewed and updated. Patient irritated and states that when people ask him questions he gets anxious, he does not like answering questions. RN asked patient to put hospital gown on so that he could be weighed. When RN returned to the room, patient still sitting on edge of bed, looking through cell phone. RN again requested for patient to take off shoes and put on hospital gown so an accurate weight can be obtained. Patient irritated that he has to be weighed. RN later attempted to administer Lovenox, Flomax, Senna, and Toradol. Patient refused medications stating "all I want is my pain med, I'll take those mediations tomorrow". RN tried to encourage patient to take Toradol for relief of pain until next dose of Dilaudid, patient declined stating "I'll wait until I can have Dilaudid, Toradol doesn't do anything". Patient is very abrupt in his responses.
[2020-07-09] MEDS: HYDROmorphone 2 MG/ML VIAL IVP PRN ×7 (01:06→21:37)
[2020-07-09] MEDS: diphenhydrAMINE 50 MG/ML VIAL IVP PRN ×4 (02:55→22:30)
[2020-07-09 03:16] VITALS: BP 123/65
--- NOTE | 2020-07-09 03:23 | NUR ---
Patient apologized to RN for his rude behavior earlier in the shift. He says he just doesn't feel good.
[2020-07-09 07:04] VITALS: BP 87/38
[2020-07-09] MEDS: FOLIC ACID 1 MG TABLET. PO SCH (09:00)
[2020-07-09] MEDS: POLYETHYLENE GLYCOL 3350 17 GM PACKET. PO SCH (09:01)
[2020-07-09] MEDS: MULTIVITAMIN with MINERAL TABLET. PO SCH ×2 (09:01→09:12)
[2020-07-09 10:37] VITALS: BP 112/72
[2020-07-09] MEDS: HYDROXYUREA 500 MG CAPSULE PO SCH (10:47)
--- NOTE | 2020-07-09 11:54 | PDOC ---
[employer] PROGRESS NOTE Date of Service DOS: DATE: 07/09/20 TIME: 11:52 Chief Complaint Chief Complaint Assessment/Plan Severe Sickle cell crisis - with Reticulocyte %>10, will give aggressive IVF, dilaudid 2mg Q2hrs prn, can decrease to q3hrs tomorrow if pain under control. 10mg oxycodone prn q6hrs PO. 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 Is established with [facility] again within the past week Right shoulder pain - with h/o osteonecrosis of left shoulder will monitor. topical and IV NSAIDs Chronic pain syndrome Osteonecrosis of left shoulder - with prior surgical correction - replacement 03/2018 Chronic back pain - worse currently Chronic joint pain - 2 AVN and SCD crisis that is recurrent H/o blood transfusion - no indication now, has historically had at least 5 transfusions Hyperbilirubinemia - 2/2 SCD Dysuria - will check UA, culture if indicated Slow urine stream - BPH by history, will initiate flomax tonight. With benadryl dosing will bladder scan if his UOP drops Smoker - counseled on cessation FEN - General diet PPX - lovenox FULL CODE Dispo - inpatient for SCD pain crisis History of Present Illness History of Present Illness 07/09/2020 No acute events overnight. Patient saturating 88% on 2 L nasal cannula. No dyspneic episodes. Pain seems to be well controlled with Dilaudid only. Pending repeat hemoglobin to consider PRBC transfusion, at this time patient is refusing lab draws and this will delay his hospital stay.. Continue IV fluids. Continue hydroxyurea. Patient's chart, labs, images were reviewed and discussed with RN 39yo M w/ PMHx SCD, Osteonecrosis of left shoulder, depression with anxiety who presents with right shoulder pain. He also notes diffuse bone pain, lower back pain, bilateral hip pain, right rib pain and bilateral shoulder pain as well as frontal chest pain. He has noted he is experiencing slow urine stream and burning on urination as well as dysuria. No risk for STIs, no prior UTI, but has had priapism previously. He has been told he has enlarged prostate. He has been taking folate and hydroxyurea. Just re-established with [facility] hematology. Hb electrophoresis consistent with SS diseaes and 9% hemoglobin previously. H/o AVN left shoulder with surgery in 2007, injection 2017, replacement 03/30. Bilateral hip injections 05/2018 H/o acute chest syndrome in 2002, 5 prior blood transfusions. Had frequent hospitalization at [facility] as well as [facility], [facility], [place], [place]. Was hospitalized at [facility] the end of October 2018, and was treated multiple times at [facility] in 2018. Has been to [facility] within the last 2 days and discharged, and was planning on having outpatient IVF at the cancer center, and now has [facility] port-a-cath for this. He was just recovering from a recent sickle cell crisis. He was seen in [facility] 04/19/[address] Aguilera at for hematology, was prescribed OxyContin 10 mg and reports this is not helping his pain. Previously incarcerated and transferred his care 11/2017 to [facility]. Labs with WBC 12.2, Hb 8.3, platelets 243 reticulocyte percentage 8.9%, NA 146, K4.1, chloride 111, BUN 10, CR 1.2, glucose 120, bilirubin 4.3 (Previously noted baseline 7% reticulocyte count.) CXR with no acute abnormality. Admitted for further treatment of SCD with crisis. Vitals/I&O Vitals/I&O: Vital Signs Date Time Temp Pulse Resp B/P (MAP) Pulse Ox O2 Delivery O2 Flow Rate FiO2 07/09/20 11:31 88 Nasal Cannula 2.0 07/09/20 10:37 98.7 95 18 112/72 (85) 98.7 I & O 07/08/20 07/08/20 07/09/20 15:00 23:00 07:00 Intake Total 1000 ml 300 ml Output Total 450 ml Balance 1000 ml -150 ml Physical Exam General: Alert, Oriented X3, Cooperative, severe distress Lungs: Clear, Other Abdomen: Normal bowel sounds, Soft, No tenderness, No hepatosplenomegaly, No masses Extremities: No clubbing, No cyanosis, No edema, Normal pulses, No tenderness/swelling Skin: No rashes, No breakdown, No significant lesion Labs Labs: Laboratory Tests Test 07/08/20 12:55 White Blood Count 12.2 x10^3/uL (4.0-11.0) Red Blood Count 2.40 x10^6/uL (4.30-5.70) Hemoglobin 8.3 g/dL (13.0-17.5) Hematocrit 22.2 % (39.0-53.0) Mean Corpuscular Volume 94 fL (79-100) Mean Corpuscular Hemoglobin 35 pg (25-35) Mean Corpuscular Hemoglobin Concent 37 g/dL (31-37) Red Cell Distribution Width 24.5 % (11.5-14.5) Platelet Count 243 x10^3/uL (140-400) Neutrophils (%) (Auto) 54 % (31-73) Lymphocytes (%) (Auto) 25 % (24-48) Monocytes (%) (Auto) 16 % (0-9) Eosinophils (%) (Auto) 4 % (0-3) Basophils (%) (Auto) 1 % (0-3) Neutrophils # (Auto) 6.5 x10^3/uL (1.8-7.7) Lymphocytes # (Auto) 3.1 x10^3/uL (1.0-4.8) Monocytes # (Auto) 2.0 x10^3/uL (0.0-1.1) Eosinophils # (Auto) 0.5 x10^3/uL (0.0-0.7) Basophils # (Auto) 0.1 x10^3/uL (0.0-0.2) Segmented Neutrophils % 57 % (35-66) Lymphocytes % 25 % (24-48) Monocytes % 9 % (0-10) Eosinophils % 7 % (0-5) Basophils % 1 % (0-3) Myelocytes % 1 % (0-0) Nucleated Red Blood Cells 4 Platelet Estimate Adequate (ADEQUATE) Giant Platelets Polychromasia Mod Anisocytosis Mod Sickle Cells Mod Target Cells Few Schistocytes Occ Absolute Reticulocyte Count 0.214 x10^6/uL (0.020-0.120) Percent Reticulocyte Count 8.9 % (0.5-2.3) Immature Reticulocyte Fraction 0.72 (0.20-0.60) Sodium Level 146 mmol/L (136-145) Potassium Level 4.1 mmol/L (3.5-5.1) Chloride Level 111 mmol/L (98-107) Carbon Dioxide Level 26 mmol/L (21-32) Anion Gap 9 (6-14) Blood Urea Nitrogen 10 mg/dL (8-26) Creatinine 1.2 mg/dL (0.7-1.3) Estimated GFR (Cockcroft-Gault) 81.6 BUN/Creatinine Ratio 8 (6-20) Glucose Level 120 mg/dL (70-99) Calcium Level 8.4 mg/dL (8.5-10.1) Total Bilirubin 4.3 mg/dL (0.2-1.0) Aspartate Amino Transf (AST/SGOT) 39 U/L (15-37) Alanine Aminotransferase (ALT/SGPT) 19 U/L (16-63) Alkaline Phosphatase 112 U/L (46-116) Total Protein 6.2 g/dL (6.4-8.2) Albumin 3.6 g/dL (3.4-5.0) Albumin/Globulin Ratio 1.4 (1.0-1.7) Assessment and Plan Assessmemt and Plan Problems Medical Problems: (1) Sickle cell anemia with pain Status: Acute Comment Review of Relevant I have reviewed the following items jorge luis (where applicable) has been applied. Medications: Current Medications Medications (Trade) Dose Ordered Sig/Shoshana Route PRN Reason Start Time Stop Time Status Last Admin Dose Admin Diphenhydramine HCl (Benadryl) 25 mg 1X ONCE IVP 07/08/20 12:30 07/08/20 12:31 DC 07/08/20 13:17 Sodium Chloride 1,000 ml @ 1,000 mls/hr Q1H ONCE IV 07/08/20 12:30 07/08/20 13:29 DC 07/08/20 13:17 Hydromorphone HCl (Dilaudid) 1 mg 1X ONCE IM 07/08/20 12:30 07/08/20 12:32 DC 07/08/20 13:16 Ondansetron HCl (Zofran) 4 mg 1X ONCE IVP 07/08/20 12:30 07/08/20 12:32 DC 07/08/20 13:17 Hydromorphone HCl (Dilaudid) 1 mg 1X ONCE IVP 07/08/20 15:00 07/08/20 15:01 DC 07/08/20 16:31 Hydromorphone HCl (Dilaudid) 2 mg PRN Q3HRS PRN IVP SEVERE PAIN 7-10 07/08/20 15:00 07/09/20 11:31 Sodium Chloride 1,000 ml @ 100 mls/hr Q10H IV 07/08/20 15:15 07/09/20 21:14 07/09/20 08:59 Hydroxyurea (Hydrea) 500 mg DAILY PO 07/09/20 09:00 07/09/20 10:47 Folic Acid (Folic Acid) 1 mg DAILY PO 07/09/20 09:00 07/09/20 09:00 Diphenhydramine HCl (Benadryl) 50 mg PRN Q6HRS PRN IVP ITCHING 07/08/20 15:15 07/09/20 10:47 Polyethylene Glycol (miraLAX PACKET) 17 gm DAILY PO 07/08/20 15:30 07/09/20 09:01 Justifications for Admission Chest Pain Indications Serious Diagnosis?: Yes Justification for admission: Chest pain may be indicative of potentially serious diagnosis/diagnoses Please state condition(s) which will require inpatient level of care for further evaluation and management. Other Justification Acute sickle cell pain FABIEN LOYA MD July 09, 2020 11:54
[2020-07-09 14:38] VITALS: BP 117/48
[2020-07-09 19:00] VITALS: BP 114/69
--- NOTE | 2020-07-09 20:47 | NUR ---
Patient offered lovenox this pm. Patient agreed to take it but only if I administered in front of arm. Explained to patient that it had to be administered in subcutaneous tissue. Patient became angry and refused it to be administered at this time.
[2020-07-09 23:00] VITALS: BP 95/54
[2020-07-10] MEDS: HYDROmorphone 2 MG/ML VIAL IVP PRN ×9 (00:38→21:35)
[2020-07-10 03:00] VITALS: BP 96/43
[2020-07-10] MEDS: diphenhydrAMINE 50 MG/ML VIAL IVP PRN ×4 (04:38→22:40)
[2020-07-10 07:15] VITALS: BP 109/74
[2020-07-10] MEDS: SENNOSIDES/DOCUSATE 8.6/50MG TABLET. PO SCH ×2 (09:00→21:00)
[2020-07-10] MEDS: MULTIVITAMIN with MINERAL TABLET. PO SCH (09:00)
[2020-07-10] MEDS: FOLIC ACID 1 MG TABLET. PO SCH (09:47)
[2020-07-10] MEDS: POLYETHYLENE GLYCOL 3350 17 GM PACKET. PO SCH (09:47)
[2020-07-10] MEDS: HYDROXYUREA 500 MG CAPSULE PO SCH (09:53)
--- NOTE | 2020-07-10 10:08 | NUR ---
SW following. Discussed with RN, pt from home, room air, regular diet. Pt refusing labs and requesting meds be administered a certain way. RN advised no SW needs. SW will continue to follow.
[2020-07-10 10:09] LABS: BASO # 0.2 x10^3/uL (0.0-0.2); BASO % 1 % (0-3); EOS # 0.5 x10^3/uL (0.0-0.7); EOS % 4 % (0-3); HEMATOCRIT 28.9 % (39.0-53.0); HEMOGLOBIN 10.5 g/dL (13.0-17.5); LYMPH # 3.9 x10^3/uL (1.0-4.8); LYMPH % 34 % (24-48); MEAN CORPUSCULAR HEMOGLOBIN 35 pg (25-35); MEAN CORPUSCULAR HGB CONC 36 g/dL (31-37); MEAN CORPUSCULAR VOLUME 96 fL (79-100); MONO # 1.6 x10^3/uL (0.0-1.1); MONO % 14 % (0-9); NEUT # 5.3 x10^3/uL (1.8-7.7); NEUT % 47 % (31-73); PLATELET COUNT 302 x10^3/uL (140-400); RED BLOOD COUNT 3.01 x10^6/uL (4.30-5.70); RED CELL DISTRIBUTION WIDTH 26.6 % (11.5-14.5); WHITE BLOOD COUNT 11.5 x10^3/uL (4.0-11.0)
[2020-07-10 10:30] LABS: ALBUMIN 4.1 g/dL (3.4-5.0); ALBUMIN/GLOBULIN RATIO 1.3 (1.0-1.7); CALCIUM 8.9 mg/dL (8.5-10.1); CREATININE 1.1 mg/dL (0.7-1.3); GFR 90.2; POTASSIUM 4.2 mmol/L (3.5-5.1); TOTAL BILIRUBIN 5.3 mg/dL (0.2-1.0); TOTAL PROTEIN 7.2 g/dL (6.4-8.2)
[2020-07-10 10:39] VITALS: BP 107/63
--- NOTE | 2020-07-10 11:08 | PDOC ---
[facility] PROGRESS NOTE Date of Service DOS: DATE: 07/10/20 TIME: 11:07 Chief Complaint Chief Complaint Assessment/Plan Severe Sickle cell crisis - with Reticulocyte %>10, will give aggressive IVF, dilaudid 2mg Q2hrs prn, can decrease to q3hrs tomorrow if pain under control. 10mg oxycodone prn q6hrs PO. 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 Is established with [facility] again within the past week Right shoulder pain - with h/o osteonecrosis of left shoulder will monitor. 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 With benadryl dosing will bladder scan if his UOP drops Smoker - counseled on cessation FEN - General diet PPX - lovenox FULL CODE Dispo - inpatient for SCD pain crisis History of Present Illness History of Present Illness 07/10/2020 No acute events overnight. Patient still requiring IV Dilaudid for pain control. Patient saturation of 94% on room air improved. Hemoglobin at 10.3 which is improved from yesterday. Anticipate discharge in the next 24 to 48 hours. We will plan for outpatient pain regimen. Patient's chart, labs, images were reviewed and discussed with RN 07/09/2020 No acute events overnight. Patient saturating 88% on 2 L nasal cannula. No dyspneic episodes. Pain seems to be well controlled with Dilaudid only. Pending repeat hemoglobin to consider PRBC transfusion, at this time patient is refusing lab draws and this will delay his hospital stay.. Continue IV fluids. Continue hydroxyurea. Patient's chart, labs, images were reviewed and discussed with RN 39yo M w/ PMHx SCD, Osteonecrosis of left shoulder, depression with anxiety who presents with right shoulder pain. He also notes diffuse bone pain, lower back pain, bilateral hip pain, right rib pain and bilateral shoulder pain as well as frontal chest pain. He has noted he is experiencing slow urine stream and burning on urination as well as dysuria. No risk for STIs, no prior UTI, but has had priapism previously. He has been told he has enlarged prostate. He has been taking folate and hydroxyurea. Just re-established with [facility] hematology. Hb electrophoresis consistent with SS diseaes and 9% hemoglobin previously. H/o AVN left shoulder with surgery in 2007, injection 2017, replacement 03/30. Bilateral hip injections 05/2018 H/o acute chest syndrome in 2002, 5 prior blood transfusions. Had frequent hospitalization at [facility] as well as [facility], [facility], [place], [place]. Was hospitalized at [facility] the end of October 2018, and was treated multiple times at [facility] in 2018. Has been to [facility] within the last 2 days and discharged, and was planning on having outpatient IVF at the cancer center, and now has [place] port-a-cath for this. He was just recovering from a recent sickle cell crisis. He was seen in [facility] care 04/19/[address] Aguilera at for hematology, was prescribed OxyContin 10 mg and reports this is not helping his pain. Previously incarcerated and transferred his care 11/2017 to [facility]. Labs with WBC 12.2, Hb 8.3, platelets 243 reticulocyte percentage 8.9%, NA 146, K4.1, chloride 111, BUN 10, CR 1.2, glucose 120, bilirubin 4.3 (Previously noted baseline 7% reticulocyte count.) CXR with no acute abnormality. Admitted for further treatment of SCD with crisis. Vitals/I&O Vitals/I&O: Vital Signs Date Time Temp Pulse Resp B/P (MAP) Pulse Ox O2 Delivery O2 Flow Rate FiO2 07/10/20 10:39 99.0 117 18 107/63 (78) 94 Room Air 99.0 07/09/20 12:12 2.0 I & O 07/09/20 07/09/20 07/10/20 15:00 23:00 07:00 Intake Total 677 ml Output Total 400 ml Balance 677 ml -400 ml Physical Exam General: Alert, Oriented X3, Cooperative, severe distress Lungs: Clear, Other Abdomen: Normal bowel sounds, Soft, No tenderness, No hepatosplenomegaly, No masses Extremities: No clubbing, No cyanosis, No edema, Normal pulses, No tenderness/swelling Skin: No rashes, No breakdown, No significant lesion Labs Labs: Laboratory Tests Test 07/10/20 09:35 White Blood Count 11.5 x10^3/uL (4.0-11.0) Red Blood Count 3.01 x10^6/uL (4.30-5.70) Hemoglobin 10.5 g/dL (13.0-17.5) Hematocrit 28.9 % (39.0-53.0) Mean Corpuscular Volume 96 fL (79-100) Mean Corpuscular Hemoglobin 35 pg (25-35) Mean Corpuscular Hemoglobin Concent 36 g/dL (31-37) Red Cell Distribution Width 26.6 % (11.5-14.5) Platelet Count 302 x10^3/uL (140-400) Neutrophils (%) (Auto) 47 % (31-73) Lymphocytes (%) (Auto) 34 % (24-48) Monocytes (%) (Auto) 14 % (0-9) Eosinophils (%) (Auto) 4 % (0-3) Basophils (%) (Auto) 1 % (0-3) Neutrophils # (Auto) 5.3 x10^3/uL (1.8-7.7) Lymphocytes # (Auto) 3.9 x10^3/uL (1.0-4.8) Monocytes # (Auto) 1.6 x10^3/uL (0.0-1.1) Eosinophils # (Auto) 0.5 x10^3/uL (0.0-0.7) Basophils # (Auto) 0.2 x10^3/uL (0.0-0.2) Sodium Level 142 mmol/L (136-145) Potassium Level 4.2 mmol/L (3.5-5.1) Chloride Level 105 mmol/L (98-107) Carbon Dioxide Level 28 mmol/L (21-32) Anion Gap 9 (6-14) Blood Urea Nitrogen 7 mg/dL (8-26) Creatinine 1.1 mg/dL (0.7-1.3) Estimated GFR (Cockcroft-Gault) 90.2 BUN/Creatinine Ratio 6 (6-20) Glucose Level 126 mg/dL (70-99) Calcium Level 8.9 mg/dL (8.5-10.1) Total Bilirubin 5.3 mg/dL (0.2-1.0) Aspartate Amino Transf (AST/SGOT) 44 U/L (15-37) Alanine Aminotransferase (ALT/SGPT) 27 U/L (16-63) Alkaline Phosphatase 83 U/L (46-116) Total Protein 7.2 g/dL (6.4-8.2) Albumin 4.1 g/dL (3.4-5.0) Albumin/Globulin Ratio 1.3 (1.0-1.7) Assessment and Plan Assessmemt and Plan Problems Medical Problems: (1) Sickle cell anemia with pain Status: Acute Comment Review of Relevant I have reviewed the following items jorge luis (where applicable) has been applied. Justifications for Admission Chest Pain Indications Serious Diagnosis?: Yes Justification for admission: Chest pain may be indicative of potentially serious diagnosis/diagnoses Please state condition(s) which will require inpatient level of care for further evaluation and management. Other Justification Acute sickle cell pain FABIEN LOYA MD Jul 10, 2020 11:08
[2020-07-10] MEDS: IV NORMAL SALINE 1000ML BAG 1,000 ML IV SCH ×2 (11:54→23:06)
[2020-07-10 14:41] VITALS: BP 112/43
[2020-07-10] MEDS: oxyCODONE IR 5 MG TABLET PO PRN (17:42)
[2020-07-10 19:00] VITALS: BP 114/76
[2020-07-10] MEDS: ENOXAPARIN 40 MG/0.4 ML SYRINGE. SQ SCH (21:00)
[2020-07-10] MEDS: TAMSULOSIN 0.4 MG CAP.ER.24H. PO SCH (21:00)
[2020-07-10 23:17] VITALS: BP 105/68
[2020-07-11] MEDS: HYDROmorphone 2 MG/ML VIAL IVP PRN ×6 (00:34→13:09)
[2020-07-11] MEDS: oxyCODONE IR 5 MG TABLET PO PRN (00:41)
[2020-07-11 02:42] VITALS: BP 100/57
[2020-07-11] MEDS: diphenhydrAMINE 50 MG/ML VIAL IVP PRN ×2 (05:15→11:37)
[2020-07-11 07:00] VITALS: BP 104/60
[2020-07-11] MEDS: FOLIC ACID 1 MG TABLET. PO SCH (08:31)
[2020-07-11] MEDS: IV NORMAL SALINE 1000ML BAG 1,000 ML IV SCH (08:31)
[2020-07-11] MEDS: HYDROXYUREA 500 MG CAPSULE PO SCH (08:37)
[2020-07-11] MEDS: POLYETHYLENE GLYCOL 3350 17 GM PACKET. PO SCH (08:38)
[2020-07-11] MEDS: SENNOSIDES/DOCUSATE 8.6/50MG TABLET. PO SCH (08:38)
[2020-07-11] MEDS: MULTIVITAMIN with MINERAL TABLET. PO SCH (08:39)
[2020-07-11 08:50] LABS: ALBUMIN 3.8 g/dL (3.4-5.0); ALBUMIN/GLOBULIN RATIO 1.4 (1.0-1.7); CALCIUM 8.5 mg/dL (8.5-10.1); GFR 100.7; PHOSPHORUS 3.8 mg/dL (2.6-4.7); POTASSIUM 4.7 mmol/L (3.5-5.1); TOTAL BILIRUBIN 5.7 mg/dL (0.2-1.0); TOTAL PROTEIN 6.6 g/dL (6.4-8.2)
--- NOTE | 2020-07-11 09:27 | DISCH ---
DISCHARGE INSTRUCTIONS Condition on Discharge Condition on Discharge: Stable Activity After Discharge Activity Instructions for Disc: Activity as tolerated Lifting Instructions after Dis: No pulling or pushing Exercise Instruction after Dis: Progress as tolerated Driving Instructions after Dis: Do not drive today Weight Bearing Status after Di: As tolerated Diet after Discharge Diet after Discharge: Regular Diet Texture: Regular Liquid Texture: Thin Liquid Swallowing Supervision: None needed Wound Incision Care Wound/Incision Care: No wound care needed Checks after Discharge Checks after discharge: Check blood press - daily Contacting the DR. after DC Call your doctor for: If your condition worsens Follow-Up Follow up with: PCP in 1 week Treatment/Equipment after DC Adaptive Equipment Issued: None FABIEN LOYA MD Jul 11, 2020 09:26
[2020-07-11 11:00] VITALS: BP 112/52
[2020-07-11] MEDS ORDERED: HEPARIN PF 500 UNIT/5 ML DISP.SYRIN. IVP ONE (13:15)
--- NOTE | 2020-07-11 14:52 | NUR ---
Pt discharged home with self care. Discharge instructions and prescription discussed. Pt verbalized understanding. Pt ambulated to entrance
--- NOTE | 2020-07-13 18:05 | PDOC3 ---
[facility]-Discharge Summary Date of Admission: Date of Admission: July 08, 2020 Date of Discharge: Date of Discharge: Jul 11, 2020 Discharge Diagnosis: Discharge Diagnosis: Severe Sickle cell crisis - with Reticulocyte %>10, will give aggressive IVF, dilaudid 2mg Q2hrs prn, can decrease to q3hrs tomorrow if pain under control. 10mg oxycodone prn q6hrs PO. 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 Is established with [facility] again within the past week Right shoulder pain - with h/o osteonecrosis of left shoulder will monitor. 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 With benadryl dosing will bladder scan if his UOP drops Smoker - counseled on cessation Hospital Course: Hospital Course: By day of discharge, pt was clinically stable and ready for discharge. Rest of hospital course was uneventful 07/10/2020 No acute events overnight. Patient still requiring IV Dilaudid for pain control. Patient saturation of 94% on room air improved. Hemoglobin at 10.3 which is improved from yesterday. Anticipate discharge in the next 24 to 48 hours. We will plan for outpatient pain regimen. Patient's chart, labs, images were reviewed and discussed with RN 07/09/2020 No acute events overnight. Patient saturating 88% on 2 L nasal cannula. No dyspneic episodes. Pain seems to be well controlled with Dilaudid only. Pending repeat hemoglobin to consider PRBC transfusion, at this time patient is refusing lab draws and this will delay his hospital stay.. Continue IV fluids. Continue hydroxyurea. Patient's chart, labs, images were reviewed and discussed with RN 39yo M w/ PMHx SCD, Osteonecrosis of left shoulder, depression with anxiety who presents with right shoulder pain. He also notes diffuse bone pain, lower back pain, bilateral hip pain, right rib pain and bilateral shoulder pain as well as frontal chest pain. He has noted he is experiencing slow urine stream and burning on urination as well as dysuria. No risk for STIs, no prior UTI, but has had priapism previously. He has been told he has enlarged prostate. He has been taking folate and hydroxyurea. Just re-established with [facility] hematology. Hb electrophoresis consistent with SS diseaes and 9% hemoglobi n previously. H/o AVN left shoulder with surgery in 2007, injection 2017, replacement 03/30. Bilateral hip injections 05/2018 H/o acute chest syndrome in 2002, 5 prior blood transfusions. Had frequent hospitalization at [facility] as well as [facility], [facility], [place], [place]. Was hospitalized at [facility] the end of October 2018, and was treated multiple times at [facility] in 2018. Has been to [facility] within the last 2 days and discharged, and was planning on having outpatient IVF at the cancer center, and now has [place] port-a-cath for this. He was just recovering from a recent sickle cell crisis. He was seen in [facility] care 04/19/[address] Aguilera at for hematology, was prescribed OxyContin 10 mg and reports this is not helping his pain. Previously incarcerated and transferred his care 11/2017 to [facility]. Labs with WBC 12.2, Hb 8.3, platelets 243 reticulocyte percentage 8.9%, NA 146, K4.1, chloride 111, BUN 10, CR 1.2, glucose 120, bilirubin 4.3 (Previously noted baseline 7% reticulocyte count.) CXR with no acute abnormality. Disposition: Disposition/Orders: D/C to Home Activity: Activity: Resume previous activity Diet: Diet: Cardiac Medications: Home Meds Active Scripts Hydroxyurea (HYDROXYUREA) 500 Mg Capsule, 500 MG PO DAILY for SS disease for 30 Days, #30 CAP Prov:LASHA CORBIN MD 03/30/19 Diphenhydramine Hcl (DIPHENHYDRAMINE HCL) 25 Mg Capsule, 25 MG PO PRN Q6HRS PRN for ITCHING, #30 CAP Prov:CANDIDO MITCHELL MD 01/26/19 [Folic Acid] 1 MG TABLET No Conflict Check, 1 MG PO DAILY for sickel cell, #60 Prov:CANDIDO MITCHELL MD 01/26/19 Multivits,Ca,Minerals/Iron/Fa (THERA-M TABLET) 1 Each Tablet, 1 TAB PO DAILY for mvi, #60 TAB Prov:CANDIDO MITCHELL MD 11/15/18 Reported Medications Polyethylene Glycol 3350 (POLYETHYLENE GLYCOL 3350) 17 Gm Powd.pack, 1 PACKET PO DAILY for constipation for 30 Days, #30 PACKET 07/08/20 Oxycodone Hcl (OXYCODONE HCL IMMED.RELEASE) 10 Mg Tablet, 1 TAB PO PRN Q6HRS PRN for PAIN for 30 Days, #120 TAB 07/08/20 Acetaminophen (ACETAMINOPHEN) 325 Mg Tablet, 2 TAB PO PRN Q4-6HRS PRN for pain or fever for 24 Days, #100 TAB 0 Refills 03/09/19 Scheduled Hydroxyurea (Hydroxyurea), 500 MG PO DAILY Multivits,Ca,Minerals/Iron/Fa (Thera-M Tablet), 1 TAB PO DAILY Polyethylene Glycol 3350 (Polyethylene Glycol 3350), 1 PACKET PO DAILY, (Reported) [Folic Acid], 1 MG PO DAILY Scheduled PRN Acetaminophen (Acetaminophen), 2 TAB PO PRN Q4-6HRS PRN for pain or fever, (Reported) Diphenhydramine Hcl (Diphenhydramine Hcl), 25 MG PO PRN Q6HRS PRN for ITCHING Oxycodone Hcl (Oxycodone Hcl Immed.release), 1 TAB PO PRN Q6HRS PRN for PAIN, (Reported) Total Time: Total Time: Total time spent was 50 minutes in preparing scripts, discharge planning with SW and RN, and preparing this discharge summary. Patient seen and examined on day of discharge. In addition to E/M visit, advanced care planning was done: A total time of 20 minutes was spent from to face to face in discussion with the patient and family regarding their goals of care and pain management. Smoking cessation: Total time spent was 15] minutes in face to face counseling. Patient has not agreed to consider nicotine patches/gum or to start on Varenicline when discharged. Justicifation of Admission Dx: Justifications for Admission: Justification of Admission Dx: Yes FABIEN LOYA MD Jul 13, 2020 18:05
== END 2020-07-11 14:56 | disposition home or self-care (01) | DRG 812 ==
LOC: ER 11:49 → 4 NORTH 21:14
PROVIDERS: ADMIT Internal Medicine; ATTEND Internal Medicine
DX: D57.00 Hb-SS disease with crisis, unspecified (principal); M87.812 Other osteonecrosis, left shoulder; F11.20 Opioid dependence, uncomplicated; R17 Unspecified jaundice; M19.90 Unspecified osteoarthritis, unspecified site; F32.9 Major depressive disorder, single episode, unspecified; M25.511 Pain in right shoulder; F41.8 Other specified anxiety disorders; M54.5 Low back pain; R07.81 Pleurodynia; M25.552 Pain in left hip; M25.551 Pain in right hip; M25.512 Pain in left shoulder; R30.0 Dysuria; N40.0 Benign prostatic hyperplasia without lower urinary tract symptoms; G89.4 Chronic pain syndrome; F17.200 Nicotine dependence, unspecified, uncomplicated; Z87.440 Personal history of urinary (tract) infections; Z88.0 Allergy status to penicillin; Z88.2 Allergy status to sulfonamides; Z71.6 Tobacco abuse counseling
CPT/HCPCS: 36415; 71045; 80053; 83735; 84100; 85007; 85025; 85045; 96361; 96374; 96375; 96376; J1170; J1200; J1642; J1650; J2405; J3490; J7030; 99285-25; G0378

== ENCOUNTER 2020-07-14 13:10 | Emergency (ER) | payer OTHER ==
[~2020-07-14] VITALS: Ht 175.3 cm; Wt 77.2 kg
[~2020-07-14 13:10] MED LIST changes: +OXYC10TA PO; +POLY17PO52 PO
[2020-07-14 13:30] VITALS: BP 117/52
--- NOTE | 2020-07-14 13:36 | PHYS DOC ---
Past Medical History Past Medical History: Arthritis, Sickle Cell Disease Past Surgical History: Other Additional Past Surgical Histo: L. SHOULDER AND BILATERAL HIP Smoking Status: Former Smoker Alcohol Use: Occasionally Drug Use: None General Adult EDM: Chief Complaint: PAIN CONTROL HPI: HPI: 39-year-old male past medical history of sickle cell disease presents the ED with complaints of bilateral low back pain over both SI joints x 2 days described as his typical sickle cell crisis pain. States he has an appointment with his pcp in 2 days for analgesia. Is requesting IV dilaudid and benadryl. Reports recent ed visit but states he was not prescribed any pain medications. Takes oxycodone 10mg IR qid but states "it no longer works." Has no followup with pain management. Denies any history of trauma, history of IV drug use, history of cancer, history of sciatica, history of malignancy, history of immunocompromise state, neurologic complaints including saddle anesthesia, weakness or paresthesias, urinary retention, bowel or bladder incontinence, night pain, fever/chills/night sweats, unexplained weight loss, anticoagulants or coagulopathy, prolonged steroid use, older age, presence of contusions or abrasions. EMR reviewed and pt was recently dc'ed within the past few days s/p sickle cell pain crisis - I was the attending who oversaw my ASSISTANT [employer]END[employer] that admitted pt on 07/08 (I had also seen pt when he became a code infante after not receiving his dilaudid and benadryl, both intravenously). Review of Systems: Review of Systems: Constitutional: Denies fever or chills. [] Eyes: Denies change in visual acuity. [] HENT: Denies nasal congestion or sore throat. [] Respiratory: Denies cough or shortness of breath. [] Cardiovascular: Denies chest pain or edema. [] GI: Denies abdominal pain, nausea, vomiting, bloody stools or diarrhea. [] : Denies dysuria, urinary or bowel retention or incontinence, hematuria or saddle anesthesia Musculoskeletal: Denies joint pain or CVA tenderness Integument: Denies rash or diaphoresis Neurologic: Denies headache, neck stiffness, focal weakness or sensory changes. [] Endocrine: Denies polyuria or polydipsia. [] Lymphatic: Denies swollen glands. [] Psychiatric: Denies depression or anxiety. [] Heart Score: C/O Chest Pain: No Risk Factors: Risk Factors: DM, Current or recent (<one month) smoker, HTN, HLP, family history of CAD, obesity. Risk Scores: Score 0 - 3: 2.5% MACE over next 6 weeks - Discharge Home Score 4 - 6: 20.3% MACE over next 6 weeks - Admit for Clinical Observation Score 7 - 10: 72.7% MACE over next 6 weeks - Early Invasive Strategies Allergies: Allergies: Allergies Coded Allergies Type Severity Reaction Last Updated Verified Penicillins Allergy Intermediate 04/25/20 Yes Sulfa (Sulfonamide Antibiotics) Allergy Intermediate 11/05/18 Yes Physical Exam: PE: Constitutional: Well developed, well nourished, no acute distress, non-toxic appearance. HENT: Normocephalic, atraumatic, Eyes: PERRLA, EOMI, conjunctiva normal, no discharge. Neck: Normal range of motion, supple, Cardiovascular: S1/2 present, regular rhythm Lungs & Thorax: Speaking in full sentences, bilateral equal chest rise, no tachypnea or increased work of breathing Abdomen: soft, no tenderness, Skin: Warm, dry, no erythema, no rash. [] Back: No midline tenderness, no CVA tenderness, can bend forward and extend at hips w/o any distress Extremities: No tenderness, no cyanosis, no lower extremity edema Neurologic: Steady gait, alert and oriented X 3, normal motor function, normal sensory function, no focal deficits noted. [] Psychologic: Affect normal, judgement normal, mood normal. [] EKG: EKG: [] Radiology/Procedures: Radiology/Procedures: IMAGING REPORT Signed PATIENT: ANETA CASPER ACCOUNT: [id number] : 1980 LOCATION: ER AGE: 39 SEX: M EXAM STATUS: REG ER ORD. PHYSICIAN: JENNIFFER HERNÁNDEZ DO REASON: back pain, scd, r/o acute chest PROCEDURE: SACROILIAC JOINTS 3V AP view pelvis and 4 view sacrum dated 07/14/2020. Comparison made to 04/25/2020. CLINICAL INDICATION: Back pain. History of sickle cell disease.: Single AP view pelvis shows sclerotic change throughout the bilateral iliac bone and bilateral femur, similar to prior study. No evidence of fracture. There is some geographic changes at the femoral head which could be related to underlying AVN. 4 views of the sacrum show mild hypertrophic change of the bilateral SI joint. No erosive changes or ankylosis. There is spondylotic changes the lower lumbar spine. IMPRESSION: 1. Sclerotic changes throughout the pelvis, similar prior study. 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 2. No acute osseous abnormality. No evidence of fracture. Electronically signed by: Ernesto Rondon MD (07/14/2020 2:16 PM) [id number] DICTATED and SIGNED BY: ERNESTO RONDON MD DATE: 07/14/20 [id number] IMAGING REPORT Signed PATIENT: ANETA CASPER ACCOUNT: [id number] : 1980 LOCATION: ER AGE: 39 SEX: M EXAM STATUS: REG ER ORD. PHYSICIAN: JENNIFFER HERNÁNDEZ DO REASON: back pain, scd, r/o acute chest PROCEDURE: CHEST AP ONLY EXAM: Chest, single view. HISTORY: Pain. COMPARISON: 07/08/2020 FINDINGS: A frontal view of the chest obtained. And there is blunting of the left costophrenic angle due to trace pleural effusion. There is a port catheter with the tip in the superior cavoatrial junction. There is a left shoulder arthroplasty. 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 There are thoracic vertebral compression deformities, not formally assessed on this frontal radiograph. IMPRESSION: Suspected trace left pleural effusion. Electronically signed by: Jeanne Choi MD (07/14/2020 2:02 PM) [id number] DICTATED and SIGNED BY: JEANNE CHOI MD DATE: 07/14/20 [id number] Course & Med Decision Making: Course & Med Decision Making Pertinent Labs and Imaging studies reviewed. (See chart for details) Pt presents to the ed concern for back pain, reporting typical pain crisis sxs. Pt very well appearing, ambulatory, normal VS and well known to myself. I spoke with Dr. Orozco (who dc'ed pt from hospital admission)regarding care of this pt- pt was given a 1 week supply of oxycodone 10mg by Dr. Orozco. Per k-tracs, pt received 5 day supply of oxycodone 10mg on 06/21, 30 day supply of oxycodone 10mg on 06/22, 8 day supply of oxycodone 10mg on 07/06, and 6 day supply of oxycodone 10mg on 07/11 - thus a 49 day supply of oxycodone in 24 day time period. Pt has not filled his [place] rx but has his [place] rx. When asked to provide U/A, pt refused unless he recieved IV Dilaudid/benadryl. I informed I would start with toradol and pt refused and further medical treatment. Was seen by rn leaving ed, unable to convince to stay, u/a ordered to evaluate for infectious etiologies of back pain. The patient has decided to leave our facility against medical advice. I have assessed patient's ability to make informed decision and feel the patient has the capacity to comprehend information regarding the current medical condition and appreciates the impact of the disease or condition and the consequences of various options for treatment, including foregoing treatment. The patient possesses the ability to evaluate all treatment options, comparing the risks and benefits of each option, communicate his or her choice in a consistent manner over time, and is able to make rational choices. I explained to the patient further testing, treatment, and evaluation I would like to perform in the emergency department visit as well as any possible alternatives that can be accomplished in a timely manner. I have outlined the possible risks of foregoing any or all of these interventions and the patient understands and acknowledges that the decision to leave may result in undesirable consequences such as , permanent disability, and/or loss of current lifestyle. Even though leaving AMA is not ideal, I have instructed the patient to follow any d ischarge instructions given, take any medications prescribed, and resume care as soon as possible with another provider. This conversation was witnessed by another member of the emergency department staff and we clearly communicated the patient is welcome to return anytime to continue care at our facility. The pt refused to wait for any discharge papers. Junay Disclaimer: Juany Disclaimer: This electronic medical record was generated, in whole or in part, using a voice recognition dictation system. Departure Departure Impression: Primary Impression: Sickle cell disease without crisis Additional Impression: Drug-seeking behavior Disposition: LEFT AGAINST MEDICAL ADVICE Condition: STABLE Referrals: UNKNOWN PCP NAME (PCP) Patient Instructions: Discharge Against Medical Advice, Sickle Cell Anemia Additional Instructions: FOLLOW UP WITH: regarding anemia Hematology/Oncology [facility] [address] [place] [address] EMERGENCY DEPARTMENT GENERAL DISCHARGE INSTRUCTIONS Thank you for coming to [facility] Emergency Department (ED) today and trusting us with you care. We trust that you had a positive experience in our Emergency Department. If you wish to speak to the department management, you may call the Director at [phone]. YOUR FOLLOW UP INSTRUCTIONS ARE FOLLOWS: 1. Do you have a private Doctor? If you do not have a private doctor, please ask for a resource list of physicians or clinics that may be able to assist you with follow up care. 2. The Emergency Physicain has interpreted your x-rays. The X-Ray specialist will also review them. If there is a change in the findings, you will be notified in 48 hours when at all possible. 3. A lab test or culture has been done, your results will be reviewed and you will be notified if you need a change in treatment. ADDITIONAL INSTRUCTIONS AND INFORMATION: 1. Your care today has been supervised by a physician who is specially trained in emergency care. Many problems require more than one evaluation for a complete diagnosis and treatment. We recommend that you schedule your follow up appointment as recomm ended to ensure complete treatment of you illness or injury. If you are unable to obtain follow up care and continue to have a problem, or if your condition worsens, we recommend that you return to the ED. 2. We are not able to safely determine your condition over the phone nor are we able to give sound medical advice over the phone. For these safety reasons, if you call for medical advice we will ask you to come to the ED for further evaluation. 3. If you have any questions regarding these discharge instructions please call the ED at [phone]. SAFETY INFORMATION: In the interest of safety, wellness, and injury prevention; we encourage you to wear your sealbelt, if you smoke; quite smoking, and we encourage family to use a protective helmet for bicycling and other sporting events that present an increased risk for head injury. IF YOUR SYMPTOMS WORSEN OR NEW SYMPTOMS DEVELOP, OR YOU HAVE CONCERNS ABOUT YOUR CONDITION; OR IF YOUR CONDITION WORSENS WHILE YOU ARE WAITING FOR YOUR FOLLOW UP APPOINTMENT; EITHER CONTACT YOUR PRIMARY CARE DOCTOR, THE PHYSICIAN WHOSE NAME AND NUMBER YOU WERE GIVEN, OR RETURN TO THE ED IMMEDIATELY. JENNIFFER HERNÁNDEZ DO Jul 14, 2020 13:36
--- NOTE | 2020-07-14 14:05 | RAD ---
EXAM: Chest, single view. HISTORY: Pain. COMPARISON: 07/08/2020 FINDINGS: A frontal view of the chest obtained. And there is blunting of the left costophrenic angle due to trace pleural effusion. There is a port catheter with the tip in the superior cavoatrial junct ion. There is a left shoulder arthroplasty. There is avascular necrosis involving the right humeral h ead. There are thoracic vertebral compression deformities, not formally assessed on this frontal radi ograph. IMPRESSION: Suspected trace left pleural effusion. Electronically signed by: Jeanne Saldivar MD (07/14/2020 2:02 PM) [id number]
--- NOTE | 2020-07-14 14:19 | RAD ---
AP view pelvis and 4 view sacrum dated 07/14/2020. Comparison made to 04/25/2020. CLINICAL INDICATION: Back pain. History of sickle cell disease.: Single AP view pelvis shows sclerotic change throughout the bilateral iliac bone and bilateral femur, similar to prior study. No evidence of fracture. There is some geographic changes at the femoral hea d which could be related to underlying AVN. 4 views of the sacrum show mild hypertrophic change of the bilateral SI joint. No erosive changes or ankylosis. There is spondylotic changes the lower lumbar spine. IMPRESSION: 1. Sclerotic changes throughout the pelvis, similar prior study. There is findings to suggest bilater al femoral head AVN. 2. No acute osseous abnormality. No evidence of fracture. Electronically signed by: Ernesto Rondon MD (07/14/2020 2:16 PM) [id number]
[2020-07-14] MEDS ORDERED: HEPARIN PF 500 UNIT/5 ML DISP.SYRIN. IVP ONE (14:33)
[2020-07-14 14:59] LABS: CALCIUM 8.6 mg/dL (8.5-10.1); CREATININE 1.3 mg/dL (0.7-1.3); GFR 74.4; POTASSIUM 4.4 mmol/L (3.5-5.1)
[2020-07-14 15:01] LABS: BASO % 0 % (0-3); EOS # 0.3 x10^3/uL (0.0-0.7); EOS % 2 % (0-3); HEMATOCRIT 23.4 % (39.0-53.0); HEMOGLOBIN 8.6 g/dL (13.0-17.5); LYMPH # 2.8 x10^3/uL (1.0-4.8); LYMPH % 24 % (24-48); MEAN CORPUSCULAR HEMOGLOBIN 36 pg (25-35); MEAN CORPUSCULAR HGB CONC 37 g/dL (31-37); MEAN CORPUSCULAR VOLUME 97 fL (79-100); MONO # 1.6 x10^3/uL (0.0-1.1); MONO % 14 % (0-9); NEUT % 60 % (31-73); PLATELET COUNT 246 x10^3/uL (140-400); RED BLOOD COUNT 2.41 x10^6/uL (4.30-5.70); RED CELL DISTRIBUTION WIDTH 24.4 % (11.5-14.5); WHITE BLOOD COUNT 11.7 x10^3/uL (4.0-11.0)
[2020-07-14 15:05] LABS: ALBUMIN 3.7 g/dL (3.4-5.0); ALBUMIN/GLOBULIN RATIO 1.4 (1.0-1.7); TOTAL BILIRUBIN 3.9 mg/dL (0.2-1.0); TOTAL PROTEIN 6.4 g/dL (6.4-8.2)
[2020-07-14] MEDS ORDERED: KETOROLAC 30 MG/ML VIAL. IM ONE (16:00)
== END 2020-07-14 15:45 | disposition left against medical advice (07) ==
LOC: ER 13:10
DX: D57.00 Hb-SS disease with crisis, unspecified (principal); M54.5 Low back pain; Z76.5 Malingerer [conscious simulation]; R07.89 Other chest pain; Z87.891 Personal history of nicotine dependence; Z88.0 Allergy status to penicillin; Z88.2 Allergy status to sulfonamides
CPT/HCPCS: 36415; 71045; 72170; 72202; 80053; 85025; 85045; 99284

== ENCOUNTER 2020-08-06 22:02 | Inpatient (IN) | payer OTHER ==
[~2020-08-06] VITALS: Ht 175.3 cm; Wt 77.2 kg
[2020-08-06] MEDS ORDERED: diphenhydrAMINE 50 MG/ML VIAL IVP ONE ×2 (22:45→23:45)
[2020-08-06] MEDS ORDERED: ONDANSETRON PF 4 MG/2 ML VIAL. IVP ONE (22:45)
[2020-08-06] MEDS ORDERED: HYDROmorphone 2 MG/ML INJ. IVP ONE ×3 (22:45→23:30)
--- NOTE | 2020-08-06 23:39 | PHYS DOC ---
Past Medical History Past Medical History: Arthritis, Sickle Cell Disease Past Surgical History: Other Additional Past Surgical Histo: L. SHOULDER AND BILATERAL HIP Smoking Status: Former Smoker Alcohol Use: Occasionally Drug Use: None General Adult EDM: Chief Complaint: MUSCLE SPASM/CRAMP HPI: HPI: Patient is a 39 year old male with history of arthritis, sickle cell anemia, presented to the ED today complaining of 8 out of 10 pain to his low back and lower extremities due to sickle cell. Patient states this pain is consistent with his normal sickle cell pain. He states he is not in crisis but would like something for pain. He states he tried taking oxycodone and it is not working for him anymore. He states he normally gets Dilaudid 2 mg, Benadryl 25 mg, Zofran 4 mg the medicine should be 20 minutes apart. Review of Systems: Review of Systems: Constitutional: Denies fever or chills. [] GI: Denies abdominal pain, nausea, vomiting, bloody stools or diarrhea. [] : Denies dysuria. [] Musculoskeletal: Reports back pain and lower extremity pain Integument: Denies rash. [] Neurologic: Denies headache, focal weakness or sensory changes. [] Psychiatric: Denies depression or anxiety. [] Heart Score: C/O Chest Pain: N/A Risk Factors: Risk Factors: DM, Current or recent (<one month) smoker, HTN, HLP, family history of CAD, obesity. Risk Scores: Score 0 - 3: 2.5% MACE over next 6 weeks - Discharge Home Score 4 - 6: 20.3% MACE over next 6 weeks - Admit for Clinical Observation Score 7 - 10: 72.7% MACE over next 6 weeks - Early Invasive Strategies Current Medications: Current Medications Medications (Trade) Dose Ordered Sig/Shoshana Start Time Stop Time Status Last Admin Dose Admin Diphenhydramine HCl (Benadryl) 25 mg 1X ONCE 08/06/20 22:45 08/06/20 22:46 DC 08/06/20 23:00 25 MG Hydromorphone HCl (Dilaudid) 2 mg 1X ONCE 08/06/20 23:30 08/06/20 23:31 DC Ondansetron HCl (Zofran) 4 mg 1X ONCE 08/06/20 22:45 08/06/20 22:46 DC 08/06/20 23:00 4 MG Allergies: Allergies: Allergies Coded Allergies Type Severity Reaction Last Updated Verified Penicillins Allergy Intermediate 04/25/20 Yes Sulfa (Sulfonamide Antibiotics) Allergy Intermediate 11/05/18 Yes Physical Exam: PE: Constitutional: Well developed, well nourished, no acute distress, non-toxic appearance. [] HENT: Normocephalic, atraumatic, bilateral external ears normal, oropharynx moist, no oral exudates, nose normal. [] Eyes: PERRLA, EOMI, conjunctiva normal, no discharge. [] Neck: Normal range of motion, no tenderness, supple, no stridor. [] Cardiovascular:Heart rate regular rhythm, no murmur [] Port-A-Cath right upper chest Lungs & Thorax: Bilateral breath sounds clear to auscultation [] Abdomen: Bowel sounds normal, soft, no tenderness, no masses, no pulsatile masses. [] Skin: Warm, dry, no erythema, no rash. [] Back: No tenderness, no CVA tenderness. [] Extremities: No tenderness, no cyanosis, no clubbing, ROM intact, no edema. [] Neurologic: Alert and oriented X 3, normal motor function, normal sensory function, no focal deficits noted. [] Psychologic: Affect normal, judgement normal, mood normal. [] Current Patient Data: Vital Signs: Vital Signs Date Time Temp Pulse Resp B/P (MAP) Pulse Ox O2 Delivery O2 Flow Rate FiO2 08/06/20 23:01 23 94 08/06/20 22:07 98.6 85 104/38 (60) Room Air 98.6 EKG: EKG: [] Radiology/Procedures: Radiology/Procedures: [] Course & Med Decision Making: Course & Med Decision Making Pertinent Labs and Imaging studies reviewed. (See chart for details) This is a 39 pain male presenting to the ED today complaining of sickle cell pain. He Is requesting pain management, he states he normally gets Dilaudid 2 mg, Benadryl 25 mg, Zofran 4 mg the medicine should be 20 minutes apart. Patient's Dilaudid, Benadryl and Zofran were ordered in the ED, he received the first dose. After a couple minutes he called the RN back to the room stating he wants Dilaudid 2 mg up to 6 mg total. Each 20 minutes apart plus another dose of Benadryl. We gave him 2 more mg of Dilaudid, he still wanted more he states he wants a total of 6mg. Informed him his pain medicine needs are more than expected and he needs to be admitted for pain management. Patient will be admitted under Dr. Ernesto Harrington Disclaimer: Juany Disclaimer: This electronic medical record was generated, in whole or in part, using a voice recognition dictation system. Departure Departure Impression: Primary Impression: Sickle cell anemia with pain Disposition: ADMITTED INPATIENT Condition: STABLE Referrals: UNKNOWN PCP NAME (PCP) CONSUELO GIMENEZ [employer] Aug 06, 2020 23:39
[2020-08-07] MEDS ORDERED: IV NORMAL SALINE 1000ML BAG 1,000 ML IV ONE ×2 (00:15→08:45)
[2020-08-07] MEDS ORDERED: PROCHLORPERAZINE 10 MG/2 ML VIAL. IV PRN (00:15)
[2020-08-07] MEDS ORDERED: MORPHINE SULFATE 4 MG/ML INJ. IV PRN (00:15)
[2020-08-07] MEDS ORDERED: ONDANSETRON PF 4 MG/2 ML VIAL. IV PRN (00:15)
[2020-08-07] MEDS ORDERED: ACETAMINOPHEN 325 MG TABLET. PO PRN (00:15)
[2020-08-07 01:44] LABS: BASO # 0.1 x10^3/uL (0.0-0.2); BASO % 1 % (0-3); EOS # 0.3 x10^3/uL (0.0-0.7); EOS % 2 % (0-3); HEMATOCRIT 24.3 % (39.0-53.0); LYMPH # 3.8 x10^3/uL (1.0-4.8); LYMPH % 27 % (24-48); MEAN CORPUSCULAR HEMOGLOBIN 35 pg (25-35); MEAN CORPUSCULAR HGB CONC 37 g/dL (31-37); MEAN CORPUSCULAR VOLUME 95 fL (79-100); MONO # 2.2 x10^3/uL (0.0-1.1); MONO % 16 % (0-9); NEUT % 55 % (31-73); PLATELET COUNT 241 x10^3/uL (140-400); RED BLOOD COUNT 2.55 x10^6/uL (4.30-5.70); RED CELL DISTRIBUTION WIDTH 24.8 % (11.5-14.5); WHITE BLOOD COUNT 14.4 x10^3/uL (4.0-11.0)
[2020-08-07 01:53] LABS: CALCIUM 8.5 mg/dL (8.5-10.1); CREATININE 1.1 mg/dL (0.7-1.3); GFR 90.2; POTASSIUM 4.6 mmol/L (3.5-5.1)
[2020-08-07 01:58] LABS: ALBUMIN/GLOBULIN RATIO 1.4 (1.0-1.7); TOTAL BILIRUBIN 3.9 mg/dL (0.2-1.0); TOTAL PROTEIN 6.8 g/dL (6.4-8.2)
[2020-08-07] MEDS: HYDROmorphone 2 MG/ML INJ. IVP PRN ×2 (02:07→06:28)
[2020-08-07] MEDS: diphenhydrAMINE 50 MG/ML VIAL IVP PRN ×2 (02:18→06:28)
[2020-08-07 02:23] LABS: % BANDS 1 % (0-9); % EOS 2 % (0-5); % LYMPHS 28 % (24-48); % MONOS 12 % (0-10); % SEGS 57 % (35-66); NUCLEATED RBC 2
[2020-08-07 02:24] LABS: ANISOCYTOSIS MOD; PLT ESTIMATE ADEQUATE (ADEQUATE); POIKILOCYTOSIS MOD; POLYCHROMASIA SLIGHT
[2020-08-07 02:25] LABS: HYPOCHROMIA SLIGHT; OVALOCYTES FEW; SICKLE CELLS MOD
[2020-08-07 02:26] LABS: HELMET CELLS OCC; SPHEROCYTES OCC
[2020-08-07 07:00] VITALS: BP 92/53
[2020-08-07] MEDS ORDERED: OXYC10TA PO (08:21)
[2020-08-07] MEDS ORDERED: HYDR4TAB45 PO (08:25)
--- NOTE | 2020-08-07 08:27 | DISCH ---
DISCHARGE INSTRUCTIONS Condition on Discharge Condition on Discharge: Stable Activity After Discharge Activity Instructions for Disc: Activity as tolerated Lifting Instructions after Dis: No pulling or pushing Exercise Instruction after Dis: Progress as tolerated Driving Instructions after Dis: Do not drive Weight Bearing Status after Di: As tolerated Diet after Discharge Diet after Discharge: Regular Diet Texture: Regular Liquid Texture: Thin Liquid Swallowing Supervision: None needed Wound Incision Care Wound/Incision Care: No wound care needed Checks after Discharge Checks after discharge: Check blood press - daily Contacting the DR. after DC Call your doctor for: If your condition worsens Follow-Up Follow up with: PCP within 2 weeks of discharge Treatment/Equipment after DC Adaptive Equipment Issued: None FABIEN LOYA MD Aug 07, 2020 08:27
--- NOTE | 2020-08-07 08:31 | PDOC1 ---
History and Physical Date of Service: DOS: DATE: 08/07/20 TIME: 08:28 Chief Complaint: Chief Complain: Sickle cell pain History of Present Illness: HPI: Patient is a 39 year old male with history of arthritis, sickle cell anemia, presented to the ED today complaining of 8 out of 10 pain to his low back and lower extremities due to sickle cell. Patient states this pain is consistent with his normal sickle cell pain. He states he is not in crisis but would like something for pain. He states he tried taking oxycodone and it is not working for him anymore. He states he normally gets Dilaudid 2 mg, Benadryl 25 mg, Zofran 4 mg the medicine should be 20 minutes apart. Past Medical/Surgical History: PMH/PSH: Past Medical History: Arthritis, Sickle Cell Disease Past Surgical History: L. SHOULDER AND BILATERAL HIP Allergies: Allergies: Coded Allergies: Penicillins (Verified Allergy, Intermediate, 04/25/20) Sulfa (Sulfonamide Antibiotics) (Verified Allergy, Intermediate, 11/05/18) Family History: Family History: Reviewed with no relevant findings Social History: Social History: Smoking Status: Cigarette smoker Alcohol Use: Occasionally Drug Use: Marijuana Current Medications: Current Medications Current Medications Hydromorphone HCl (Dilaudid) 2 mg 1X ONCE IVP Last administered on 08/06/20at 23:01; Start 08/06/20 at 22:45; Stop 08/06/20 at 23:51; Status DC Diphenhydramine HCl (Benadryl) 25 mg 1X ONCE IVP Last administered on 08/06/20at 23:00; Start 08/06/20 at 22:45; Stop 08/06/20 at 22:46; Status DC Ondansetron HCl (Zofran) 4 mg 1X ONCE IVP Last administered on 08/06/20at 23:00; Start 08/06/20 at 22:45; Stop 08/06/20 at 22:46; Status DC Hydromorphone HCl (Dilaudid) 2 mg 1X ONCE IVP Last administered on 08/06/20at 23:41; Start 08/06/20 at 23:00; Stop 08/06/20 at 23:01; Status DC Hydromorphone HCl (Dilaudid) 2 mg 1X ONCE IVP ; Start 08/06/20 at 23:30; Stop 08/06/20 at 23:31; Status Cancel Diphenhydramine HCl (Benadryl) 25 mg 1X ONCE IVP Last administered on 08/06/20at 23:41; Start 08/06/20 at 23:45; Stop 08/06/20 at 23:46; Status DC Ondansetron HCl (Zofran) 4 mg PRN Q8HRS PRN IV NAUSEA/VOMITING; Start 08/07/20 at 00:15; Stop 08/08/20 at 00:14 Morphine Sulfate (Morphine Sulfate) 4 mg PRN Q2HR PRN IV PAIN; Start 08/07/20 at 00:15; Stop 08/08/20 at 00:14 Acetaminophen (Tylenol) 650 mg PRN Q4HRS PRN PO FEVER > 100.3'F; Start 08/07/20 at 00:15; Stop 08/08/20 at 00:14 Sodium Chloride 1,000 ml @ 125 mls/hr 1X ONCE IV Last administered on 08/07/20at 02:06; Start 08/07/20 at 00:15; Stop 08/07/20 at 08:14; Status DC Diphenhydramine HCl (Benadryl) 25 mg PRN Q4HRS PRN IVP RASH Last administered on 08/07/20at 06:28; Start 08/07/20 at 00:15 Prochlorperazine Edisylate (Compazine) 10 mg PRN Q8HRS PRN IV NAUSEA; Start 08/07/20 at 00:15 Hydromorphone HCl (Dilaudid) 2 mg PRN Q4HRS PRN IVP PAIN Last administered on 08/07/20at 06:28; Start 08/07/20 at 02:00 Active Scripts Active Dilaudid (Hydromorphone Hcl) 4 Mg Tablet 1 Tab PO Q6HRS PRN MDD 4 Tablet(s) 3 Days Oxycodone Hcl Immed.release (Oxycodone Hcl) 10 Mg Tablet 1 Tab PO PRN Q6HRS PRN 7 Days Hydroxyurea 500 Mg Capsule 500 Mg PO DAILY 30 Days Diphenhydramine Hcl 25 Mg Capsule 25 Mg PO PRN Q6HRS PRN [Folic Acid] 1 MG Tablet 1 Mg PO DAILY Thera-M Tablet (Multivits,Ca,Minerals/Iron/Fa) 1 Each Tablet 1 Tab PO DAILY Reported Polyethylene Glycol 3350 17 Gm Powd.pack 1 Packet PO DAILY 30 Days Acetaminophen 325 Mg Tablet 2 Tab PO PRN Q4-6HRS PRN 24 Days ROS: Review of Systems Review of System REVIEW OF SYSTEMS: GENERAL: Denies weakness SKIN: No bruising, hair changes or rashes. EYES: No blurred, double or loss of vision. NOSE AND THROAT: No history of nosebleeds, hoarseness or sore throat. HEART: No history of palpitations, chest pain or shortness of breath on exertion. LUNGS: Denies cough, hemoptysis, wheezing or shortness of breath. GASTROINTESTINAL: Denies changes in appetite, nausea, vomiting, diarrhea or constipation. GENITOURINARY: No history of frequency, urgency, hesitancy or nocturia. NEUROLOGIC: Denies history of numbness, tingling, or tremor. PSYCHIATRIC: No history of panic, anxiety or depression. ENDOCRINE: No history of heat or cold intolerance, polyuria or polydipsia. EXTREMITIES: Denies joint pain, pain on walking or stiffness. Physical Exam: Vital Signs: Vital Signs Date Time Temp Pulse Resp B/P (MAP) Pulse Ox O2 Delivery O2 Flow Rate FiO2 08/07/20 06:28 22 99 2.0 08/07/20 05:58 61 100/56 (71) High Flow Nasal Cannula 08/06/20 22:07 98.6 98.6 Physcial Exam: GEN: No apparent distress. Alert and oriented HEENT: Normal cephalic, atraumatic, external auditory canals are patent EYES: Extraocular muscles are intact, pupil are equally round and reactive to light and accommodation MUSCULOSKELETAL: Well developed , well nourished, good range of motion ENDOCRINE: No thyromegaly was palpated LYMPHATICS: No cervical chain or axillary nodes were noted HEMATOPOIETIC: No bruising NECK: Supple, no JVD, no thyromegaly was noted LUNGS: Clear to auscultation in all lung vaughan without rhonchi or wheezing HEART: RRR, S!, S2 present. Peripheral pulses intact, no obvious murmurs noted ABDOMEN: Soft, nontender. Positive bowel sounds, no organomegaly, normal bowel sounds EXTREMITIES: Without clubbing, cyanosis, or edema. Pedal pulses intact. Negative Homans sign NEUROLOGIC: Normal speech and tone. A&O x 3, moves all extremities, no obvious focal deficits PSYCHIATRIC: Normal affect, normal mood. Stable SKIN: No ulcerations or rashes, good skin turgor, no jaundice VASCULAR: Good capillary refill, neurovascular bundle appears to be intact Labs: Labs: Laboratory Tests Test 08/07/20 01:30 White Blood Count 14.4 x10^3/uL (4.0-11.0) Red Blood Count 2.55 x10^6/uL (4.30-5.70) Hemoglobin 9.0 g/dL (13.0-17.5) Hematocrit 24.3 % (39.0-53.0) Mean Corpuscular Volume 95 fL (79-100) Mean Corpuscular Hemoglobin 35 pg (25-35) Mean Corpuscular Hemoglobin Concent 37 g/dL (31-37) Red Cell Distribution Width 24.8 % (11.5-14.5) Platelet Count 241 x10^3/uL (140-400) Neutrophils (%) (Auto) 55 % (31-73) Lymphocytes (%) (Auto) 27 % (24-48) Monocytes (%) (Auto) 16 % (0-9) Eosinophils (%) (Auto) 2 % (0-3) Basophils (%) (Auto) 1 % (0-3) Neutrophils # (Auto) 8.0 x10^3/uL (1.8-7.7) Lymphocytes # (Auto) 3.8 x10^3/uL (1.0-4.8) Monocytes # (Auto) 2.2 x10^3/uL (0.0-1.1) Eosinophils # (Auto) 0.3 x10^3/uL (0.0-0.7) Basophils # (Auto) 0.1 x10^3/uL (0.0-0.2) Segmented Neutrophils % 57 % (35-66) Band Neutrophils % 1 % (0-9) Lymphocytes % 28 % (24-48) Monocytes % 12 % (0-10) Eosinophils % 2 % (0-5) Nucleated Red Blood Cells 2 Platelet Estimate Adequate (ADEQUATE) Polychromasia Slight Hypochromasia Slight Poikilocytosis Mod Anisocytosis Mod Spherocytes Occ Sickle Cells Mod Ovalocytes Few Helmet Cells Occ Absolute Reticulocyte Count 0.305 x10^6/uL (0.020-0.120) Percent Reticulocyte Count 12.0 % (0.5-2.3) Immature Reticulocyte Fraction 0.70 (0.20-0.60) Sodium Level 140 mmol/L (136-145) Potassium Level 4.6 mmol/L (3.5-5.1) Chloride Level 107 mmol/L (98-107) Carbon Dioxide Level 24 mmol/L (21-32) Anion Gap 9 (6-14) Blood Urea Nitrogen 10 mg/dL (8-26) Creatinine 1.1 mg/dL (0.7-1.3) Estimated GFR (Cockcroft-Gault) 90.2 BUN/Creatinine Ratio 9 (6-20) Glucose Level 100 mg/dL (70-99) Calcium Level 8.5 mg/dL (8.5-10.1) Total Bilirubin 3.9 mg/dL (0.2-1.0) Aspartate Amino Transf (AST/SGOT) 45 U/L (15-37) Alanine Aminotransferase (ALT/SGPT) 24 U/L (16-63) Alkaline Phosphatase 93 U/L (46-116) Total Protein 6.8 g/dL (6.4-8.2) Albumin 4.0 g/dL (3.4-5.0) Albumin/Globulin Ratio 1.4 (1.0-1.7) Laboratory Tests Test 08/07/20 01:30 White Blood Count 14.4 x10^3/uL (4.0-11.0) Red Blood Count 2.55 x10^6/uL (4.30-5.70) Hemoglobin 9.0 g/dL (13.0-17.5) Hematocrit 24.3 % (39.0-53.0) Mean Corpuscular Volume 95 fL (79-100) Mean Corpuscular Hemoglobin 35 pg (25-35) Mean Corpuscular Hemoglobin Concent 37 g/dL (31-37) Red Cell Distribution Width 24.8 % (11.5-14.5) Platelet Count 241 x10^3/uL (140-400) Neutrophils (%) (Auto) 55 % (31-73) Lymphocytes (%) (Auto) 27 % (24-48) Monocytes (%) (Auto) 16 % (0-9) Eosinophils (%) (Auto) 2 % (0-3) Basophils (%) (Auto) 1 % (0-3) Neutrophils # (Auto) 8.0 x10^3/uL (1.8-7.7) Lymphocytes # (Auto) 3.8 x10^3/uL (1.0-4.8) Monocytes # (Auto) 2.2 x10^3/uL (0.0-1.1) Eosinophils # (Auto) 0.3 x10^3/uL (0.0-0.7) Basophils # (Auto) 0.1 x10^3/uL (0.0-0.2) Segmented Neutrophils % 57 % (35-66) Band Neutrophils % 1 % (0-9) Lymphocytes % 28 % (24-48) Monocytes % 12 % (0-10) Eosinophils % 2 % (0-5) Nucleated Red Blood Cells 2 Platelet Estimate Adequate (ADEQUATE) Polychromasia Slight Hypochromasia Slight Poikilocytosis Mod Anisocytosis Mod Spherocytes Occ Sickle Cells Mod Ovalocytes Few Helmet Cells Occ Absolute Reticulocyte Count 0.305 x10^6/uL (0.020-0.120) Percent Reticulocyte Count 12.0 % (0.5-2.3) Immature Reticulocyte Fraction 0.70 (0.20-0.60) Sodium Level 140 mmol/L (136-145) Potassium Level 4.6 mmol/L (3.5-5.1) Chloride Level 107 mmol/L (98-107) Carbon Dioxide Level 24 mmol/L (21-32) Anion Gap 9 (6-14) Blood Urea Nitrogen 10 mg/dL (8-26) Creatinine 1.1 mg/dL (0.7-1.3) Estimated GFR (Cockcroft-Gault) 90.2 BUN/Creatinine Ratio 9 (6-20) Glucose Level 100 mg/dL (70-99) Calcium Level 8.5 mg/dL (8.5-10.1) Total Bilirubin 3.9 mg/dL (0.2-1.0) Aspartate Amino Transf (AST/SGOT) 45 U/L (15-37) Alanine Aminotransferase (ALT/SGPT) 24 U/L (16-63) Alkaline Phosphatase 93 U/L (46-116) Total Protein 6.8 g/dL (6.4-8.2) Albumin 4.0 g/dL (3.4-5.0) Albumin/Globulin Ratio 1.4 (1.0-1.7) Images: Images No recent images to review Assessment/Plan Assessment/Plan Acute on chronic sickle cell pain 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 EPCS was checked and patient had 30-day supply of oxycodone prescribed by Dr. Mercado on July 25, 2020. Instructed patient to follow-up with PCP for chronic pain control. All labs were stable. 1 L IV fluid bolus was ordered but the patient refused for any more treatment and refused to sign any discharge paperwork. Despite all this, patient still left. Justifications for Admission Other Justification Acute sickle cell pain FABIEN LOYA MD Aug 07, 2020 08:31
--- NOTE | 2020-08-07 09:45 | NUR ---
Pt was informed of his discharge, is upset about being discharged . Pt refused to let me do his head to toe assessment. No assessment documented for 0800 on 08/07
[2020-08-07] MEDS ORDERED: HEPARIN PF 500 UNIT/5 ML DISP.SYRIN. IVP ONE (10:30)
--- NOTE | 2020-08-07 10:52 | NUR ---
Pt was given discharge instructions, new prescriptions and teaching given. Pt refused to sign discharge paperwork. Port line was removed per protocol. Pt left at 1015, ambulated. All belongings left at the time of discharge
--- NOTE | 2020-08-13 14:53 | PDOC3 ---
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 Patient states this pain is consistent with his normal sickle cell pain. He states he is not in crisis but would like something for pain. He states he tried taking oxycodone and it is not working for him anymore. He states he normally gets Dilaudid 2 mg, Benadryl 25 mg, Zofran 4 mg the medicine should be 20 minutes apart. By day of discharge, pt was clinically stable and ready for discharge. Rest of hospital course was uneventful Disposition: Disposition/Orders: D/C to Home Activity: Activity: Resume previous activity Diet: Diet: Cardiac Medications: Home Meds Active Scripts Hydromorphone Hcl (DILAUDID) 4 Mg Tablet, 1 TAB PO Q6HRS PRN for pain MDD 4 Tablet(s) for 3 Days, #12 TAB 0 Refills Prov:FABIEN LOYA MD 08/07/20 Oxycodone Hcl (OXYCODONE HCL IMMED.RELEASE) 10 Mg Tablet, 1 TAB PO PRN Q6HRS PRN for PAIN for 7 Days, #28 TAB Prov:FABIEN LOYA MD 08/07/20 Hydroxyurea (HYDROXYUREA) 500 Mg Capsule, 500 MG PO DAILY for SS disease for 30 Days, #30 CAP Prov:LASHA CORBIN MD 03/30/19 Diphenhydramine Hcl (DIPHENHYDRAMINE HCL) 25 Mg Capsule, 25 MG PO PRN Q6HRS PRN for ITCHING, #30 CAP Prov:CANDIDO MITCHELL MD 01/26/19 [Folic Acid] 1 MG TABLET No Conflict Check, 1 MG PO DAILY for sickel cell, #60 Prov:CANDIDO MITCHELL MD 01/26/19 Multivits,Ca,Minerals/Iron/Fa (THERA-M TABLET) 1 Each Tablet, 1 TAB PO DAILY for mvi, #60 TAB Prov:CANDIDO MITCHELL MD 11/15/18 Reported Medications Polyethylene Glycol 3350 (POLYETHYLENE GLYCOL 3350) 17 Gm Powd.pack, 1 PACKET PO DAILY for constipation for 30 Days, #30 PACKET 07/08/20 Acetaminophen (ACETAMINOPHEN) 325 Mg Tablet, 2 TAB PO PRN Q4-6HRS PRN for pain or fever for 24 Days, #100 TAB 0 Refills 03/09/19 Scheduled Hydroxyurea (Hydroxyurea), 500 MG PO DAILY Multivits,Ca,Minerals/Iron/Fa (Thera-M Tablet), 1 TAB PO DAILY Polyethylene Glycol 3350 (Polyethylene Glycol 3350), 1 PACKET PO DAILY, (Reported) [Folic Acid], 1 MG PO DAILY Scheduled PRN Acetaminophen (Acetaminophen), 2 TAB PO PRN Q4-6HRS PRN for pain or fever, (Reported) Diphenhydramine Hcl (Diphenhydramine Hcl), 25 MG PO PRN Q6HRS PRN for ITCHING Hydromorphone Hcl (Dilaudid), 1 TAB PO Q6HRS PRN for pain Oxycodone Hcl (Oxycodone Hcl Immed.release), 1 TAB PO PRN Q6HRS PRN for PAIN Total Time: Total Time: Total time spent was 32 minutes in preparing scripts, discharge planning with SW and RN, and preparing this discharge summary. Patient seen and examined on day of discharge. Justicifation of Admission Dx: Justifications for Admission: Justification of Admission Dx: Yes FABIEN LOYA MD Aug 13, 2020 14:53
== END 2020-08-07 08:28 | disposition home or self-care (01) | DRG 812 ==
LOC: ER 22:02 → 4 NORTH 08-07 00:16 → UNDOADMIN 08-07 00:35 → ED HOLD 08-07 00:35
PROVIDERS: ADMIT Internal Medicine; ATTEND Internal Medicine
PROC: 5A0935A Assistance with Respiratory Ventilation, Less than 24 Consecutive Hours, High Flow/Velocity Cannula (ICD-10-PCS; principal; 2020-08-07)
DX: D57.1 Sickle-cell disease without crisis (principal); M19.90 Unspecified osteoarthritis, unspecified site; F17.210 Nicotine dependence, cigarettes, uncomplicated; D63.8 Anemia in other chronic diseases classified elsewhere; E80.6 Other disorders of bilirubin metabolism; Z88.0 Allergy status to penicillin; Z88.2 Allergy status to sulfonamides
CPT/HCPCS: 36415; 80053; 85007; 85025; 85045; 96374; 96375; 96376; J1170; J1200; J2405; J7030; 99285-25; G0378

== ENCOUNTER 2020-08-14 20:01 | Emergency (ER) | payer SELFPAY ==
[~2020-08-14] VITALS: Ht 175.3 cm; Wt 77.2 kg
[~2020-08-14 20:01] MED LIST changes: +HYDR4TAB45 PO
[2020-08-14] MEDS ORDERED: IV NORMAL SALINE 1000ML BAG 1,000 ML IV ONE (20:45)
[2020-08-14 21:22] LABS: BASO # 0.1 x10^3/uL (0.0-0.2); BASO % 1 % (0-3); EOS # 0.1 x10^3/uL (0.0-0.7); EOS % 1 % (0-3); HEMATOCRIT 25.3 % (39.0-53.0); HEMOGLOBIN 8.9 g/dL (13.0-17.5); LYMPH % 26 % (24-48); MEAN CORPUSCULAR HEMOGLOBIN 34 pg (25-35); MEAN CORPUSCULAR HGB CONC 35 g/dL (31-37); MEAN CORPUSCULAR VOLUME 97 fL (79-100); MONO # 1.8 x10^3/uL (0.0-1.1); MONO % 16 % (0-9); NEUT # 6.5 x10^3/uL (1.8-7.7); NEUT % 56 % (31-73); PLATELET COUNT 234 x10^3/uL (140-400); RED BLOOD COUNT 2.61 x10^6/uL (4.30-5.70); RED CELL DISTRIBUTION WIDTH 23.7 % (11.5-14.5); WHITE BLOOD COUNT 11.6 x10^3/uL (4.0-11.0)
[2020-08-14 21:26] VITALS: BP 95/53
[2020-08-14] MEDS ORDERED: HEPARIN PF 500 UNIT/5 ML DISP.SYRIN. IVP ONE ×2 (21:29→22:00)
[2020-08-14] MEDS ORDERED: MORPHINE SULFATE 10 MG/ML VIAL. IV ONE (21:30)
[2020-08-14 21:31] LABS: CREATININE 1.2 mg/dL (0.7-1.3); GFR 81.6; POTASSIUM 3.5 mmol/L (3.5-5.1)
--- NOTE | 2020-08-14 22:15 | ED.ADGEN ---
Past Medical History Past Medical History: Arthritis, Sickle Cell Disease Past Surgical History: Other Additional Past Surgical Histo: L. SHOULDER AND BILATERAL HIP Smoking Status: Never Smoker Alcohol Use: None Drug Use: None General Adult EDM: Chief Complaint: BACK PAIN OR INJURY HPI: HPI: Patient is a 39-year-old male with past medical history of sickle cell who presents to the emergency room complaining of lower back pain. Patient states this is where his pain typically is. He takes oxycodone 10 mg at home and this has not relieved his pain. He denies any kind of fever, medication changes, dehydration, cough, chest pain, abdominal pain, nausea, vomiting, diarrhea. Patient states that he typically gets Dilaudid 2 mg, IV Benadryl, Zofran for his pain and that is what he would like today. Review of Systems: Review of Systems: Complete ROS is negative unless otherwise documented in HPI Current Medications: Current Medications Medications (Trade) Dose Ordered Sig/Shoshana Start Time Stop Time Status Last Admin Dose Admin Heparin Sodium (Porcine) (Hep Lock Adult) 500 unit 1X ONCE 08/14/20 22:00 08/14/20 21:52 DC Morphine Sulfate (Morphine Sulfate) 5 mg 1X ONCE 08/14/20 21:30 08/14/20 21:31 DC Sodium Chloride 1,000 ml @ 1,000 mls/hr 1X ONCE 08/14/20 20:45 08/14/20 21:44 DC 08/14/20 21:17 1,000 MLS/HR Allergies: Allergies: Allergies Coded Allergies Type Severity Reaction Last Updated Verified Penicillins Allergy Intermediate 04/25/20 Yes Sulfa (Sulfonamide Antibiotics) Allergy Intermediate 11/05/18 Yes Physical Exam: PE: General: Awake, alert, NAD. Well Nourished, well hydrated. Cooperative HEENT: Atraumatic, EOMI, PERRL, airway patent, moist oral mucosa Neck: Supple, trachea midline Respiratory: CTA bilaterally, normal effort, no wheezing/crackles CV: RRR, no murmur, cap refill <2 GI: Soft, nondistended, nontender, no masses MSK: No obvious deformities Skin: Warm, dry, intact Neuro: A&O x3, speech NL, sensory and motor grossly intact, no focal deficits Psych: Normal affect, normal mood, not suicidal or homicidal Current Patient Data: Labs: Laboratory Tests Test 08/14/20 21:10 White Blood Count 11.6 x10^3/uL (4.0-11.0) H Red Blood Count 2.54 x10^6/uL (4.30-5.70) L Hemoglobin 8.9 g/dL (13.0-17.5) L Hematocrit 25.3 % (39.0-53.0) L Mean Corpuscular Volume 97 fL (79-100) Mean Corpuscular Hemoglobin 34 pg (25-35) Mean Corpuscular Hemoglobin Concent 35 g/dL (31-37) Red Cell Distribution Width 23.7 % (11.5-14.5) H Platelet Count 234 x10^3/uL (140-400) Neutrophils (%) (Auto) 56 % (31-73) Lymphocytes (%) (Auto) 26 % (24-48) Monocytes (%) (Auto) 16 % (0-9) H Eosinophils (%) (Auto) 1 % (0-3) Basophils (%) (Auto) 1 % (0-3) Neutrophils # (Auto) 6.5 x10^3/uL (1.8-7.7) Lymphocytes # (Auto) 3.0 x10^3/uL (1.0-4.8) Monocytes # (Auto) 1.8 x10^3/uL (0.0-1.1) H Eosinophils # (Auto) 0.1 x10^3/uL (0.0-0.7) Basophils # (Auto) 0.1 x10^3/uL (0.0-0.2) Absolute Reticulocyte Count 0.298 x10^6/uL (0.020-0.120) Percent Reticulocyte Count 11.7 % (0.5-2.3) H Immature Reticulocyte Fraction 0.68 (0.20-0.60) H Sodium Level 143 mmol/L (136-145) Potassium Level 3.5 mmol/L (3.5-5.1) Chloride Level 108 mmol/L (98-107) H Carbon Dioxide Level 27 mmol/L (21-32) Anion Gap 8 (6-14) Blood Urea Nitrogen 7 mg/dL (8-26) L Creatinine 1.2 mg/dL (0.7-1.3) Estimated GFR (Cockcroft-Gault) 81.6 Glucose Level 113 mg/dL (70-99) H Calcium Level 8.0 mg/dL (8.5-10.1) L Laboratory Tests 08/14/20 21:10 Laboratory Tests 08/14/20 21:10 Vital Signs: Vital Signs Date Time Temp Pulse Resp B/P (MAP) Pulse Ox O2 Delivery O2 Flow Rate FiO2 08/14/20 21:26 83 16 95/53 (67) 94 Room Air 08/14/20 20:23 98.3 98.3 EKG: EKG: [] Heart Score: C/O Chest Pain: N/A Risk Factors: Risk Factors: DM, Current or recent (<one month) smoker, HTN, HLP, family history of CAD, obesity. Risk Scores: Score 0 - 3: 2.5% MACE over next 6 weeks - Discharge Home Score 4 - 6: 20.3% MACE over next 6 weeks - Admit for Clinical Observation Score 7 - 10: 72.7% MACE over next 6 weeks - Early Invasive Strategies Radiology/Procedures: Radiology/Procedures: [] Course & Med Decision Making: Course & Med Decision Making Pertinent Labs and Imaging studies reviewed. (See chart for details) Patient is a 39-year-old male with a past medical history of sickle cell who presents to the Emergency Room complaining of sickle cell pain consistent with a sickle cell crisis. On exam, patient is normal and does not appear to be in distress. Patient is having pain back pain. Patient does not have chest pain and will not need a chest x-ray and EKG. Patient does not have priapism, focal neurologic deficits, fever, hypoxia, hypotension. CBC, retic count, CMP, UA were ordered to evaluate for aplastic crisis and precipitating factors of a crisis including infection, acidosis, dehydration. Patient was given morphine for symptoms upon arrival. Patient became very upset that he could not get IV Dilaudid, IV Benadryl here in the emergency room. I have discussed with the patient that IV Benadryl is not a medication that I typically give for pain and if he has issues with itching we could do oral Benadryl. Also discussed with patient that I typically start with morphine for sickle cell pain. Patient became very upset that we were not giving him the exact medications he asked for at the dosages he wanted and would like to leave AMA. Patient has requested to leave AGAINST MEDICAL ADVICE. I have discussed the benefits of staying for a full work up and the patient would like to leave. I discussed the risks of leaving including but not limited to , permenant end-organ damage, worsening of condition and patient stated understanding. Patient signed out against medical advice. Juany Disclaimer: Juany Disclaimer: This electronic medical record was generated, in whole or in part, using a voice recognition dictation system. Departure Departure Impression: Primary Impression: Left against medical advice Additional Impression: Sickle cell anemia with pain Disposition: 07 LEFT AGAINST MEDICAL ADVICE Condition: STABLE Problem Qualifiers KYRA MOTT MD Aug 14, 2020 22:15
== END 2020-08-14 21:33 | disposition left against medical advice (07) ==
LOC: ER 20:01
DX: D57.00 Hb-SS disease with crisis, unspecified (principal); Z88.0 Allergy status to penicillin; Z88.2 Allergy status to sulfonamides
CPT/HCPCS: 36415; 80048; 85025; 85045; 99283; J7030

== ENCOUNTER 2020-10-20 22:25 | Emergency (ER) | payer OTHER ==
[~2020-10-20] VITALS: Ht 175.3 cm; Wt 77.3 kg
[2020-10-20 23:04] VITALS: BP 117/56
--- NOTE | 2020-10-20 23:12 | PHYS DOC ---
Past Medical History Past Medical History: Arthritis, Sickle Cell Disease Past Surgical History: Other Additional Past Surgical Histo: SHOULDER, HIP Smoking Status: Former Smoker Alcohol Use: None Drug Use: None General Adult EDM: Chief Complaint: BACK PAIN - NO INJURY HPI: HPI: 39-year-old male with a history of sickle cell disease presents to the emergency department complaining of typical sickle cell pain in his back which he states is very similar to his previous exacerbations of sickle cell pain. He follows up with a sickle cell specialist at [facility] and his last appointment was yesterday. He had no medication adjustments at this [facility]. He has been taking oxycodone at home without relief. The patient denies nausea, vomiting, fever, chills, chest pain, shortness of breath, abdominal pain, urinary symptoms, cough, recent trauma, or any other complaints. Review of Systems: Review of Systems: ROS is otherwise negative except for what was mentioned in HPI Heart Score: C/O Chest Pain: No Allergies: Allergies: Allergies Coded Allergies Type Severity Reaction Last Updated Verified Penicillins Allergy Intermediate 04/25/20 Yes Sulfa (Sulfonamide Antibiotics) Allergy Intermediate 11/05/18 Yes Physical Exam: PE: Constitutional: No acute distress, non-toxic appearance. HENT: Atraumatic, bilateral external ears normal, nose normal. Eyes: PERRLA, EOMI, conjunctiva normal, no discharge. Neck: Normal range of motion, supple, no stridor. Cardiovascular: Heart rate regular rhythm. 2+ radial pulses Lungs & Thorax: No respiratory distress, symmetrical expansion. Bilateral breath sounds clear to auscultation Abdomen: Soft, no tenderness Back: No CT or L spinal tenderness Skin: Warm, dry. Extremities: No tenderness, no cyanosis, ROM intact, no edema. Neurologic: Alert and oriented X 3, normal motor function, normal sensory function, no focal deficits noted. Non ataxic gait. GCS 15. Psychologic: Affect normal, judgment normal, mood normal. Current Patient Data: Vital Signs: Vital Signs Date Time Temp Pulse Resp B/P (MAP) Pulse Ox O2 Delivery O2 Flow Rate FiO2 10/20/20 23:04 97.8 58 23 117/56 (76) 93 Room Air 97.8 Course & Med Decision Making: Course & Med Decision Making Patient had a benign exam, consistent with his previous sickle cell crises. Labs were ordered. 5 of morphine IV was ordered through his port. Upon nurse administration of analgesics, the patient became hostile and aggressive demanding Dilaudid for his pain. His clinical presentation does not warrant additional pain medicine besides the morphine that I prescribed him, as his exam was very benign. I explained to him that IV morphine should be sufficient for his sickle cell pain and Dilaudid would not be given tonight, as I did not feel comfortable giving this medicine given his presentation today. I further advised him that he needs to follow-up with his sickle cell physician at [facility] for further pain management and possible administration of Dilaudid, and he would not receive this drug for me tonight. He became further hostile, aggressive and unreasonable, he refused the morphine, refused the lab work, demanded admission. I explained to him that his presentation this time does not warrant further analgesics other than IV morphine. He elected to leave the hospital AGAINST MEDICAL ADVICE. He left the hospital prior to labs. He is exhibited clear malingering and aggressive drug-seeking behavior tonight Departure Departure Impression: Primary Impression: Sickle cell pain crisis Disposition: LEFT AGAINST MEDICAL ADVICE Condition: STABLE Referrals: NO PCP (PCP) Patient Instructions: Sickle Cell Anemia-Brief Additional Instructions: You were seen in the emergency department for your sickle cell pain. Per your history, it was your typical sickle cell pain and were treated with pain control and fluids. You should return to the ED if you develop any chest pain, shortness of breath, fever, cough, or any other new or concerning symptoms. Follow up with the sickle cell clinic as soon as possible to see if you need your regimen altered. CARL GARCIA DO Oct 20, 2020 23:12
[2020-10-20] MEDS ORDERED: IV NORMAL SALINE 1000ML BAG 1,000 ML IV ONE (23:30)
[2020-10-20] MEDS ORDERED: MORPHINE SULFATE 10 MG/ML VIAL. IV ONE (23:30)
[2020-10-21 00:01] LABS: CALCIUM 8.3 mg/dL (8.5-10.1); CREATININE 1.3 mg/dL (0.7-1.3); GFR 74.4
[2020-10-21 00:09] LABS: BASO # 0.1 x10^3/uL (0.0-0.2); BASO % 1 % (0-3); EOS # 0.3 x10^3/uL (0.0-0.7); EOS % 3 % (0-3); HEMATOCRIT 25.8 % (39.0-53.0); HEMOGLOBIN 9.3 g/dL (13.0-17.5); LYMPH # 4.5 x10^3/uL (1.0-4.8); LYMPH % 41 % (24-48); MEAN CORPUSCULAR HEMOGLOBIN 33 pg (25-35); MEAN CORPUSCULAR HGB CONC 36 g/dL (31-37); MEAN CORPUSCULAR VOLUME 91 fL (79-100); MONO # 1.2 x10^3/uL (0.0-1.1); MONO % 11 % (0-9); NEUT # 4.9 x10^3/uL (1.8-7.7); NEUT % 44 % (31-73); PLATELET COUNT 293 x10^3/uL (140-400); RED BLOOD COUNT 2.84 x10^6/uL (4.30-5.70); RED CELL DISTRIBUTION WIDTH 24.9 % (11.5-14.5)
[2020-10-21 04:58] LABS: MICROCYTOSIS SLIGHT; OVALOCYTES OCC; PLT ESTIMATE ADEQUATE (ADEQUATE); POIKILOCYTOSIS MOD; POLYCHROMASIA MOD; SICKLE CELLS FEW; TARGET CELLS OCC
== END 2020-10-20 23:53 | disposition left against medical advice (07) ==
LOC: ER 22:25
DX: D57.00 Hb-SS disease with crisis, unspecified (principal); Z87.891 Personal history of nicotine dependence; Z88.0 Allergy status to penicillin; Z88.2 Allergy status to sulfonamides
CPT/HCPCS: 36415; 80048; 85025; 99283; J7030